=== PATIENT | female | born 1980 | race Caucasian/White ===

== ENCOUNTER 2018-01-04 04:43 | Emergency (ER) | payer SELFPAY ==
[2018-01-04 05:45] LABS: Barbiturates NEGATIVE (NEGATIVE); Benzodiazepines NEGATIVE (NEGATIVE); Cocaine NEGATIVE (NEGATIVE); METHAMPHETAM NEGATIVE (NEGATIVE); Methadone NEGATIVE (NEGATIVE); Opiates POSITIVE (NEGATIVE); Phencyclidine NEGATIVE (NEGATIVE); THC Cannibis POSITIVE (NEGATIVE)
[2018-01-04 05:46] LABS: Urine Blood NEGATIVE (NEG); Urine Glucose NEGATIVE (NEG); Urine Protein NEGATIVE (NEG); Urine Specific Gravity >1.030 (1.005-1.030)
[2018-01-04 05:53] LABS: Absolute Lymphocytes (CBC) 3.1 K/uL (0.7-4.9); Absolute Monocytes 0.9 K/uL (0.1-1.3); Absolute Neutrophil 6.5 K/uL (1.8-8.0); Basophils % 0.8 % (0-1.3); Eosinophils % 2.6 % (0-4.4); Hematocrit 35.2 % (36.0-45.0); Lymphocytes % 28.7 % (15.3-44.8); MCH 32.2 pg (27.0-35.0); MCV 93.5 fL (80-100); MPV 9.2 fL (7.6-11.3); Monocytes % 8.2 % (3.3-12.3); RBC Red Blood Cell Count 3.76 M/uL (3.86-4.86)
[2018-01-04 05:54] LABS: ALT/SGPT 26 U/L (12-78); AST/SGOT 12 U/L (15-37); Albumin 3.5 g/dL (3.4-5.0); Alkaline Phosphatase 70 U/L (45-117); BUN Blood Urea Nitrogen 10 mg/dL (7-18); Bicarbonate 26 mmol/L (21-32); Bilirubin Direct < 0.1 mg/dL (0-0.2); Bilirubin Total 0.1 mg/dL (0.2-1.0); CKMB Creatine Kinase MB < 1.0 ng/mL (0.3-3.6); Creatine Phosphokinase 84 U/L (26-192); Glucose Level 87 mg/dL (74-106); Lipase 158 U/L (73-393); NT PRO-BNP 50 pg/mL (<125); Potassium 4.1 mmol/L (3.5-5.1); Protein, Total 6.6 g/dL (6.4-8.2); Sodium Level 143 mmol/L (136-145); Troponin (Emerg Dept Use Only) < 0.02 ng/mL (0.0-0.045)
[2018-01-04] MEDS ORDERED: CEFTRIAXONE/SWI 1gm 1 GM/10 ML SYR ONE (06:18)
[2018-01-04] MEDS ORDERED: ASPIRIN 81 MG CHEWABLE TABLET ONE (06:18)
[2018-01-04 06:27] LABS: Protime INR 1.01
--- NOTE | 2018-01-04 06:51 | EDPHYS ---
Physician Documentation [facility] Name: Marian Mack Age: 37 yrs Sex: Female : 1980 Arrival Date: 01/04/2018 Time: 04:43 Bed 8 Private MD: ED Physician Mike Montoya HPI: 01/04 05:34 This 37 yrs old Female presents to ER via Ambulatory with complaints of Chest dandre Pain. 05:34 The patient or guardian reports chest pain that is located primarily in the anterior dandre chest wall, bilaterally. The pain does not radiate. 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 - Social history:: Smoking status: Patient uses tobacco products, smokes one pack cigarettes per day. - Ebola Screening: : Patient negative for fever greater than or equal to 101.5 degrees Fahrenheit, and additional compatible Ebola Virus Disease symptoms. ROS: 05:35 Constitutional: Negative for fever, chills, and weight loss, Eyes: Negative for injury, dandre pain, redness, and discharge, ENT: Negative for injury, pain, and discharge, Neck: Negative for injury, pain, and swelling, Abdomen/GI: Negative for abdominal pain, nausea, vomiting, diarrhea, and constipation, Back: Negative for injury and pain, : Negative for injury, bleeding, discharge, and swelling, MS/Extremity: Negative for injury and deformity, Skin: Negative for injury, rash, and discoloration, Neuro: Negative for headache, weakness, numbness, tingling, and seizure, Psych: Negative for depression, anxiety, suicide ideation, homicidal ideation, and hallucinations, Allergy/Immunology: Negative for hives, rash, and allergies, Endocrine: Negative for neck swelling, polydipsia, polyuria, polyphagia, and marked weight changes, Hematologic/Lymphatic: Negative for swollen nodes, abnormal bleeding, and unusual bruising. 05:35 Cardiovascular: Positive for chest pain. 05:35 Respiratory: Positive for cough, with yellow sputum. Exam: 05:35 Constitutional: This is a well developed, well nourished patient who is awake, alert, dandre and in no acute distress. Head/Face: Normocephalic, atraumatic. Eyes: Pupils equal round and reactive to light, extra-ocular motions intact. Lids and lashes normal. Conjunctiva and sclera are non-icteric and not injected. Cornea within normal limits. Periorbital areas with no swelling, redness, or edema. Neck: Trachea midline, no thyromegaly or masses palpated, and no cervical lymphadenopathy. Supple, full range of motion without nuchal rigidity, or vertebral point tenderness. No Meningismus. Chest/axilla: Normal chest wall appearance and motion. Nontender with no deformity. No lesions are appreciated. Abdomen/GI: Soft, non-tender, with normal bowel sounds. No distension or tympany. No guarding or rebound. No evidence of tenderness throughout. Back: No spinal tenderness. No costovertebral tenderness. Full range of motion. Skin: Warm, dry with normal turgor. Normal color with no rashes, no lesions, and no evidence of cellulitis. MS/ Extremity: Pulses equal, no cyanosis. Neurovascular intact. Full, normal range of motion. Neuro: Awake and alert, GCS 15, oriented to person, place, time, and situation. Cranial nerves II-XII grossly intact. Motor strength 5/5 in all extremities. Sensory grossly intact. Cerebellar exam normal. Normal gait. Psych: Awake, alert, with orientation to person, place and time. Behavior, mood, and affect are within normal limits. 05:35 ENT: Posterior pharynx: erythema, that is mild. 05:35 Cardiovascular: Rate: normal, Rhythm: regular, Pulses: no pulse deficits are appreciated, Heart sounds: normal, Edema: is not appreciated, JVD: is not appreciated. 05:35 Musculoskeletal/extremity: ROM: no acute changes, intact in all extremities, full active range of motion, full passive range of motion, Circulation is intact in all extremities. Sensation intact. Compartment Syndrome exam of affected extremity: is normal. DVT Exam: No signs of deep vein thrombosis. no pain, no swelling, no tenderness, negative Homans' sign noted on exam, no appreciated bluish discoloration, no erythema, no increased warmth. Vital Signs: 05:04 BP 108 / 61; Pulse 71; Resp 19 S; Temp 98.0(O); Pulse Ox 97% on R/A; Weight 65.77 kg j (R); Height 5 ft. 9 in. (175.26 cm) (R); Pain 6/10; 06:46 BP 104 / 65; Pulse 56; Resp 19 S; Pulse Ox 99% on R/A; jd3 05:04 Body Mass Index 21.41 (65.77 kg, 175.26 cm) j MDM: 05:26 Patient medically screened. dandre 01/04 05:06 Order name: Basic Metabolic Panel; Complete Time: 06:17 [facility] 01/04 06:33 Interpretation: Normal except: CL 111; GFR 82. cp 01/04 05:06 Order name: CBC with Diff; Complete Time: 06:17 [facility] 01/04 06:34 Interpretation: Normal except: RBC 3.76; HCT 35.2; MCV 93.5; PLT 413; RDW 16.5. cp 01/04 05:06 Order name: Ckmb; Complete Time: 06: [facility] 01/04 05:06 Order name: CPK; Complete Time: 06:17 [facility] 01/04 05:06 Order name: LFT's; Complete Time: 06: [facility] 01/04 06:34 Interpretation: Normal except: AST 12; BILIT 0.1. cp 01/04 05:06 Order name: Magnesium; Complete Time: 06:17 [facility] 01/04 05:06 Order name: NT PRO-BNP; Complete Time: 06: [facility] 01/04 05:06 Order name: PT-INR; Complete Time: 06:33 [facility] 01/04 05:06 Order name: Ptt, Activated; Complete Time: 06:33 [facility] 01/04 05:06 Order name: Troponin (emerg Dept Use Only); Complete Time: 06: [facility] 01/04 05:10 Order name: UDS; Complete Time: 06: [facility] 01/04 06:34 Interpretation: Normal except: THC POSITIVE; OPI POSITIVE. cp 01/04 05:19 Order name: Urine Dipstick--Ancillary (enter results); Complete Time: 06:17 tx 01/04 05:19 Order name: Urine --Ancillary (enter results); Complete Time: 06:17 mt 01/04 05:27 Order name: Lipase dandre 01/04 05:06 Order name: Urine Test (obtain specimen); Complete Time: 05:20 d3 01/04 05:06 Order name: XRAY Chest (1 view) [facility] 01/04 05:06 Order name: EKG; Complete Time: 05:07 d3 01/04 05:06 Order name: Cardiac monitoring; Complete Time: 05:20 jd3 01/04 05:06 Order name: EKG - Nurse/Tech; Complete Time: 05:06 d3 01/04 05:06 Order name: IV Saline Lock; Complete Time: 05:22 jd3 01/04 05:06 Order name: Labs collected and sent; Complete Time: 05:22 [facility] 01/04 05:06 Order name: O2 Per Protocol; Complete Time: 05:07 jd3 01/04 05:06 Order name: O2 Sat Monitoring; Complete Time: 05:07 [facility] 01/04 05:06 Order name: Urine Dipstick-Ancillary (obtain specimen); Complete Time: 05:20 [facility] 01/04 05:29 Order name: Lipase; Complete Time: 06:17 EDMS 01/04 05:40 Order name: D-Dimer; Complete Time: 06:33 EDMS 01/04 06:33 Interpretation: Within normal limits: D-DIMER < 215. cp Administered Medications: 06:18 Drug: Aspirin 81 mg Route: PO; lp1 06:27 Follow up: Response: No adverse reaction ak1 06:18 Drug: Rocephin - (cefTRIAXone) 1 grams Route: IVPB; Infused Over: 30 mins; Site: left lp1 hand; 07:08 Follow up: Response: No adverse reaction; IV Status: Completed infusion jd3 Disposition: 01/04/18 06:50 Discharged to Home. Impression: Chest pain, unspecified, Bronchitis, not specified as acute or chronic, Tobacco abuse counseling, Tobacco use. - Condition is Stable. - Discharge Instructions: Acute Bronchitis, Adult, Nonspecific Chest Pain, Upper Respiratory Infection, Adult, Nonspecific Chest Pain, Gubf-yx-Ditm, Upper Respiratory Infection, Adult, Vcyw-yj-Mrdg, Aspirin and Your Heart. - Prescriptions for Cheratussin AC 10- 100 mg/5 mL Oral liquid - take 10 milliliter by ORAL route every 4 hours; 150 milliliter. Pepcid 20 mg Oral Tablet - take 1 tablet by ORAL route every 12 hours for 10 days; 20 tablet. Zithromax Z- Charbel 250 mg Oral Tablet - take 1 tablet by ORAL route as directed for 5 days Day 1 - take two (2) tablets one time. Day 2, 3, 4 , 5 take one (1) tablet once daily.; 6 tablet. - Medication Reconciliation Form, Thank You Letter, Antibiotic Education, Prescription Opioid Use form. - Follow up: Private Physician; When: 2 - 3 days; Reason: Recheck today's complaints, Continuance of care, Re-evaluation by your physician. - Problem is new. - Symptoms have improved. Signatures: Dispatcher [employer] EDMS Mike Montoya MD MD cha Pena, Laura RN RN lp1 Mike Monson PA PA cp Davies, Jonathon, RN RN jd3 La, Lina MERINO ak1 Corrections: (The following items were deleted from the chart) 05:04 05:03 PMHx: Diverticulitis; jd3 jd3 05:28 05:27 Lipase ordered. EDMN EDMS 05:39 05:36 D-DIMER+COAG.LAB.BRZ ordered. EDMN EDMS 07:10 06:50 01/04/2018 06:50 Discharged to Home. Impression: Chest pain, unspecified; jd3 Bronchitis, not specified as acute or chronic; Tobacco abuse counseling; Tobacco use. Condition is Stable. Discharge Instructions: Acute Bronchitis, Adult, Nonspecific Chest Pain, Upper Respiratory Infection, Adult, Nonspecific Chest Pain, Jvjm-jy-Qfjv, Upper Respiratory Infection, Adult, Ewuj-mg-Eykb, Aspirin and Your Heart. Prescriptions for Cheratussin AC 10-100 mg/5 mL Oral liquid - take 10 milliliter by ORAL route every 4 hours; 150 milliliter, Pepcid 20 mg Oral Tablet - take 1 tablet by ORAL route every 12 hours for 10 days; 20 tablet, Zithromax Z-Charbel 250 mg Oral Tablet - take 1 tablet by ORAL route as directed for 5 days Day 1 - take two (2) tablets one time. Day 2, 3, 4 , 5 take one (1) tablet once daily.; 6 tablet. and Forms are Medication Reconciliation Form, Thank You Letter, Antibiotic Education, Prescription Opioid Use. Follow up: Private Physician; When: 2 - 3 days; Reason: Recheck today's complaints, Continuance of care, Re-evaluation by your physician. Problem is new. Symptoms have improved. cp
--- NOTE | 2018-01-04 06:51 | ER ---
Nurse's Notes [facility] Name: Marian Mack Age: 37 yrs Sex: Female : 1980 Arrival Date: 01/04/2018 Time: 04:43 Bed 8 Private MD: Diagnosis: Chest pain, unspecified;Bronchitis, not specified as acute or chronic;Tobacco abuse counseling;Tobacco use Presentation: 01/04 04:57 Presenting complaint: Patient states: "I am having chest started 0200 and my lips are jd3 numb. I also have this thing under my chin that seems to be swelling, my doctor said it was benign, but I don't know.". Transition of care: patient was not received from another setting of care. Onset of symptoms was January 04, 2018. Risk Assessment: Do you want to hurt yourself or someone else? Patient reports no desire to harm self or others. Initial Sepsis Screen: Does the patient meet any 2 criteria? No. Patient's initial sepsis screen is negative. Does the patient have a suspected source of infection? No. Patient's initial sepsis screen is negative. Care prior to arrival: None. 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 - Social history:: Smoking status: Patient uses tobacco products, smokes one pack cigarettes per day. - Ebola Screening: : Patient negative for fever greater than or equal to 101.5 degrees Fahrenheit, and additional compatible Ebola Virus Disease symptoms. Screenin:09 Abuse screen: Denies threats or abuse. Nutritional screening: No deficits noted. jd3 Tuberculosis screening: No symptoms or risk factors identified. Fall Risk Ambulatory Aid- None/Bed Rest/Nurse Assist (0 pts). Gait- Normal/Bed Rest/Wheelchair (0 pts) Mental Status- Oriented to own ability (0 pts). Total Sky Fall Scale indicates No Risk (0-24 pts). Assessment: 05:07 General: Appears uncomfortable, Behavior is calm, cooperative, appropriate for age. jd3 Pain: Complains of pain in chest Pain does not radiate. Pain currently is 6 out of 10 on a pain scale. Quality of pain is described as sharp, Pain began suddenly, 3 hours ago. Is continuous, Also complains of nausea. Neuro: Level of Consciousness is awake, alert, obeys commands, Oriented to person, place, time, situation. Cardiovascular: Heart tones S1 S2 present Capillary refill < 3 seconds Patient's skin is warm and dry. Rhythm is regular. Respiratory: Airway is patent Respiratory effort is even, unlabored, Respiratory pattern is regular, symmetrical, Breath sounds are clear bilaterally. GI: Abdomen is round non-distended, Bowel sounds present X 4 quads. Abd is soft and non tender X 4 quads. Reports nausea. : No signs and/or symptoms were reported regarding the genitourinary system. EENT: No signs and/or symptoms were reported regarding the EENT system. Derm: Skin is intact, Skin is dry, Skin is normal, Skin temperature is warm. Musculoskeletal: Circulation, motion, and sensation intact. Range of motion: intact in all extremities. 06:47 Reassessment: Patient appears in no apparent distress at this time. No changes from jd3 previously documented assessment. Patient and/or family updated on plan of care and expected duration. Pain level reassessed. Patient is alert, oriented x 3, equal unlabored respirations, skin warm/dry/pink. 07:09 Reassessment: Patient appears in no apparent distress at this time. No changes from jd3 previously documented assessment. Patient and/or family updated on plan of care and expected duration. Pain level reassessed. Patient is alert, oriented x 3, equal unlabored respirations, skin warm/dry/pink. Vital Signs: 05:04 BP 108 / 61; Pulse 71; Resp 19 S; Temp 98.0(O); Pulse Ox 97% on R/A; Weight 65.77 kg jd3 (R); Height 5 ft. 9 in. (175.26 cm) (R); Pain 6/10; 06:46 BP 104 / 65; Pulse 56; Resp 19 S; Pulse Ox 99% on R/A; jd3 05:04 Body Mass Index 21.41 (65.77 kg, 175.26 cm) jd3 ED Course: 04:43 Patient arrived in ED. mariana 04:57 William Reyes, RN is Primary Nurse. jd3 04:59 Triage completed. jd3 05:05 Arm band placed on. EKG completed in triage. Results shown to MD. jd3 05:09 Patient has correct armband on for positive identification. Placed in gown. Bed in low jd3 position. Call light in reach. Side rails up X 1. panel monitor on. Pulse ox on. NIBP on. 05:10 Patient maintains SpO2 saturation greater than 95% on room air. jd3 05:20 Inserted saline lock: 20 gauge in left hand, using aseptic technique. Blood collected. 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 05:21 Mike Montoya MD is Attending Physician. dandre 05:25 X-ray completed. Portable x-ray completed in exam room. Patient tolerated procedure kw well. 07:06 No provider procedures requiring assistance completed. ak1 07:07 No provider procedures requiring assistance completed. IV discontinued, intact, jd3 bleeding controlled, No redness/swelling at site. Pressure dressing applied. 07:17 XRAY Chest (1 view) In Process Unspecified. EDMS Administered Medications: 06:18 Drug: Aspirin 81 mg Route: PO; lp1 06:27 Follow up: Response: No adverse reaction ak1 06:18 Drug: Rocephin - (cefTRIAXone) 1 grams Route: IVPB; Infused Over: 30 mins; Site: left lp1 hand; 07:08 Follow up: Response: No adverse reaction; IV Status: Completed infusion jd3 Outcome: 06:50 Discharge ordered by . reba 07:07 Discharged to home ambulatory. jd3 07:07 Condition: stable 07:07 Discharge instructions given to patient, Instructed on discharge instructions, follow up and referral plans. medication usage, Demonstrated understanding of instructions, follow-up care, medications, Prescriptions given X 3. 07:10 Patient left the ED. jd3 Signatures: Dispatcher [employer] EDMS Mike Montoya MD MD cha Salyer, Edna es Whitley, Kimberlee kw Pena, Laura, WILBER RN lp1 Lina Tovar RN RN ak1 Mike Monson, PA William Phillips cp, RN RN jd3 Corrections: (The following items were deleted from the chart) 05:04 05:03 PMHx: Diverticulitis; jd3 jd3 07:11 07:07 Discharge instructions given to patient, Instructed on discharge instructions, jd3 follow up and referral plans. Demonstrated understanding of instructions, follow-up care, jd3
[2018-01-04 07:30] VITALS: TEMP 98
[2018-01-04 07:31] VITALS: BP 104/65; O2SAT 99
--- NOTE | 2018-01-04 07:44 | RAD REPORT ---
EXAM DESCRIPTION: Jonatan Single View01/04/2018 7:17 am CLINICAL HISTORY: Chest pain COMPARISON: none FINDINGS: The lungs appear clear of acute infiltrate. The heart is normal size IMPRESSION: No acute abnormalities displayed
--- NOTE | 2018-01-04 11:05 | EKG ---
Test Date: 2018-01-04 Test Time: 04:58:49 Document Preparation Specialist: BUSHRA MEASUREMENT RESULTS: Intervals: Rate: 66 HI: 132 QRSD: 102 QT: 412 QTc: 431 [place]: P: 31 HI: 132 QRS: 67 T: 15 INTERPRETIVE STATEMENTS: Normal sinus rhythm Incomplete right bundle branch block Borderline ECG Compared to ECG 07/05/2017 04:09:58 Incomplete right bundle-branch block now present Electronically Signed On 01-04-18 11:03:35 CDT by Forrest Garcia
== END 2018-01-04 07:10 | disposition home or self-care (01) ==
LOC: ER 04:43
DX: J40 Bronchitis, not specified as acute or chronic (principal); Z72.0 Tobacco use; Z71.6 Tobacco abuse counseling; Z85.41 Personal history of malignant neoplasm of cervix uteri; Z85.038 Personal history of other malignant neoplasm of large intestine
CPT/HCPCS: 36415; 71045; 80048; 80076; 80307; 81003; 81025; 82550; 82553; 83690; 83735; 83880; 84484; 85025; 85379; 85610; 85730; 93005; 96365; 99285; J0696

== ENCOUNTER 2018-04-20 11:50 | Inpatient (IN) | payer SELFPAY ==
[2018-04-20] MEDS ORDERED: NA CHLORIDE 0.9% 2,000 ML ONE (14:15)
[2018-04-20] MEDS ORDERED: FAMOTIDINE 20 MG/2 ML VIAL IV ONE (14:15)
[2018-04-20] MEDS ORDERED: MORPHINE 4 MG/ML SYR ONE (14:15)
[2018-04-20] MEDS ORDERED: ONDANSETRON 4 MG/2 ML VIAL ONE ×2 (14:15→17:26)
[2018-04-20 14:45] LABS: Absolute Lymphocytes (CBC) 2.7 K/uL (0.7-4.9); Absolute Monocytes 0.6 K/uL (0.1-1.3); Absolute Neutrophil 3.6 K/uL (1.8-8.0); Basophils % 1.1 % (0-1.3); Eosinophils % 2.1 % (0-4.4); Lymphocytes % 37.6 % (15.3-44.8); MPV 8.9 fL (7.6-11.3); Monocytes % 8.3 % (3.3-12.3); RBC Red Blood Cell Count 3.99 M/uL (3.86-4.86)
[2018-04-20 14:51] LABS: ALT/SGPT 15 U/L (12-78); AST/SGOT 10 U/L (15-37); Albumin 3.6 g/dL (3.4-5.0); Alkaline Phosphatase 71 U/L (45-117); BUN Blood Urea Nitrogen 11 mg/dL (7-18); Bicarbonate 25 mmol/L (21-32); Bilirubin Direct < 0.1 mg/dL (0-0.2); Bilirubin Total 0.2 mg/dL (0.2-1.0); Glucose Level 74 mg/dL (74-106); Lipase 52 U/L (73-393); Potassium 4.3 mmol/L (3.5-5.1); Protein, Total 6.8 g/dL (6.4-8.2); Sodium Level 141 mmol/L (136-145)
--- NOTE | 2018-04-20 16:41 | EDPHYS ---
Physician Documentation [facility] Name: Marian Mack Age: 38 yrs Sex: Female : 1980 Arrival Date: 04/20/2018 Time: 11:52 Bed 8 Private MD: None, None ED Physician Mike Montoya HPI: 04/20 14:00 This 38 yrs old Female presents to ER via Ambulatory with complaints of dandre Abdominal Pain. 14:00 The patient presents with abdominal pain in the epigastric area, in the upper abdomen, dandre in the right upper quadrant, abdominal distention in the upper abdomen. Onset: The symptoms/episode began/occurred 4 day(s) ago. The symptoms do not radiate. Associated signs and symptoms: none. The symptoms are described as constant, crampy. Modifying factors: The symptoms are alleviated by nothing, the symptoms are aggravated by food. Severity of pain: At its worst the pain was moderate in the emergency department the pain is unchanged. The patient has experienced a previous episode, last month. 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 - Social history:: Smoking status: Patient uses tobacco products, smokes one pack cigarettes per day. Patient uses street drugs, marijuana. - Ebola Screening: : Patient negative for fever greater than or equal to 101.5 degrees Fahrenheit, and additional compatible Ebola Virus Disease symptoms Patient denies exposure to infectious person Patient denies travel to an Ebola-affected area in the 21 days before illness onset No symptoms or risks identified at this time. - Family history:: not pertinent. ROS: 14:00 Constitutional: Negative for fever, chills, and weight loss, Eyes: Negative for injury, dandre pain, redness, and discharge, ENT: Negative for injury, pain, and discharge, Neck: Negative for injury, pain, and swelling, Cardiovascular: Negative for chest pain, palpitations, and edema, Respiratory: Negative for shortness of breath, cough, wheezing, and pleuritic chest pain, Back: Negative for injury and pain, : Negative for injury, bleeding, discharge, and swelling, MS/Extremity: Negative for injury and deformity, Skin: Negative for injury, rash, and discoloration, Neuro: Negative for headache, weakness, numbness, tingling, and seizure, Psych: Negative for depression, anxiety, suicide ideation, homicidal ideation, and hallucinations, Allergy/Immunology: Negative for hives, rash, and allergies, Endocrine: Negative for neck swelling, polydipsia, polyuria, polyphagia, and marked weight changes, Hematologic/Lymphatic: Negative for swollen nodes, abnormal bleeding, and unusual bruising. 14:00 Respiratory: Positive for cough. 14:00 Abdomen/GI: Positive for abdominal pain, nausea and vomiting, abdominal distension. Exam: 14:02 Constitutional: This is a well developed, well nourished patient who is awake, alert, dandre and in no acute distress. Head/Face: Normocephalic, atraumatic. Eyes: Pupils equal round and reactive to light, extra-ocular motions intact. Lids and lashes normal. Conjunctiva and sclera are non-icteric and not injected. Cornea within normal limits. Periorbital areas with no swelling, redness, or edema. ENT: Nares patent. No nasal discharge, no septal abnormalities noted. Tympanic membranes are normal and external auditory canals are clear. Oropharynx with no redness, swelling, or masses, exudates, or evidence of obstruction, uvula midline. Mucous membranes moist. Neck: Trachea midline, no thyromegaly or masses palpated, and no cervical lymphadenopathy. Supple, full range of motion without nuchal rigidity, or vertebral point tenderness. No Meningismus. Chest/axilla: Normal chest wall appearance and motion. Nontender with no deformity. No lesions are appreciated. Cardiovascular: Regular rate and rhythm with a normal S1 and S2. No gallops, murmurs, or rubs. Normal PMI, no JVD. No pulse deficits. Respiratory: Lungs have equal breath sounds bilaterally, clear to auscultation and percussion. No rales, rhonchi or wheezes noted. No increased work of breathing, no retractions or nasal flaring. Back: No spinal tenderness. No costovertebral tenderness. Full range of motion. Skin: Warm, dry with normal turgor. Normal color with no rashes, no lesions, and no evidence of cellulitis. MS/ Extremity: Pulses equal, no cyanosis. Neurovascular intact. Full, normal range of motion. Neuro: Awake and alert, GCS 15, oriented to person, place, time, and situation. Cranial nerves II-XII grossly intact. Motor strength 5/5 in all extremities. Sensory grossly intact. Cerebellar exam normal. Normal gait. Psych: Awake, alert, with orientation to person, place and time. Behavior, mood, and affect are within normal limits. 14:02 Abdomen/GI: Inspection: abdomen appears normal, Palpation: mild abdominal tenderness, in the right upper quadrant. Vital Signs: 12:14 BP 123 / 73; Pulse 96; Resp 20; Temp 99.2; Pulse Ox 99% on R/A; Weight 68.04 kg; Height aj 5 ft. 9 in. (175.26 cm); 13:30 BP 90 / 63; Pulse 67; Resp 19; Pulse Ox 98% ; sv 14:27 BP 100 / 64; Pulse 61; Resp 16; Pulse Ox 99% ; sv 15:30 BP 101 / 69; Pulse 66; Resp 13; Pulse Ox 100% ; sv 16:00 BP 101 / 67; Pulse 59; Resp 13; Pulse Ox 99% ; sv 17:30 BP 105 / 60; Pulse 61; Resp 16; Pulse Ox 100% ; sv 12:14 Body Mass Index 22.15 (68.04 kg, 175.26 cm) aj MDM: 13:33 Patient medically screened. [facility] 14:02 Data reviewed: vital signs, nurses notes. [facility] 04/20 13:53 Order name: Basic Metabolic Panel; Complete Time: 15:02 04/20 13:53 Order name: CBC with Diff; Complete Time: 15:02 04/20 13:53 Order name: Creatinine for Radiology; Complete Time: 15:02 04/20 13:53 Order name: Hepatic Function; Complete Time: 15:02 04/20 13:53 Order name: Lipase; Complete Time: 15:02 sv 04/20 16:49 Order name: Urine Dipstick--Ancillary (enter results) 04/20 13:59 Order name: US Abdomen Limited; Complete Time: 17:17 dandre 04/20 15:04 Order name: CT Abd/Pelvis - W/Contrast [facility] 04/20 16:49 Order name: Urine --Ancillary (enter results) 04/20 16:49 Order name: Urine Culture 04/20 16:58 Order name: Urine --Ancillary; Complete Time: 17:17 EDMO 04/20 16:58 Order name: Urine Dipstick-Ancillary; Complete Time: 17:17 EDMO 04/20 17:10 Order name: CT; Complete Time: 17:17 EDMO 04/20 13:53 Order name: IV Saline Lock; Complete Time: 14:23 sv 04/20 13:53 Order name: Labs collected and sent; Complete Time: 14:23 sv 04/20 16:35 Order name: Urine Dipstick-Ancillary (obtain specimen); Complete Time: 16:37 [facility] 04/20 16:35 Order name: Urine Test (obtain specimen); Complete Time: 16:37 [facility] Administered Medications: 14:10 Drug: NS 0.9% 1000 ml Route: IV; Rate: 1 bolus; Site: left forearm; sv 15:00 Follow up: Response: No adverse reaction; IV Status: Completed infusion; IV Intake: sv 1000ml 14:10 Drug: Zofran 4 mg Route: IVP; Site: left forearm; sv 16:20 Follow up: Response: No adverse reaction sv 14:10 Drug: NS 0.9% 1000 ml Route: IV; Rate: 1 bolus; Site: left forearm; sv 15:00 Follow up: Response: No adverse reaction; IV Status: Completed infusion; IV Intake: sv 1000ml 14:12 Drug: morphine 4 mg Route: IVP; Site: left forearm; sv 16:20 Follow up: Response: No adverse reaction sv 14:14 Drug: Pepcid 20 mg Route: IVP; Site: left forearm; sv 16:20 Follow up: Response: No adverse reaction sv 17:18 Drug: Zofran 4 mg Route: IVP; Site: right forearm; sv 17:30 Follow up: Response: No adverse reaction sv 17:20 Drug: fentaNYL (PF) 25 mcg Route: IVP; Site: right forearm; sv 17:30 Follow up: Response: No adverse reaction sv 17:23 Drug: Zosyn 3.375 grams Route: IVPB; Infused Over: 60 mins; Site: right forearm; sv 18:25 Follow up: Response: No adverse reaction; IV Status: Infusion continued upon admission sv Disposition: 04/20/18 16:40 Hospitalization ordered by Scooter Pantoja for Observation. Preliminary diagnosis are Abdominal tenderness, Urinary tract infection, site not specified, Cholelithiasis, Left sided colitis. - Bed requested for Telemetry/MedSurg (observation). - Status is Observation. sv - Condition is Stable. - Problem is new. - Symptoms have improved. UTI on Admission? Yes Signatures: Dispatcher [employer] EDIvy Connelly RN RN sv Myers, Amanda, RN RN aj Anderson, Corey, MD MD cha Fitzgerald, Diane, RN RN df Corrections: (The following items were deleted from the chart) 16:48 16:40 Hospitalization Ordered by Scooter Pantoja MD for Observation. Preliminary dandre diagnosis is Abdominal tenderness. Bed requested for Telemetry/MedSurg (observation). Status is Observation. Condition is Stable. Problem is new. Symptoms have improved. UTI on Admission? No. dandre 17:17 16:48 04/20/2018 16:40 Hospitalization Ordered by Scooter Pantoja MD for Observation. dandre Preliminary diagnosis is Abdominal tenderness; Urinary tract infection, site not specified. Bed requested for Telemetry/MedSurg (observation). Status is Observation. Condition is Stable. Problem is new. Symptoms have improved. UTI on Admission? Yes. dandre 17:20 17:17 04/20/2018 16:40 Hospitalization Ordered by Scooter Pantoja MD for Observation. df Preliminary diagnosis is Abdominal tenderness; Urinary tract infection, site not specified; Cholelithiasis; Left sided colitis. Bed requested for Telemetry/MedSurg (observation). Status is Observation. Condition is Stable. Problem is new. Symptoms have improved. UTI on Admission? Yes. dandre 18:26 17:20 04/20/2018 16:40 Hospitalization Ordered by Scooter Pantoja MD for Observation. sv Preliminary diagnosis is Abdominal tenderness; Urinary tract infection, site not specified; Cholelithiasis; Left sided colitis. Bed requested for Telemetry/MedSurg (observation). Status is Observation. Condition is Stable. Problem is new. Symptoms have improved. UTI on Admission? Yes. df
--- NOTE | 2018-04-20 16:41 | ER ---
Nurse's Notes [facility] Name: Marian Mack Age: 38 yrs Sex: Female : 1980 Arrival Date: 04/20/2018 Time: 11:52 Bed 8 Private MD: None, None Diagnosis: Abdominal tenderness;Urinary tract infection, site not specified;Cholelithiasis;Left sided colitis Presentation: 04/20 12:11 Presenting complaint: Patient states: RUQ pain with N/V for 3 days. Patient reports she aj was supposed to have gall bladder removed but has not, and this pain feels the same. Patient ambulated with no difficulty outside to smoke. Transition of care: patient was not received from another setting of care. Onset of symptoms was April 16, 2018. Risk Assessment: Do you want to hurt yourself or someone else? Patient reports no desire to harm self or others. Initial Sepsis Screen: Does the patient meet any 2 criteria? No. Patient's initial sepsis screen is negative. Does the patient have a suspected source of infection? No. Patient's initial sepsis screen is negative. Care prior to arrival: None. 12:11 Method Of Arrival: Ambulatory 12:11 Acuity: NOVA 3 aj Triage Assessment: 12:14 General: Appears in no apparent distress. uncomfortable, Behavior is calm, cooperative, aj appropriate for age. Pain: Complains of pain in right upper quadrant. Neuro: Level of Consciousness is awake, alert, obeys commands, Oriented to person, place, time, situation, Appropriate for age. Respiratory: Airway is patent Respiratory effort is even, unlabored, Respiratory pattern is regular, symmetrical. GI: Reports upper abdominal pain, nausea, vomiting. Derm: Skin is intact, is healthy with good turgor, Skin is pink, warm \\T\\ dry. normal. 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 - Social history:: Smoking status: Patient uses tobacco products, smokes one pack cigarettes per day. Patient uses street drugs, marijuana. - Ebola Screening: : Patient negative for fever greater than or equal to 101.5 degrees Fahrenheit, and additional compatible Ebola Virus Disease symptoms Patient denies exposure to infectious person Patient denies travel to an Ebola-affected area in the 21 days before illness onset No symptoms or risks identified at this time. - Family history:: not pertinent. Screenin:10 Abuse screen: Denies threats or abuse. Denies injuries from another. Nutritional sv screening: No deficits noted. Tuberculosis screening: No symptoms or risk factors identified. Fall Risk None identified. Assessment: 14:10 General: Appears in no apparent distress. uncomfortable, Behavior is calm, cooperative, sv appropriate for age. Pain: Complains of pain in right upper quadrant Pain currently is 10 out of 10 on a pain scale. Neuro: Level of Consciousness is awake, alert, obeys commands, Oriented to person, place, time, situation, Moves all extremities. Full function. Respiratory: Respiratory effort is even, unlabored, Respiratory pattern is regular, symmetrical. GI: Abd is soft X 4 quads Abdomen is tender to palpation in right upper quadrant Reports nausea, vomiting. Derm: Skin is normal. 15:37 Reassessment: Pt finished drinking oral contrast, CT notified. hb 16:32 Reassessment: Patient appears in no apparent distress at this time. Patient and/or sv family updated on plan of care and expected duration. Pain level reassessed. Patient is alert, oriented x 3, equal unlabored respirations, skin warm/dry/pink. 17:18 Reassessment: Patient appears in no apparent distress at this time. No changes from sv previously documented assessment. Patient and/or family updated on plan of care and expected duration. Pain level reassessed. Patient is alert, oriented x 3, equal unlabored respirations, skin warm/dry/pink. 18:00 Reassessment: Patient appears in no apparent distress at this time. Patient and/or sv family updated on plan of care and expected duration. Pain level reassessed. Patient is alert, oriented x 3, equal unlabored respirations, skin warm/dry/pink. Vital Signs: 12:14 BP 123 / 73; Pulse 96; Resp 20; Temp 99.2; Pulse Ox 99% on R/A; Weight 68.04 kg; Height aj 5 ft. 9 in. (175.26 cm); 13:30 BP 90 / 63; Pulse 67; Resp 19; Pulse Ox 98% ; sv 14:27 BP 100 / 64; Pulse 61; Resp 16; Pulse Ox 99% ; sv 15:30 BP 101 / 69; Pulse 66; Resp 13; Pulse Ox 100% ; sv 16:00 BP 101 / 67; Pulse 59; Resp 13; Pulse Ox 99% ; sv 17:30 BP 105 / 60; Pulse 61; Resp 16; Pulse Ox 100% ; sv 12:14 Body Mass Index 22.15 (68.04 kg, 175.26 cm) aj ED Course: 11:52 Patient arrived in ED. sb2 11:52 None, None is Private Physician. sb2 12:12 Triage completed. aj 12:14 Arm band placed on left wrist. Patient placed in waiting room, Patient notified of wait aj time. 13:33 Mike Montoya MD is Attending Physician. dandre 13:53 Ivy Cool, WILBER is Primary Nurse. sv 14:10 Patient has correct armband on for positive identification. Placed in gown. Bed in low sv position. Call light in reach. greenhouse manager on. Pulse ox on. NIBP on. Door closed. Warm blanket given. Head of bed elevated. 14:10 Initial lab(s) drawn, by ga, sent to lab. Inserted saline lock: 20 gauge in left sv forearm, using aseptic technique. Blood collected. Flushed left forearm with 5 ml normal saline. 14:25 Noise minimized. Lights dimmed. sv 14:26 Awaiting lab results, Awaiting: Ultrasound. sv 14:43 US Abdomen Limited In Process Unspecified. EDMS 14:56 Ultrasound completed. Patient tolerated well. lc3 16:[address] Scan. sv 16:[address] nj 16:39 Scooter Pantoja MD is Hospitalizing Provider. dandre 16:50 Inserted saline lock: 22 gauge in right forearm, using aseptic technique. ,using sv aseptic technique. diffusics Flushed right forearm with 5 ml normal saline. 16:53 CT completed. Patient moved back from CT. vm2 16:53 Urine --Ancillary (enter results) Sent. sv 16:53 Urine Dipstick--Ancillary (enter results) Sent. sv 17:29 CT Abd/Pelvis - W/Contrast Sent. sv 18:24 No provider procedures requiring assistance completed. Patient admitted, IV remains in sv place. intact. Administered Medications: 14:10 Drug: NS 0.9% 1000 ml Route: IV; Rate: 1 bolus; Site: left forearm; sv 15:00 Follow up: Response: No adverse reaction; IV Status: Completed infusion; IV Intake: sv 1000ml 14:10 Drug: Zofran 4 mg Route: IVP; Site: left forearm; sv 16:20 Follow up: Response: No adverse reaction sv 14:10 Drug: NS 0.9% 1000 ml Route: IV; Rate: 1 bolus; Site: left forearm; sv 15:00 Follow up: Response: No adverse reaction; IV Status: Completed infusion; IV Intake: sv 1000ml 14:12 Drug: morphine 4 mg Route: IVP; Site: left forearm; sv 16:20 Follow up: Response: No adverse reaction sv 14:14 Drug: Pepcid 20 mg Route: IVP; Site: left forearm; sv 16:20 Follow up: Response: No adverse reaction sv 17:18 Drug: Zofran 4 mg Route: IVP; Site: right forearm; sv 17:30 Follow up: Response: No adverse reaction sv 17:20 Drug: fentaNYL (PF) 25 mcg Route: IVP; Site: right forearm; sv 17:30 Follow up: Response: No adverse reaction sv 17:23 Drug: Zosyn 3.375 grams Route: IVPB; Infused Over: 60 mins; Site: right forearm; sv 18:25 Follow up: Response: No adverse reaction; IV Status: Infusion continued upon admission sv Intake: 15:00 IV: 1000ml; Total: 1000ml. sv 15:00 IV: 1000ml; Total: 2000ml. sv Outcome: 16:40 Decision to Hospitalize by Provider. dandre 18:00 Admitted to Med/surg accompanied by tech, family with patient, via wheelchair, room sv 207, with chart, Report called to Adiel MERINO 18:00 Condition: stable 18:00 Instructed on the need for admit. 18:26 Patient left the ED. sv Signatures: Dispatcher [employer] Ivy Chaney RN RN sv Myers, Amanda, RN RN aj Anderson, Corey, MD MD cha Cunningham, Laulita lc3 Baxter, Heather, Tylor Roque RN, Victoria 2 Rashida Molina 2 Corrections: (The following items were deleted from the chart) 18:24 18:00 Admitted to Med/surg accompanied by tech, family with patient, via wheelchair, sv with chart, Report called to Adiel arias
[2018-04-20 16:58] LABS: Urine Blood 2+ (NEG); Urine Glucose NEGATIVE (NEG); Urine Protein NEGATIVE (NEG); Urine Specific Gravity 1.025 (1.005-1.030); Urine pH 5.5 (5.0-7.0)
--- NOTE | 2018-04-20 17:09 | RAD REPORT ---
EXAM DESCRIPTION: CT - Abdomen Pelvis W Contrast - 04/20/2018 4:56 pm CLINICAL HISTORY: Abdominal pain. Right upper quadrant pain and vomiting COMPARISON: 2016 TECHNIQUE: Computed axial tomography of the abdomen and pelvis was obtained. 100 cc Isovue-300 is ad ministered intravenously. Oral contrast was given.[address] scans are performed using dose optimization technique as appropriate and may include automated exposure control or mA/KV adjustment according to patient size. FINDINGS: Left lobe of the liver is prominent. Periportal edema is seen 1Spleen, pancreas, adrenals and kidneys appear unremarkable. The wall of portions of the left colon appear mildly thickened. There is no evidence of diverticulitis Mild gallbladder distention 2 centimeter hemorrhagic left ovarian cyst without significant free fluid IMPRESSION: Mild gallbladder distention Portions of the wall of colon appear mildly thickened. This may simply be secondary to incomplete dis tention. A mild colitis is another consideration
--- NOTE | 2018-04-20 17:10 | RAD REPORT ---
EXAM DESCRIPTION: US - Abdomen Exam Limited - 04/20/2018 2:58 pm CLINICAL HISTORY: Abdominal pain. COMPARISON: 2017 FINDINGS: The gallbladder wall is not thickened. A gallstone is not seen. Gallbladder is mildly dis tended. Small amount of sludge is present The biliary tree is normal caliber. IMPRESSION: Mild gallbladder distention with small amount of sludge
[2018-04-20] MEDS ORDERED: PIPER/TAZO/NS 3.375gm 3.375 GM/100 ML BAG ONE (17:13)
[2018-04-20] MEDS ORDERED: FENTANYL CITR 100 MCG/2 ML ONE (17:26)
[2018-04-20] MEDS: NA CHLORIDE 0.9% 1,000 ML IV SCH ×2 (18:00→19:15)
[2018-04-20] MEDS ORDERED: ACETAMINOPHEN 500 MG TAB PO PRN (18:00)
[2018-04-20] MEDS: PIPER/TAZO/NS 3.375gm 3.375 GM/100 ML BAG IVPB SCH (18:30)
[2018-04-20 19:08] VITALS: BMI 24.5
[2018-04-20] MEDS ORDERED: INFLUENZA VACCINE (for 3y+) 0.5 ML DOSE IMVAC ONE (19:19)
[2018-04-20 19:44] LABS: Urine Appearance CLEAR; Urine Bilirubin NEGATIVE (NEG); Urine Blood 3+ (NEG); Urine Color YELLOW; Urine Glucose NEGATIVE (NEG); Urine Protein NEGATIVE (NEG); Urine Specific Gravity >=1.030 (1.005-1.030); Urine Urobilinogen 0.2 mg/dL (0.2-1.0)
[2018-04-20 19:52] LABS: Urine Microscopic Reflex ORDER UMIC
[2018-04-20 19:59] LABS: Urine Bacteria <20 /HPF (<20); Urine RBC <5 /HPF (NONE SEEN)
[2018-04-20 20:00] LABS: Urine Culture Reflex Order NOT NEEDED
[2018-04-20] MEDS: MORPHINE 4 MG/ML SYR IV PRN (21:41)
[2018-04-20] MEDS: FAMOTIDINE 20 MG/2 ML VIAL IV SCH (21:43)
[2018-04-20] MEDS: ONDANSETRON 4 MG/2 ML VIAL IV PRN (23:22)
[2018-04-21] MEDS: PIPER/TAZO/NS 3.375gm 3.375 GM/100 ML BAG IVPB SCH ×3 (01:01→16:27)
[2018-04-21] MEDS: MORPHINE 4 MG/ML SYR IV PRN ×4 (01:08→20:23)
[2018-04-21] MEDS: ONDANSETRON 4 MG/2 ML VIAL IV PRN ×2 (05:43→22:34)
[2018-04-21 05:48] LABS: Absolute Lymphocytes (CBC) 3.4 K/uL (0.7-4.9); Absolute Monocytes 0.7 K/uL (0.1-1.3); Absolute Neutrophil 3.3 K/uL (1.8-8.0); Basophils % 0.7 % (0-1.3); Hematocrit 35.4 % (36.0-45.0); Lymphocytes % 43.9 % (15.3-44.8); MPV 9.1 fL (7.6-11.3); Monocytes % 9.1 % (3.3-12.3); RBC Red Blood Cell Count 3.66 M/uL (3.86-4.86)
[2018-04-21] MEDS: NA CHLORIDE 0.9% 1,000 ML IV SCH ×4 (05:48→20:22)
[2018-04-21 06:03] LABS: ALT/SGPT 22 U/L (12-78); AST/SGOT 9 U/L (15-37); Albumin 3.4 g/dL (3.4-5.0); Alkaline Phosphatase 66 U/L (45-117); BUN Blood Urea Nitrogen 8 mg/dL (7-18); Bicarbonate 24 mmol/L (21-32); Bilirubin Direct < 0.1 mg/dL (0-0.2); Bilirubin Total 0.1 mg/dL (0.2-1.0); Glucose Level 78 mg/dL (74-106); Lipase 85 U/L (73-393); Sodium Level 143 mmol/L (136-145)
[2018-04-21] MEDS ORDERED: PNEUMOCOCCAL VACCINE 0.5 ML IMVAC ONE (09:00)
[2018-04-21] MEDS: FAMOTIDINE 20 MG/2 ML VIAL IV SCH ×2 (09:05→20:23)
[2018-04-21] MEDS ORDERED: PROPOFOL 200 MG/20 ML VIAL IV ONE (10:36)
[2018-04-21] MEDS ORDERED: FENTANYL CITR 100 MCG/2 ML ONE ×2 (10:36→11:25)
[2018-04-21] MEDS ORDERED: LIDOCAINE 2% MPF 5 ML VIAL ONE (10:36)
[2018-04-21] MEDS ORDERED: ROCURONIUM 50 MG/5 ML VIAL IV ONE (10:37)
[2018-04-21] MEDS ORDERED: KETOROLAC 30 MG/ML INJ ONE (11:11)
[2018-04-21] MEDS ORDERED: DEXAMETHASONE 10 MG/ML VIAL ONE (11:11)
[2018-04-21] MEDS ORDERED: ONDANSETRON 4 MG/2 ML VIAL ONE (11:12)
--- NOTE | 2018-04-21 12:41 | P.OP ---
Preoperative diagnosis: Chronic cholecystitis and biliary colic Postoperative diagnosis: The same Primary procedure: Laparoscopic DeBakey converted to an open cholecystectomy Anesthesia: The general Estimated blood loss: Less than 20 cc Specimen: 1 gallbladder Findings: Marked intra-abdominal adhesions around the umbilicus Operative Technique: The patient brought to the operating room placed supine on the table. After the induction of adequate general endotracheal anesthesia, the area of the abdomen was prepped with a DuraPrep solution, and she was draped in usual aseptic manner. The turning attention towards the umbilicus we stayed off of this maneuver prior surgery a skin incision was made. This was brought down to the anterior sheath of the rectus muscles in encounter in the posterior sheath we down to the peritoneal cavity. We created a small pneumo peritoneum in the area that we had entered but there were dense adhesions around this area and we could not safely proceed. A few areas that we were able to see that we were under just omentum below the lightest did include we could not do this laparoscopically. Hence we converted to an open procedure. A right subcostal scissor was made. This brought down through the skin and subcutaneous tissue. The fascia over the rectus muscle was opened. The muscles then divided. The posterior sheath was grasped between hemostats and sharply incised to allow access to the peritoneal cavity. I then this upper portion of the abdomen and the area was without adhesions. We were able to visualize a markedly distended gallbladder. A grasper was placed on the fundus. The gallbladder was now taken down in retrograde manner. The cystic duct and artery were each identified. These were clipped and divided in the usual manner. The area was then irrigated with a saline solution until the effluent was clear. Adequate hemostasis was ensured using electro cautery again. At this point the posterior sheath was closed a running suture of Maxon. The anterior sheath was dealt with in a similar fashion. The subcutaneous tissue was inspected for adequate he was this and then the skin was closed with jair. At the end of the procedure she was stable when sent to the recovery room. Inch instrument count were correct. No drains were placed. Complications: None Transferred to: Recovery Room Condition: Good
--- NOTE | 2018-04-21 12:44 | P.HP ---
Date of Service: 04/21/18 PC: This 38-year-old female presents emergency room with severe right upper quadrant abdominal pain for diagnosis and treatment. HPC: Patient has been having pain for the last few months. Has rocked unrolled with it and now comes in with a severe episode. Radiates into her back. On workup was found have chronic cholecystitis. PMH: Negative PSHx: Previous surgery for small-bowel obstruction necessitating an exploratory laparotomy. SOC: No known drug allergies SYS REVIEW: States she has been in good health. Has lost about 50 lb over the last few months. O/E awake alert uncomfortable HEENT: Within normal limit Chest: Chest movement equal bilaterally ABD: Tender in the right upper quadrant LOCO: Intact DATA: As documented cholecystitis IMPRESSION: Cholecystitis PLAN: I will take her the operating room for a laparoscopic but most likely open procedure. The risks of this has been discussed with her. We had worked together in the past and she understands. The possibility injury to bile ducts blood vessels intestines were explained. The possible need for further surgeries and procedures was outlined. She understands and wants to proceed.
[2018-04-21] MEDS: FENTANYL CITR 100 MCG/2 ML ONE ×4 (12:58→13:23)
[2018-04-21] MEDS ORDERED: ONDANSETRON HCL 40 MG/20 ML VIAL ONE (13:05)
[2018-04-21] MEDS ORDERED: PROMETHAZINE 25 MG/ML VIAL ONE (13:09)
[2018-04-21] MEDS ORDERED: Ringers Lactate 1,000 ML IV ONE (13:11)
[2018-04-21] MEDS: MEPERIDINE HCL 50 MG/ML AMP ONE ×2 (13:36→13:44)
[2018-04-21] MEDS ORDERED: DIAZEPAM 5 MG TABLET PO ONE (16:05)
[2018-04-21] MEDS: PROMETHAZINE 25 MG/ML VIAL IV PRN (18:48)
[2018-04-22] MEDS: MORPHINE 4 MG/ML SYR IV PRN ×6 (00:19→18:53)
[2018-04-22] MEDS: PIPER/TAZO/NS 3.375gm 3.375 GM/100 ML BAG IVPB SCH ×3 (00:19→16:27)
[2018-04-22] MEDS: PROMETHAZINE 25 MG/ML VIAL IV PRN ×3 (03:45→21:41)
[2018-04-22] MEDS: NA CHLORIDE 0.9% 1,000 ML IV SCH ×3 (04:42→21:10)
[2018-04-22] MEDS: HYDROCODONE/APAP 7.5/325 MG TAB PO PRN ×3 (09:29→21:11)
[2018-04-22] MEDS: FAMOTIDINE 20 MG/2 ML VIAL IV SCH ×2 (09:30→21:11)
--- NOTE | 2018-04-22 12:21 | P.PN ---
Date of Service: 04/22/18 S: Patient states he feels a little bit better today. Still very sore. Has asked to have her pain medicine reduced. O: Vital signs are stable A: Stable status post open cholecystectomy P: Continue current therapy, I will reduce her IV narcotics and try to convert her to oral medication. Her biggest problem at the moment is the nausea. Anticipate discharge in the morning.
[2018-04-22] MEDS: ONDANSETRON 4 MG/2 ML VIAL IV PRN (19:00)
[2018-04-22 23:26] VITALS: O2SAT 99
[2018-04-23] MEDS: PIPER/TAZO/NS 3.375gm 3.375 GM/100 ML BAG IVPB SCH ×2 (00:48→08:45)
[2018-04-23] MEDS: ONDANSETRON 4 MG/2 ML VIAL IV PRN ×2 (01:40→08:43)
[2018-04-23] MEDS: MORPHINE 4 MG/ML SYR IV PRN ×5 (01:43→13:33)
[2018-04-23] MEDS: HYDROCODONE/APAP 7.5/325 MG TAB PO PRN ×2 (04:22→11:45)
[2018-04-23] MEDS: PROMETHAZINE 25 MG/ML VIAL IV PRN (04:28)
[2018-04-23] MEDS: NA CHLORIDE 0.9% 1,000 ML IV SCH ×2 (05:00→13:00)
[2018-04-23] MEDS: FAMOTIDINE 20 MG/2 ML VIAL IV SCH (08:43)
--- NOTE | 2018-04-23 14:11 | P.DS ---
Admission Date: 04/22/18 Discharge Date: 04/23/18 Disposition: ROUTINE DISCHARGE Discharge Condition: GOOD Reason for Admission: Acute postoperative abdominal pain Procedures: Open laparoscopic cholecystectomy Brief History of Present Illness: This patient presents emergency room with severe right upper quadrant abdominal pain for diagnosis and treatment. She was found have chronic cholecystitis with biliary colic. She is brought the operating room where she underwent a laparoscopic converted to open cholecystectomy. Postoperatively she did well required admission for pain control. Today she is up ambulating, tolerating a diet, and she is deemed fit for discharge. Hospital Course: As described above Vital Signs/Physical Exam: Temp Pulse Resp BP Pulse Ox 98.5 F 59 19 127/81 93 04/23/18 08:00 04/23/18 08:00 04/23/18 08:00 04/23/18 08:00 04/23/18 08:00 Laboratory Data at Discharge: WBC 7.7 K/uL (4.3-10.9) 04/21/18 05:16 Hgb 12.1 g/dL (12.0-15.0) 04/21/18 05:16 Hct 35.4 % (36.0-45.0) L 04/21/18 05:16 Plt Count 366 K/uL (152-406) 04/21/18 05:16 Sodium 143 mmol/L (136-145) 04/21/18 05:16 Potassium 4.0 mmol/L (3.5-5.1) 04/21/18 05:16 BUN 8 mg/dL (7-18) 04/21/18 05:16 Creatinine 0.75 mg/dL (0.55-1.3) 04/21/18 05:16 Glucose 78 mg/dL (74-106) 04/21/18 05:16 Total Bilirubin 0.1 mg/dL (0.2-1.0) L 04/21/18 05:16 AST 9 U/L (15-37) L 04/21/18 05:16 ALT 22 U/L (12-78) 04/21/18 05:16 Alkaline Phosphatase 66 U/L (45-117) 04/21/18 05:16 Lipase 85 U/L (73-393) 04/21/18 05:16 Home Medications: Ibuprofen 800 mg PO PRN PRN 04/20/18
[2018-04-23 14:36] VITALS: BP 144/68; TEMP 98.7
== END 2018-04-23 15:20 | disposition home or self-care (01) | DRG 416 ==
LOC: ER 11:50 → ERHOLD 16:43 → 2ND 17:59 → OBSVTOIN 04-22 11:15
PROVIDERS: ADMIT Surgery; ATTEND Surgery
PROC: 0FJ44ZZ Inspection of Gallbladder, Percutaneous Endoscopic Approach (ICD-10-PCS; 2018-04-21)
PROC: 0FT40ZZ Resection of Gallbladder, Open Approach (ICD-10-PCS; principal; 2018-04-21 11:00)
DX: K80.44 Calculus of bile duct with chronic cholecystitis without obstruction (principal); G89.18 Other acute postprocedural pain; F41.9 Anxiety disorder, unspecified; Z85.41 Personal history of malignant neoplasm of cervix uteri; Z85.038 Personal history of other malignant neoplasm of large intestine; F32.9 Major depressive disorder, single episode, unspecified
CPT/HCPCS: 36415; 74177; 76705; 80048; 80076; 81003; 81015; 81025; 83690; 85025; 87077; 87086; 87088; 87186; 88304; 99285; G0378; J1100; J2175; J2405; J2543; J2550; J2704; J3010; J7030; Q9967

== ENCOUNTER 2019-09-25 14:59 | Emergency (ER) | payer SELFPAY ==
--- OUTSIDE RECORDS SUMMARY | 2019-09-25 15:58 | XMS REPORT | Clinical Summary ---
:1980 Author Organization [facility] Address [address] [place] [address] Care Team Providers Name Role Phone Unavailable Primary Care Provider Unavailable Allergies No Known Allergies Medications No known medications Active Problems Problem Noted Date Chest pain SOB (shortness of breath) Social History Tobacco Use Types Packs/Day Years Used Date Current Every Day Smoker Cigarettes 0.5 Alcohol Use Drinks/Week oz/Week Comments Yes once per month Sex Assigned at Date Recorded Not on file Job Start Date Occupation Industry Not on file Not on file Not on file Travel History Travel Start Travel End No recent travel history available. Last Filed Vital Signs Not on file Plan of Treatment Health Maintenance Due Date Last Done Comments Cervical Cancer Scrn (3 Yrs) 2003 IMM Influenza Seasonal Jan to June (>/= 19 yrs) 01/23/2020 Results Not on fileafter 09/24/2018 Insurance Payer Benefit Plan / Subscriber ID Effective Dates Phone Addre ss Type Group [employer] SELF-PAY xxxxxxxxx 2016-Pres [phone] [id number] [address] SELF-PAY UNSCREENED ent [address] [place] [address] (Work)
[2019-09-25 17:44] LABS: Absolute Lymphocytes (CBC) 1.9 K/uL (0.7-4.9); Basophils % 0.6 % (0-1.3); Hematocrit 35.5 % (36.0-45.0); Lymphocytes % 17.7 % (15.3-44.8); MPV 9.1 fL (7.6-11.3); RBC Red Blood Cell Count 3.91 M/uL (3.86-4.86)
[2019-09-25] MEDS ORDERED: NA CHLORIDE 0.9% 500 ML ONE (17:45)
[2019-09-25] MEDS ORDERED: FAMOTIDINE 20 MG/2 ML VIAL IV ONE (17:46)
[2019-09-25 18:01] LABS: ALT/SGPT 26 U/L (12-78); AST/SGOT 12 U/L (15-37); Albumin 4.1 g/dL (3.4-5.0); Alkaline Phosphatase 91 U/L (45-117); BUN Blood Urea Nitrogen 9 mg/dL (7-18); Bicarbonate 21 mmol/L (21-32); Bilirubin Direct < 0.1 mg/dL (0-0.2); Bilirubin Total 0.3 mg/dL (0.2-1.0); Glucose Level 101 mg/dL (74-106); Potassium 3.4 mmol/L (3.5-5.1); Protein, Total 7.5 g/dL (6.4-8.2); Sodium Level 139 mmol/L (136-145)
[2019-09-25 18:33] LABS: Urine Blood 3+ (NEG); Urine Glucose NEGATIVE (NEG); Urine Protein 2+ (NEG); Urine Specific Gravity >1.030 (1.005-1.030); Urine pH 5.5 (5.0-7.0)
--- NOTE | 2019-09-25 18:47 | RAD REPORT ---
EXAM DESCRIPTION: CT - Abdomen Pelvis W Contrast - 09/25/2019 6:14 pm CLINICAL HISTORY: rectal Bleeding;Abd pain, patient reports vomiting, nausea and fatigue, patient re ports abscess and perineum area and it is unknown if this is a passed event or current event. Patient is status post cervical cancer, colon cancer, appendectomy and cholecystectomy COMPARISON: Abdomen Pelvis W Contrast dated 04/20/2018 TECHNIQUE: Biphasic, helical CT imaging of the abdomen and pelvis was performed following 100 ml non -ionic IV contrast. Oral contrast was given. All CT scans are performed using dose optimization technique as appropriate and may include automated exposure control or mA/KV adjustment according to patient size. FINDINGS: No suspicious findings in the lung bases. The liver, spleen, and pancreas show no suspicious findings. Cholecystectomy clips are present. No bi liary tree dilatation. Symmetric renal function is seen with no hydronephrosis or suspicious renal mass. No pyelonephritis o r acute parenchymal process. No bladder abnormalities. No adrenal abnormalities. Prominent uterus is present. Cervix region is not optimally visualized on CT imaging. No gross evidence for a mass lesion . Ovaries are normal with no adnexal abnormality. No dilated bowel loops or bowel wall thickening. No acute bowel process identifiable. Small quantity of free fluid in the cul de sac which is within physiologic limits. No free air or pneumatosis. No fo sofie inflammatory stranding. No mass or bulky lymphadenopathy. Small periumbilical hernia. No omental thickening. No suspicious bony findings. IMPRESSION: Contrast CT abdomen and pelvis imaging shows no acute or emergent finding. Nonacute findings detailed in the body of the report.
--- NOTE | 2019-09-25 19:05 | EDPHYS ---
Physician Documentation [facility] Name: Marian Mack Age: 39 yrs Sex: Female : 1980 Arrival Date: 09/25/2019 Time: 15:00 Bed 17 Private MD: ED Physician Dagoberto Donnelly HPI: 09/25 11:31 This 39 yrs old Female presents to ER via Ambulatory with complaints of kdr Rectal Bleeding, Pelvic Pain, Boil, Nausea/Vomiting/Diarrhea. 11:31 The patient presents to the emergency department with bleeding from the rectum/anus, kdr that is mild. Onset: The symptoms/episode began/occurred gradually, 1 year(s) ago. Context: the patient has no known special context relating to the rectal area complaint(s), has a known history of hemorrhoids. Modifying factors: The symptoms are alleviated by nothing, The symptoms are aggravated by bowel movement, nothing. Associate signs and symptoms: Pertinent positives: abdominal pain in the right lower quadrant and left lower quadrant, lower GI bleeding, dark red, vomiting. The patient has experienced similar episodes in the past, chronically. The patient has not recently seen a physician. 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 - Social history:: Smoking status: Patient reports the use of cigarette tobacco products, smokes one-half pack cigarettes per day. ROS: 09/25 11:31 Constitutional: Negative for fever, chills, and weight loss, Eyes: Negative for injury, kdr pain, redness, and discharge, Neck: Negative for injury, pain, and swelling, Cardiovascular: Negative for chest pain, palpitations, and edema, Respiratory: Negative for shortness of breath, cough, wheezing, and pleuritic chest pain, Back: Negative for injury and pain, : Negative for injury, bleeding, discharge, and swelling, left labial swelling MS/Extremity: Negative for injury and deformity, Skin: Negative for injury, rash, and discoloration, Neuro: Negative for headache, weakness, numbness, tingling, and seizure activity. Psych: Negative for depression, anxiety, suicide ideation, homicidal ideation, and hallucinations, Allergy/Immunology: Negative for hives, rash, and allergies, Endocrine: Negative for neck swelling, polydipsia, polyuria, polyphagia, and marked weight changes, Hematologic/Lymphatic: Negative for swollen nodes, abnormal bleeding, and unusual bruising. Abdomen/GI: Positive for abdominal pain, nausea, black/tarry stool, rectal bleeding, Negative for constipation, abdominal cramps, abdominal distension, anorexia, dysphagia, hematemesis. Exam: 11:31 Constitutional: This is a well developed, well nourished patient who is awake, alert, kdr and in no acute distress. Head/Face: Normocephalic, atraumatic. Eyes: Pupils equal round and reactive to light, extra-ocular motions intact. Lids and lashes normal. Conjunctiva and sclera are non-icteric and not injected. Cornea within normal limits. Periorbital areas with no swelling, redness, or edema. Neck: Trachea midline, no thyromegaly or masses palpated, and no cervical lymphadenopathy. Supple, full range of motion without nuchal rigidity, or vertebral point tenderness. No Meningismus. Chest/axilla: Normal chest wall appearance and motion. Nontender with no deformity. No lesions are appreciated. Cardiovascular: Regular rate and rhythm with a normal S1 and S2. No gallops, murmurs, or rubs. Normal PMI, no JVD. No pulse deficits. Respiratory: Lungs have equal breath sounds bilaterally, clear to auscultation and percussion. No rales, rhonchi or wheezes noted. No increased work of breathing, no retractions or nasal flaring. Back: No spinal tenderness. No costovertebral tenderness. Full range of motion. Skin: Warm, dry with normal turgor. Normal color with no rashes, no lesions, and no evidence of cellulitis. MS/ Extremity: Pulses equal, no cyanosis. Neurovascular intact. Full, normal range of motion. Neuro: Awake and alert, GCS 15, oriented to person, place, time, and situation. Cranial nerves II-XII grossly intact. Motor strength 5/5 in all extremities. Sensory grossly intact. Cerebellar exam normal. Normal gait. Psych: Awake, alert, with orientation to person, place and time. Behavior, mood, and affect are within normal limits. 11:31 Abdomen/GI: Inspection: abdomen appears normal, Bowel sounds: active, all quadrants, Palpation: soft, mild abdominal tenderness, in the right lower quadrant and left lower quadrant, Rectal exam: rectal tone normal, Stool: normal, brown, guaiac negative. 11:31 : Small pea sized lump on distal left labia - probably Bartholin's gland cyst - no kdr I\\T\\D required at this time. Vital Signs: 09/24 15:19 BP 113 / 68; Pulse 98; Resp 18; Temp 99.8; Pulse Ox 97% ; Weight 90.72 kg; Height 5 ft. sv 9 in. (175.26 cm); Pain 7/10; 17:10 BP 100 / 78; Pulse 94; Resp 15 S; Pulse Ox 94% on R/A; ca1 18:15 BP 116 / 76; Pulse 94; Resp 15 S; Pulse Ox 97% on R/A; ca1 19:34 BP 117 / 70; Pulse 81; Resp 18; Pulse Ox 99% on R/A; wh 15:19 Body Mass Index 29.53 (90.72 kg, 175.26 cm) sv MDM: 19:04 Patient medically screened. kdr 09/25 11:31 Data reviewed: vital signs, nurses notes, lab test result(s), radiologic studies. kdr Counseling: I had a detailed discussion with the patient and/or guardian regarding: the historical points, exam findings, and any diagnostic results supporting the discharge/admit diagnosis, lab results, radiology results, the need for outpatient follow up. 09/24 17:30 Order name: Occult Blood--Ancillary; Complete Time: 18:44 bd 09/24 17:31 Order name: Basic Metabolic Panel; Complete Time: 18:44 kdr 09/24 17:31 Order name: CBC with Diff; Complete Time: 18:44 kdr 09/24 17:31 Order name: Hepatic Function; Complete Time: 18:44 kdr 09/24 17:57 Order name: Urine Dipstick--Ancillary (enter results); Complete Time: 18:44 bd 09/24 17:57 Order name: Urine --Ancillary (enter results); Complete Time: 18:44 bd 09/24 17:31 Order name: IV Saline Lock; Complete Time: 17:33 kdr 0603 17:31 Order name: Labs collected and sent; Complete Time: 17:33 kdr 0603 17:31 Order name: CT Abd/Pelvis - IV Contrast Only; Complete Time: 18:56 kdr 06/03 17:31 Order name: Urine Dipstick-Ancillary (obtain specimen); Complete Time: 17:47 kdr 0603 17:31 Order name: Urine Test (obtain specimen); Complete Time: 17:47 kdr Administered Medications: 09/24 17:45 Drug: NS 0.9% 500 ml Route: IV; Rate: bolus; Site: right hand; ca1 19:36 Follow up: Response: No adverse reaction; IV Status: Completed infusion 17:47 Drug: Pepcid 20 mg Route: IVP; Site: right hand; ca1 19:36 Follow up: Response: No adverse reaction 19:12 Drug: morphine 4 mg {Note: RASS 0.} Route: IVP; Site: right wrist; wh 19:36 Follow up: Response: No adverse reaction; Pain is decreased; RASS: Alert and Calm (0) 19:14 Drug: Zofran (Ondansetron) 4 mg Route: IVP; Site: right wrist; wh 19:35 Follow up: Response: No adverse reaction; Nausea is decreased Disposition: 09/25/19 19:04 Discharged to Home. Impression: Abdominal and pelvic pain, Rectal Bleeding, Hemorrhoids and perianal venous thrombosis. - Condition is Stable. - Discharge Instructions: Abdominal Pain, Adult, [id number]. - Prescriptions for Bentyl 20 mg Oral Tablet - take 1 tablet by ORAL route every 6 hours As needed; 20 tablet. Pepcid 20 mg Oral Tablet - take 1 tablet by ORAL route every 12 hours for 5 days; 10 tablet. Zofran 4 mg Oral Tablet - take 1 tablet by ORAL route every 12 hours As needed; 6 tablet. Tramadol 50 mg Oral Tablet - take 1 tablet by ORAL route every 8 hours as needed; 12 tablet. Cipro 500 mg Oral Tablet - take 1 tablet by ORAL route every 12 hours for 7 days; 14 tablet. - Medication Reconciliation Form, Thank You Letter, Antibiotic Education form. - Follow up: Private Physician; When: 2 - 3 days; Reason: If symptoms return, Further diagnostic work-up, Recheck today's complaints, Continuance of care, Re-evaluation by your physician. - Problem is an ongoing problem. - Symptoms have improved. Signatures: Dispatcher [employer] Ivy Chaney, RN RN Dagoberto Santillan MD MD kdr Habalo, Winsy wh Acob, Susanne RN RN ca1 Corrections: (The following items were deleted from the chart) 19:37 19:04 09/25/2019 19:04 Discharged to Home. Impression: Abdominal and pelvic pain; wh Rectal Bleeding; Hemorrhoids and perianal venous thrombosis. Condition is Stable. Forms are Medication Reconciliation Form, Thank You Letter, Antibiotic Education, Prescription Opioid Use. Follow up: Private Physician; When: 2 - 3 days; Reason: If symptoms return, Further diagnostic work-up, Recheck today's complaints, Continuance of care, Re-evaluation by your physician. Problem is an ongoing problem. Symptoms have improved. kdr
--- NOTE | 2019-09-25 19:05 | ER ---
Nurse's Notes [facility] Name: Marian Mack Age: 39 yrs Sex: Female : 1980 Arrival Date: 09/25/2019 Time: 15:00 Bed 17 Private MD: Diagnosis: Abdominal and pelvic pain;Rectal Bleeding;Hemorrhoids and perianal venous thrombosis Presentation: 09/24 15:15 Chief complaint: Patient states: vomiting only at night, during the day nauseous, sv chills at night, lightheaded, fatigue, pelvic pain x 3 days. c/o rectal bleeding x 1 year. c/o abscess in the perineal area. Risk Assessment: Do you want to hurt yourself or someone else? Patient reports no desire to harm self or others. Onset of symptoms was September 22, 2019. 15:15 Method Of Arrival: Ambulatory sv 15:15 Acuity: NOVA 3 sv 15:17 Coronavirus screen: Proceed with normal triage. Patient denies a cough. Patient denies sv shortness of breath or difficulty breathing. Patient denies measured and/or subjective temperature greater than 100.4F prior to today's visit. Patient denies travel on a cruise ship or to a country the [facility] currently lists as an affected area. Patient denies contact with known and/or suspected case of COVID-19. Ebola Screen: No symptoms or risks identified at this time. 15:19 Initial Sepsis Screen: Does the patient meet any 2 criteria? HR > 90 bpm. No. Patient's sv initial sepsis screen is negative. Does the patient have a suspected source of infection? Yes: Skin breakdown/wound. Triage Assessment: 15:20 General: Appears in no apparent distress. uncomfortable, Behavior is calm, cooperative, sv appropriate for age. Neuro: Level of Consciousness is awake, alert, obeys commands, Oriented to person, place, time, situation. Respiratory: Respiratory effort is even, unlabored. 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 - Social history:: Smoking status: Patient reports the use of cigarette tobacco products, smokes one-half pack cigarettes per day. Screenin:52 Abuse screen: Denies threats or abuse. Denies injuries from another. Nutritional ca1 screening: No deficits noted. Tuberculosis screening: No symptoms or risk factors identified. Fall Risk IV access (20 points). Assessment: 16:52 General: Appears in no apparent distress. comfortable, Behavior is calm, cooperative, ca1 appropriate for age. Pain: Complains of pain in suprapubic area, right lower quadrant and left lower quadrant Pain currently is 7 out of 10 on a pain scale. Pain began 2-3 days ago. Is intermittent. Neuro: Level of Consciousness is awake, alert, obeys commands, Oriented to person, place, time, situation. Cardiovascular: Heart tones S1 S2 present Capillary refill < 3 seconds Patient's skin is warm and dry. Respiratory: Airway is patent Respiratory effort is even, unlabored, Respiratory pattern is regular, symmetrical, Breath sounds are clear bilaterally. GI: Abdomen is round non-distended, Bowel sounds present X 4 quads. Abd is soft X 4 quads Abdomen is tender to palpation in left lower quadrant Reports diarrhea, bloody stool, nausea, vomiting. : No signs and/or symptoms were reported regarding the genitourinary system. EENT: No signs and/or symptoms were reported regarding the EENT system. Derm: Skin is intact, is healthy with good turgor, Skin is pink, warm \\T\\ dry. Musculoskeletal: Circulation, motion, and sensation intact. Capillary refill < 3 seconds. 18:03 Reassessment: Patient is alert, oriented x 3, equal unlabored respirations, skin aa5 warm/dry/pink. Pt to CT via wheelchair . 19:02 Reassessment: Patient appears in no apparent distress at this time. Patient is alert, ca1 oriented x 3, equal unlabored respirations, skin warm/dry/pink. 19:15 Reassessment: Patient appears in no apparent distress at this time. Patient and/or wh family updated on plan of care and expected duration. Pain level reassessed. Patient is alert, oriented x 3, equal unlabored respirations, skin warm/dry/pink. Vital Signs: 15:19 BP 113 / 68; Pulse 98; Resp 18; Temp 99.8; Pulse Ox 97% ; Weight 90.72 kg; Height 5 ft. sv 9 in. (175.26 cm); Pain 7/10; 17:10 BP 100 / 78; Pulse 94; Resp 15 S; Pulse Ox 94% on R/A; ca1 18:15 BP 116 / 76; Pulse 94; Resp 15 S; Pulse Ox 97% on R/A; ca1 19:34 BP 117 / 70; Pulse 81; Resp 18; Pulse Ox 99% on R/A; wh 15:19 Body Mass Index 29.53 (90.72 kg, 175.26 cm) sv ED Course: 15:00 Patient arrived in ED. as 15:16 Triage completed. sv 15:17 Arm band placed on. sv 16:46 Susanne Rico RN is Primary Nurse. ca1 16:52 Patient has correct armband on for positive identification. Placed in gown. Bed in low ca1 position. Call light in reach. Side rails up X 1. Pulse ox on. NIBP on. Warm blanket given. 17:00 Missed attempt(s): 22 gauge in left forearm. Bleeding controlled, band aid applied, ca1 catheter tip intact. 17:09 No provider procedures requiring assistance completed. Initial lab(s) drawn, by de, ca1 held in ED. Inserted saline lock: 22 gauge in left hand, using aseptic technique. Blood collected. 17:12 Dagoberto Donnelly MD is Attending Physician. kdr 17:25 Served as a hourly sales staff during rectal exam. sv 17:36 Radiology exam delayed due to test not completed at this time. IV insertion vm2 attempt and/or patient not having appropriate IV at this time. 17:58 Missed attempt(s): 22 gauge in left forearm. Bleeding controlled, band aid applied, aa5 catheter tip intact. 18:00 Inserted saline lock: 22 gauge in right forearm, using aseptic technique. aa5 18:14 CT Abd/Pelvis - IV Contrast Only In Process Unspecified. EDMS 19:00 Report given to WILBER Fatima. ca1 19:35 IV discontinued, intact, bleeding controlled, No redness/swelling at site. wh Administered Medications: 17:45 Drug: NS 0.9% 500 ml Route: IV; Rate: bolus; Site: right hand; ca1 19:36 Follow up: Response: No adverse reaction; IV Status: Completed infusion wh 17:47 Drug: Pepcid 20 mg Route: IVP; Site: right hand; ca1 19:36 Follow up: Response: No adverse reaction 19:12 Drug: morphine 4 mg {Note: RASS 0.} Route: IVP; Site: right wrist; 19:36 Follow up: Response: No adverse reaction; Pain is decreased; RASS: Alert and Calm (0) 19:14 Drug: Zofran (Ondansetron) 4 mg Route: IVP; Site: right wrist; 19:35 Follow up: Response: No adverse reaction; Nausea is decreased Outcome: 19:04 Discharge ordered by . kdr 19:34 Discharged to home ambulatory. 19:34 Condition: stable 19:34 Discharge instructions given to patient, Instructed on discharge instructions, follow up and referral plans. no drinking with medication, no driving heavy equipment, medication usage, POC Demonstrated understanding of instructions, follow-up care, medications, POC Prescriptions given X X5 19:37 Patient left the ED. Signatures: Dispatcher [employer] EDIvy Connelly RN RN Dagoberto Donnelly MD MD kdr Martinez, Amelia as Calderon, Audri, RN RN aa5 Bernadette Staples 2 [employer] Susanne Rico RN RN ca1 Corrections: (The following items were deleted from the chart) 15:17 15:15 Chief complaint: Patient states: vomiting only at night, during the day nauseous, sv lightheaded, fatigue, pelvic pain x 3 days. sv 15:19 15:15 Chief complaint: Patient states: vomiting only at night, during the day nauseous, sv lightheaded, fatigue, pelvic pain x 3 days. c/o rectal bleeding x 1 year. sv
[2019-09-25] MEDS ORDERED: ONDANSETRON 4 MG/2 ML VIAL ONE (19:15)
[2019-09-25] MEDS ORDERED: MORPHINE 4 MG/ML SYR ONE (19:15)
[2019-09-25 19:46] VITALS: TEMP 99.8
[2019-09-25 19:50] VITALS: BP 117/70; O2SAT 99
== END 2019-09-25 19:37 | disposition home or self-care (01) ==
LOC: ER 14:59
DX: K64.5 Perianal venous thrombosis (principal); R10.2 Pelvic and perineal pain; F17.210 Nicotine dependence, cigarettes, uncomplicated; Z85.41 Personal history of malignant neoplasm of cervix uteri; Z85.038 Personal history of other malignant neoplasm of large intestine
CPT/HCPCS: 36415; 74177; 80048; 80076; 81003; 81025; 82272; 82565; 85025; 99284; J2405; J7040; Q9967

== ENCOUNTER 2020-03-17 07:40 | Emergency (ER) | payer SELFPAY ==
[2020-03-17 08:29] LABS: Basophils % 0.8 % (0-1.3); Hematocrit 35.9 % (36.0-45.0); Lymphocytes % 22.6 % (15.3-44.8); MPV 9.3 fL (7.6-11.3); RBC Red Blood Cell Count 3.93 M/uL (3.86-4.86)
[2020-03-17] MEDS ORDERED: NA CHLORIDE 0.9% 1,000 ML ONE (08:35)
[2020-03-17] MEDS ORDERED: dexAMETHasone 10 MG/ML VIAL ONE (08:35)
[2020-03-17 08:48] LABS: Albumin 3.7 g/dL (3.4-5.0); Bilirubin Total 0.2 mg/dL (0.2-1.0); Potassium 3.6 mmol/L (3.5-5.1); Protein, Total 6.6 g/dL (6.4-8.2)
--- NOTE | 2020-03-17 09:07 | RAD REPORT ---
EXAM DESCRIPTION: MRI - Brain W/Wo Cont - 03/17/2020 8:49 am CLINICAL HISTORY: MS workup, right-sided weakness, left hand swelling and left knee pain COMPARISON: No comparisons TECHNIQUE: Sagittal and axial T1-weighted images were obtained. Axial PD/heavily T2-weighted and T2- FLAIR images were obtained along with axial DWI/ADC mapping sequences. Coronal heavily T2 weighted s equence obtained. Axial and coronal post-contrast T1-weighted images were also obtained. A 18 ml Mul tihance contrast following utilized. Sagittal thin section 3D FLAIR acquisition performed FINDINGS: No intracranial hemorrhage, mass or acute infarction. There is no edema or shift of midli ne structures. No extra-axial fluid collections. Roe-matter/white matter junction is preserved. Sig nal voids are seen as a normal finding in the major intracranial vessels. No white matter signal abno rmalities in the cerebral hemispheres. No basal ganglia, thalamus or brainstem signal abnormality see n. No MRI findings of MS or other demyelinating process. Post-contrast images show normal enhancement. No dural thickening. Mastoid air cells and paranasal sinuses are clear. No sella or supra sella abnormality. Globes and orbital contents show no suspicious findings. IMPRESSION: Negative contrast enhanced MRI of the Brain.
--- NOTE | 2020-03-17 09:37 | ER ---
Nurse's Notes [facility] [place] Name: Marian Mack Age: 40 yrs Sex: Female : 1980 Arrival Date: 03/17/2020 Time: 07:42 Bed 5 Private MD: Moustapha Garcia H Diagnosis: Cervical radiculopathy;Lumbar radiculopathy Presentation: 03/17 07:49 Chief complaint: Patient states: right sided sciatic nerve pain swelling and iw tingling/numbness in right hand, arm since last night. Coronavirus screen: At this time, the client does not indicate any symptoms associated with coronavirus-19. Ebola Screen: Patient negative for fever greater than or equal to 101.5 degrees Fahrenheit, and additional compatible Ebola Virus Disease symptoms Patient denies exposure to infectious person. Patient denies travel to an Ebola-affected area in the 21 days before illness onset. No symptoms or risks identified at this time. 07:49 Method Of Arrival: Ambulatory iw 07:51 Initial Sepsis Screen: Does the patient meet any 2 criteria? No. Patient's initial iw sepsis screen is negative. Does the patient have a suspected source of infection? No. Patient's initial sepsis screen is negative. Risk Assessment: Do you want to hurt yourself or someone else? Patient reports no desire to harm self or others. Onset of symptoms. 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 - Social history:: Smoking status: Patient reports the use of cigarette tobacco products, smokes one pack cigarettes per day. Screenin:15 Abuse screen: Denies threats or abuse. Denies injuries from another. Nutritional ss screening: No deficits noted. Tuberculosis screening: Never had TB. Fall Risk None identified. Assessment: 08:32 Reassessment: Pt is in MRI at this time. ss 09:00 General: Appears uncomfortable, Behavior is calm, cooperative. Pain: Complains of pain ss in right hand and right leg and right quadriceps Pain currently is 8 out of 10 on a pain scale. Quality of pain is described as aching, pinching, Pain began 1 day ago. Is continuous. Neuro: Level of Consciousness is awake, alert, obeys commands, Oriented to person, place, time, situation. Cardiovascular: Pulses are palpable in right radial artery, right posterior tibial artery, left radial artery and left posterior tibial artery. Respiratory: Airway is patent Respiratory effort is even, unlabored, Respiratory pattern is regular, symmetrical. EENT: Oral mucosa is moist. Derm: Skin is intact, is healthy with good turgor, Skin is pink, warm \\T\\ dry. normal. Musculoskeletal: Swelling absent. 09:05 Reassessment: Pt is back from MRI. Urine specimen obtained. ss Vital Signs: 07:50 BP 133 / 86; Pulse 109; Resp 18 S; Temp 98.3; Pulse Ox 99% on R/A; Weight 83.91 kg; iw Height 5 ft. 9 in. (175.26 cm); 07:50 Body Mass Index 27.32 (83.91 kg, 175.26 cm) iw ED Course: 07:42 Patient arrived in ED. as 07:43 Moustapha Garcia MD is Private Physician. as 07:51 Triage completed. iw 07:56 Sterling Emmanuel MD is Attending Physician. ps1 08:06 Arm band placed on. iw 08:15 Patient has correct armband on for positive identification. Bed in low position. Call ss light in reach. 08:16 Inserted saline lock: 20 gauge in right forearm, using aseptic technique. Blood mt collected. 08:49 MRI - Brain W/Wo Cont In Process Unspecified. EDMS 09:09 Mayelin Drew, WILBER is Primary Nurse. ss 10:07 No provider procedures requiring assistance completed. IV discontinued, intact, ss bleeding controlled, No redness/swelling at site. Pressure dressing applied. Administered Medications: 09:09 Drug: Decadron - Dexamethasone 10 mg Route: IVP; Site: right wrist; ss 10:07 Follow up: Response: No adverse reaction; Marked relief of symptoms ss 09:09 Drug: NS 0.9% 1000 ml Route: IV; Rate: 1 bolus; Site: right wrist; ss 10:07 Follow up: IV Status: Completed infusion; IV Intake: 1000ml ss 09:55 Drug: TORadol - Ketorolac 15 mg Route: IVP; Site: right hand; iw 10:07 Follow up: Response: No adverse reaction; Pain is decreased ss Intake: 10:07 IV: 1000ml; Total: 1000ml. ss Outcome: 09:37 Discharge ordered by . ps1 10:07 Discharged to home ambulatory. ss 10:07 Condition: good 10:07 Discharge instructions given to patient, Instructed on discharge instructions, follow up and referral plans. medication usage, Demonstrated understanding of instructions, follow-up care, medications, Prescriptions given X 3. 10:08 Patient left the ED. ss Signatures: Dispatcher [employer] EDMS Natalie Latham Irene, RN RN Mayelin Drew RN RN ss Thompson, Moriah mt Singer, Phillip, MD MD ps1 Corrections: (The following items were deleted from the chart) 08:17 07:50 BP 133 / 86; Pulse 109bpm; Resp 18bpm; Spontaneous; Pulse Ox 99% RA; iw iw
--- NOTE | 2020-03-17 09:37 | EDPHYS ---
Physician Documentation [facility] Name: Marian Mack Age: 40 yrs Sex: Female : 1980 Arrival Date: 03/17/2020 Time: 07:42 Bed 5 Private MD: Moustapha Garcia H ED Physician Sterling Emmanuel HPI: 03/17 08:00 This 40 yrs old Female presents to ER via Ambulatory with complaints of ps1 Urinary Frequency, Numbness, Swelling -r side. 08:00 Patient believes that she has MS. Started having non-specific numbness while in residential. ps1 She was reportedly seen by neurology in [place]. Has OP MRI pending. States that she is not able to fully clinch right hand or move right upper thigh without difficulty. Ambulated in ED. Antalgic gait. . 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 - Social history:: Smoking status: Patient reports the use of cigarette tobacco products, smokes one pack cigarettes per day. ROS: 08:00 Constitutional: Negative for fever, chills, and weight loss, Eyes: Negative for injury, ps1 pain, redness, and discharge, Cardiovascular: Negative for chest pain, palpitations, and edema, Respiratory: Negative for shortness of breath, cough, wheezing, and pleuritic chest pain, Abdomen/GI: Negative for abdominal pain, nausea, vomiting, diarrhea, and constipation, Skin: Negative for injury, rash, and discoloration. 08:00 : Positive for urinary frequency. 08:00 MS/extremity: Negative for pain. 08:00 Neuro: Positive for weakness, of the right hand, and right thigh. Exam: 08:00 Constitutional: This is a well developed, well nourished patient who is awake, alert, ps1 and in no acute distress. Head/Face: Normocephalic, atraumatic. 08:00 Cardiovascular: Regular rate and rhythm. No gallops, murmurs, or rubs. Normal PMI, no JVD. No pulse deficits. Respiratory: Lungs have equal breath sounds bilaterally, clear to auscultation and percussion. No rales, rhonchi or wheezes noted. No increased work of breathing, no retractions or nasal flaring. Abdomen/GI: Soft, non-tender, with normal bowel sounds. No distension or tympany. No guarding or rebound. No evidence of tenderness throughout. MS/ Extremity: Pulses equal, no cyanosis. Neurovascular intact. Full, normal range of motion. 08:00 Eyes: Pupils: equal, round, and reactive to light and accomodation, Extraocular movements: no signs of DENN[place], Nystagmus: is not appreciated. 08:00 Neuro: Motor: Hypotonic in right hand and right quadriceps. able to close with decreased analysis manager strength. 2/5 right hand. 2/5 right quad. . 09:37 Radiologist reports: negative MRI for MS or lesions ps1 Vital Signs: 07:50 BP 133 / 86; Pulse 109; Resp 18 S; Temp 98.3; Pulse Ox 99% on R/A; Weight 83.91 kg; iw Height 5 ft. 9 in. (175.26 cm); 07:50 Body Mass Index 27.32 (83.91 kg, 175.26 cm) iw MDM: 08:24 Patient medically screened. ps1 09:38 Data reviewed: vital signs, nurses notes, lab test result(s), radiologic studies, and ps1 as a result, I will discharge patient. Counseling: I had a detailed discussion with the patient and/or guardian regarding: the historical points, exam findings, and any diagnostic results supporting the discharge/admit diagnosis, lab results, radiology results, the need for outpatient follow up, to return to the emergency department if symptoms worsen or persist or if there are any questions or concerns that arise at home. Medication response: steroids and toradol improved movement and pain. 03/17 07:59 Order name: CBC with Diff; Complete Time: 08:38 ps1 03/17 07:59 Order name: CMP; Complete Time: 08:57 ps1 03/17 07:59 Order name: MRI - Brain W/Wo Cont; Complete Time: 09:17 ps1 03/17 09:09 Order name: Urine Dipstick--Ancillary (enter results) bd 03/17 09:10 Order name: Urine --Ancillary (enter results) bd 03/17 07:59 Order name: Urine Dipstick-Ancillary (obtain specimen); Complete Time: 09:05 ps1 03/17 08:17 Order name: IV Saline Lock; Complete Time: 08:17 mt Administered Medications: 09:09 Drug: Decadron - Dexamethasone 10 mg Route: IVP; Site: right wrist; ss 10:07 Follow up: Response: No adverse reaction; Marked relief of symptoms ss 09:09 Drug: NS 0.9% 1000 ml Route: IV; Rate: 1 bolus; Site: right wrist; ss 10:07 Follow up: IV Status: Completed infusion; IV Intake: 1000ml ss 09:55 Drug: TORadol - Ketorolac 15 mg Route: IVP; Site: right hand; iw 10:07 Follow up: Response: No adverse reaction; Pain is decreased ss Disposition: 03/17/20 09:37 Discharged to Home. Impression: Cervical radiculopathy, Lumbar radiculopathy. - Condition is Stable. - Discharge Instructions: Cervical Radiculopathy, Lumbosacral Radiculopathy. - Prescriptions for Anaprox DS 550 mg Oral Tablet - take 1 tablet by ORAL route every 12 hours As needed; 20 tablet. Robaxin 500 mg Oral Tablet - take 2 tablet by ORAL route every 6 hours As needed; 40 tablet. Medrol (Charbel) 4 mg Oral Tablets, Dose Pack - take 1 tablet by ORAL route as directed - follow package instructions; 1 packet. - Medication Reconciliation Form, Thank You Letter, Antibiotic Education, Prescription Opioid Use form. - Follow up: Private Physician; Reason: Recheck today's complaints, Continuance of care, Re-evaluation by your physician, [facility] Neurology as scheduled. . Follow up: Emergency Department; When: As needed; Reason: Fever > 102 F, Worsening of condition. Signatures: Dispatcher [employer] Betty Kiran RN RN iw Smirch, Shelby, RN RN ss Thompson, Sterling Amezcua mt, MD MD ps1 Corrections: (The following items were deleted from the chart) 10:08 09:37 03/17/2020 09:37 Discharged to Home. Impression: Cervical radiculopathy; Lumbar ss radiculopathy. Condition is Stable. Forms are Medication Reconciliation Form, Thank You Letter, Antibiotic Education, Prescription Opioid Use. Follow up: Private Physician; Reason: Recheck today's complaints, Continuance of care, Re-evaluation by your physician, [facility] Neurology as scheduled. . Follow up: Emergency Department; When: As needed; Reason: Fever > 102 F, Worsening of condition. ps1
[2020-03-17 09:48] LABS: Urine Blood NEGATIVE (NEG); Urine Glucose NEGATIVE (NEG); Urine Protein NEGATIVE (NEG)
[2020-03-17] MEDS ORDERED: KETOROLAC 30 MG/ML INJ ONE (10:06)
[2020-03-17 11:59] VITALS: BP 133/86; TEMP 98.3; O2SAT 99
== END 2020-03-17 10:08 | disposition home or self-care (01) ==
LOC: ER 07:40
DX: M54.12 Radiculopathy, cervical region (principal); M54.16 Radiculopathy, lumbar region; F41.8 Other specified anxiety disorders; F17.210 Nicotine dependence, cigarettes, uncomplicated; Z85.41 Personal history of malignant neoplasm of cervix uteri; Z85.038 Personal history of other malignant neoplasm of large intestine
CPT/HCPCS: 36415; 70553; 80053; 81003; 81025; 85025; 99284; A9577; J1100; J7030

== ENCOUNTER 2020-03-24 04:00 | Emergency (ER) | payer SELFPAY ==
--- OUTSIDE RECORDS SUMMARY | 2020-03-24 04:02 | XMS REPORT | Continuity of Care Document ---
:1980 Author Organization [facility] t Address [address] [place] [address] Care Team Providers Name Role Phone Genoveva REED, Gene Attending Clinician Penelope REED, Andrews Attending Clinician Doctor Unassigned, Name Attending Clinician Unavailable Problems Condition Condition Condition Status Onset Resolution Last Treating Co mments Source Name Details Category Date Date Treatment Clinician Date Chest pain Chest [facility] SOB Disease Active [place] (shortness (shortness He alth of breath) of breath) Allergies, Adverse Reactions, Alerts This patient has no known allergies or adverse reactions. Social History Social Habit Start Date Stop Date Quantity Comments Source History of tobacco Cigarette Smoker [facility] use Sex Assigned At [place] He alth Cigarettes smoked 2016-04-03 2016-04-03 [facility] current (pack per 00:00:00 00:00:00 day) - Reported Alcohol intake 2016-04-03 2016-04-03 [facility]:00 of alcohol (finding) Alcohol Comment 2016-04-03 2016-04-03 once per month [facility] 00:00:00 00:00:00 Smoking Status Start Date Stop Date Source Current every day smoker 2016-04-03 00:00:00 [facility] Medications This patient has no known medications. Procedures This patient has no known procedures. Plan of Care Planned Activity Planned Date Details Comments Source Future Scheduled Test 2020-01-23 00:00:00 IMM Influenza [facility] Seasonal Jan to June (>/= 19 yrs) [code = IMM Influenza Seasonal Jan to June (>/= 19 yrs)] Future Scheduled Test 2012-02-19 00:00:00 Screening for [facility] malignant neoplasm of cervix (procedure) [code = 936244383] Future Scheduled Test 2012-02-19 00:00:00 Screening for [facility] malignant neoplasm of cervix (procedure) [code = 716854193] Encounters Start End Encounter Admission Attending Care Care Encounter Source Date/Time Date/Time Type Type Clinicians Facility Department ID 2020-03-03 2020-03-03 Telephone Genoveva [facility] [id number] 00:00:00 00:00:00 Harshil Morales [place] [id number] [place] [id number] [place] [id number] [facility] 2020 2020 Office MAURICE Negrete [id number] 09:55:39 10:42:[facility] [id number] [facility] [id number] 2019-11-22 2019-11-22 Orders Doctor [place] [id number] 00:00:00 00:00:00 Only Unassigned, JENY [id number] [place] [facility] [id number] Results This patient has no known results.
--- OUTSIDE RECORDS SUMMARY | 2020-03-24 04:02 | XMS REPORT | Summary of Care ---
:1980 Author Organization [facility] Address [address] [place] [address] Care Team Providers Name Role Phone Pcp, Does Not Have A Primary Care Provider Reason for Referral MRI/CAT Scan (Routine) Status Reason Specialty Diagnoses / Referred By Referred To Procedures Contact Contact New Request Diagnostic Diagnoses Hx of colonic polyps Rectal bleeding Hui Negrete Radiology Procedures CT ABDOMEN PELVIS W WO CONTRAST MD Andrews [address] [place] [address] Reason for Visit Reason Comments Follow-up (Routine) Status Reason Specialty Diagnoses / Procedures Referred By R kellieed To Contact Contact New Request Gastroenterology Diagnoses Other fecal abnormalities Radha Dee, Procedures CONSULT/REFERRAL 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 [address] [place] [address] Encounter Details Date Type Department Care Team Description 2020 Office Visit [facility] GeorgieHui cerna Rectal bleeding (Primary Dx); Gastroenterology-Deloris Sparrow MD Other constipation; ston 301 [facility] Hx of colonic polyps [place], [place] Clinics [phone] [place] [address], [phone] [place] [address] Floor [phone] [place], [place] (Fax) [phone] Allergies No Known Allergiesdocumented as of this encounter (statuses as of 2020) Medications Medication Sig Dispensed Refills Start Date End Date Status tramadol-acetaminophe Take 1 Tab by mouth 12 Tab 0 07/05/19 16 Active n (ULTRACET) 37.5-325 every 6 (six) hours mg per tablet as needed for Pain. naproxen sodium Take 1 tablet by 14 tablet 0 02/26/2016 Active (ANAPROX) 550 mg mouth 2 (two) times tablet daily with meals. methocarbamol Take 1 tablet by 20 tablet 0 02/26/2016 Active (ROBAXIN) 500 mg mouth 4 (four) tablet times daily. peg-electrolyte soln Take as directed 4000 mL 0 2020 Active 236-22.74-6.74 -5.86 before colonoscopy gram solutionIndications: Other constipation, Hx of colonic polyps, Rectal bleeding documented as of this encounter (statuses as of 2020) Active Problems No known active problemsdocumented as of this encounter (statuses as of 2020) Social History Tobacco Use Types Packs/Day Years Used Date Current Every Day Smoker 0.5 13 Smokeless Tobacco: Never Used Alcohol Use Drinks/Week oz/Week Comments No Sex Assigned at Date Recorded Not on file COVID-19 Exposure Response Date Recorded In the last month, have you been in contact with No / Unsure 2020 10:06 AM CDT someone who was confirmed or suspected to have Coronavirus / COVID-19? documented as of this encounter Last Filed Vital Signs Vital Sign Reading Time Taken Comments Blood Pressure 100/71 2020 10:29 AM CDT Pulse 89 2020 10:29 AM CDT Temperature 36.6 C (97.9 F) 2020 10:29 AM CDT Respiratory Rate - - Oxygen Saturation - - Inhaled Oxygen Concentration - - Weight 84 kg (185 lb 3.2 oz) 2020 10:29 AM CDT Height 175.3 cm (5' 9") 2020 10:29 AM CDT Body Mass Index 27.35 2020 10:29 AM CDT documented in this encounter Patient Instructions Patient InstructionsHui Negrete MD - 2020 10:00 AM CDTStart citrucel 1-2 tablespoons mixed with water. Will follow up in 6-8 weeks. documented in this encounter Progress Notes Marialuisa Lawson MA - 2020 10:00 AM CDTPatient was provided with written teaching of colonoscopy with Golytely prep. Patient shows readiness to learn. Individual is able to read and verbalizes understanding of teaching provided. Endoscopy lab to contact patient for scheduling. Written consent has been obtained by provider and signature witnessed. LIATHui Negrete MD - 2020 10:00 AM CDT Gastroenterology Clinic Note Date: 2020 CC: hx colon polyps, constipation HPI: Marian Mack is a 39 year old female with a reported history of multiple polyps resected on multiple colonoscopies. Per Clinic Note on 07/2019. Also with rectal bleeding. Says for the past 18 months her GI issues have started. Reports was seeing blood with BM in stool and when wiping and also stating BM looked coffee grounds as well. Says during this time she was started developing symptoms for MS. Says she feels severe lower abdominal pain mostly in the left. Also notes feels rectal contents come out and she has to push it back in. When she has a BM she feels she hasto push against something and sit on the toilet for 30 min which would only result in "rabbit pellets filled with blood which looks like chocolate chip/raisin blood." Says she has had a 40lb and is on the KETO diet which has made her BM regular, once a day but occasionally has a stringy/sldugy BM but then states when she eats red meat she "can't process it" and thenvomits. Then states this gives her "tummy pains probably from my diverticulitis." Then states sometimes her BM are dark like raisins and other times it is light and floats. Also reports RUQ pain similar to when her gallbladder was removed but this isn't concerning to her. Says she has had a herniated mass size of grapefruit removed, a 4.5cm mass that was cancerous mass and multiple polyps of up to 49 removed in 2011 at [facility] which [facility] now [facility] in [place] by Dr. Moustapha Garcia. She says Dr. Garcia diagnosed her with colon cancer but she is a taoism person and kept praying and was given big green pills to take 4-5x a day as part of trial when enrolled in an indigent program and when he did a repeat colonoscopy the cancer was gone. Takes xanax and gabapentin, ibuprofen 3 tablets 2-3x/day for 4 months. Has night sweats. Feels her pain causes her nausea because feels rocks sit in her abdomen. PMHx: Past Medical History: Diagnosis Date Cervical cancer 2000 s/p excision Colitis Diverticulitis PSHx: Past Surgical History: Procedure Laterality Date LAP,DIAGNOSTIC ABDOMEN Family Hx: Family History Problem Relation Age of Onset Cancer Other Grandmother-Breast Cancer Other Grandmother-Colon Cancer Other Grandfather-Lung Social Hx: Social History Socioeconomic History Marital status: Spouse name: Not on file Number of children: Not on file Years of education: Not on file Highest education level: Not on file Occupational History Not on file Social Needs Financial resource strain: Not on file Food insecurity Worry: Not on file Inability: Not on file Transportation needs Medical: Not on file Non-medical: Not on file Tobacco Use Smoking status: Current Every Day Smoker Packs/day: 0.50 Years: 13.00 Pack years: 6.50 Smokeless tobacco: Never Used Substance and Sexual Activity Alcohol use: No Drug use: No Comment: 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 Sexual activity: Not on file Lifestyle Physical activity Days per week: Not on file Minutes per session: Not on file Stress: Not on file Relationships Social connections Talks on phone: Not on file Gets together: Not on file Attends taoism service: Not on file Active member of club or organization: Not on file Attends meetings of clubs or organizations: Not on file Relationship status: Not on file Intimate partner violence Fear of current or ex partner: Not on file Emotionally abused: Not on file Physically abused: Not on file Forced sexual activity: Not on file Other Topics Concern Not on file Social History Narrative Not on file Medications: No outpatient medications have been marked as taking for the 02/18/20 encounter (Appointment) with Hui Negrete MD. ROS: General: (-) fever, (-) chills, (+) weight change HEENT: (-) headache, (-) vision changes, (-) rhinorrhea, (-) sore throat Resp: (-) cough, (-) shortness of breath CV: (-) chest pain, (-) palpitations GI: per HPI : (-) dysuria, (-) frequency Endo: (-) polyuria (-) polydipsia Neuro: (-) numbness, (-) weakness ZOË: (-) muscle pain, (-) joint pain Skin: (-) rash, (-) lesion Heme: (-) bleeding disorder Psych: (-) depression , (-) anxiety PE: There were no vitals taken for this visit. General: awake and alert, NAD HEENT: EOMI, pupils equal, no scleral icterus, no conjunctival pallor Neck: supple, no JVD Cardiovascular: RRR Respiratory: non-labored Gastrointestinal: soft, NT, ND, +BS Ext: no edema Skin: no rash Neurologic: grossly non-focal Psychiatric: appropriate Labs - reviewed Imaging - reviewed Endoscopy Per HPI Assessment / Plan: Marian Mack is a 39 year old female with: Rectal bleeding Constipation ?Colon polyps vs. Colon cancer Patient with multiple concerns that require further evaluation. She is stating she has a history of colon cancer that she took trial medications with resolution. She also has long standing issues with rectal bleeding, pain and discomfort with BM somewhat improved with change to KETO diet (?less fiber i mproved diet). Little concern for anal fissure based on her description. We will need further records to determine patient's history and further understand her GI concerns. Will also obtain initial labtesting and imaging. Will also perform colonoscopy given symptoms and reported history. Plan: CASE REQUEST: COLONOSCOPY, CASE REQUEST: COLONOSCOPY, CBC WITH DIFF, COMP. METABOLIC PANEL (15134), THYROID STIMULATING HORMONE, peg-electrolyte soln 236-22.74-6.74 -5.[address] ABDOMEN PELVIS W WO CONTRAST, -Follow-up: 2 weeks post procedure Patient seen and discussed with faculty, Dr. Hallie Negrete MD Gastroenterology and Hepatology Fellow Pager #[phone] documented in this encounter Plan of Treatment Date Type Specialty Care Team Description 03/03/2020 Office Visit Neurology Harshil Tomas MD [address] [place] [address]. [place] [phone] 03/31/2020 Office Visit Gastroenterology Hui Negrete MD [address] [facility] [place] [address] [phone] Name Type Priority Associated Diagnoses Order S chedule CBC WITH DIFF LAB Routine Other constipati on Expected: Rectal bleeding 2020, Expires: 02/17/2021 COMP. METABOLIC PANEL LAB Routine Other cons tipation Expected: ([id number]) Rectal bleeding 2020, Expires: 02/17/2021 CT ABDOMEN PELVIS W WO IMAGING Routine Hx of col onic polyps Expected: CONTRAST Rectal bleeding 2020, Expires: 02/17/2021 THYROID STIMULATING LAB Routine Other constipation Ex pected: HORMONE 2020, Exp ires: 02/17/2021 Health Maintenance Due Date Last Done Comments VARICELLA VACCINES (1 of 2 - 2-dose childhood series) 1983 PNEUMOCOCCAL 0-64 YEARS COMBINED SERIES (1 of 1 - 02/19/1988 PPSV23) DTaP,Tdap,and Td Vaccines (1 - Tdap) 2001 PAP SMEAR 2003 INFLUENZA VACCINE (#1) 2019 Depression Screening 02/17/2021 2020 documented as of this encounter Results Not on filedocumented in this encounter Visit Diagnoses Diagnosis Rectal bleeding - Primary Hemorrhage of rectum and anus Other constipation Hx of colonic polyps Personal history of colonic polyps documented in this encounter
--- OUTSIDE RECORDS SUMMARY | 2020-03-24 04:02 | XMS REPORT | Clinical Summary ---
:1980 Author Organization [facility] Address [address] [place] [address] Care Team Providers Name Role Phone Unavailable [...] Health Maintenance Due Date Last Done Comments HPV Cervical Cancer Scrn 02/19/2012 Pap Cervical Cancer Scrn 02/19/2012 IMM Influenza Seasonal Jan to June (>/= 19 yrs) 01/23/2020 Results Not on fileafter 03/24/2019 Insurance Payer Benefit Plan / Subscriber ID Effective Dates Phone Addre ss Type Group [employer] SELF-PAY xxxxxxxxx 2016-Pres [phone] [id number] SELF-PAY UNSCREENED ent [address] [place] [id number] (Work)
--- OUTSIDE RECORDS SUMMARY | 2020-03-24 04:02 | XMS REPORT | Summary of Care ---
:1980 Author Organization [facility] - [facility] Address [address] [place] [address] Care Team Providers Name Role Phone Pcp, Does Not Have A Primary Care Provider Encounter Details Date Type Department Care Team Description 2020 Orders Only [facility] Doctor Unassigned, No 301 [place] [address] [address] [place] [address] Allergies No Known Allergiesdocumented as of this encounter (statuses as of 2020) Medications Medication Sig Dispensed Refills Start Date End Date Status tramadol-acetaminophen Take 1 Tab by 12 Tab 0 07/05/2015 Active (ULTRACET) 37.5-325 mg mouth every 6 per tablet (six) hours as needed for Pain. naproxen sodium Take 1 tablet by 14 tablet 0 02/26/2016 Active (ANAPROX) 550 mg tablet mouth 2 (two) times daily with meals. methocarbamol (ROBAXIN) Take 1 tablet by 20 tablet 0 6 Active 500 mg tablet mouth 4 (four) times daily. documented as of this encounter (statuses as of 2020) Active Problems No known active problemsdocumented as of this encounter (statuses as of 2020) Social History Tobacco Use Types Packs/Day Years Used Date Current Every Day Smoker 0.5 13 Smokeless Tobacco: Never Used Alcohol Use Drinks/Week oz/Week Comments No Sex Assigned at Date Recorded Not on file documented as of this encounter Last Filed Vital Signs Not on filedocumented in this encounter Plan of Treatment Date Type Specialty Care Team Description 2020 Office Visit Gastroenterology Hui Negrete MD Arrived [address] [place], [place] [phone] 03/03/2020 Office Visit Neurology Harshil Tomas MD [address] [place], [place] [address]d. [place] [address] [phone] Health Maintenance Due Date Last Done Comments VARICELLA VACCINES (1 of 2 - 2-dose childhood series) 1983 PNEUMOCOCCAL 0-64 YEARS COMBINED SERIES (1 of 1 - 02/19/1988 PPSV23) Depression Screening 1994 DTaP,Tdap,and Td Vaccines (1 - Tdap) 2001 PAP SMEAR 2003 INFLUENZA VACCINE (#1) 2019 documented as of this encounter Procedures Procedure Name Priority Date/Time Associated Diagnosis Comme nts NO SHOW OR MISSED Routine 2020 9:55 AM APPOINTMENT POLICY CDT ACKNOWLEDGEMENT documented in this encounter Results Not on filedocumented in this encounter
--- OUTSIDE RECORDS SUMMARY | 2020-03-24 04:03 | XMS REPORT | Summary of Care ---
:1980 Author Organization [facility] Address [address] [place] [address] Care Team Providers Name Role Phone Pcp, Does Not Have A Primary Care Provider Reason for Visit Reason Comments Notification Closing Encounter Encounter Details Date Type Department Care Team Description 03/03/2020 Telephone [facility] Harshil Tomas Notifi cation (Closing Neurology-Shannon REED Encounter) [address] [place] [phone] Allergies No Known Allergiesdocumented as of this encounter (statuses as of 03/12/2020) Medications Medication Sig Dispensed Refills Start Date [...] as of this encounter (statuses as of 03/12/2020) Active Problems Problem Noted Date Other constipation 2020 Overview: Added automatically from request for rohini verdugo [id number] documented as of this encounter (statuses as of 03/12/2020) Social History Tobacco Use Types Packs/Day Years [...] Signs Not on filedocumented in this encounter Miscellaneous Notes Telephone Encounter - Kendy Pascual RN - 03/12/2020 10:06 PM CSTAccess Center: [facility] Open Encounter Maintenance Nurse Note: RN closing encounter in [facility] r/t encounter created without notes, details, orders, future appointments, or clinical action items to be completed. Kendy Pascual RN [facility] Access Center Triage Nurse elephone Encounter - Desiree Garcia - 03/03/2020 11:40 AM CSTKerri Edilma Mack is a 40 year old female Pt is calling to documented in this encounter Plan of Treatment Date Type Specialty Care Team Description 03/23/2020 Office Visit Neurology Harshil Tomas MD [address] [place] [address]. [place] [phone] 03/31/2020 Office Visit Gastroenterology Hui Negrete MD [address] [place] [address] [phone] Health Maintenance Due Date Last Done Comments [...]
--- OUTSIDE RECORDS SUMMARY | 2020-03-24 04:03 | XMS REPORT | Summary of Care ---
:1980 Author Organization [facility] Address [address] [place] [address] Care Team Providers Name Role Phone Pcp, Does Not Have A Primary Care Provider Reason for Referral MRI/CAT Scan (Routine) Status Reason Specialty Diagnoses / Referred By Referred To Procedures Contact Contact New Request Diagnostic Diagnoses Hx of colonic polyps Rectal bleeding Hui Negrete Radiology Procedures CT ABDOMEN PELVIS W WO CONTRAST MD Andrews [address] [place] [address] Reason for Visit Reason Comments Follow-up (Routine) Status Reason Specialty Diagnoses / Procedures Referred By R kellieed To Contact Contact New Request Gastroenterology Diagnoses Other fecal abnormalities Radha Dee, Procedures CONSULT/REFERRAL GASTROENTEROLOGY 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 [address] [place] [address] Encounter Details Date Type Department Care Team Description 2020 Office Visit [facility] GeorgieHui cerna Rectal bleeding (Primary Dx); Gastroenterology-Deloris Sparrow MD Other constipation; ston 301 [facility] Hx of colonic polyps [place], [place] Clinics [address] [place] [address], [phone] [place] [address] Floor [phone] [place], [place] (Fax) [phone] Allergies No Known Allergiesdocumented [...] documented in this encounter Progress Notes Marialuisa Lawosn MA - 2020 10:00 AM CDTPatient was [...] up to 49 removed in 2011 at [facility] [place] by Dr. Moustapha Garcia. She says Dr. Garcia diagnosed her with colon cancer but she is a voodoo person and kept praying and was given [...] file Gets together: Not on file Attends voodoo service: Not on file Active member of [...] COLONOSCOPY, CBC WITH DIFF, COMP. METABOLIC PANEL (16406), THYROID STIMULATING HORMONE, peg-electrolyte soln 236-22.74-6.74 -5.[address] ABDOMEN PELVIS W WO CONTRAST, -Follow-up: 2 weeks post procedure Patient seen and discussed with faculty, Dr. Hallie Negrete MD Gastroenterology and Hepatology Fellow Pager #[phone] documented in this encounter Plan of Treatment Date Type Specialty Care Team Description 03/03/2020 Office Visit Neurology Harshil Tomas MD [address] [place] [address]. [place] [phone] 03/31/2020 Office Visit Gastroenterology Hui Negrete MD [address] [facility] [place] [phone] Name Type Priority Associated Diagnoses Order S chedule CBC WITH DIFF LAB Routine Other constipati on Expected: Rectal bleeding 2020, Expires: 02/17/2021 COMP. METABOLIC PANEL LAB Routine Other cons tipation Expected: ([id number]) Rectal bleeding 2020, Expires: 02/17/2021 CT ABDOMEN [...]
--- OUTSIDE RECORDS SUMMARY | 2020-03-24 04:03 | XMS REPORT | Summary of Care ---
:1980 Author Organization [facility] - Health Address [address] [place] [address] Care Team Providers Name Role Phone Correction, Dept Of Primary Care Provider Pcp, Does Not Have A Primary Care Provider Encounter Details Date Type Department Care Team Description 11/22/2019 Orders Only [facility] Doctor Unassigned, No 301 [facility] [place] [address] [address] [place] [address] Allergies No Known Allergiesdocumented as of this encounter (statuses as of 02/19/2020) Medications Medication Sig Dispensed Refills Start Date [...] as of this encounter (statuses as of 02/19/2020) Active Problems Problem Noted Date Other constipation 2020 Overview: Added automatically from request for rohini lucina [id number] documented as of this encounter (statuses as of 02/19/2020) Social History Tobacco Use Types Packs/Day Years [...] Treatment Date Type Specialty Care Team Description 02/21/2020 Laboratory Only Clinical Medical Only, Adc Test Laboratory 02/25/2020 Hospital Surgery Jaqueline Shearer, Other const ipation Encounter [address] [facility] [address] [place] [phone] 02/25/2020 Anesthesia Event Surgery Abigail Ramsey, WILBER [address] [place] [address] 02/25/2020 Surgery Surgery Jaqueline Shearer, COLONOSCOPY [address] [facility] [address] [place] [phone] 03/03/2020 Office Visit Neurology Harshil Tomas MD [address] [facility] [place] [phone] 03/31/2020 Office Visit Gastroenterology Hui Negrete MD [address] [place] [phone] Health Maintenance Due Date Last Done Comments VARICELLA VACCINES (1 of 2 - 2-dose childhood series) 1983 PNEUMOCOCCAL 0-64 YEARS COMBINED SERIES (1 of 1 - 02/19/1988 PPSV23) DTaP,Tdap,and Td Vaccines (1 - Tdap) 2001 PAP SMEAR 2003 INFLUENZA VACCINE (#1) 2019 Depression Screening 02/17/2021 2020 documented as of this encounter Procedures Procedure Name Priority Date/Time Associated Diagnosis Comme nts REFERRAL- Routine 11/22/2019 12:01 AM CDT REQUEST/RESPONSE documented in this encounter Results Not on filedocumented in this encounter
--- NOTE | 2020-03-24 06:04 | ER ---
Nurse's Notes [facility] Name: Marian Mack Age: 40 yrs Sex: Female : 1980 Arrival Date: 03/24/2020 Time: 04:04 Bed 17 Private MD: Diagnosis: Low back pain Presentation: 03/24 04:15 Coronavirus screen: Client denies travel out of the [place] in the last 14 days. At this sg time, the client does not indicate any symptoms associated with coronavirus-19. Ebola Screen: Patient negative for fever greater than or equal to 101.5 degrees Fahrenheit, and additional compatible Ebola Virus Disease symptoms Patient denies exposure to infectious person. Patient denies travel to an Ebola-affected area in the 21 days before illness onset. No symptoms or risks identified at this time. Initial Sepsis Screen: Does the patient meet any 2 criteria? HR > 90 bpm. Does the patient have a suspected source of infection? No. Patient's initial sepsis screen is negative. Risk Assessment: Do you want to hurt yourself or someone else? Patient reports no desire to harm self or others. Onset of symptoms was March 24, 2020. Care prior to arrival: None. Transition of care: patient was not received from another setting of care. 04:15 Acuity: NOVA 3 sg 04:15 Method Of Arrival: Ambulatory sg 05:12 Chief complaint: Patient states: pt reports back pain x1 month, worsening today, states sg feels muscles bulging around the spine on the left side as well, denies trauma or injury for triage. Historical: - Allergies: 04:15 NKA; sg - PMHx: 04:15 "gallbladder problem"; Anxiety; cervical cancer; colon cancer; Depression; sg Diverticulitis; ulcerative colitis; - PSHx: 04:15 Cholecystectomy; Exploratory lap; Appendectomy; sg - Immunization history:: Adult Immunizations up to date. - Social history:: Smoking status: Patient reports the use of cigarette tobacco products, smokes one-half pack cigarettes per day. - Family history:: not pertinent. Screenin:15 Abuse screen: Denies threats or abuse. Denies injuries from another. Nutritional sg screening: No deficits noted. Tuberculosis screening: No symptoms or risk factors identified. Never had TB. Fall Risk None identified. Assessment: 04:15 Reassessment:. General: Appears in no apparent distress. uncomfortable, well groomed, sg well developed, well nourished, Behavior is calm, cooperative, appropriate for age. Pain: Complains of pain in right low back Quality of pain is described as aching. Neuro: Level of Consciousness is awake, alert, obeys commands, Oriented to person, place, time, situation, Facial symmetry appears normal. Cardiovascular: Patient's skin is warm and dry. Respiratory: Airway is patent Respiratory effort is even, unlabored, Respiratory pattern is regular, symmetrical. GI: No signs and/or symptoms were reported involving the gastrointestinal system. : No signs and/or symptoms were reported regarding the genitourinary system. EENT: No signs and/or symptoms were reported regarding the EENT system. Derm: Skin is pink, warm \\T\\ dry. Musculoskeletal: Circulation, motion, and sensation intact. Range of motion: intact in all extremities. 05:16 Reassessment: pt sleeping at this time with snoring respirations, notified I sg had went to verify pt transportation prior to administering dialudid and valium IV, pt sleeping, will let rest, notified, instructed to hold medications until xray results at this time. 05:50 Reassessment: pt on the call jauregui, pt states " I need to go to the bathroom." pt sg assisted to the restroom. 05:52 Reassessment: pt shouts " oh my god, its fucking six o'clock, why didn't you wake me sg up. 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 pt stated understanding and apologized for shouting at RN. pt assisted back to bed post void in restroom, no problems encountered. notified pt results are back and pt requesting different pain medication so is able to go to work today, new orders received and patient medicated prior to DC to home for work. Vital Signs: 04:16 Pulse 70; Resp 17; Temp 97.7; Pulse Ox 100% on R/A; Pain 10/10; sg 04:16 BP 148 / 82; sg 05:50 BP 132 / 77; Pulse 72; Resp 14; Pulse Ox 100% on R/A; sg ED Course: 04:04 Patient arrived in ED. cl3 04:12 Sandi Agosto MD is Attending Physician. ma2 04:15 Arm band placed on. sg 04:15 Patient has correct armband on for positive identification. Bed in low position. Call sg light in reach. Side rails up X2. Pulse ox on. NIBP on. Warm blanket given. Head of bed elevated. 04:15 No provider procedures requiring assistance completed. sg 04:16 Triage completed. sg 04:40 Patient moved to radiology. sg 05:10 Patient moved back from radiology. sg 05:11 XRAY Lumbar Spine (3 Views) In Process Unspecified. EDMS 05:11 Calvin Ko, RN is Primary Nurse. sg 06:17 Patient did not have IV access during this emergency room visit. sg Administered Medications: 06:00 Drug: TORadol 60 mg Route: IM; Site: right ventrogluteal; sg 06:17 Follow up: Response: No adverse reaction sg 06:04 Not Given (Other Intervention Used): Dilaudid 1 mg IVP once; RASS on ADMIN: Combtv4, sg Very Agttd3, Agttd2, Rstlss1, AlertClm0, Drwsy-1, Lt Sdtn-2, Mod Sdtn-3, Dp Sdtn-4, UnArsble-5 06:04 Not Given (Other Intervention Used): Valium 5 mg IVP once sg Outcome: 06:04 Discharge ordered by . ma2 06:17 Discharged to home ambulatory. sg 06:17 Condition: good 06:17 Discharge instructions given to patient, Instructed on discharge instructions, follow up and referral plans. safety practices, Demonstrated understanding of instructions, follow-up care, Prescriptions given X 2. 06:18 Patient left the ED. sg Signatures: Dispatcher [employer] EDMS Calvin Ko, WILBER RN Sandi Agosto MD MD ma2 Lewis, Charde cl3 Corrections: (The following items were deleted from the chart) 05:12 04:15 Social history: Smoking status: Patient denies any tobacco usage or history of. sgsg 05:29 05:20 Patient moved back from radiology. sg sg
--- NOTE | 2020-03-24 06:04 | EDPHYS ---
Physician Documentation [facility] Name: Marian Mack Age: 40 yrs Sex: Female : 1980 Arrival Date: 03/24/2020 Time: 04:04 Bed 17 Private MD: ED Physician Sandi Agosto HPI: 03/24 04:31 This 40 yrs old Female presents to ER via Ambulatory with complaints of Back ma2 Pain. 04:31 The patient presents with pain that is chronic. Onset: The symptoms/episode ma2 began/occurred gradually, 2 day(s) ago. Associated signs and symptoms: Pertinent negatives: constipation, fever, incontinence, tingling, weakness. Severity of symptoms: At their worst the symptoms were moderate, in the emergency department the symptoms are unchanged. The patient has experienced similar episodes in the past. 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 Historical: - Allergies: 04:15 NKA; sg - PMHx: 04:15 "gallbladder problem"; Anxiety; cervical cancer; colon cancer; Depression; sg Diverticulitis; ulcerative colitis; - PSHx: 04:15 Cholecystectomy; Exploratory lap; Appendectomy; sg - Immunization history:: Adult Immunizations up to date. - Social history:: Smoking status: Patient reports the use of cigarette tobacco products, smokes one-half pack cigarettes per day. - Family history:: not pertinent. ROS: 04:31 Constitutional: Negative for fever, chills, and weight loss. ma2 04:31 All other systems are negative. Exam: 04:31 Constitutional: This is a well developed, well nourished patient who is awake, alert, ma2 and in no acute distress. Chest/axilla: Normal chest wall appearance and motion. Nontender with no deformity. No lesions are appreciated. Cardiovascular: Regular rate and rhythm with a normal S1 and S2. No gallops, murmurs, or rubs. Normal PMI, no JVD. No pulse deficits. Respiratory: Lungs have equal breath sounds bilaterally, clear to auscultation and percussion. No rales, rhonchi or wheezes noted. No increased work of breathing, no retractions or nasal flaring. Abdomen/GI: Soft, non-tender, with normal bowel sounds. No distension or tympany. No guarding or rebound. No evidence of tenderness throughout. Skin: Warm, dry with normal turgor. Normal color with no rashes, no lesions, and no evidence of cellulitis. MS/ Extremity: Pulses equal, no cyanosis. Neurovascular intact. Full, normal range of motion. Neuro: Awake and alert, GCS 15, oriented to person, place, time, and situation. Cranial nerves II-XII grossly intact. Motor strength 5/5 in all extremities. Sensory grossly intact. Cerebellar exam normal. Normal gait. 04:31 Back: pain, that is moderate, ROM is painful, normal spinal alignment noted, CVA tenderness, that is moderate, muscle spasm, is appreciated in the right low back. Vital Signs: 04:16 Pulse 70; Resp 17; Temp 97.7; Pulse Ox 100% on R/A; Pain 10/10; sg 04:16 BP 148 / 82; sg 05:50 BP 132 / 77; Pulse 72; Resp 14; Pulse Ox 100% on R/A; sg MDM: 04:12 Patient medically screened. [facility] 04:31 Differential diagnosis: Fracture Ligament Injury sprain, vertebral fracture. [facility] 06:03 Data reviewed: vital signs, nurses notes. Counseling: I had a detailed discussion with [facility] the patient and/or guardian regarding: the historical points, exam findings, and any diagnostic results supporting the discharge/admit diagnosis, the presence of at least one elevated blood pressure reading (>120/80) during this emergency department visit, the need for outpatient follow up. Response to treatment: the patient's symptoms have markedly improved after treatment. 03/24 04:31 Order name: XRAY Lumbar Spine (3 Views) [facility] Administered Medications: 06:00 Drug: TORadol 60 mg Route: IM; Site: right ventrogluteal; sg 06:17 Follow up: Response: No adverse reaction sg 06:04 Not Given (Other Intervention Used): Dilaudid 1 mg IVP once; RASS on ADMIN: Combtv4, sg Very Agttd3, Agttd2, Rstlss1, AlertClm0, Drwsy-1, Lt Sdtn-2, Mod Sdtn-3, Dp Sdtn-4, UnArsble-5 06:04 Not Given (Other Intervention Used): Valium 5 mg IVP once sg Disposition: 03/24/20 06:04 Discharged to Home. Impression: Low back pain. - Condition is Stable. - Discharge Instructions: Back Pain, Adult. - Prescriptions for Cyclobenzaprine 10 mg Oral Tablet - take 1 tablet by ORAL route every 8 hours As needed; 30 tablet. Diclofenac Sodium 75 mg Oral Tablet Sustained Release - take 1 tablet by ORAL route 2 times per day; 30 tablet. - Medication Reconciliation Form, Thank You Letter, Antibiotic Education, Prescription Opioid Use form. - Follow up: Private Physician; When: Tomorrow; Reason: Continuance of care. Signatures: Dispatcher [employer] EDCalvin Cardozo RN RN sg Sandi Agosto MD MD ma2 Corrections: (The following items were deleted from the chart) 05:12 04:15 Social history: Smoking status: Patient denies any tobacco usage or history of. sgsg 06:18 06:04 03/24/2020 06:04 Discharged to Home. Impression: Low back pain. Condition is sg Stable. Prescriptions for Cyclobenzaprine 10 mg Oral Tablet - take 1 tablet by ORAL route every 8 hours As needed; 30 tablet, Diclofenac Sodium 75 mg Oral Tablet Sustained Release - take 1 tablet by ORAL route 2 times per day; 30 tablet. and Forms are Medication Reconciliation Form, Thank You Letter, Antibiotic Education, Prescription Opioid Use. Follow up: Private Physician; When: Tomorrow; Reason: Continuance of care. ma2
[2020-03-24] MEDS ORDERED: KETOROLAC 30 MG/ML INJ ONE (06:16)
[2020-03-24 06:49] VITALS: BP 148/82; TEMP 97.7; O2SAT 100
--- NOTE | 2020-03-24 07:19 | RAD REPORT ---
EXAM DESCRIPTION: RAD - Lumbar Spine 3 Views - 03/24/2020 5:11 am CLINICAL HISTORY: Back pain FINDINGS: The alignment of the lumbar spine is satisfactory. No fracture or dislocation is seen. Mild spondylosis involves the lumbar spine
== END 2020-03-24 06:18 | disposition home or self-care (01) ==
LOC: ER 04:00
DX: M54.5 Low back pain (principal); F17.210 Nicotine dependence, cigarettes, uncomplicated; Z85.41 Personal history of malignant neoplasm of cervix uteri; Z85.038 Personal history of other malignant neoplasm of large intestine
CPT/HCPCS: 72100; 96372; 99284

== ENCOUNTER 2020-08-09 10:39 | Observation (INO) | payer OTHER ==
--- OUTSIDE RECORDS SUMMARY | 2020-08-09 10:42 | XMS REPORT | Continuity of Care Document ---
:1980 Author Organization [facility] t Address [address] [place] [address] Care Team Providers Name Role Phone Andrews Negrete MD Attending Clinician Problems Condition Condition Condition Status Onset Resolution Last Treating Co mments Source Name Details Category Date Date Treatment Clinician Date Chest pain Chest pain Disease Active [facility] SOB SOB Disease Active [place] (shortness (shortness He alth of breath) of breath) Allergies, Adverse Reactions, Alerts This patient has no known allergies or adverse reactions. Social History Social Habit Start Date Stop Date Quantity Comments Source History of tobacco Cigarette Smoker [facility] use Sex Assigned At [place] He alth Cigarettes smoked 2016-04-03 2016-04-03 [facility] current (pack per 00:00:00 00:00:00 day) - Reported Alcohol intake 2016-04-03 2016-04-03 Current drinker [facility] 00:00:00 00:00:00 of alcohol (finding) Alcohol Comment 2016-04-03 2016-04-03 once per month [facility] 00:00:00 00:00:00 Smoking Status Start Date Stop Date Source Current every day smoker 2016-04-03 00:00:00 [facility] Medications This patient has no known medications. Procedures This patient has no known procedures. Plan of Care Planned Activity Planned Date Details Comments Source Future Scheduled Test 2021-01-22 00:00:00 IMM Influenza [facility] Seasonal Jan to June (>/= 19 yrs) [code = IMM Influenza Seasonal Jan to June (>/= 19 yrs)] Future Scheduled Test 2012-02-19 00:00:00 Screening for [facility] malignant neoplasm of cervix (procedure) [code = 312085117] Future Scheduled Test 2012-02-19 00:00:00 Screening for [facility] malignant neoplasm of cervix (procedure) [code = 402909393] Future Scheduled Test 1998 00:00:00 COVID-19 Vaccine (1) [facility] [code = COVID-19 Vaccine (1)] Encounters Start End Encounter Admission Attending Care Care Encounter Source Date/Time Date/Time Type Type Clinicians Facility Department ID 2020-04-13 2020-04-13 [place] [facility] [id number] 00:00:00 00:00:00 [facility] [id number] [facility] [id number] Results This patient has no known results.
--- NOTE | 2020-08-09 11:06 | RAD REPORT ---
EXAM DESCRIPTION: CT - Ct Stroke Brain Wo Cont - 08/09/2020 10:56 am CLINICAL HISTORY: [facility] COMPARISON: 2018 TECHNIQUE: Computed axial tomography of the head was obtained. All CT scans are performed using dose optimization technique as appropriate and may include automated exposure control or mA/KV adjustment according to patient size. FINDINGS: An intracranial bleed is not seen . The ventricles are normal in caliber. No extra-axial fluid collection is noted. Fluid within the sinuses/ mastoids is not seen. IMPRESSION: No acute intracranial abnormality is seen. If patient's symptoms persist MRI of the bra in would be recommended. Dr Montoya of the emergency room was notified at 11 a.m. on August 09, 2020
[2020-08-09] MEDS ORDERED: NA CHLORIDE 0.9% 1,000 ML ONE (11:09)
[2020-08-09] MEDS ORDERED: FOLIC ACID 5 MG/ML VIAL ONE (11:10)
[2020-08-09 11:34] LABS: Absolute Lymphocytes (CBC) 1.9 K/uL (0.7-4.9); Hematocrit 35.8 % (36.0-45.0); Lymphocytes % 15.5 % (15.3-44.8); MPV 8.9 fL (7.6-11.3); RBC Red Blood Cell Count 3.91 M/uL (3.86-4.86)
[2020-08-09 11:42] LABS: Protime INR 0.97
[2020-08-09 11:54] LABS: ALT/SGPT 18 U/L (12-78); AST/SGOT 9 U/L (15-37); Albumin 3.7 g/dL (3.4-5.0); Alkaline Phosphatase 82 U/L (45-117); BUN Blood Urea Nitrogen 8 mg/dL (7-18); Bicarbonate 28 mmol/L (21-32); Bilirubin Direct < 0.1 mg/dL (0-0.2); Bilirubin Total 0.2 mg/dL (0.2-1.0); Glucose Level 82 mg/dL (74-106); Magnesium 2.3 mg/dL (1.8-2.4); NT PRO-BNP 27 pg/mL (<125); Potassium 4.8 mmol/L (3.5-5.1); Protein, Total 7.2 g/dL (6.4-8.2); Sodium Level 141 mmol/L (136-145); Troponin (Emerg Dept Use Only) < 0.02 ng/mL (0.0-0.045)
--- NOTE | 2020-08-09 12:09 | ER ---
Nurse's Notes [facility] Name: Marian Mack Age: 40 yrs Sex: Female : 1980 Arrival Date: 08/09/2020 Time: 10:40 Bed 6 Private MD: Diagnosis: Transient cerebral ischemic attack, unspecified;Diplopia;Other chest pain Presentation: 08/09 10:52 Chief complaint: Patient states: "I woke up feeling very unsteady walking and with jd3 double vision. I am also having chest pain and a pretty bad headache.". Coronavirus screen: At this time, the client does not indicate any symptoms associated with coronavirus-19. Ebola Screen: Patient negative for fever greater than or equal to 101.5 degrees Fahrenheit, and additional compatible Ebola Virus Disease symptoms. Initial Sepsis Screen: Does the patient meet any 2 criteria? No. Patient's initial sepsis screen is negative. Does the patient have a suspected source of infection? No. Patient's initial sepsis screen is negative. Risk Assessment: Do you want to hurt yourself or someone else? Patient reports no desire to harm self or others. Onset of symptoms was August 09, 2020. 10:52 Method Of Arrival: Wheelchair jd3 10:52 Acuity: NOVA 2 jd3 11:46 An acute neurological deficit is present. The charge nurse has been notified. The jl7 patient has been moved to a treatment area. Pre-hospital glucose is not applicable to this patient. 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 jl7 Historical: - Allergies: 10:55 NKA; jd3 - Home Meds: 10:55 Bentyl Oral [Active]; gabapentin 300 mg Oral cap 1 cap 3 times per day [Active]; jd3 hydrocodone-acetaminophen 7.5-325 mg Oral tab [Active]; Paxil CR 25 mg Oral Tb24 1 tab once daily for Anxiety with Depression [Active]; Pepcid Oral [Active]; Soma 350 mg Oral tab [Active]; Xanax Oral as needed [Active]; Zofran Oral [Active]; - PMHx: 10:55 Depression; "gal bladder problem"; Anxiety; cervical cancer; colon cancer; "gallbladder jd3 problem"; ulcerative colitis; Diverticulitis; - PSHx: 10:55 Cholecystectomy; Exploratory lap; Appendectomy; jd3 - Immunization history:: Adult Immunizations up to date. - Social history:: Smoking status: Patient reports the use of cigarette tobacco products, denies chronic smoking, but will smoke occasionally. - Family history:: not pertinent. Screenin:53 Abuse screen: Denies threats or abuse. Denies injuries from another. Nutritional jl7 screening: No deficits noted. Tuberculosis screening: No symptoms or risk factors identified. Fall Risk No fall in past 12 months (0 pts). Secondary diagnosis (15 points) CVA, IV access (20 points). Ambulatory Aid- None/Bed Rest/Nurse Assist (0 pts). Gait- Weak (10 pts.). Mental Status- Oriented to own ability (0 pts). Total Sky Fall Scale indicates High Risk Score (45 or more points). Fall prevention measures have been instituted. Side Rails Up X 2 Placed Close to Nursing Station Frequent Obs/Assessments Occuring Family Present and informed to notify staff if the need to leave the bedside As available patient and family educated on Fall Prevention Program and Strategies. Assessment: 10:45 VAN Scoring: Arm Drift: Minor drift Visual Disturbance: Patient reports double vision. jl7 Provider notified of +VAN scoring. 11:00 T-PA (Activase) Screening: Contraindications: Patient reports onset of signs and jl7 symptoms of stroke greater than 6 hours ago: Yes. 11:10 General: Appears in no apparent distress. uncomfortable, Behavior is cooperative, jl7 anxious. Pain: Complains of pain in mid-sternal area Pain does not radiate. Pain currently is 2 out of 10 on a pain scale. at worst was 10 out of 10 on a pain scale. Quality of pain is described as pressure, Is continuous. Neuro: Level of Consciousness is awake, alert, obeys commands, Oriented to person, place, time, situation, Gait is unsteady, Speech is normal, Facial symmetry appears normal. Cardiovascular: Patient's skin is warm and dry. Rhythm is regular. Respiratory: Airway is patent Respiratory effort is even, unlabored, Respiratory pattern is regular, symmetrical. GI: Reports nausea. Derm: Skin is pink, warm \\T\\ dry. 11:15 The patient has not been NPO before screening. The patient is currently on the jl7 following diet: Home The patient is alert, and able to follow commands. The patient does not exhibit slurred or garbled speech. The patient is not exhibiting difficulty speaking. The patient does not exhibit difficulty understanding words. The patient is able to swallow own secretions with no drooling or need for suction. Patient tolerated one teaspoon of water. No drooling, immediate coughing, gurgling, or clearing of the throat was noted. The patient tolerated 90mL of water. No drooling, immediate coughing, gurgling, or clearing of the throat was noted. The patient passed the bedside swallow screening. Oral medications may be given as ordered. Contact Physician for further diet orders. Provider notified of bedside swallow screening results: Mike Montoya MD. 11:56 Reassessment: Pt reports having the J\\T\\J COVID vaccine on 07-29-20. She had an abdominal jl7 CT yesterday and reports she has been diagnosed with some kind of cancer in the abdomen. Also has a large lump under her chin and reports it might be cancer. She is being tested for ALS and MS but has not gotten the results at this point. 12:15 Reassessment: Pt's informed of hospital visitor policy, verbalizes jl7 understanding that he will not be allowed to come back to the patients room, verbalizes understanding. 12:43 Reassessment: Patient appears in no apparent distress at this time. No changes from jl7 previously documented assessment. Patient and/or family updated on plan of care and expected duration. Pain level reassessed. Patient is alert, oriented x 3, equal unlabored respirations, skin warm/dry/pink. 13:00 Reassessment: Pt's noted to be going in and out of the ER, informed him again jl7 of hospital policy and he verbalizes understanding again. 13:20 Reassessment: Pt moved from ER room 3 to ER room 6 and into a hospital bed for comfort. jl7 14:00 Reassessment: Pt states "I just got back from smoking and wanted to make sure my IV was jl7 ok." IV appears healthy, flushes easy, and secured at this time. Informed pt this is a smoke free facility and that we are not allowed to let patients go outside with an IV. Pt states "I know, I know. This is the first and last time.". 15:00 Reassessment: Patient appears in no apparent distress at this time. No changes from [facility] previously documented assessment. Patient and/or family updated on plan of care and expected duration. Pain level reassessed. Patient is alert, oriented x 3, equal unlabored respirations, skin warm/dry/pink. 16:00 Reassessment: Patient appears in no apparent distress at this time. No changes from [facility] previously documented assessment. Patient and/or family updated on plan of care and expected duration. Pain level reassessed. Patient is alert, oriented x 3, equal unlabored respirations, skin warm/dry/pink. 17:00 Reassessment: Pt laying in bed with eyes closed, snoring respirations, 100% on room jl air, easily arousable. 19:03 Reassessment: Pt requesting to go outside and smoke, informed pt again this is a none [facility] smoking facility and she is not allowed to leave the facility with an IV in place. ERD notified and gave VO for Nicoderm patch. Patch placed as ordered. Pt continued to be agitated and states take the IV and I will follow-up with Dr. Veras. Pt signs AMA form at this time. Vital Signs: 10:55 BP 121 / 83; Pulse 72; Resp 18 S; Pulse Ox 100% on R/A; Weight 69.85 kg (R); Height 5 jd3 ft. 9 in. (175.26 cm) (R); Pain 8/10; 11:53 BP 101 / 68; Pulse 85; Resp 18; Pulse Ox 99% ; Pain 2/10; jl7 11:59 Temp 97.9; jl7 12:43 BP 115 / 87; Pulse 72; Resp 15; Pulse Ox 99% ; jl7 13:50 BP 104 / 68; Pulse 62; Resp 19; Pulse Ox 99% ; jl7 14:26 BP 105 / 73; Pulse 68; Resp 15; Pulse Ox 99% ; jl7 16:00 BP 98 / 63; Pulse 65; Resp 15; Pulse Ox 100% ; jl7 10:55 Body Mass Index 22.74 (69.85 kg, 175.26 cm) jd3 Teresa Coma Score: 12:05 Eye Response: spontaneous(4). Verbal Response: oriented(5). Motor Response: obeys dandre commands(6). Total: 15. NIH Stroke Scale Scores: 11:10 NIHSS Score: 0 jl7 ED Course: 10:40 Patient arrived in ED. as 10:46 Kelly Cintron, RN is Primary Nurse. jl7 10:48 Mike Montoya MD is Attending Physician. dandre 10:53 Triage completed. jd3 10:56 CT Stroke Brain w/o Contrast In Process Unspecified. EDMS 10:56 Arm band placed on. jd3 11:00 Patient has correct armband on for positive identification. Placed in gown. Bed in low jl7 position. Call light in reach. Side rails up X2. phototypesetting equipment monitor on. Pulse ox on. NIBP on. Warm blanket given. 11:10 Missed attempt(s): 22 gauge in left antecubital area. Bleeding controlled, band aid jl7 applied, catheter tip intact. 11:20 Initial lab(s) drawn, by me, sent to lab. Inserted saline lock: 22 gauge in left wrist, jl7 using aseptic technique. Blood collected. 11:30 EKG done, by ED staff, reviewed by Mike Montoya MD. jl7 11:35 Stroke CXR 1 View In Process Unspecified. EDMS 12:08 Jorge Cordova MD is Hospitalizing Provider. dandre 12:10 Prince Monge MD is Hospitalizing Provider. dandre 18:44 No provider procedures requiring assistance completed. Patient admitted, IV remains in jl7 place. intact, No redness/swelling at site. 19:03 IV discontinued, intact, bleeding controlled, No redness/swelling at site. Pressure jl7 dressing applied. Administered Medications: 11:30 Drug: NS 0.9% 1000 ml Route: IV; Rate: 1 bolus; Site: left wrist; jl7 12:42 Follow up: Response: No adverse reaction; IV Status: Completed infusion; IV Intake: jl7 1000ml 11:30 Drug: foLIC Acid 1 mg Route: IVPB; Site: left wrist; jl7 11:32 Follow up: Response: No adverse reaction; IV Status: Completed infusion jl7 12:14 Drug: Aspirin Chewable Tablet 324 mg Route: PO; ca1 12:42 Follow up: Response: No adverse reaction jl7 12:29 Drug: Tylenol 650 mg Route: PO; jl7 14:07 Follow up: Response: No adverse reaction; Pain is decreased jl7 18:43 Drug: Nicoderm CQ 21 mg/24 hr 1 patches {Note: to right upper arm.} Route: Transdermal; jl7 Site: affected area; 18:44 Follow up: Response: No adverse reaction jl7 Point of Care Testing: Blood Glucose: 11:15 Blood Glucose: 86 mg/dL; jl7 Ranges: Intake: 12:42 IV: 1000ml; Total: 1000ml. jl7 Outcome: 12:08 Decision to Hospitalize by Provider. dandre 18:44 Admitted to Tele accompanied by tech, via wheelchair, room 428, with chart, Report jl7 called to WILBER Moscoso 18:44 Condition: stable 18:44 Discharge instructions given to patient, family, Instructed on the need for admit, Demonstrated understanding of instructions. 19:03 AMA AMA form signed adis 19:07 Patient left the ED. jl7 NIH Stroke Scale - NIH Stroke Score Date: 08/09/2020 Time: 11:10 Total Score = 0 1a. Level of Consciousness (LOC) - 0(Alert) 1b. Level of Consciousness (LOC) (Year \\T\\ Age) - 0(Both) 1c. LOC Commands (Open \\T\\ Closes Eyes/Staffing Executive) - 0(Both) 2. Best Gaze (Lateral Gaze Paresis) - 0(Normal) 3. Visual Field Loss - 0(No visual loss) 4. Facial Palsy - 0(Normal) 5a. Left Arm: Motor (10-second hold) - 0(No drift) 5b. Right Arm: Motor (10-second hold) - 0(No drift) 6a. Left Leg: Motor (5-second hold - always test supine) - 0(No drift) 6b. Right Leg: Motor (5-second hold - always test supine) - 0(No drift) 7. Limb Ataxia (finger/nose \\T\\ heel/xie - test with eyes open) - 0(Absent) 8. Sensory Loss (pinprick arms/legs/face) - 0(Normal) 9. Best Language: Aphasia (description/naming/reading) - 0(No aphasia) 10. Dysarthria (speech clarity - read or repeat words) - 0(Normal) 11. Extinction and Inattention (visual/tactile/auditory/spatial/personal) - 0(No abnormality) Initials: jlJennifer Signatures: Dispatcher [employer] Mike Lockwood MD MD cha Martinez, Amelia as Leal, Jahala, RN RN jl7 William Reyes, RN RN jd3 Susanne Rico, RN RN ca1
--- NOTE | 2020-08-09 12:09 | EDPHYS ---
Physician Documentation [facility] Name: Marian Mack Age: 40 yrs Sex: Female : 1980 Arrival Date: 08/09/2020 Time: 10:40 Bed 6 Private MD: ARLENE Physician Mike Montoya HPI: 08/09 11:58 This 40 yrs old Female presents to ER via Wheelchair with complaints of dandre Vision Problem - double, Headache, Chest Pain. 11:58 The patient complains of pain to the top of head, forehead, left frontal area and right dandre frontal area. The patient describes the headache as aching. 12:00 The patient is experiencing blurred vision, double vision. Onset: The symptoms/episode dandre began/occurred this morning. Duration: the symptoms are continuous. Aggravated by nothing. Alleviated by nothing. Associated signs and symptoms: Pertinent positives: dizziness, headache. Onset: The symptoms/episode began/occurred this morning. The patient or guardian reports chest pain that is located primarily in the anterior chest wall, bilaterally. The pain does not radiate. 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: 14:07 LMP 08/04/2020 jl7 Historical: - Allergies: 10:55 NKA; jd3 - Home Meds: 10:55 Bentyl Oral [Active]; gabapentin 300 mg Oral cap 1 cap 3 times per day [Active]; jd3 hydrocodone-acetaminophen 7.5-325 mg Oral tab [Active]; Paxil CR 25 mg Oral Tb24 1 tab once daily for Anxiety with Depression [Active]; Pepcid Oral [Active]; Soma 350 mg Oral tab [Active]; Xanax Oral as needed [Active]; Zofran Oral [Active]; - PMHx: 10:55 Depression; "gal bladder problem"; Anxiety; cervical cancer; colon cancer; "gallbladder jd3 problem"; ulcerative colitis; Diverticulitis; - PSHx: 10:55 Cholecystectomy; Exploratory lap; Appendectomy; jd3 - Immunization history:: Adult Immunizations up to date. - Social history:: Smoking status: Patient reports the use of cigarette tobacco products, denies chronic smoking, but will smoke occasionally. - Family history:: not pertinent. ROS: 12:00 Constitutional: Negative for fever, chills, and weight loss, Eyes: Negative for injury, dandre pain, redness, and discharge, ENT: Negative for injury, pain, and discharge, Neck: Negative for injury, pain, and swelling, Respiratory: Negative for shortness of breath, cough, wheezing, and pleuritic chest pain, Abdomen/GI: Negative for abdominal pain, nausea, vomiting, diarrhea, and constipation, Back: Negative for injury and pain, : Negative for injury, bleeding, discharge, and swelling, MS/Extremity: Negative for injury and deformity, Skin: Negative for injury, rash, and discoloration, Neuro: Negative for headache, weakness, numbness, tingling, and seizure, Psych: Negative for depression, anxiety, suicide ideation, homicidal ideation, and hallucinations, Allergy/Immunology: Negative for hives, rash, and allergies, Endocrine: Negative for neck swelling, polydipsia, polyuria, polyphagia, and marked weight changes, Hematologic/Lymphatic: Negative for swollen nodes, abnormal bleeding, and unusual bruising. 12:00 Cardiovascular: Positive for chest pain. 12:00 Neuro: Positive for visual changes. Exam: 12:00 Constitutional: This is a well developed, well nourished patient who is awake, alert, dandre and in no acute distress. Head/Face: Normocephalic, atraumatic. Eyes: Pupils equal round and reactive to light, extra-ocular motions intact. Lids and lashes normal. Conjunctiva and sclera are non-icteric and not injected. Cornea within normal limits. Periorbital areas with no swelling, redness, or edema. ENT: Nares patent. No nasal discharge, no septal abnormalities noted. Tympanic membranes are normal and external auditory canals are clear. Oropharynx with no redness, swelling, or masses, exudates, or evidence of obstruction, uvula midline. Mucous membranes moist. Neck: Trachea midline, no thyromegaly or masses palpated, and no cervical lymphadenopathy. Supple, full range of motion without nuchal rigidity, or vertebral point tenderness. No Meningismus. Chest/axilla: Normal chest wall appearance and motion. Nontender with no deformity. No lesions are appreciated. Cardiovascular: Regular rate and rhythm with a normal S1 and S2. No gallops, murmurs, or rubs. Normal PMI, no JVD. No pulse deficits. Respiratory: Lungs have equal breath sounds bilaterally, clear to auscultation and percussion. No rales, rhonchi or wheezes noted. No increased work of breathing, no retractions or nasal flaring. Abdomen/GI: Soft, non-tender, with normal bowel sounds. No distension or tympany. No guarding or rebound. No evidence of tenderness throughout. Back: No spinal tenderness. No costovertebral tenderness. Full range of motion. Skin: Warm, dry with normal turgor. Normal color with no rashes, no lesions, and no evidence of cellulitis. MS/ Extremity: Pulses equal, no cyanosis. Neurovascular intact. Full, normal range of motion. Neuro: Awake and alert, GCS 15, oriented to person, place, time, and situation. Cranial nerves II-XII grossly intact. Motor strength 5/5 in all extremities. Sensory grossly intact. Cerebellar exam normal. Normal gait. Psych: Awake, alert, with orientation to person, place and time. Behavior, mood, and affect are within normal limits. 12:09 ECG was reviewed by the Attending Physician. [facility] Vital Signs: 10:55 BP 121 / 83; Pulse 72; Resp 18 S; Pulse Ox 100% on R/A; Weight 69.85 kg (R); Height 5 jd3 ft. 9 in. (175.26 cm) (R); Pain 8/10; 11:53 BP 101 / 68; Pulse 85; Resp 18; Pulse Ox 99% ; Pain 2/10; jl7 11:59 Temp 97.9; jl7 12:43 BP 115 / 87; Pulse 72; Resp 15; Pulse Ox 99% ; jl7 13:50 BP 104 / 68; Pulse 62; Resp 19; Pulse Ox 99% ; jl7 14:26 BP 105 / 73; Pulse 68; Resp 15; Pulse Ox 99% ; jl7 16:00 BP 98 / 63; Pulse 65; Resp 15; Pulse Ox 100% ; jl7 10:55 Body Mass Index 22.74 (69.85 kg, 175.26 cm) jd3 NIH Stroke Scale Scores: 11:10 NIHSS Score: 0 jl7 Teresa Coma Score: 12:05 Eye Response: spontaneous(4). Verbal Response: oriented(5). Motor Response: obeys [facility] commands(6). Total: 15. MDM: 10:48 Patient medically screened. [facility] 12:05 Differential diagnosis: cerebral vascular accident, abnormal EKG, coronary artery dandre disease congestive heart failure pericarditis, pneumonia, stable angina, unstable angina, hypertensive headache, intracerebral hemorrhage, sinusitis, temporal arteritis, tension headache, traumatic injuries. HEART Score: History: Slightly Suspicious (0), ECG: Normal (0), Age: < or = 45 years (0), Risk Factors: No Risk Factors Known (0), Troponin: < or = 1 x Normal Limit (0). The patient's deep vein thrombosis risk score was calculated as follows: Total Score: 0. This patient was found to be at low risk for a deep vein thrombosis by using the Well's assessment criteria. The patient's pulmonary embolism risk score was calculated as follows: Total Score: 0-2 points. This patient was found to be at low risk for a pulmonary embolism by using the Well's assessment criteria. SERGEY Risk Score: TOTAL SCORE = 0. Data reviewed: vital signs, nurses notes, lab test result(s), EKG, radiologic studies, CT scan, plain films. Data interpreted: court recording monitor: rate is 85 beats/min, rhythm is regular, Pulse oximetry: on room air is 99 %. Test interpretation: by ED physician or midlevel provider: ECG, plain radiologic studies. 12:22 Physician consultation: Eduardo Veras MD was called at 12:29, regarding consult, dandre patient's condition, and will see patient in inpatient room, no tpa, awoke this way. ED course: no a tpa candidate, asiprin and folic acid, mri in the am. 18:40 Physician consultation: and will see patient. 08/09 10:48 Order name: Basic Metabolic Panel; Complete Time: 11:55 08/09 10:48 Order name: CBC with Diff; Complete Time: 11:55 08/09 10:48 Order name: Protime (+inr); Complete Time: 11:55 08/09 10:48 Order name: Ptt, Activated; Complete Time: 11:55 08/09 10:50 Order name: LFT's 08/09 10:50 Order name: Magnesium 08/09 10:50 Order name: NT PRO-BNP; Complete Time: 11:55 08/09 10:50 Order name: Troponin (emerg Dept Use Only); Complete Time: 11:55 08/09 10:50 Order name: Sed Rate 08/09 10:50 Order name: CRP; Complete Time: 11:55 [facility] 08/09 10:50 Order name: Liver (Hepatic) Function; Complete Time: 11:55 [facility] 08/09 10:50 Order name: Magnesium; Complete Time: 11:55 [facility] 08/09 11:19 Order name: Glucose, Ancillary Testing [facility] 08/09 11:22 Order name: COVID-19 : Document "Date of Symptom Onset" if Symptomatic. 08/09 10:48 Order name: CT Stroke Brain w/o Contrast; Complete Time: 11:55 [facility] 08/09 10:48 Order name: Stroke CXR 1 View; Complete Time: 17:39 [facility] 08/09 10:48 Order name: EKG; Complete Time: 10:49 [facility] 08/09 12:31 Order name: Diet Regular; Complete Time: 12:32 [facility] 08/09 13:55 Order name: UDS [facility] 08/09 14:13 Order name: SARS-COV-2 RT PCR; Complete Time: 17:39 [facility] 08/09 14:17 Order name: Urine --Ancillary (enter results) 08/09 14:18 Order name: Urine Dipstick--Ancillary (enter results) 08/09 14:25 Order name: Urine Dipstick-Ancillary; Complete Time: 17:39 [facility] 08/09 14:25 Order name: Urine --Ancillary; Complete Time: 17:39 [facility] 08/09 15:13 Order name: Urine Drug Screen; Complete Time: 17:39 [facility] 08/09 10:48 Order name: Accucheck; Complete Time: 12:00 [facility] 08/09 10:48 Order name: Cardiac monitoring; Complete Time: 12:00 [facility] 08/09 10:48 Order name: EKG - Nurse/Tech; Complete Time: 12:00 [facility] 08/09 10:48 Order name: IV Saline Lock; Complete Time: 12:00 [facility] 08/09 10:48 Order name: Labs collected and sent; Complete Time: 12:00 [facility] 08/09 10:48 Order name: NPO; Complete Time: 12:00 [facility] 08/09 10:48 Order name: O2 Per Protocol; Complete Time: 12:00 [facility] 08/09 10:48 Order name: O2 Sat Monitoring; Complete Time: 12:00 [facility] 08/09 10:48 Order name: Stroke Swallow Screen; Complete Time: 12:00 aa5 EC:09 Rate is 59 beats/min. Rhythm is regular. QRS Avenue is Normal. UT interval is normal. QRS dandre interval is normal. QT interval is normal. No Q waves. T waves are Normal. No ST changes noted. Clinical impression: Sinus bradycardia and No evidence of ischemia. Interpreted by me. Reviewed by me. Administered Medications: 11:30 Drug: NS 0.9% 1000 ml Route: IV; Rate: 1 bolus; Site: left wrist; jl7 12:42 Follow up: Response: No adverse reaction; IV Status: Completed infusion; IV Intake: jl7 1000ml 11:30 Drug: foLIC Acid 1 mg Route: IVPB; Site: left wrist; jl7 11:32 Follow up: Response: No adverse reaction; IV Status: Completed infusion jl7 12:14 Drug: Aspirin Chewable Tablet 324 mg Route: PO; ca1 12:42 Follow up: Response: No adverse reaction jl7 12:29 Drug: Tylenol 650 mg Route: PO; jl7 14:07 Follow up: Response: No adverse reaction; Pain is decreased jl7 18:43 Drug: Nicoderm CQ 21 mg/24 hr 1 patches {Note: to right upper arm.} Route: Transdermal; jl7 Site: affected area; 18:44 Follow up: Response: No adverse reaction jl7 Point of Care Testing: Blood Glucose: 11:15 Blood Glucose: 86 mg/dL; jl7 Ranges: Critical Glucose Levels:Adult <50 mg/dl or >400 mg/dl <40 mg/dl or >180 mg/dl Disposition: 08/09/20 12:08 Hospitalization ordered by Prince Saleem for Observation. Preliminary diagnosis are Transient cerebral ischemic attack, unspecified, Diplopia, Other chest pain. - Bed requested for Telemetry/MedSurg (observation). - Status is Observation. jl7 - Condition is Stable. - Problem is new. - Symptoms have improved. NIH Stroke Scale - NIH Stroke Score Date: 08/09/2020 Time: 11:10 Total Score = 0 1a. Level of Consciousness (LOC) - 0(Alert) 1b. Level of Consciousness (LOC) (Year \\T\\ Age) - 0(Both) 1c. LOC Commands (Open \\T\\ Closes Eyes/Solution Advisor) - 0(Both) 2. Best Gaze (Lateral Gaze Paresis) - 0(Normal) 3. Visual Field Loss - 0(No visual loss) 4. Facial Palsy - 0(Normal) 5a. Left Arm: Motor (10-second hold) - 0(No drift) 5b. Right Arm: Motor (10-second hold) - 0(No drift) 6a. Left Leg: Motor (5-second hold - always test supine) - 0(No drift) 6b. Right Leg: Motor (5-second hold - always test supine) - 0(No drift) 7. Limb Ataxia (finger/nose \\T\\ heel/xie - test with eyes open) - 0(Absent) 8. Sensory Loss (pinprick arms/legs/face) - 0(Normal) 9. Best Language: Aphasia (description/naming/reading) - 0(No aphasia) 10. Dysarthria (speech clarity - read or repeat words) - 0(Normal) 11. Extinction and Inattention (visual/tactile/auditory/spatial/personal) - 0(No abnormality) Initials: jl7 Signatures: Dispatcher [employer] EDNakita Gage RN Mike Devine MD MD cha Calderon, Audri, RN RN aa5 Ronaldo Blankenship, MENTAL RETARDATION AIDE-C MENTAL RETARDATION AIDE-Cla1 Izzy Chand RN RN Kelly Ford RN RN jl7 William Reyes RN RN jd3 Susanne Rico RN RN ca1 Corrections: (The following items were deleted from the chart) 12:10 12:08 Hospitalization Ordered by Jorge Cordova MD for Observation. Preliminary dandre diagnosis is Transient cerebral ischemic attack, unspecified; Diplopia; Other chest pain. Bed requested for Telemetry/MedSurg (observation). Status is Observation. Condition is Stable. Problem is new. Symptoms have improved. dandre 17:04 12:10 08/09/2020 12:08 Hospitalization Ordered by Prince Saleem REED for lei Observation. Preliminary diagnosis is Transient cerebral ischemic attack, unspecified; Diplopia; Other chest pain. Bed requested for Telemetry/MedSurg (observation). Status is Observation. Condition is Stable. Problem is new. Symptoms have improved. dandre 19:03 17:04 08/09/2020 12:08 Hospitalization Ordered by Prince Saleem REED for cg Observation. Preliminary diagnosis is Transient cerebral ischemic attack, unspecified; Diplopia; Other chest pain. Bed requested for Telemetry/MedSurg (observation). Status is Observation. Condition is Stable. Problem is new. Symptoms have improved. kl 19:07 19:03 08/09/2020 12:08 Hospitalization Ordered by Prince Saleem REED for jl7 Observation. Preliminary diagnosis is Transient cerebral ischemic attack, unspecified; Diplopia; Other chest pain. Bed requested for Telemetry/MedSurg (observation). Status is Observation. Condition is Stable. Problem is new. Symptoms have improved. cg
[2020-08-09] MEDS ORDERED: ASPIRIN 81 MG CHEWABLE TABLET ONE (12:27)
[2020-08-09] MEDS ORDERED: ACETAMINOPHEN 325 MG TABLET ONE (12:37)
--- NOTE | 2020-08-09 12:39 | RAD REPORT ---
EXAM DESCRIPTION: Jonatan Single View08/09/2020 11:36 am CLINICAL HISTORY: Chest pain COMPARISON: 2017 FINDINGS: The lungs appear clear of acute infiltrate. The heart is normal size IMPRESSION: No acute abnormalities displayed
[2020-08-09] MEDS ORDERED: ACETAMINOPHEN 500 MG TAB PO PRN (13:36)
--- NOTE | 2020-08-09 13:52 | P.HP ---
Patient History Date of Service: 08/09/20 Reason for admission: drowsy, tunnel vision, spine pain. History of Present Illness: 40 y o female pt with hx of Multiple sclerosis which is being worked up at present who came to the Ed with c/o waking up with tunnel vision and weakness. she also has pain in the lower spine and feeling on numbness in the foot. she was brought to the E for evaluation and in the ED., CT of the brain dosne did not reveal any acute pathology. she was scheduled for a MRI of the brain/spine for MS work up prior to now by her neuologist Dr Veras. she was asked to be admitted for in pt care and work up due to her symptoms. Allergies No Known Drug Allergies Allergy (Verified 04/20/18 19:24) Unknown Home Medications: Ibuprofen 800 mg PO PRN PRN 04/20/18 Hydrocodone Bit/Acetaminophen [[place] 10-325 Tablet] 1 each PO Q4HP PRN #20 tablet 04/23/18 - Past Medical/Surgical History Diabetic: No -: ABDOMINAL INTUSSCEPTION -: POOR DENTITION -: CROHNS -: IBS -: COLITIS -: Diverticulitis -: appendectomy -: EXPLORATORY LAPAROTOMY W/ PARTIAL RESECTION OF SMALL BOWEL-INTUSSUSCEPTION - Social History Alcohol use: No CD- Drugs: No Caffeine use: Yes Review of Systems General: Unremarkable Eyes: Vision Change ENT: Unremarkable Respiratory: Unremarkable Gastrointestinal: Unremarkable Genitourinary: Unremarkable Musculoskeletal: Back Pain, Foot Pain Integumentary: Unremarkable Neurological: Numbness, Incoordination, Confusion, Other (feeling of vertigo.) Lymphatics: Unremarkable Physical Examination - Physical Exam General: Alert, Oriented x3, Cooperative HEENT: Atraumatic, Normocephalic Neck: Supple Respiratory: Clear to auscultation bilaterally Cardiovascular: Regular rate/rhythm, Normal S1 S2 Gastrointestinal: Soft and benign Musculoskeletal: No clubbing Integumentary: No rashes Neurological: Normal speech, Normal strength at 5/5 x4 extr - Studies Laboratory Data (last 24 hrs) 08/09/20 11:15: PT 11.2, INR 0.97, APTT 25.5 08/09/20 11:15: WBC 12.30 H, Hgb 11.7 L, Hct 35.8 L, Plt Count 424 H 08/09/20 11:15: Sodium 141, Potassium 4.8, BUN 8, Creatinine 0.70, Glucose 82, Magnesium 2.3, Total Bilirubin 0.2, AST 9 L, ALT 18, Alkaline Phosphatase 82 Assessment and Plan - Plan 1.Suspected Multiple sclerosis flare up- She does have a hx of MS which is being worked up. she will get MRI of brain/spine in am. we will start methylprednisone therapy at 1000mg IV x1 dose. Neurology to evaluate in am. 2.CVA/TIA-Suspected based on presentation. we will start aspirin therapy and obtain lipid panel in am. 3.Drug induced abnormal neurologic state- Pt did report use of cannabis on social basis. we will obtain UDS for further clarification. - Advance Directives Does patient have a Living Will: No Does patient have a Durable POA for Healthcare: Yes
[2020-08-09] MEDS ORDERED: METHYLPRED NA SUC 1,000 MG in NA CHLORIDE 0.9% 100 ML IV ONE (14:00)
[2020-08-09] MEDS ORDERED: ENOXAPARIN 40 MG/0.4 ML SQ SCH (14:00)
[2020-08-09 14:25] LABS: Urine Blood 3+ (Negative); Urine Glucose NEGATIVE (Negative); Urine Protein NEGATIVE (Negative); Urine pH 8.5 (5.0-7.0)
[2020-08-09 14:27] LABS: Barbiturates NEGATIVE (NEGATIVE); Benzodiazepines POSITIVE (NEGATIVE); Cocaine NEGATIVE (NEGATIVE); METHAMPHETAM NEGATIVE (NEGATIVE); Methadone NEGATIVE (NEGATIVE); Opiates NEGATIVE (NEGATIVE); Phencyclidine NEGATIVE (NEGATIVE); THC Cannibis POSITIVE (NEGATIVE)
[2020-08-09] MEDS ORDERED: NICOTINE 21 MG/PAT TD ONE (18:59)
[2020-08-09 19:33] VITALS: TEMP 97.9
[2020-08-09 19:38] VITALS: BP 98/63; O2SAT 100
--- NOTE | 2020-08-10 07:53 | EKG ---
Test Date: 2020-08-09 Test Time: 11:30:18 Environmental Technology Professor: JILLIAN MEASUREMENT RESULTS: Intervals: Rate: 59 MI: 130 QRSD: 98 QT: 424 QTc: 419 [place]: P: 15 MI: 130 QRS: 47 T: 11 INTERPRETIVE STATEMENTS: Sinus bradycardia Otherwise normal ECG Compared to ECG 01/04/2018 04:58:49 Sinus rhythm no longer present Incomplete right bundle-branch block no longer present Electronically Signed On 08-10-20 07:52:05 CDT by Forrest Garcia
== END 2020-08-09 19:10 | disposition left against medical advice (07) ==
LOC: ER 10:39 → ERHOLD 12:13 → 4TH 18:38
PROVIDERS: ADMIT Internal Medicine Nephrology; ATTEND Internal Medicine
DX: G35 Multiple sclerosis (principal); F12.90 Cannabis use, unspecified, uncomplicated; Z20.822 Contact with and (suspected) exposure to COVID-19; Z85.41 Personal history of malignant neoplasm of cervix uteri; Z85.038 Personal history of other malignant neoplasm of large intestine; F17.210 Nicotine dependence, cigarettes, uncomplicated; F41.9 Anxiety disorder, unspecified; K51.90 Ulcerative colitis, unspecified, without complications
CPT/HCPCS: 96361; 93005; 85025; 80048; 36415; 83735; 81025; 85610; 82947; 80076; 80307 ×8; 85730; 81003; 84484; 83880; 86140; 70450; 71045; 96374; 99285; U0003; J7030; G0378 ×2

== ENCOUNTER 2020-08-11 15:15 | Observation (INO) | payer OTHER ==
--- OUTSIDE RECORDS SUMMARY | 2020-08-11 15:19 | XMS REPORT | Continuity of Care Document ---
:1980 Author Organization [facility] t Address [address] [place] [address] Care Team Providers Name Role Phone Andrews Negrete MD Attending Clinician Problems Condition Condition Condition Status Onset Resolution Last Treating Co mments Source Name Details Category Date Date Treatment Clinician Date Chest pain Chest pain Disease Active [facility] SOB SOB Disease Active [facility] (shortness (shortness He alth of breath) of breath) Allergies, Adverse Reactions, Alerts This patient has no known allergies or adverse reactions. Social History Social Habit Start Date Stop Date Quantity Comments Source History of tobacco Cigarette Smoker [facility] use Sex Assigned At [facility] He alth Cigarettes smoked 2016-04-03 2016-04-03 [facility] current (pack per 00:00:00 00:00:00 day) - Reported Alcohol intake 2016-04-03 2016-04-03 [facility]00 of alcohol (finding) Alcohol Comment 2016-04-03 2016-04-03 once per month [facility] TE2 [place] 00:00:00 00:00:00 Smoking Status Start Date Stop Date Source Current every day smoker 2016-04-03 00:00:00 [facility] Medications This patient has no known medications. Procedures This patient has no known procedures. Plan of Care Planned Activity Planned Date Details Comments Source Future Scheduled Test 2021-01-22 00:00:00 IMM Influenza [facility] Seasonal Jan to June (>/= 19 yrs) [code = IMM Influenza Seasonal Jan to June (>/= 19 yrs)] Future Scheduled Test 2012-02-19 00:00:00 Screening for [facility] malignant neoplasm of cervix (procedure) [code = 516720098] Future Scheduled Test 2012-02-19 00:00:00 Screening for [facility] malignant neoplasm of cervix (procedure) [code = 283252469] Future Scheduled Test 1998 00:00:00 COVID-19 Vaccine (1) [facility] [code = COVID-19 Vaccine (1)] Encounters Start End Encounter Admission Attending Care Care Encounter Source Date/Time Date/Time Type Type Clinicians Facility Department ID 2020-04-13 2020-04-13 [facility] GeorgieMAURICE [id number] 00:00:00 00:00:00 [facility] [id number] [facility] [id number] Results This patient has no known results.
[2020-08-11] MEDS ORDERED: PROMETHAZINE INJ 25 MG/ML AMP ONE (17:31)
[2020-08-11] MEDS ORDERED: NA CHLORIDE 0.9% 1,000 ML ONE (17:31)
[2020-08-11] MEDS ORDERED: MECLIZINE HCL 12.5 MG TAB ONE (17:31)
[2020-08-11 17:43] LABS: Absolute Lymphocytes (CBC) 2.3 K/uL (0.7-4.9); Basophils % 0.6 % (0-1.3); Hematocrit 35.7 % (36.0-45.0); Lymphocytes % 17.8 % (15.3-44.8); MPV 8.8 fL (7.6-11.3); RBC Red Blood Cell Count 3.88 M/uL (3.86-4.86)
[2020-08-11 17:52] LABS: Protime INR 0.99
[2020-08-11 18:05] LABS: BUN Blood Urea Nitrogen 11 mg/dL (7-18); Bicarbonate 29 mmol/L (21-32); Glucose Level 126 mg/dL (74-106); Potassium 3.6 mmol/L (3.5-5.1); Sodium Level 141 mmol/L (136-145); Troponin (Emerg Dept Use Only) < 0.02 ng/mL (0.0-0.045)
[2020-08-11 18:24] LABS: Urine Blood Trace-intact (Negative); Urine Glucose Negative (Negative); Urine Protein Negative (Negative)
--- NOTE | 2020-08-11 18:26 | ER ---
Nurse's Notes [facility] Name: Marian Mack Age: 40 yrs Sex: Female : 1980 Arrival Date: 08/11/2020 Time: 15:[address] Private MD: Diagnosis: Vertigo;Ataxia, unspecified Presentation: 08/11 15:51 Chief complaint: Patient states: had an episode of blacking out and tunnel vision and iw seeing double , felt her heart racing, has been going on for a while, like months, intermittent but now it is more frequent, happens every day now, was here this weekend, and had imaging scheduled but she didn't want to stay the night but now it's bad again , and now she's nauseous and vomiting and her stomach is swollen, started this morning. Coronavirus screen: Client presents with at least one sign or symptom that may indicate coronavirus-19. Ebola Screen: Patient negative for fever greater than or equal to 101.5 degrees Fahrenheit, and additional compatible Ebola Virus Disease symptoms Patient denies exposure to infectious person. Patient denies travel to an Ebola-affected area in the 21 days before illness onset. No symptoms or risks identified at this time. Initial Sepsis Screen: Does the patient meet any 2 criteria? No. Patient's initial sepsis screen is negative. Does the patient have a suspected source of infection? No. Patient's initial sepsis screen is negative. Risk Assessment: Do you want to hurt yourself or someone else? Patient reports no desire to harm self or others. Onset of symptoms was 2020. 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:56 LMP 08/08/2020 iw Historical: - Allergies: 15:55 NKA; iw - Home Meds: 15:55 gabapentin 300 mg Oral cap 1 cap 3 times per day [Active]; hydrocodone-acetaminophen iw 7.5-325 mg Oral tab [Active]; Paxil CR 25 mg Oral Tb24 1 tab once daily for Anxiety with Depression [Active]; Soma 350 mg Oral tab [Active]; Pepcid Oral [Active]; Xanax Oral as needed [Active]; Bentyl Oral [Active]; Zofran Oral [Active]; - PMHx: 15:55 "gal bladder problem"; Anxiety; cervical cancer; colon cancer; Depression; iw Diverticulitis; ulcerative colitis; - PSHx: 15:55 Cholecystectomy; Exploratory lap; Appendectomy; iw - Immunization history:: Adult Immunizations. - Family history:: not pertinent. - Social history:: Smoking status: . - Hospitalizations: : No recent hospitalization is reported. Screenin:06 Abuse screen: Denies threats or abuse. Nutritional screening: No deficits noted. tw2 Tuberculosis screening: No symptoms or risk factors identified. Fall Risk None identified. Assessment: 17:06 Reassessment: provider at bedside at this time. tw2 17:32 General: Appears in no apparent distress. uncomfortable, slender, Behavior is calm, tw2 cooperative, appropriate for age. Pain: Complains of pain in abdomen. Neuro: Level of Consciousness is awake, alert, obeys commands, Oriented to person, place, time, situation. Neuro: Reports dizziness. Cardiovascular: Patient's skin is warm and dry. Respiratory: Airway is patent Respiratory effort is even, unlabored, Respiratory pattern is regular, symmetrical. GI: Abd is soft X 4 quads Reports lower abdominal pain, upper abdominal pain, bloating, nausea, vomiting. : No signs and/or symptoms were reported regarding the genitourinary system. Derm: No signs and/or symptoms reported regarding the dermatologic system. Musculoskeletal: Range of motion: intact in all extremities. 17:50 Reassessment: No changes from previously documented assessment. Patient and/or family tw2 updated on plan of care and expected duration. Pain level reassessed. Patient is alert, oriented x 3, equal unlabored respirations, skin warm/dry/pink. 18:45 Reassessment: prior to Cat scan pt states "i dont know what yall gave me but it is tw2 making me pissed off", provider notified. provider in exam room talking with pt at this time explaining medication. 18:54 Reassessment: No changes from previously documented assessment. Patient and/or family tw2 updated on plan of care and expected duration. Pain level reassessed. Patient is alert, oriented x 3, equal unlabored respirations, skin warm/dry/pink. 19:00 Reassessment: Patient appears in no apparent distress at this time. Patient and/or jb4 family updated on plan of care and expected duration. Pain level reassessed. Patient is alert, oriented x 3, equal unlabored respirations, skin warm/dry/pink. 19:55 Reassessment: Patient appears in no apparent distress at this time. Patient and/or jb4 family updated on plan of care and expected duration. Pain level reassessed. Patient is alert, oriented x 3, equal unlabored respirations, skin warm/dry/pink. 20:30 Reassessment: PT placed on 2L NC, desats to 88% while sleeping. Pt sats increased to jb4 97% on 2L. 20:50 Reassessment: Pt admitted to ER hold, remains on 2L NC, resting in bed with eyes jb4 closed, respirations are even and unlabored with no s/s of pain or distress noted. Vital Signs: 15:51 BP 101 / 67; Pulse 62; Resp 16; Temp 98.0; Pulse Ox 98% on R/A; Weight 69.85 kg; Height iw 5 ft. 9 in. (175.26 cm); Pain 7/10; 17:03 BP 116 / 62 LA (auto/reg); Pulse 80; Pulse Ox 100% on R/A; Pain 7/10; jp3 17:50 BP 110 / 64; Pulse 75; Resp 14; Pulse Ox 96% on R/A; tw2 18:52 BP 108 / 72; Pulse 64; Resp 17; Pulse Ox 97% on R/A; tw2 19:45 BP 105 / 65; Pulse 76; Resp 18; Pulse Ox 94% on R/A; jb4 20:30 BP 103 / 63; Pulse 71; Resp 18; Pulse Ox 97% on 2 lpm NC; jb4 15:51 Body Mass Index 22.74 (69.85 kg, 175.26 cm) iw ED Course: 15:16 Patient arrived in ED. as 15:54 Triage completed. iw 15:56 Arm band placed on. iw 16:57 Marcio Brown MD is Attending Physician. rn 16:58 Greta Bowen, WILBER is Primary Nurse. tw2 17:03 Bed in low position. Call light in reach. Side rails up X 1. Warm blanket given. Verbal jp3 reassurance given. Pulse ox on. NIBP on. 17:04 Patient maintains SpO2 saturation greater than 95% on room air. jp3 17:22 Initial lab(s) drawn, by me, sent to lab. Inserted saline lock: 20 gauge in right jp3 antecubital area, using aseptic technique. Blood collected. 18:23 CT Head Brain wo Cont In Process Unspecified. EDMS 18:25 Nestor Elias is Hospitalizing Provider. rn 19:05 Report given to WILBER Tinoco. tw2 19:25 Primary Nurse role handed off by Greta Bowen RN mw2 20:50 No provider procedures requiring assistance completed. Patient admitted, IV remains in jb4 place. Administered Medications: 17:25 Drug: Phenergan 12.5 mg Route: IVP; Site: right antecubital; tw2 18:56 Follow up: Response: No adverse reaction; Nausea is decreased tw2 17:31 Drug: NS 0.9% 1000 ml Route: IV; Rate: 1000 ml; Site: right antecubital; tw2 18:11 Drug: Meclizine 50 mg Route: PO; tw2 18:56 Follow up: Response: No change in condition tw2 18:59 Drug: Ativan (LORazepam) 1 mg Route: IVP; Site: right antecubital; tw2 08/12 19:02 Follow up: Response: No adverse reaction; Marked relief of symptoms tw2 Outcome: 08/11 18:25 Decision to Hospitalize by Provider. rn 20:50 Admitted to ER Hold. Please see [facility] for further documentation. jb4 20:50 Condition: stable 20:50 Discharge instructions given to patient, Instructed on the need for admit, Demonstrated understanding of instructions. 08/12 12:29 Patient left the ED. aa5 Signatures: Dispatcher [employer] Natalie Miller Irene, RN RN iw Nieto, Roman, MD MD rn Calderon, Audri, RN RN aa5 Greta Bowen RN RN tw2 Scooter Aguero RN RN jb4 Yudith Crow mw2 Adam Mckenna jp3
--- NOTE | 2020-08-11 18:26 | EDPHYS ---
Physician Documentation [facility] Name: Marian Mack Age: 40 yrs Sex: Female : 1980 Arrival Date: 08/11/2020 Time: 15:[address] Private MD: ED Physician Marcio Brown HPI: 08/11 17:27 This 40 yrs old Female presents to ER via Wheelchair with complaints of rn Vertigo, vomiting. 17:28 The patient presents with dizziness, lightheadedness, feeling off balance, sense of rn spinning. Onset: The symptoms/episode began/occurred 2 week(s) ago. Modifying factors: The symptoms are alleviated by closing eyes, holding head still, the symptoms are aggravated by movement of head, standing up, changing position. Associated signs and symptoms: Pertinent positives: ataxia, nausea, vomiting, Pertinent negatives: chest pain, seizure, syncope. Severity of symptoms: At their worst the symptoms were moderate in the emergency department the symptoms are unchanged. The patient has experienced similar episodes in the past. The patient has been recently seen by a physician:. Reports a few weeks of dizziness, nausea/vomiting, off balance, can't walk. Seen here a few days ago, plan was to admit and neuro consult, patient did not want to stay because MRI not available over weekend. Reports symptoms worse, not able to walk, and vomiting. . 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:56 LMP 08/08/2020 iw Historical: - Allergies: 15:55 NKA; iw - Home Meds: 15:55 gabapentin 300 mg Oral cap 1 cap 3 times per day [Active]; hydrocodone-acetaminophen iw 7.5-325 mg Oral tab [Active]; Paxil CR 25 mg Oral Tb24 1 tab once daily for Anxiety with Depression [Active]; Soma 350 mg Oral tab [Active]; Pepcid Oral [Active]; Xanax Oral as needed [Active]; Bentyl Oral [Active]; Zofran Oral [Active]; - PMHx: 15:55 "gal bladder problem"; Anxiety; cervical cancer; colon cancer; Depression; iw Diverticulitis; ulcerative colitis; - PSHx: 15:55 Cholecystectomy; Exploratory lap; Appendectomy; iw - Immunization history:: Adult Immunizations. - Family history:: not pertinent. - Social history:: Smoking status: . - Hospitalizations: : No recent hospitalization is reported. ROS: 17:28 Constitutional: Negative for fever, chills, and weight loss, Eyes: Negative for injury, rn pain, redness, and discharge, ENT: Negative for injury, pain, and discharge, Neck: Negative for injury, pain, and swelling, Cardiovascular: Negative for chest pain, palpitations, and edema, Respiratory: Negative for shortness of breath, cough, wheezing, and pleuritic chest pain, Abdomen/GI: Negative for diarrhea, and constipation, Back: Negative for injury and pain, : Negative for injury, bleeding, discharge, and swelling, MS/Extremity: Negative for injury and deformity, Skin: Negative for injury, rash, and discoloration, Neuro: Negative for numbness, tingling, and seizure. Exam: 17:28 Constitutional: This is a well developed, well nourished patient who is awake, alert, rn and in no acute distress. Head/Face: Normocephalic, atraumatic. Eyes: Pupils equal round and reactive to light, extra-ocular motions intact. Lids and lashes normal. Conjunctiva and sclera are non-icteric and not injected. Cornea within normal limits. Periorbital areas with no swelling, redness, or edema. Neck: Trachea midline, no thyromegaly or masses palpated, and no cervical lymphadenopathy. Supple, full range of motion without nuchal rigidity, or vertebral point tenderness. No Meningismus. Cardiovascular: Regular rate and rhythm. No pulse deficits. Respiratory: No increased work of breathing, no retractions or nasal flaring. Abdomen/GI: soft, non-tender Skin: Warm, dry MS/ Extremity: Pulses equal, no cyanosis. Neuro: Awake and alert, GCS 15, oriented to person, place, time, and situation. Cranial nerves II-XII grossly intact. Motor strength 5/5 in all extremities. Sensory grossly intact. Vital Signs: 15:51 BP 101 / 67; Pulse 62; Resp 16; Temp 98.0; Pulse Ox 98% on R/A; Weight 69.85 kg; Height iw 5 ft. 9 in. (175.26 cm); Pain 7/10; 17:03 BP 116 / 62 LA (auto/reg); Pulse 80; Pulse Ox 100% on R/A; Pain 7/10; jp3 17:50 BP 110 / 64; Pulse 75; Resp 14; Pulse Ox 96% on R/A; tw2 18:52 BP 108 / 72; Pulse 64; Resp 17; Pulse Ox 97% on R/A; tw2 19:45 BP 105 / 65; Pulse 76; Resp 18; Pulse Ox 94% on R/A; jb4 20:30 BP 103 / 63; Pulse 71; Resp 18; Pulse Ox 97% on 2 lpm NC; jb4 15:51 Body Mass Index 22.74 (69.85 kg, 175.26 cm) iw MDM: 16:57 Patient medically screened. rn 18:20 Differential diagnosis: cardiac arrhythmia, generalized weakness, hyperventilation, rn hypovolemia, idiopathic dizziness, vertigo. Data reviewed: vital signs, nurses notes, old medical records, lab test result(s), and as a result, I will admit patient. Counseling: I had a detailed discussion with the patient and/or guardian regarding: the historical points, exam findings, and any diagnostic results supporting the discharge/admit diagnosis, lab results, the need for further work-up and treatment in the hospital. Response to treatment: the patient's symptoms have mildly improved after treatment, and as a result, I will admit patient. Admission orders: after a detailed discussion of the patient's condition and case, the admit orders are written by me. ED course: Pt left AMA due to lack of MRI availability a few days ago, non-focal exam, seems like peripheral vertigo but getting worse, will admit for MRI and neuro consult as was planned this past week.. 08/11 17:10 Order name: Troponin (emerg Dept Use Only); Complete Time: 18:17 rn 08/11 17:10 Order name: UDS; Complete Time: 12:20 rn 08/11 17:10 Order name: Basic Metabolic Panel; Complete Time: 18:17 rn 08/11 17:10 Order name: CBC with Diff; Complete Time: 17:54 rn 08/11 17:10 Order name: Protime (+inr); Complete Time: 17:54 rn 08/11 17:10 Order name: Ptt, Activated; Complete Time: 17:54 rn 08/11 17:10 Order name: Urine Microscopic Only; Complete Time: 12:20 rn 08/11 18:24 Order name: Urine Dipstick-Ancillary; Complete Time: 18:52 EDMS 08/11 18:38 Order name: Urine --Ancillary (enter results) bd 08/11 18:39 Order name: Urine --Ancillary; Complete Time: 12:20 EDMS 08/11 19:00 Order name: T4 Free; Complete Time: 12:20 EDMS 08/11 19:00 Order name: Thyroid Stimulating Hormone; Complete Time: 12:20 EDMS 08/11 19:00 Order name: CBC with Automated Diff EDMS 08/11 19:00 Order name: CBC with Automated Diff; Complete Time: 12:20 EDMS 08/11 17:10 Order name: CT Head Brain wo Cont; Complete Time: 18:52 rn 08/11 19:00 Order name: Comprehensive Metabolic Panel EDID 08/11 19:00 Order name: Comprehensive Metabolic Panel; Complete Time: 12:20 EDMS 08/11 19:00 Order name: Lipid Profile EDMS 08/11 19:00 Order name: Lipid Profile; Complete Time: 12:20 EDMS 08/11 19:00 Order name: Magnesium EDID 08/11 19:00 Order name: Magnesium; Complete Time: 12:20 EDMS 08/11 19:00 Order name: Phosphorus EDID 08/11 19:00 Order name: Phosphorus; Complete Time: 12:20 EDMS 08/11 19:01 Order name: Urinalysis EDID 08/11 19:34 Order name: Urine Culture EDID 08/12 09:33 Order name: COVID-19 : Document "Date of Symptom Onset" if Symptomatic. 08/12 12:19 Order name: MRI; Complete Time: 12:20 EDID 08/12 12:28 Order name: MRI [facility] 08/11 17:10 Order name: EKG; Complete Time: 17:11 rn 08/11 17:10 Order name: Cardiac monitoring; Complete Time: 17:32 rn 08/11 17:10 Order name: EKG - Nurse/Tech; Complete Time: 17:32 rn 08/11 17:10 Order name: IV Saline Lock; Complete Time: 17:22 rn 08/11 17:10 Order name: Labs collected and sent; Complete Time: 17:22 rn 08/11 17:10 Order name: NPO; Complete Time: 17:22 rn 08/11 17:10 Order name: O2 Per Protocol; Complete Time: 17:22 rn 08/11 17:10 Order name: O2 Sat Monitoring; Complete Time: 17:22 rn 08/11 17:10 Order name: Urine Dipstick-Ancillary (obtain specimen); Complete Time: 18:51 rn 08/11 17:10 Order name: Urine Test (obtain specimen); Complete Time: 18:51 rn 08/11 18:58 Order name: CONS Physician Consult EDMS Administered Medications: 17:25 Drug: Phenergan 12.5 mg Route: IVP; Site: right antecubital; tw2 18:56 Follow up: Response: No adverse reaction; Nausea is decreased tw2 17:31 Drug: NS 0.9% 1000 ml Route: IV; Rate: 1000 ml; Site: right antecubital; tw2 18:11 Drug: Meclizine 50 mg Route: PO; tw2 18:56 Follow up: Response: No change in condition tw2 18:59 Drug: Ativan (LORazepam) 1 mg Route: IVP; Site: right antecubital; tw2 08/12 19:02 Follow up: Response: No adverse reaction; Marked relief of symptoms tw2 Disposition: 08/11/20 18:25 Hospitalization ordered by Nestor Elias for Observation. Preliminary diagnosis are Vertigo, Ataxia, unspecified. - Bed requested for [facility] ER HOLD. - Status is Observation. aa5 - Condition is Stable. - Problem is new. - Symptoms have improved. Signatures: Dispatcher [employer] EDMS Betty Stroud RN RN Marcio Brown MD MD rn Calderon, Audri, RN RN aa5 Izzy Chand RN RN Greta Bowen RN RN tw2 Corrections: (The following items were deleted from the chart) 08/11 19:02 19:00 Blood Culture ordered. EDID EDMS 19:32 19:00 Regular ordered. EDID EDMS 20:40 18:25 Hospitalization Ordered by Nestor Elias for Observation. Preliminary diagnosis cg is Vertigo; Ataxia, unspecified. Bed requested for Telemetry/MedSurg (observation). Status is Observation. Condition is Stable. Problem is new. Symptoms have improved. rn 08/12 12:29 08/11 20:40 08/11/2020 18:25 Hospitalization Ordered by Nestor Elias for Observation. aa5 Preliminary diagnosis is Vertigo; Ataxia, unspecified. Bed requested for [facility] ER HOLD. Status is Observation. Condition is Stable. Problem is new. Symptoms have improved. cg
--- NOTE | 2020-08-11 18:48 | RAD REPORT ---
EXAM DESCRIPTION: CT - Head Brain Wo Cont - 08/11/2020 6:23 pm CLINICAL HISTORY: DIZZINESS Headache, drowsiness COMPARISON: Ct Stroke Brain Wo Cont dated 08/09/2020; Ct Stroke Brain Wo Cont dated 07/05/2017 TECHNIQUE: All CT scans are performed using dose optimization technique as appropriate and may inclu de automated exposure control or mA/KV adjustment according to patient size. FINDINGS: No intracranial hemorrhage, hydrocephalus or extra-axial fluid collection.No areas of brai n edema or evidence of midline shift. The paranasal sinuses and mastoids are clear. The calvarium is intact. IMPRESSION: No acute intracranial abnormality.
[2020-08-11] MEDS ORDERED: ONDANSETRON 4 MG/2 ML VIAL IV PRN (18:58)
[2020-08-11] MEDS ORDERED: ACETAMINOPHEN 500 MG TAB PO PRN (18:58)
[2020-08-11] MEDS ORDERED: LORazepam 2 MG/ML VIAL ONE (19:16)
[2020-08-11 19:19] LABS: Barbiturates NEGATIVE (NEGATIVE); Benzodiazepines POSITIVE (NEGATIVE); Cocaine NEGATIVE (NEGATIVE); METHAMPHETAM NEGATIVE (NEGATIVE); Methadone NEGATIVE (NEGATIVE); Opiates NEGATIVE (NEGATIVE); Phencyclidine NEGATIVE (NEGATIVE); THC Cannibis POSITIVE (NEGATIVE)
[2020-08-11 19:33] LABS: Urine Amorphous Sediment 3+ /HPF (NONE SEEN); Urine Bacteria 20-50 /HPF (<20); Urine Mucus 3+ /HPF (NONE SEEN)
[2020-08-11 19:46] LABS: Thyroid Stimulating Hormone 2.95 uIU/mL (0.360-3.740)
[2020-08-11] MEDS ORDERED: CEFTRIAXONE 1 GM/NS 50 ML 1 GM/50 ML BAG IV SCH (20:11)
--- NOTE | 2020-08-11 20:24 | P.HP ---
Certification for Inpatient Patient admitted to: Observation With expected LOS: <2 Midnights Patient will require the following post-hospital care: None Practitioner: I am a practitioner with admitting privileges, knowledge of patient current condition, hospital course, and medical plan of care. Services: Services provided to patient in accordance with Admission requirements found in Title 42 Section 412.3 of the Code of Federal Regulations Patient History Date of Service: 08/11/20 Primary Care Provider: Romeo Reason for admission: weakness, uneven gait History of Present Illness: Ms. Mack is a 40 yo F with history of UC, diverticulitis here today for weakness in her limbs, uneven gait, and tunnel vision. She says these symptoms first started in November 2018 but have been happening more frequently since last Monday. She is being worked up outpatient for possible diagnosis of MS. She initially presented to the ER Monday but left AMA because there is no MRI on weekends. Symptoms have worsened since Monday. She reports peripheral vision loss, numbness in the bottom of her feet, back of her arms, and rib cage. She al so reports night sweats, chills, nausea, vomiting, lightheadedness, fatigue, and difficulty swallowing. She denies urinary frequency or incontinence, dysuria, and changes in bowel movements. Symptoms are relieved with heating pad and worse with movement. She is a current smoker. She has been taking amoxicillin recently for tooth pain. She has a cousin with MS, no other family history of autoimmune disease. CT head wnl. 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 MRI brain 02/2020 wnl. Allergies No Known Drug Allergies Allergy (Verified 04/20/18 19:24) Unknown Home Medications: Ibuprofen 800 mg PO PRN PRN 04/20/18 Hydrocodone Bit/Acetaminophen [[place] 10-325 Tablet] 1 each PO Q4HP PRN #20 tablet 04/23/18 - Past Medical/Surgical History Diabetic: No -: ABDOMINAL INTUSSCEPTION -: POOR DENTITION -: CROHNS -: IBS -: COLITIS -: Diverticulitis -: appendectomy -: EXPLORATORY LAPAROTOMY W/ PARTIAL RESECTION OF SMALL BOWEL-INTUSSUSCEPTION - Social History Alcohol use: No CD- Drugs: No Caffeine use: Yes Review of Systems General: Fever, Chills, Sweats, Weakness, Malaise, As per HPI Eyes: Vision Change, As per HPI ENT: Unremarkable Respiratory: Unremarkable Cardiovascular: Light Headedness, As per HPI Gastrointestinal: Nausea, Vomiting, As per HPI Genitourinary: Unremarkable Musculoskeletal: Unremarkable Integumentary: Unremarkable Neurological: Weakness, Numbness, Incoordination, As per HPI Lymphatics: Unremarkable Physical Examination - Physical Exam General: Alert, In no apparent distress, Oriented x3, Cooperative HEENT: Atraumatic, Normocephalic, PERRLA, Mucous membr. moist/pink, Other (reported dizziness with EOM), EOMI, Sclerae nonicteric Neck: Supple, 2+ carotid pulse no bruit, JVD not distended, No Thyromegaly, No LAD Respiratory: Clear to auscultation bilaterally, Normal air movement Cardiovascular: No edema, Normal pulses, Regular rate/rhythm, Normal S1 S2, No gallops, No rubs, No murmurs Capillary refill: <2 Seconds Gastrointestinal: Normal bowel sounds, Soft and benign, Non-distended, No ascites, No tenderness, No masses, No rebound, No guarding Musculoskeletal: No clubbing, No swelling, No contractures, No erythema, No tenderness, No warmth Integumentary: No rashes, No breakdown, No significant lesion, No tenderness/swelling, No erythema, No warmth, No cyanosis Neurological: Normal speech, Normal tone, Cranial nerves 3-12 intact, Normal affect, Abnormal strength, Abnormal sensation Lymphatics: No axilla or inguinal lymphadenopathy - Studies Laboratory Data (last 24 hrs) 08/11/20 17:18: PT 11.4, INR 0.99, APTT 26.5 08/11/20 17:18: WBC 12.60 H, Hgb 11.7 L, Hct 35.7 L, Plt Count 442 H 08/11/20 17:18: Sodium 141, Potassium 3.6, BUN 11, Creatinine 0.71, Glucose 126 H Assessment and Plan - Problems (Diagnosis) (1) UTI (urinary tract infection) Current Visit: Yes Status: Acute Qualifiers: Urinary tract infection type: site unspecified Hematuria presence: with hematuria Qualified Code(s): N39.0 - Urinary tract infection, site not specified; R31.9 - Hematuria, unspecified (2) Weakness Current Visit: Yes Status: Acute (3) Tobacco use Current Visit: Yes Status: Chronic (4) Crohn's disease Current Visit: No Status: Chronic Qualifiers: Gastrointestinal tract location: unspecified location Digestive disease co mplication type: unspecified complication Qualified Code(s): K50.919 - Crohn's disease, unspecified, with unspecified complications - Plan Neurology consulted MRI brain and c spine w/wo planned for AM ceftriaxone daily for UTI, blood cultures pending will reconcile and continue home medications, nicotine patch PRN Discharge Plan: Home Plan to discharge in: 24 Hours - Advance Directives Does patient have a Living Will: No Does patient have a Durable POA for Healthcare: Yes - Code Status/Comfort Care Code Status Assessed: Yes (full code) Critical Care: No Time Spent Managing Pts Care (In Minutes): 70
[2020-08-11] MEDS ORDERED: CEFTRIAXONE/SWI 1gm 1 GM/10 ML SYR IV SCH (21:00)
[2020-08-11] MEDS ORDERED: CEFTRIAXONE/SWI 1gm 1 GM/10 ML SYR ONE (21:20)
[2020-08-11 21:29] VITALS: BMI 22.7
[2020-08-11] MEDS: NICOTINE 14 MG/PAT TD SCH (22:29)
[2020-08-11] MEDS ORDERED: NICOTINE 14 MG/PAT TD ONE (22:57)
[2020-08-11] MEDS ORDERED: HYDROCODONE/APAP 5/325 MG TAB PO ONE (23:37)
[2020-08-11] MEDS ORDERED: HYDROCODONE/APAP 5/325 MG TAB ONE (23:43)
[2020-08-11] MEDS ORDERED: ONDANSETRON 4 MG/2 ML VIAL ONE (23:44)
[2020-08-12 00:22] VITALS: TEMP 97.6
[2020-08-12] MEDS ORDERED: GABAPENTIN 300 MG CAP PO ONE (01:10)
[2020-08-12] MEDS ORDERED: ACETAMINOPHEN 500 MG TAB ONE (01:22)
[2020-08-12 05:43] LABS: Absolute Lymphocytes (CBC) 2.5 K/uL (0.7-4.9); Hematocrit 34.1 % (36.0-45.0); Lymphocytes % 26.3 % (15.3-44.8); MPV 9.1 fL (7.6-11.3)
[2020-08-12 05:48] VITALS: BP 107/60
[2020-08-12 06:38] LABS: ALT/SGPT 20 U/L (12-78); AST/SGOT 13 U/L (15-37); Albumin 3.1 g/dL (3.4-5.0); Alkaline Phosphatase 73 U/L (45-117); BUN Blood Urea Nitrogen 7 mg/dL (7-18); Bicarbonate 26 mmol/L (21-32); Bilirubin Total 0.2 mg/dL (0.2-1.0); Glucose Level 97 mg/dL (74-106); HDL Cholesterol 43 mg/dL (40-60); LDL Cholesterol, Calculated 123 (<130); Phosphorus 3.5 mg/dL (2.5-4.9); Protein, Total 5.9 g/dL (6.4-8.2); Sodium Level 142 mmol/L (136-145)
[2020-08-12] MEDS ORDERED: HYDROCODONE/APAP 5/325 MG TAB PO ONE (07:49)
[2020-08-12] MEDS ORDERED: HYDROCODONE/APAP 5/325 MG TAB ONE (08:15)
[2020-08-12] MEDS ORDERED: LORazepam 2 MG/ML VIAL IV ONE (08:17)
[2020-08-12] MEDS: NICOTINE 14 MG/PAT TD SCH (08:22)
[2020-08-12] MEDS ORDERED: LORazepam 2 MG/ML VIAL ONE (08:39)
[2020-08-12] MEDS ORDERED: ENOXAPARIN 40 MG/0.4 ML SQ SCH (09:00)
[2020-08-12] MEDS ORDERED: BISACODYL E.C. 5 MG TAB PO ONE (10:46)
--- NOTE | 2020-08-12 12:19 | RAD REPORT ---
EXAM DESCRIPTION: MRI - Brain W/Wo Cont - 08/12/2020 12:01 pm CLINICAL HISTORY: peripheral vision loss Headache, drowsiness, vision difficulties COMPARISON: Head Brain Wo Cont dated 08/11/2020; Chest Single View dated 08/09/2020 TECHNIQUE: Multi-sequence, multiplanar MR imaging of the brain was performed with contrast. FINDINGS: No intracranial hemorrhage, hydrocephalus, or extra-axial fluid collection. No edema or sh ift of midline structures. No intracranial mass. DWI is negative for acute CVA. The midline structures are normally formed. Mild bilateral mastoid effusions. Post-contrast images show no abnormal enhancement to suggest tumor or infection. IMPRESSION: No acute intracranial abnormalities. Mild bilateral mastoid effusions. No pathologic post-contrast enhancement suspected.
[2020-08-12 12:26] VITALS: O2SAT 96
--- NOTE | 2020-08-12 12:27 | RAD REPORT ---
EXAM DESCRIPTION: MRI - C Spine W/Wo Cont- 08/12/2020 12:03 pm CLINICAL HISTORY: peripheral vision loss Headache, drowsiness COMPARISON: Neck Soft Tissue W/Wo Contr dated 08/07/2020; Brain W/Wo Cont dated 03/17/2020; Abdomen Pelvis W Contrast dated 09/25/2019; Lumbar Spine 3 Views dated 03/24/2020; Abdomen Pelvis W Contrast dated 04/20/2018 FINDINGS: There is abnormal elevated T2 signal seen in the T1 vertebral body. In addition, this vert ebral body is seen to demonstrate mild post-contrast enhancement. Ill-defined elevated cervical cord T2 signal is present spanning the C2-3 through C7 levels. In addit ion there is a small focal oblong T2 hyperintense cord lesion present at the level of T2 measuring 5 mm in length. Overall, the cervical cord shows evidence of thinning. No high-grade canal stenosis see n. IMPRESSION: Mild cervical cord thinning with patchy elevated T2 signal seen as described. There is a lso oblong intrasubstance elevated T2 signal at the level of the cervical cord at T2. These findings may be related to infectious or inflammatory process. Nonspecific elevated T2 signal on the T1 vertebral body with post-contrast enhancement. Infectious, i nflammatory or neoplastic etiologies are all possible. Nuclear medicine bone scan may be of value for further workup.
--- NOTE | 2020-08-12 16:09 | EKG ---
Test Date: 2020-08-12 Test Time: 01:17:38 Business Strategist: TOÑO MEASUREMENT RESULTS: Intervals: Rate: 55 TX: 138 QRSD: 102 QT: 440 QTc: 420 [place]: P: 55 TX: 138 QRS: 70 T: 41 INTERPRETIVE STATEMENTS: Sinus bradycardia Incomplete right bundle branch block Borderline ECG Compared to ECG 08/11/2020 17:27:09 Incomplete right bundle-branch block now present Electronically Signed On 08-12-20 16:06:59 CDT by Forrest Gracia
--- NOTE | 2020-08-12 16:11 | EKG ---
Test Date: 2020-08-11 Test Time: 17:27:09 Oncology Coordinator: JANUARY MEASUREMENT RESULTS: Intervals: Rate: 58 CT: 138 QRSD: 108 QT: 424 QTc: 416 [place]: P: 51 CT: 138 QRS: 65 T: 37 INTERPRETIVE STATEMENTS: Sinus bradycardia Otherwise normal ECG Compared to ECG 08/09/2020 11:30:18 No significant changes Electronically Signed On 08-12-20 16:07:08 CDT by Forrest Garcia
--- NOTE | 2020-08-31 03:36 | P.DS ---
Discharge Date: 08/12/20 Primary Care Provider: Romeo Disposition: AMA-LEFT AGAINST MEDICAL ADVIC Reason for Admission: weakness, uneven gait Brief History of Present Illness: Ms. Mack is a 40 yo F with history of UC, diverticulitis here today for weakness in her limbs, uneven gait, and tunnel vision. She says these symptoms first started in November 2018 but have been happening more frequently since last Monday. She is being worked up outpatient for possible diagnosis of MS. She initially presented to the ER Monday but left AMA because there is no MRI on weekends. Symptoms have worsened since Monday. She reports peripheral vision loss, numbness in the bottom of her feet, back of her arms, and rib cage. She also reports night sweats, chills, nausea, vomiting, lightheadedness, fatigue, and difficulty swallowing. She denies urinary frequency or incontinence, dysuria, and changes in bowel movements. Symptoms are relieved with heating pad and worse with movement. She is a current smoker. She has been taking amoxicillin recently for tooth pain. She has a cousin with MS, no other family history of autoimmune disease. CT head wnl. 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 MRI brain 02/2020 wnl. Hospital Course: Patient was evaluated in the hospital. Patient was having double vision. She did not want stay in the hospital because she was not getting testing done and she was very upset she was in the ER as an ER hold patient. She decided to leave against medical advice before her workup was completed. Vital Signs/Physical Exam: Temp Pulse Resp BP Pulse Ox 97.6 F 55 18 107/60 98 08/12/20 04:00 08/12/20 04:00 08/12/20 04:00 08/12/20 04:00 08/12/20 04:00 Laboratory Data at Discharge: WBC 9.60 K/uL (4.3-10.9) D 08/12/20 04:52 Hgb 11.2 g/dL (12.0-15.0) L 08/12/20 04:52 Hct 34.1 % (36.0-45.0) L 08/12/20 04:52 Plt Count 380 K/uL (152-406) 08/12/20 04:52 PT 11.4 SECONDS (9.5-12.5) 08/11/20 17:18 INR 0.99 08/11/20 17:18 APTT 26.5 SECONDS (24.3-36.9) 08/11/20 17:18 Sodium 142 mmol/L (136-145) 08/12/20 04:52 Potassium 4.0 mmol/L (3.5-5.1) 08/12/20 04:52 BUN 7 mg/dL (7-18) 08/12/20 04:52 Creatinine 0.49 mg/dL (0.55-1.3) L 08/12/20 04:52 Glucose 97 mg/dL (74-106) 08/12/20 04:52 Phosphorus 3.5 mg/dL (2.5-4.9) 08/12/20 04:52 Magnesium 2.0 mg/dL (1.8-2.4) 08/12/20 04:52 Total Bilirubin 0.2 mg/dL (0.2-1.0) 08/12/20 04:52 AST 13 U/L (15-37) L 08/12/20 04:52 ALT 20 U/L (12-78) 08/12/20 04:52 Alkaline Phosphatase 73 U/L (45-117) 08/12/20 04:52 Triglycerides 54 mg/dL (<150) 08/12/20 04:52 Cholesterol 177 mg/dL (<200) 08/12/20 04:52 HDL Cholesterol 43 mg/dL (40-60) 08/12/20 04:52 Cholesterol/HDL Ratio 4.12 08/12/20 04:52 Home Medications: RX: Ibuprofen 800 mg PO PRN PRN 04/20/18 Hydrocodone Bit/Acetaminophen [[place] 10-325 Tablet] 1 each PO Q4HP PRN #20 tablet 04/23/18 Amoxicillin/Potassium Clav [Amox Tr-K Clv 875-125 mg Tab] 1 tab PO BID 08/12/20 Ondansetron HCl [Zofran] 4 mg PO BIDP PRN 08/12/20 RX: Dicyclomine [Bentyl*] 20 mg PO Q8H 08/12/20 RX: Gabapentin 600 mg PO BID 08/12/20 RX: Pantoprazole [Protonix Tab*] 40 mg PO DAILY 08/12/20 Physician Discharge Instructions: Patient left against medical advice Followup: NONE,NONE [Primary Care Provider] - Time spent managing pt's care (in minutes): 35
== END 2020-08-12 12:35 | disposition left against medical advice (07) ==
LOC: ER 15:15 → ERHOLD 18:56
PROVIDERS: ADMIT Hospitalist; ATTEND Hospitalist
DX: N39.0 Urinary tract infection, site not specified (principal); R53.1 Weakness; R26.89 Other abnormalities of gait and mobility; K50.90 Crohn's disease, unspecified, without complications; Z72.0 Tobacco use; R31.9 Hematuria, unspecified; Z85.41 Personal history of malignant neoplasm of cervix uteri; Z85.038 Personal history of other malignant neoplasm of large intestine; F41.9 Anxiety disorder, unspecified
CPT/HCPCS: 36415; 70450; 70553; 72156; 80048; 80053; 80061; 80307; 81003; 81015; 81025; 83735; 84100; 84439; 84443; 84484; 85025; 85610; 85730; 87086; 87088; 93005; 94760; 96374; 96375; 99285; A9577; G0378; J0696; J2405; J2550; J7030

== ENCOUNTER 2021-06-07 10:09 | Emergency (ER) | payer OTHER, SELFPAY ==
--- OUTSIDE RECORDS SUMMARY | 2021-06-07 10:14 | XMS REPORT | Continuity of Care Document ---
:1980 Author Organization [facility] t Address [address] [place] [address] Care Team Providers Name Role Phone KELTON WALTERS Primary Care Physician Unavailable LUISITO Attending Clinician Unavailable SHANNON WRIGHT Attending Clinician Unavailable FAYE ROMEO Attending Clinician Unavailable Arelis CARSON Attending Clinician Unavailable Arelis Carson MD Attending Clinician RATNA Attending Clinician Unavailable SONALI CORTES Attending Clinician Unavailable FAYE ROMEO Attending Clinician Unavailable Faye Romeo MD Attending Clinician Aris Almazan MD Attending Clinician KELTON WALTERS Attending Clinician Unavailable Aris CABRAL Attending Clinician Unavailable Aris Cabral MD Attending Clinician Doctor Unassigned, Name Attending Clinician Unavailable RAMYA Attending Clinician Unavailable Andrews Curtis MD Attending Clinician ANDREWS CURTIS Attending Clinician Unavailable ANDREW TOMAS Attending Clinician Unavailable ANDREW TOMAS Attending Clinician Unavailable Andrew Tomas MD Attending Clinician LUISITO Admitting Clinician Unavailable SHANNON WRIGHT Admitting Clinician Unavailable FAYE ROMEO Admitting Clinician Unavailable Arelis CARSON Admitting Clinician Unavailable Payers Payer Name Policy Type Policy Number Effective Date Expiration Date Natalie AVALOS [id number] 2020 00:00:00 HIM ROSALEE FROM [id number] 2021 [facility] 00:00:00 ROSALEE - [id number] [facility] [id number] 2020 2021 00:00:00 00:00:00 Problems Condition Condition Condition Status Onset Resolution Last Treating Co mments Source Name Details Category Date Date Treatment Clinician Date 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 Added automatic ally from request for surgery [id number] No known No known Disease Unive rs active active ity of problems problems [facility] Allergies, Adverse Reactions, Alerts Allergy Allergy Status Severity Reaction(s) Onset Inactive Treating Comm ents Source Name Type Date Date Clinician Demerol Propensi Active Hallucinatio [facility] to ns 08-26 College adverse 00:00: of reaction 00 Medicin s to e drug Meperidi Propensi Active Other [facility] ty to 505 reaction( [place] adverse 00:00: s): of reaction 00 Anxiety Medicin s to e drug MEPERIDI Allergy Active Med Anxiety [facility] Medical [address] [place] [address] NO KNOWN Drug Active Univers ALLERGIE Class ity of S [facility] NO KNOWN Allergy Active [facility] ALLERGIE [facility] Social History Social Habit Start Date Stop Date Quantity Comments Source History [facility] ge of Alcohol Std Drinks Medici ne History [facility] ge of Alcohol Binge Medicine History [facility] ge of Alcohol Comment Medicine Exposure to Unable to assess Univers ity of SARS-CoV-2 (event) [facility] Alcohol intake 2021-03-10 2021-03-10 Ex-drinker [facility] 00:00:00 00:00:00 (finding) Medicine History [facility] 2020-08-26 2020-08-26 1 [facility] ge of Alcohol Frequency 00:00:00 00:00:00 Medicin e Cigarettes smoked 2020-08-26 2020-08-26 [facility] of current (pack per 00:00:00 00:00:00 Medicin e day) - Reported Tobacco use and 2020-08-26 2020-08-26 Smokeless [facility] of exposure 00:00:00 00:00:00 tobacco non-user Medicine Cigarette 2013-04-22 2013-04-22 University of pack-years 00:00:00 00:00:00 [facility] Sex Assigned At [birth year] [facility] 00:00:00 00:00:00 Smoking Status Start Date Stop Date Source Tobacco smoking consumption [place] [facility] unknown Current every day smoker 2013-04-22 00:00:00 Uni versity [facility] Medications Ordered Filled Start Stop Current Ordering Indication Dosage Frequency Signature Comments Components Source Medication Medication Date Date Medication? Clinician (SIG) Name Name levoFLOXaci 2020-04 No 750mg 750 mg, U nivers n 04-23 Oral, ONCE ity of (LEVAQUIN) 16:15: 15:23 NOW, 1 [place] tablet 750 00 :00 dose, On Medic al mg Fri Branch 04/23/21 at 1015, JOLYNN
Re ason for Anti-Infec tive: Documented Infection< br>Documen lucretia Infection Site: Urine
D uration of Therapy: 7 days NaCl 0.9% 2020-04 No 1000mL at 999 Uni vers (NS) bolus 04-23 mL/hr, ity of infusion 15:30: 15:22 1,000 mL, Jakub as 1,000 mL 00 :00 IV Medical Infusion, Branch ONCE, 1 dose, On 04/23/21 at 0930, STAT pantoprazol 2020-04 No 80mg 80 mg, IV Univers e 04-23 Push, ity of (PROTONIX) 14:45: 13:48 ONCE, 1 [place] as 80 mg in 00 :00 dose, On Medical NaCl 0.9% Fri Branch (NS) 20 mL 04/23/21 syringe at 0845, Administer over 2 Minutes, 20 mL metoclopram 2020-04 No 10mg 10 mg, Uni vers shantel HCl 04-23 Slow IV ity of (REGLAN) 14:45: 13:46 Push, [place] injection 00 :00 ONCE, 1 Medical 10 mg dose, On Branch 04/23/21 at 0845, JOLYNN metoclopram 2020-04 Yes [id number] 10mg Take 1 Univers shantel HCl 10 2-31 tablet by ity of mg tablet 00:00: mouth [place] 00 every 6 Medical (six) Branch hours. pantoprazol 2020-04 Yes [id number] 40mg Take 1 Univers e 2-31 tablet by ity of (PROTONIX) 00:00: mouth [place] 40 mg EC 00 daily. Medical tablet Branch amitriptyli 2020-04 Yes [id number] 25mg Take 1 Univers ne 25 mg 2-31 tablet by ity of tablet 00:00: mouth at [place] 00 bedtime. Medical Branch levoFLOXaci 2020-04 Yes [id number] 750mg Take 1 Univers n 750 mg 2-31 tablet by ity of tablet 00:00: mouth [place] 00 every 24 Medical (twenty-fo Branch ur) hours. dicyclomine 2020-04- Yes [id number] 20mg Take 1 Univers 20 mg 2-31 05-25 tablet by ity of tablet 00:00: 05:59 mouth 4 [place] 00 :00 (four) Medical times Branch daily for 31 days. alprazolam 2020-04 Yes 1mg Take 1 [facility] (XANAX) 1 1-17 Tablet by Colle ge MG tablet 00:00: mouth of 00 nightly as Medicin needed for e Sleep. acetaminoph 2020-04 Yes TAKE ONE [facility] en-codeine - (1) College (TYLENOL 00:00: TABLET(S) of #3) 300-30 00 BY MOUTH Medic in MG per EVERY e tablet TWELVE HOURS NEEDED FOR PAIN. ondansetron 2020-04 Yes TAKE ONE [facility] (ZOFRAN) 4 - (1) College MG tablet 00:00: TABLET(S) of 00 BY MOUTH Medicin EVERY e TWELVE HOURS NEEDED. PEG-KCl-NaC 2020-04 Yes [MOVI [facility]-NaSulf-Na 0-19 PREP] Take Co llege Asc-C 00:00: as of (MOVIPREP) 00 directed. Medi kateryna 100 g SOLR e linaCLOtide 2020-04 Yes 72ug Take 72 [place] [facility] (LINZESS) 0-15 mcg by [place] 72 MCG CAPS 00:00: mouth of 00 daily. Medicin e acetaminoph Yes acetaminop [facility] en-codeine 7-07 hen 300 Colleg e (TYLENOL 14:41: mg-codeine of #3) 300-30 58 30 mg Medicin MG per tablet e tablet Take 1 tablet twice a day by oral route for 28 days. amoxicillin Yes 1{tbl} Take 1 [facility] -clavulanat 7-07 Tablet by Col lege e 00:00: mouth two of (AUGMENTIN) 00 times Medicin 875-125 MG daily. e per tablet amoxicillin Yes 1{tbl} Take 1 [facility] -clavulanat 7-07 Tablet by Col lege e 00:00: mouth two of (AUGMENTIN) 00 times Medicin 875-125 MG daily. e per tablet acetaminoph Yes acetaminop [facility] en-codeine 6-23 hen 300 Colleg e (TYLENOL 13:40: mg-codeine of #3) 300-30 05 30 mg Medicin MG per tablet e tablet Take 1 tablet twice a day by oral route for 28 days. amoxicillin Yes 1{tbl} Take 1 [facility] -clavulanat 6-23 Tablet by Col lege e 00:00: mouth two of (AUGMENTIN) 00 times Medicin 875-125 MG daily. e per tablet amoxicillin Yes 1{tbl} Take 1 [facility] -clavulanat 6-23 Tablet by Col lege e 00:00: mouth two of (AUGMENTIN) 00 times Medicin 875-125 MG daily. e per tablet amoxicillin Yes 1{tbl} Take 1 [facility] -clavulanat 6-23 Tablet by Col lege e 00:00: mouth two of (AUGMENTIN) 00 times Medicin 875-125 MG daily. e per tablet tizanidine Yes TAKE ONE [place] [facility] (ZANAFLEX) 6-14 (1) College 2 MG tablet 00:00: TABLET(S) o f 00 BY MOUTH Medicin TWICE A e DAY. tizanidine Yes TAKE ONE [place] [facility] (ZANAFLEX) 6-14 (1) College 2 MG tablet 00:00: TABLET(S) o f 00 BY MOUTH Medicin TWICE A e DAY. tizanidine Yes TAKE ONE [place] [facility] (ZANAFLEX) 6-14 (1) College 2 MG tablet 00:00: TABLET(S) o f 00 BY MOUTH Medicin TWICE A e DAY. dicyclomine Yes TAKE ONE [facility] (BENTYL) 20 5-04 (1) College MG tablet 00:00: TABLET(S) of 00 BY MOUTH Medicin EVERY e EIGHT HOURS NEEDED. ondansetron Yes TAKE ONE [facility] (ZOFRAN) 4 5-04 (1) College MG tablet 00:00: TABLET(S) of 00 BY MOUTH Medicin EVERY e TWELVE HOURS NEEDED. dicyclomine Yes TAKE ONE [facility] (BENTYL) 20 5-04 (1) College MG tablet 00:00: TABLET(S) of 00 BY MOUTH Medicin EVERY e EIGHT HOURS NEEDED. ondansetron Yes TAKE ONE [facility] (ZOFRAN) 4 5-04 (1) College MG tablet 00:00: TABLET(S) of 00 BY MOUTH Medicin EVERY e TWELVE HOURS NEEDED. dicyclomine Yes TAKE ONE [facility] (BENTYL) 20 5-04 (1) College MG tablet 00:00: TABLET(S) of 00 BY MOUTH Medicin EVERY e EIGHT HOURS NEEDED. ondansetron Yes TAKE ONE [facility] (ZOFRAN) 4 5-04 (1) College MG tablet 00:00: TABLET(S) of 00 BY MOUTH Medicin EVERY e TWELVE HOURS NEEDED. dicyclomine Yes TAKE ONE [facility] (BENTYL) 20 5-04 (1) College MG tablet 00:00: TABLET(S) of 00 BY MOUTH Medicin EVERY e EIGHT HOURS NEEDED. gabapentin Yes TAKE ONE [place] (NEURONTIN) 4-26 (1) College 600 MG 00:00: TABLET(S) of tablet 00 BY MOUTH Medicin TWICE A e DAY. gabapentin Yes TAKE ONE [place] [facility] (NEURONTIN) 4-26 (1) College 600 MG 00:00: TABLET(S) of tablet 00 BY MOUTH Medicin TWICE A e DAY. gabapentin 2020- Yes TAKE ONE [place] [facility] (NEURONTIN) 4-26 (1) College 600 MG 00:00: TABLET(S) of tablet 00 BY MOUTH Medicin TWICE A e DAY. gabapentin 2020-0 Yes TAKE ONE [place] [facility] (NEURONTIN) 4-26 (1) College 600 MG 00:00: TABLET(S) of tablet 00 BY MOUTH Medicin TWICE A e DAY. pantoprazol Yes TAKE ONE [facility] e 4-19 (1) College (PROTONIX) 00:00: TABLET(S) of 40 MG 00 BY MOUTH Medicin tablet ONCE A e DAY. pantoprazol Yes TAKE ONE [facility] e 4-19 (1) College (PROTONIX) 00:00: TABLET(S) of 40 MG 00 BY MOUTH Medicin tablet ONCE A e DAY. pantoprazol Yes TAKE ONE [facility] e 4-19 (1) College (PROTONIX) 00:00: TABLET(S) of 40 MG 00 BY MOUTH Medicin tablet ONCE A e DAY. pantoprazol Yes TAKE ONE [facility] e 4-19 (1) College (PROTONIX) 00:00: TABLET(S) of 40 MG 00 BY MOUTH Medicin tablet ONCE A e DAY. amoxicillin Yes TAKE ONE [facility] -clavulanat 3-17 (1) College e 00:00: TABLET(S) of (AUGMENTIN) 00 BY MOUTH Medi kateryna 875-125 MG TWICE A e per tablet DAY. amoxicillin Yes TAKE ONE [facility] -clavulanat 3-17 (1) College e 00:00: TABLET(S) of (AUGMENTIN) 00 BY MOUTH Medi kateryna 875-125 MG TWICE A e per tablet DAY. amoxicillin 0 Yes TAKE ONE [facility] -clavulanat 3-17 (1) College e 00:00: TABLET(S) of (AUGMENTIN) 00 BY MOUTH Medi kateryna 875-125 MG TWICE A e per tablet DAY. amoxicillin 0 Yes TAKE ONE [facility] -clavulanat 3-17 (1) College e 00:00: TABLET(S) of (AUGMENTIN) 00 BY MOUTH Medi kateryna 875-125 MG TWICE A e per tablet DAY. peg-electro 2019-04 Yes [id number] Take as Univers lyte soln 0-27 directed ity of 236-22.74-6 00:00: [place] .74 -5.86 00 colonoscop Medi sofie gram y Branch solution peg-electro 2019-04 Yes [id number] Take as Univers lyte soln 0-27 directed ity of 236-22.74-6 00:00: [place] .74 -5.86 00 colonoscop Medi sofie gram y Branch solution peg-electro 2019-04 Yes [id number] Take as Univers lyte soln 0-27 directed ity of 236-22.74-6 00:00: before [place] .74 -5.86 00 colonoscop Medi sofie gram y Branch solution peg-electro 2019-04 Yes [id number] Take as Univers lyte soln 0-27 directed ity of 236-22.74-6 00:00: before [place] .74 -5.86 00 colonoscop Medi sofie gram y Branch solution peg-electro 2019-04 Yes [id number] Take as Univers lyte soln 0-27 directed ity of 236-22.74-6 00:00: before [place] .74 -5.86 00 colonoscop Medi sofie gram y Branch solution peg-electro 2019-04 Yes [id number] Take as Univers lyte soln 0-27 directed ity of 236-22.74-6 00:00: before [place] .74 -5.86 00 colonoscop Medi sofie gram y Branch solution peg-electro 2019-04 Yes [id number] Take as Univers lyte soln 0-27 directed ity of 236-22.74-6 00:00: before [place] .74 -5.86 00 colonoscop Medi sofie gram y Branch solution peg-electro 2019-04 Yes [id number] Take as Univers lyte soln 0-27 directed ity of 236-22.74-6 00:00: before [place] .74 -5.86 00 colonoscop Medi sofie gram y Branch solution naproxen 2015-04 Yes 550mg Take 1 Univer s sodium 1-04 tablet by ity of (ANAPROX) 00:00: mouth 2 [place] 550 mg 00 (two) Medical tablet times Branch daily with meals. methocarbam 2015-04 Yes 500mg Take 1 Uni vers ol 1-04 tablet by ity of (ROBAXIN) 00:00: mouth 4 [place] 500 mg 00 (four) Medical tablet times Branch daily. naproxen 2015-04 Yes 550mg Take 1 Univer s sodium 1-04 tablet by ity of (ANAPROX) 00:00: mouth 2 [place] 550 mg 00 (two) Medical tablet times Branch daily with meals. methocarbam 2015-04 Yes 500mg Take 1 Uni vers ol 1-04 tablet by ity of (ROBAXIN) 00:00: mouth 4 [place] 500 mg 00 (four) Medical tablet times Branch daily. naproxen 2015-04 Yes 550mg Take 1 Univer s sodium 1-04 tablet by ity of (ANAPROX) 00:00: mouth 2 [place] 550 mg 00 (two) Medical tablet times Branch daily with meals. methocarbam 2015-04 Yes 500mg Take 1 Uni vers ol 1-04 tablet by ity of (ROBAXIN) 00:00: mouth 4 [place] 500 mg 00 (four) Medical tablet times Branch daily. naproxen 2015-04 Yes 550mg Take 1 Univer s sodium 1-04 tablet by ity of (ANAPROX) 00:00: mouth 2 [place] 550 mg 00 (two) Medical tablet times Branch daily with meals. methocarbam 2015-04 Yes 500mg Take 1 Uni vers ol 1-04 tablet by ity of (ROBAXIN) 00:00: mouth 4 [place] 500 mg 00 (four) Medical tablet times Branch daily. naproxen 2015-04 Yes 550mg Take 1 Univer s sodium 1-04 tablet by ity of (ANAPROX) 00:00: mouth 2 [place] 550 mg 00 (two) Medical tablet times Branch daily with meals. methocarbam 2015-04 Yes 500mg Take 1 Uni vers ol 1-04 tablet by ity of (ROBAXIN) 00:00: mouth 4 [place] 500 mg 00 (four) Medical tablet times Branch daily. naproxen 2015-04 Yes 550mg Take 1 Univer s sodium 1-04 tablet by ity of (ANAPROX) 00:00: mouth 2 [place] 550 mg 00 (two) Medical tablet times Branch daily with meals. methocarbam 2015-04 Yes 500mg Take 1 Uni vers ol 1-04 tablet by ity of (ROBAXIN) 00:00: mouth 4 [place] 500 mg 00 (four) Medical tablet times Branch daily. naproxen 2015-04 Yes 550mg Take 1 Univer s sodium 1-04 tablet by ity of (ANAPROX) 00:00: mouth 2 [place] 550 mg 00 (two) Medical tablet times Branch daily with meals. methocarbam 2015-04 Yes 500mg Take 1 Uni vers ol 1-04 tablet by ity of (ROBAXIN) 00:00: mouth 4 [place] 500 mg 00 (four) Medical tablet times Branch daily. naproxen 2015-04 Yes 550mg Take 1 Univer s sodium 1-04 tablet by ity of (ANAPROX) 00:00: mouth 2 [place] 550 mg 00 (two) Medical tablet times Branch daily with meals. methocarbam 2015-04 Yes 500mg Take 1 Uni vers ol 1-04 tablet by ity of (ROBAXIN) 00:00: mouth 4 [place] 500 mg 00 (four) Medical tablet times Branch daily. naproxen 2015-04 Yes 550mg Take 1 Univer s sodium 1-04 tablet by ity of (ANAPROX) 00:00: mouth 2 [place] 550 mg 00 (two) Medical tablet times Branch daily with meals. methocarbam 2015-04 Yes 500mg Take 1 Uni vers ol 1-04 tablet by ity of (ROBAXIN) 00:00: mouth 4 [place] 500 mg 00 (four) Medical tablet times Branch daily. naproxen 2015-04 Yes 550mg Take 1 Univer s sodium 1-04 tablet by ity of (ANAPROX) 00:00: mouth 2 [place] 550 mg 00 (two) Medical tablet times Branch daily with meals. methocarbam 2015-04 Yes 500mg Take 1 Uni vers ol 1-04 tablet by ity of (ROBAXIN) 00:00: mouth 4 [place] 500 mg 00 (four) Medical tablet times Branch daily. tramadol-ac Yes 1{tbl} Take 1 Tab Univers etaminophen 3-13 by mouth ity of (ULTRACET) 00:00: every 6 [place] 37.5-325 mg 00 (six) Medical per tablet hours as Branc h needed for Pain. tramadol-ac Yes 1{tbl} Take 1 Tab Univers etaminophen 3-13 by mouth ity of (ULTRACET) 00:00: every 6 [place] 37.5-325 mg 00 (six) Medical per tablet hours as Branc h needed for Pain. tramadol-ac Yes 1{tbl} Take 1 Tab Univers etaminophen 3-13 by mouth ity of (ULTRACET) 00:00: every 6 [place] 37.5-325 mg 00 (six) Medical per tablet hours as Branc h needed for Pain. tramadol-ac Yes 1{tbl} Take 1 Tab Univers etaminophen 3-13 by mouth ity of (ULTRACET) 00:00: every 6 [place] 37.5-325 mg 00 (six) Medical per tablet hours as Branc h needed for Pain. tramadol-ac Yes 1{tbl} Take 1 Tab Univers etaminophen 3-13 by mouth ity of (ULTRACET) 00:00: every 6 [place] 37.5-325 mg 00 (six) Medical per tablet hours as Branc h needed for Pain. tramadol-ac Yes 1{tbl} Take 1 Tab Univers etaminophen 3-13 by mouth ity of (ULTRACET) 00:00: every 6 [place] 37.5-325 mg 00 (six) Medical per tablet hours as Branc h needed for Pain. tramadol-ac Yes 1{tbl} Take 1 Tab Univers etaminophen 3-13 by mouth ity of (ULTRACET) 00:00: every 6 [place] 37.5-325 mg 00 (six) Medical per tablet hours as Branc h needed for Pain. tramadol-ac Yes 1{tbl} Take 1 Tab Univers etaminophen 3-13 by mouth ity of (ULTRACET) 00:00: every 6 [place] 37.5-325 mg 00 (six) Medical per tablet hours as Branc h needed for Pain. tramadol-ac Yes 1{tbl} Take 1 Tab Univers etaminophen 3-13 by mouth ity of (ULTRACET) 00:00: every 6 [place] 37.5-325 mg 00 (six) Medical per tablet hours as Branc h needed for Pain. tramadol-ac Yes 1{tbl} Take 1 Tab Univers etaminophen 3-13 by mouth ity of (ULTRACET) 00:00: every 6 [place] 37.5-325 mg 00 (six) Medical per tablet hours as Branc h needed for Pain. Vital Signs Vital Name Observation Time Observation Value Comments Source HEIGHT 2021-01-21 08:45:00 175.3 cm WEIGHT 2021-01-21 08:45:00 69.4 kg HEIGHT 2020-11-17 06:45:00 175.3 cm WEIGHT 2020-11-17 06:45:00 69.4 kg HEIGHT 2020-11-13 11:51:00 175.3 cm WEIGHT 2020-11-13 11:51:00 68.04 kg Systolic blood 2021-04-23 14:00:00 132 mm[Hg] Univer sity of pressure [facility] Diastolic blood 2021-04-23 14:00:00 79 mm[Hg] Unive rsity of [facility] Heart rate 2021-04-23 14:00:00 57 /min [facility] ty [facility] Respiratory rate 2021-04-23 14:00:00 18 /min [facility] saturation in 2021-04-23 14:00:00 100 /min [facility] Arterial blood by [facility] Pulse oximetry Branch Body temperature 2021-04-23 13:35:00 36.89 Sera [facility] Body weight 2021-04-23 13:35:00 63.504 kg Universi ty [facility] BMI 2021-04-23 13:35:00 20.67 kg/m2 [facility] Systolic blood 2021-03-10 14:49:00 122 mm[Hg] [facility] pressure Medicine Diastolic blood 2021-03-10 14:49:00 80 mm[Hg] [facility] Medicine Heart rate 2021-03-10 14:49:00 94 /min [facility] Body temperature 2021-03-10 14:49:00 36.5 Sera [facility] Respiratory rate 2021-03-10 14:49:00 17 /min [facility] Body height 2021-03-10 14:49:00 175.3 cm [facility] Body weight 2021-03-10 14:49:00 62.778 kg [facility] BMI 2021-03-10 14:49:00 20.44 kg/m2 [facility] HEIGHT 2021-03-04 14:15:00 175.3 cm WEIGHT 2021-03-04 14:15:00 63.504 kg HEIGHT 2021-03-04 14:15:00 175.3 cm WEIGHT 2021-03-04 14:15:00 63.504 kg HEIGHT 2021-02-01 08:24:00 175.3 cm WEIGHT 2021-02-01 08:24:00 64.456 kg HEIGHT 2021-01-29 09:06:00 175.3 cm WEIGHT 2021-01-29 09:06:00 69.4 kg HEIGHT 2021-02-01 08:24:00 175.3 cm WEIGHT 2021-02-01 08:24:00 64.456 kg HEIGHT 2021-01-29 09:06:00 175.3 cm WEIGHT 2021-01-29 09:06:00 69.4 kg HEIGHT 2020-11-17 06:45:00 175.3 cm WEIGHT 2020-11-17 06:45:00 69.4 kg HEIGHT 2020-11-13 11:51:00 175.3 cm WEIGHT 2020-11-13 11:51:00 68.04 kg Systolic blood 2020-10-28 19:42:00 110 mm[Hg] [facility] pressure Medicine Diastolic blood 2020-10-28 19:42:00 73 mm[Hg] [facility] pressure Medicine Heart rate 2020-10-28 19:42:00 82 [facility] Body temperature 2020-10-28 19:42:00 36.94 Sera [facility] Body height 2020-10-28 19:42:00 [facility].3 [facility] Body weight 2020-10-28 19:42:00 73.483 kg [facility] BMI 2020-10-28 19:42:00 23.92 kg/m2 [facility] Systolic blood 2020-10-14 18:38:00 114 mm[Hg] [facility] pressure Medicine Diastolic blood 2020-10-14 18:38:00 73 mm[Hg] [facility] Medicine Heart rate 2020-10-14 18:38:00 101 /min [facility] Body temperature 2020-10-14 18:38:00 36.72 Sera [facility] Systolic blood 2020-08-26 19:38:00 115 mm[Hg] [facility] Diastolic blood 2020-08-26 19:38:00 67 mm[Hg] [facility] Heart rate 2020-08-26 19:38:00 92 /min [facility] Body weight 2020-08-26 19:38:00 74.39 kg [facility] Systolic blood 2020 15:29:00 100 mm[Hg] [facility] Diastolic blood 2020 15:29:00 71 mm[Hg] [facility] Heart rate 2020 15:29:00 89 /min [facility] Body temperature 2020 15:29:00 36.61 Sera [facility] Body height 2020 15:29:00 175.3 cm [facility] Body weight 2020 15:29:00 84.006 kg [facility] BMI 2020 15:29:00 27.35 kg/m2 [facility] Procedures Procedure Date / Time Performing Clinician Source Performed CT ABDOMEN PELVIS WO 2021-04-23 14:44:18 Debi Carson [facility] POCT TEST 2021-04-23 14:01:00 Debi Carson [facility] URINALYSIS 2021-04-23 13:58:00 Debi Carson [facility] [place] [facility] LIPASE 2021-04-23 13:45:00 Debi Carson [facility] [place] [facility] COMP. METABOLIC PANEL 2021-04-23 13:45:00 Debi Carson [facility] ([id number]) [facility] CBC WITH DIFF 2021-04-23 13:45:00 Debi Carson [facility] [place] [facility] MRI CERVICAL SPINE W WO 2020-09-22 23:30:00 Erasto Almazan ealth CONTRAST ASSIGNMENT OF BENEFITS 2020-09-22 13:05:16 Doctor Unassigned, [facility] [place] [facility] NO SHOW OR MISSED 2020 14:55:48 Doctor Unassigned, [facility] APPOINTMENT POLICY [facility] [facility] ACKNOWLEDGEMENT REFERRAL- REQUEST/RESPONSE 2019-11-22 05:01:00 Doctor Rodysstheresa , [facility] Plan of Care Planned Activity Planned Date Details Comments Source Future Scheduled 2021-03-10 Pneumococcal Combined [facility] Test 08:46:43 (1 of 2 - PPSV23) [code of M edicine = Pneumococcal Combined (1 of 2 - PPSV23)] Future Scheduled 2021-03-10 COVID-19 Vaccine (1) [place] [employer] Test 08:46:43 [code = COVID-19 of Medicine Vaccine (1)] Future Scheduled 2021-03-10 TETANUS SHOT (ADULT) [employer] [place] [employer] Test 08:46:43 [code = TETANUS SHOT of Medi cine (ADULT)] Future Scheduled 2021-03-10 Screening for malignant [facility] Test 08:46:43 neoplasm of cervix of Medici ne (procedure) [code = [id number]] Future Scheduled 2021-03-10 FLU VACCINE > 6 MONTHS [employer] Test 08:46:43 [code = FLU VACCINE > 6 of M edicine MONTHS] Future Scheduled 2020-10-28 COVID-19 Vaccine (1) [facility] Test 14:41:44 [code = COVID-19 of Medicine Vaccine (1)] Future Scheduled 2020-10-28 TETANUS SHOT (ADULT) [facility] Test 14:41:44 [code = TETANUS SHOT of Medi cine (ADULT)] Future Scheduled 2020-10-28 Screening for malignant [employer] [facility] 14:41:44 neoplasm of cervix of Medici ne (procedure) [code = 674694602] Future Scheduled 2020-10-28 FLU VACCINE > 6 MONTHS [employer] 14:41:44 [code = FLU VACCINE > 6 of M edicine MONTHS] Future Scheduled 2020-10-14 COVID-19 Vaccine (1) [place] [employer] [facility] 13:38:59 [code = COVID-19 of Medicine Vaccine (1)] Future Scheduled 2020-10-14 TETANUS SHOT (ADULT) [place] [employer] [employer] [facility] 13:38:59 [code = TETANUS SHOT of Medi cine (ADULT)] Future Scheduled 2020-10-14 Screening for malignant [employer] [facility] 13:38:59 neoplasm of cervix of Medici ne (procedure) [code = 460653787] Future Scheduled 2020-10-14 FLU VACCINE > 6 MONTHS [employer] [facility] 13:38:59 [code = FLU VACCINE > 6 of M edicine MONTHS] Future Scheduled NADIA SCOPE [code = Ordered: [employer] PMK637] 08/26/2020 of Medicine Future Scheduled HIV AB/AG 4TH GEN W Ordered: [place] [facility] [employer] [facility] RFLX [code = 98533-6] 08/26/2020 of Med icine Future Scheduled HEPATITIS C ANTIBODY Ordered: [place] [employer] [facility] [code = 87916-6] 08/26/2020 of Medicine Future Scheduled CBC W/AUTO DIFF WITH Ordered: [facility] Test PLATELETS [code = 08/26/2020 of Medicin e 07584-4] Future Scheduled COMPREHENSIVE METABOLIC Ordered: [facility] Test PANEL [code = 85997-7] 08/26/2020 of Me dicine Future Scheduled HEPATITIS B SURFACE Ordered: [facility] or [employer] [facility] ANTI- BODY QUANT,LIVER 08/26/2020 of Me dicine TRANSP [code = NOCPT] Future Scheduled LACTATE DEHYDROGENASE Ordered: [employer] [facility] [code = 2532-0] 08/26/2020 of Medicine Future Scheduled TETANUS SHOT (ADULT) [place] [employer] [employer] [facility] [code = TETANUS SHOT of Medi cine (ADULT)] Future Scheduled COVID-19 Vaccine (1) [place] [employer] [facility] [code = COVID-19 of Medicine Vaccine (1)] Future Scheduled Hepatitis C screening [employer] [facility] (procedure) [code = of Medic ine 680961953] Future Scheduled Human immunodeficiency [facility] virus screening of Medicine (procedure) [code = 799567288] Future Scheduled Screening for malignant [employer] neoplasm of cervix of Medici ne (procedure) [code = 946530942] Future Scheduled FLU VACCINE > 6 MONTHS [employer] [code = FLU VACCINE > 6 of M edicine MONTHS] Future Scheduled US FNA [code = 09941] 1 Occurrences [employer] starting of Medicine 08/26/2020 until 08/26/2021 Encounters Start End Encounter Admission Attending Care Care Encounter Source Date/Time Date/Time Type Type Clinicians Facility Department ID 2021-02-20 Outpatient LUISITO [facility] GIE [id number] [facility] 15:24:19 DEIRDRE [facility] 2021-02-20 Outpatient R LUISITO [facility] GIE [id number] [facility] 01:30:11 DEIRDRE [facility] 2021-01-31 Outpatient JAWAID, [facility] Surgery [id number] SLE 14:23:40 SALMAAN 2021-01-31 Outpatient OUSMANE, [facility] Surgery [id number] [facility] 02:13:58 FILIPPO 2021-04-23 2021-04-23 Emergency X YAMILETH [facility] ERT [id number] [facility] 07:33:00 09:25:00 DEBI [facility] 2021-04-23 2021-04-23 [facility] [id number] [facility] 07:33:00 09:25:00 Debi [place] [facility] 4.2.7.2.686 [facility] [id number] [facility] 084 [address] 2021-03-10 2021-03-10 Office PARISA WRIGHT 1.2.840.114 [id number] [facility] 08:42:48 11:33:02 Visit SALMAAN AMBULATOR 350.1.13.21 College Y 0.2.7.2.686 [id number] [facility] kateryna 325 e 2021-03-04 2021-03-04 Outpatient [facility] [id number] [facility] 00:00:00 23:59:00 [facility] Medicin e 2021-03-04 2021-03-04 Emergency ER BICETTE, [facility] Emergency [id number] SLE 14:12:00 17:15:00 RICHINA 2021-02-01 2021-02-05 Outpatient RATNA [facility] [id number] [facility] 16:03:44 19:52:07 SALMAAN [facility] 2021-02-01 2021-02-01 Outpatient EL JAWANGELIA, [facility] Surgery [id number] [facility] 07:39:00 12:03:00 SALMAAN 2021-02-01 2021-02-01 Outpatient RATNA [facility] [id number] [facility] 10:43:00 10:43:00 SALGEOVANNYAN [facility] 2021-01-29 2021-01-29 Outpatient EL JAWAID, [facility] [id number] [facility] 16:18:52 23:59:00 SALMAAN 2021-01-29 2021-01-29 Outpatient EL [facility] [id number] [facility] 00:00:00 00:00:00 2021-01-29 2021-01-29 Outpatient SLEH [facility] [id number] [facility] 00:00:00 00:00:00 2021-01-21 2021-01-21 Outpatient EL [facility] [id number] [facility] 00:00:00 00:00:00 2020-11-25 2020-11-25 Outpatient OUSMANE, BCM [facility] [id number] [facility] 13:23:53 13:46:49 FILIPPO [facility] [employer] [facility] 2020-11-13 2020-11-13 Outpatient SLE SLE [id number] [facility] 00:00:00 00:00:00 2020-10-28 2020-10-28 [place] 1.2.840.114 [id number] [facility] 14:37:12 14:59:11 Visit Filippo AMBULATOR 350.1.13.21 [facility] Y 0.2.7.2.686 of [id number] [facility] kateryna 800 e 2020-10-15 2020-10-15 EXT [facility] Caridi, EXT [facility] 1.2.840.114 1 [id number] [place] 00:00:00 00:00:00 [facility] 350.1.13.58 H ealth 9.2.7.2.686 [id number] 0 2020-10-14 2020-10-14 Office [place] 1.2.840.114 [id number] [facility] 13:28:25 15:29:27 Visit Filippo AMBULATOR 350.1.13.21 [facility] Y 0.2.7.2.686 of [id number] Medi kateryna 800 e 2020-09-24 2020-09-24 Outpatient EL SLEH SLE [id number] [facility] 00:00:00 00:00:00 2020-09-23 2020-09-23 Outpatient [facility] [id number] Univers 09:00:00 09:00:00 [id number] ity [facility] 2020-09-23 2020-09-23 Outpatient [facility] [id number] Univers 08:15:00 08:15:00 ity [facility] 2020-09-23 2020-09-23 Outpatient [facility] [id number] Univers 00:00:00 00:00:00 ity [facility] 2020-09-22 2020-09-22 [facility] 1.2.840.114 [id number] 08:00:00 23:59:00 Encounter M [place] 350.1.13.10 [place] 4.2.7.2.686 [place] [id number] 2020-09-22 2020-09-22 [facility] 1.2.840.114 [id number] Univers 08:00:00 23:59:00 Encounter M [place] 350.1.13.10 ity of [place] 4.2.7.2.686 [facility] [id number] [facility] 805 [place] 2020-09-22 2020-09-22 [facility] [id number] Univers 08:00:00 08:00:00 ity [facility] 2020-09-22 2020-09-22 Orders Doctor ERASTO 1.2.840.114 [id number] 00:00:00 00:00:00 Only Unassigned, JENY 350.1.13.10 [place] [facility] 4.2.7.2.686 [id number] 009 2020-09-22 2020-09-22 Orders Doctor ERASTO 1.2.840.114 [id number] Univers 00:00:00 00:00:00 Only Unassigned, JENY 350.1.13.10 ity of [place] [facility] 4.2.7.2.686 [facility] [id number] [address] 2020-09-05 2020-09-05 EXT [facility] OP Caridi, EXT [facility] 1.2.840.114 1 [id number] [place] 00:00:00 00:00:00 Erasto [place] 350.1.13.58 H [facility] 9.2.7.2.686 [id number] 2020-09-02 2020-09-02 [facility] [id number] Univers 09:00:00 09:00:00 [id number] ity [facility] 2020-09-02 2020-09-[address] [facility] [id number] Univers 00:00:00 00:00:00 ity [facility] 2020-08-26 2020-08-26 Office [place], BCM 1.2.840.114 [id number] [facility] 14:34:48 14:54:48 Visit Filippo AMBULATOR 350.1.13.21 [facility] 0.2.7.2.686 of [id number] [facility] 800 e 2020-05-04 2020-05-04 Outpatient R [facility] [id number] Univers 13:45:00 13:45:00 [id number] ity [facility] 2020-05-04 2020-05-04 Outpatient R [facility] [id number] Univers 13:45:00 13:45:00 ity [facility] 2020-04-30 2020-04-30 Outpatient R JESSICA BUI [facility] [id number] Univers 13:00:00 13:00:00 [id number] ity [facility] 2020-04-13 2020-04-13 Telephone Day, UNIVERSIT 1.2.840.114 [id number] 00:00:00 00:00:00 Rawan Andrews Y HEALTH 350.1.13.10 [facility] 4.2.7.2.686 [id number] 071 2020-04-13 2020-04-13 Telephone Day, UNIVERSIT 1.2.840.114 [id number] Univers 00:00:00 00:00:00 Rawan Andrews Y HEALTH 350.1.13.10 it[id number] [address] 2020-03-31 2020-03-31 Outpatient R KIRSTEN [facility] [id number] Univers 10:00:00 10:00:00 HUI ity [facility] 2020-03-23 2020-03-23 Outpatient R HARSHIL TOMAS [facility] [id number] Univers 08:40:00 08:40:00 HARSHIL TOMAS ity [facility] 2020-03-23 2020-03-23 Outpatient R HARSHIL TOMAS [facility] [id number] Univers 08:40:00 08:40:00 HARSHIL TOMAS itjaylin [facility] 2020-03-03 2020-03-03 Outpatient HARSHIL TOMAS [facility] [id number] Univers 08:00:00 08:00:00 [facility] 2020-03-03 2020-03-03 Outpatient R KHURRAMHARSHIL Shahid [facility] [id number] Univers 08:00:00 08:00:00 KHURRAM HARSHIL [facility] 2020-03-03 2020-03-03 [facility] 1.2.840.114 [id number] Univers 00:00:00 00:00:00 Harshil [place] 350.1.13.10 ity [facility] [id number] [place] 092 [facility] 2020-02-21 2020-02-21 Outpatient R [facility] [id number] Univers 10:30:00 10:30:00 [facility] 2020 Office BO CurtisIT [id number] [id number] Univers 09:55:39 10:42:47 Visit Hui [facility] 350.1.13.10 ity of [id number] [address] 2020 2020 Outpatient R KIRSTEN [facility] [id number] Univers 10:00:00 10:00:00 RAWAN [id number] ity [facility] 2020 2020 Outpatient R KIRSTEN, [facility] [id number] Univers 10:00:00 10:00:00 RAWAN [facility] 2020 2020 Orders Doctor ERASTO 1.2.840.114 [id number] Univers 00:00:00 00:00:00 Only Unassigned, [facility]13.10 [facility] 4.2.7.2.686 Jakub as [id number] [address] 2020-01-30 2020-01-30 Outpatient R [facility] [id number] Univers 13:00:00 13:00:00 [facility] 2019-11-22 2019-11-22 Orders Doctor ERASTO 1.2.840.114 [id number] Univers 00:00:00 00:00:00 Only Unassigned, JENY 350.1.13.10 [facility] 4.2.7.2.686 Jakub as [id number] [address] 2019-10-03 2019-10-03 Outpatient R [facility] [id number] Univers 08:30:00 08:30:00 [id number] [facility] Results Test Description Test Time Test Comments Results Result Comments Source COMP. METABOLIC PANEL (15453) 2021-04-23 14:33:49 Test Item Value Reference Range Interpretation Comme nts NA (test code = 4522474084) 140 mmol/L 135-145 K (test code = 1781632342) 3.5 mmol/L 3.5-5.0 CL (test code = 5082746548) 109 mmol/L 98-108 H CO2 TOTAL (test code = 4343828834) 23 mmol/L 23-31 AGAP (test code = 1211665595) 2-16 BUN (test code = 7859813789) 7 mg/dL 7-23 GLUCOSE (test code = 3319627913) 105 mg/dL 70-110 CREATININE (test code = 0.50 mg/dL 0.50-1.04 1493000428) TOTAL BILI (test code = 0.6 mg/dL 0.1-1.8 5547184491) CALCIUM (test code = 2201578936) 8.6 mg/dL 8.6-10.6 T PROTEIN (test code = 8465413779) 7.6 g/dL 6.3-8.2 ALBUMIN (test code = 7401978703) 4.4 g/dL 3.5-5.0 ALK PHOS (test code = 9010206522) 82 U/L 34-122 ALTv (test code = 1742-6) 14 U/L 5-35 AST(SGOT) (test code = 3575713609) 31 U/L 13-40 eGFR (test code = 2342048764) mL/min/1.73m2 CHIKIS (test code = CHIKIS) Association of Glomerular Filtration Rate (GFR) and Staging of Kidney Disease* + +-------- + ------+| GFR (mL/min/1.73 m2) ?| With Kidney Damage ?| ?Without Kidney Damage+ +-- + +| ?>90 ?| ?Stage one ?| ? Normal ?+ +------- + -------+| ?60-89 ?| ?Stage two ?| ? Decreased GFR ? + +-------- + ------+| ?30-59 ?| ?Stage three ?| ? Stage three ? + +-------- + ------+| ?15-29 ?| ?Stage four ? | ? Stage four ?+ +------- + -------+| ?<15 (or dialysis) ? ?| ?Stage five ? | ? Stage five ?+ +------- + -------+ *Each stage assumes the associated GFR level has been in effect for at least three months. ?Stages 1 to 5, with or without kidney disease, indicate chronic kidney disease. Notes: Determination of stages one and two (with eGFR >59mL/min/1.73 m2) requires estimation of kidney damage for at least three months as defined by structural or functional abnormalities of the kidney, manifested by either:Pathological abnormalities or Markers of kidney damage (including abnormalities in the composition of the blood or urine or abnormalities in imaging tests). Lab Interpretation (test code = Abnormal 75040-2) [facility] 14[facility]33[facility]29 Test Item Value Reference Range Interpretation Comments LIPASE (test code = 8807922514) 36 U/L 0-220 Lab Interpretation (test code = Normal 23494-3) [facility] WITH [id number] 14:13:06 Test Item Value Reference Range Interpretation Comments WBC (test code = See_Comment H [Automated 6690-2) message] The sy stem which generated this result transmitted reference range : 4.30 - 11.10 10*3/?L. The reference range was not used to interpret this result as normal/abnormal . RBC (test code = See_Comment [Automated 789-8) message] The sy stem which generated this result transmitted reference range : 3.93 - 5.25 10*6/?L. The reference range was not used to interpret this result as normal/abnormal . HGB (test code = 13.3 g/dL 11.6-15.0 718-7) HCT (test code = 39.2 % 35.7-45.2 4544-3) MCV (test code = 91.8 fL 80.6-95.5 787-2) MCH (test code = 31.1 pg 25.9-32.8 785-6) MCHC (test code = 33.9 g/dL 31.6-35.1 786-4) RDW-SD (test code = 52.5 fL 39.0-49.9 H 51760-8) RDW-CV (test code = 15.6 % 12.0-15.5 H 788-0) PLT (test code = See_Comment H [Automated 777-3) message] The sy stem which generated this result transmitted reference range : 166 - 358 10*3/ ?L. The reference r kristy was not used to interpret this result as normal/abnormal . MPV (test code = 10.0 fL 9.5-12.9 96117-1) IPF % (test code = 2.6 % 1.3-7.7 Platelet count 5616145086) measured by fluorescence method. NRBC/100 WBC (test See_Comment [Automat ed code = 4703536767) message] The system which generated this result transmitted reference range : 0.0 - 10.0 /100 WBCs. The refer ence range was not u sed to interpret th is result as normal/abnormal . NRBC x10^3 (test code <0.01 See_Comment [Auto mated = 0998280000) message] The s ystem which generated this result transmitted reference range : 10*3/?L. The reference range was not used to interpret this result as normal/abnormal . GRAN MAT (NEUT) % 79.3 % (test code = 770-8) IMM GRAN % (test code 0.40 % = 1348460753) LYMPH % (test code = 13.8 % 736-9) MONO % (test code = 5.2 % 5905-5) EOS % (test code = 0.8 % 713-8) BASO % (test code = 0.5 % 706-2) GRAN MAT x10^3(ANC) 9.51 10*3/uL 1.88-7.09 H (test code = 7920913385) IMM GRAN x10^3 (test 0.05 10*3/uL 0.00-0.06 code = 0458364646) LYMPH x10^3 (test code 1.65 10*3/uL 1.32-3.29 = 731-0) MONO x10^3 (test code 0.62 10*3/uL 0.33-0.92 = 742-7) EOS x10^3 (test code = 0.10 10*3/uL 0.03-0.39 711-2) BASO x10^3 (test code 0.06 10*3/uL 0.01-0.07 = 704-7) Lab Interpretation Abnormal (test code = 64551-2) [id number] 14:01:00 Test Item Value Reference Range Interpretation Comments POCT PREG (test code = 1605) negative On board controls acceptable with present C Line (test code = 3574) POCT PREG LOT # (test code = 3575) [id number] POCT PREG TEST DATE (test 06/21/2022 code = 3576) Lab Interpretation (test code = Normal 73700-5) [facility], [id number] 17:10:00Unlisted Reason for Exam - Click Yes and Enter Reason Below->YesUnlisted Reason for Exam->intractable abd painWill this procedure require oral contrast?->No [facility] CENTERName: LUIS CALDERON : 1980 Sex: FFINAL REPORT CT, ABDOMEN \\T\\ PELVIS, WITH IV CONTRAST HISTORY: Unlist ed Reason for Examintractable abd pain COMPARISON: None TECHNIQUE: CT of the abdomen and pelvis WITH intravenous contrast and WITHOUT oral contrast. The examination was performed according to the departmental dose-optimization program, which includes automated exposure control, adjustment of the mA and/or kV according to patient size and/or use of iterative reconstruction technique. FINDINGS: Lower thorax: Unremarkable.Liver: Unremarkable.Gallbladder and bile ducts: Surgically absent gallbladder. Mild prominence of the central intrahepatic and extrahepatic biliary tree, likely related to post cholecystectomy state.Spleen: Unremarkable.Pancreas: Unremarkable.Adrenals: UnremarkableKidneys and ureters: Unremarkable.Bowel: Surgically absent appendix. A few scattered colonic diverticula. Nondilated bowel with no wall thickening.Bladder: Unremarkable.Reproductive organs: A simple appearing 3.1 cm right ovarian cyst, no follow-up needed.Lymph nodes: Unremarkable.Peritoneum: Unremarkable.Vessels: Minimal atherosclerotic calcifications.Abdominal wall: Unremarkable.Bones: Unremarkable. IMPRESSION: 1.Mild prominence of the central intrahepatic and extrahepatic biliary tree, likely related to postc holecystectomy state. 2.Otherwise unremarkable CT abdomen and pelvis. Signed: Andrae Zaidi Verified Date/Time: 03/04/2021 17:10:45 Reading Location: [address] Reading Room COMPREHENSIVE METABOLIC [id number] 15:44:38 Test Item Value Reference Range Interpretation Comments TOTAL PROTEIN 6.3 gm/dL 6.0-8.3 Specimen sligh tly (BEAKER) (test code = hemoly zed 770) ALBUMIN (BEAKER) 3.7 g/dL 3.5-5.0 Specimen sl ightly (test code = 1145) hemolyzed ALKALINE PHOSPHATASE 59 U/L 40-150 (BEAKER) (test code = 346) BILIRUBIN TOTAL 0.1 mg/dL 0.2-1.2 L Specimen sli ghtly (BEAKER) (test code = hemoly zed 377) SODIUM (BEAKER) (test 136 meq/L 136-145 code = 381) POTASSIUM (BEAKER) 4.3 meq/L 3.5-5.1 Specimen slightly (test code = 379) hemolyzed CHLORIDE (BEAKER) 105 meq/L 98-107 (test code = 382) CO2 (BEAKER) (test 22 meq/L 22-29 code = 355) BLOOD UREA NITROGEN 9 mg/dL 7-21 (BEAKER) (test code = 354) CREATININE (BEAKER) 0.72 mg/dL 0.57-1.25 Specimen slightly (test code = 358) hemolyzed GLUCOSE RANDOM 114 mg/dL 70-105 H (BEAKER) (test code = 652) CALCIUM (BEAKER) 8.8 mg/dL 8.4-10.2 (test code = 697) AST (SGOT) (BEAKER) 15 U/L 5-34 Specimen slightly (test code = 353) hemolyzed ALT (SGPT) (BEAKER) 14 U/L 6-55 Specimen slightly (test code = 347) hemolyzed EGFR (BEAKER) (test 90 mL/min/1.73 ESTIMA LUCRETIA GFR IS code = 1092) sq m NOT ACCURATE CREATININE CLEARANCE IN PREDICTING GLOMERULAR FILTRATION RATE . ESTIMATED GFR I S NOT APPLICABLE FOR DIALYSIS PATIEN TS. [employer] ID - AYO MOperator ID - [id number] 15:44:38 Test Item Value Reference Range Interpretation Comments PARTIAL THROMBOPLASTIN TIME 30.3 seconds 22.5-36.0 (BEAKER) (test code = 760) PROTHROMBIN TIME/[id number] 15:43:59 Test Item Value Reference Range Interpretation Comments PROTIME (BEAKER) 14.3 seconds 11.9-14.2 H (test code = 759) INR (JOSEP) (test 1.13 See_Comment [Automat ed message] code = 370) The system whic [employer] generated this result transmitted ref erence range: <=5.90. The reference range was not used to int erpret this result as normal/abnormal . RECOMMENDED COUMADIN/WARFARIN INR THERAPY RANGESSTANDARD DOSE: 2.0 - 3.0 Includes: PROPHYLAXIS forvenous thrombosis, systemic embolization; TREATMENT for venous thrombosis and/or pulmonary embolus.HIGH RISK: Target INR is 2.5-3.5 for patients with mechanical heart valves.HCG, QUANTITATIVE, [id number] 15:39:20 Test Item Value Reference Range Interpretation Comments GONADOTROPIN, CHORIONIC (HCG) QUANT < mIU/mL 0-10 (JOSEP) (test code = 649) Non- Females: <10 mIU/mL Females: Gestation Age Reference Range(mIU/mL) 0.2-1 Week 5-50 1-2 Weeks 50-500 2-3 Weeks 100-5,000 3-4Weeks 500-10,000 4-5 Weeks 1,000-50,000 5-6 Weeks 10,000-100,000 6-8 Weeks 15,000-200,000 2-3 Months 10,000-100,000 [employer] ID - DBHIGH SENSITIVITY TROPONIN [id number] 15:38:56 Test Item Value Reference Range Interpretation Comments HIGH SENSITIVITY < pg/ml See_Comment [Automated message] TROPONIN I (test code = The system which [id number]) generated this result transmitted ref erence range: <=17. Th e reference range was not used to interpr et this result as normal/abnormal . [employer] ID - DBThe SENIOR ANDRO[employer] SOFTWARE ENGINEER STAT High Sensitivity Troponin-I results should be used in conjunctionwith other diagnostic information such as ECG, clinical observations and information, and patient symptoms to aid in the diagnosis of [place].[id number] 15:34:35 Test Item Value Reference Range Interpretation Comments MAGNESIUM (JOSEP) 1.8 mg/dL 1.6-2.6 Specimen slightly (test code = 627) hemolyzed [employer] ID - AYO [id number] 15:34:35 Test Item Value Reference Range Interpretation Comments LIPASE (BEAKER) (test code = 749) 12 U/L 8-78 [employer] ID - AYO MCBC W/PLT COUNT & AUTO [id number] 15:23:19 Test Item Value Reference Range Interpretation Comments WHITE BLOOD CELL COUNT (BEAKER) 14.0 K/ L 3.5-10.5 H (test code = 775) RED BLOOD CELL COUNT (BEAKER) 3.65 M/ L 3.93-5.22 L (test code = 761) HEMOGLOBIN (BEAKER) (test code = 11.8 GM/DL 11.2-15.7 410) HEMATOCRIT (BEAKER) (test code = 34.0 % 34.1-44.9 L 411) MEAN CORPUSCULAR VOLUME (BEAKER) 93.2 fL 79.4-94.8 (test code = 753) MEAN CORPUSCULAR HEMOGLOBIN 32.3 pg 25.6-32.2 H (BEAKER) (test code = 751) MEAN CORPUSCULAR HEMOGLOBIN CONC 34.7 GM/DL 32.2-35.5 (BEAKER) (test code = 752) RED CELL DISTRIBUTION WIDTH 15.4 % 11.7-14.4 H (BEAKER) (test code = 412) PLATELET COUNT (BEAKER) (test 370 K/CU MM 150-450 code = 756) MEAN PLATELET VOLUME (BEAKER) 10.4 fL 9.4-12.3 (test code = 754) NUCLEATED RED BLOOD CELLS 0 /100 WBC 0-0 (BEAKER) (test code = 413) NEUTROPHILS RELATIVE PERCENT 70 % (BEAKER) (test code = 429) LYMPHOCYTES RELATIVE PERCENT 22 % (BEAKER) (test code = 430) MONOCYTES RELATIVE PERCENT 6 % (BEAKER) (test code = 431) EOSINOPHILS RELATIVE PERCENT 1 % (BEAKER) (test code = 432) BASOPHILS RELATIVE PERCENT 1 % (BEAKER) (test code = 437) NEUTROPHILS ABSOLUTE COUNT 9.75 K/ L 1.56-6.13 H (BEAKER) (test code = 670) LYMPHOCYTES ABSOLUTE COUNT 3.05 K/ L 1.18-3.74 (BEAKER) (test code = 414) MONOCYTES ABSOLUTE COUNT (BEAKER) 0.86 K/ L 0.24-0.36 H (test code = 415) EOSINOPHILS ABSOLUTE COUNT 0.19 K/ L 0.04-0.36 (BEAKER) (test code = 416) BASOPHILS ABSOLUTE COUNT (BEAKER) 0.07 K/ L 0.01-0.08 (test code = 417) IMMATURE GRANULOCYTES-RELATIVE 0 % 0-1 PERCENT (BEAKER) (test code = 2801) TISSUE [id number] 11:53:29Surgical Pathology Report Case: [id number] Authorizing Provider: Juju Wright MD Collected: 02/01/2021 10:55 AM Ordering Location: [facility] Received: 02/01/2021 02:05 PM Services Pathologist: Blanka Brewer MD Specimen: Biopsy, Gastric, random biopsies STOMACH, BIOPSY:-GASTRIC ANTRAL-TYPE AND OXYNTIC MUCOSA WITH CHRONIC GASTRITIS- NO EVIDENCE OF HELICOBACTER PYLORI -LIKE ORGANISMS ON WARTHIN-STARRY STAIN- NEGATIVE FOR INTESTINAL METAPLASIA AND DYSPLASIA SigningPathologist Direct Phone Line: [phone] signed by Blanka Brewer MD on 02/02/2021 at 11:53 [id number], [id number] painStomachA. Received in formalin labeled with the patient's name, medical record number and "biopsy, gastric" and consists of 3 saunders soft tissue fragments ranging 0.2-0.4 cm submitted in toto in A1.TULIO Salinas PA (ASCP)cmPerformedThe interpretation of this case included the use of immunohistochemistry or special stains.Control Slides Examined: In-house known positive controls were evaluated along with the test tissue. These control slides run alongside of the patients sample show appropriate staining. Internal positive and negative controls when available are evaluated Immunohistochemistry technical testing was performed at [facility], Pathology Laboratory where it was developed and its performance characteristics were determined. It has not been cleared or approved by the U.S. Food and Drug Administration. The FDA has determined that such clearance or approval is not necessary. The test is used for clinical purposes. It should not be regarded as investigational or for research. This laboratory is certified under the Clinical Laboratory Improvement Amendments of 1988 (CLIA-88) as qualified to perform high complexity clinicallaboratory testing.[facility], Department of Pathology, [address] [place] [address], [facility], [facility] of [facility], [address] [place] [address], [facility], [facility] of [facility], [address] [place] [address], HBROVX [id number] 14:05:00Surgical Pathology Report Case: [id number] Authorizing Provider: Filippo Romeo MD Collected: 11/17/2020 08:36 AM Ordering Location: [facility] Received: 11/17/2020 10:00 AM SERVICES Pathologist: Elia Parekh MD Specimen: Soft Tissue, Other, Midline submental mass with overlying skin A. SKIN, CHIN, EXCISION OF LESION:EPIDERMAL INCLUSION CYST Signing Pathologist Direct Phone Line: [phone] signed by Elia Parekh MD on 11/19/2020 at 2:05 [id number] cystChinA. Received fresh labeled with the patient's name, medical record number and "soft tissue, other" is an unoriented white skin ellipse measuring 4.5 x 0.9 cm, excised to a depth of 1.5 cm. The epidermis is unremarkable. The margin is inked blue, and the specimen is serially sectioned to reveal a 1.7 x 1.3 x 1.3 cm simple cyst filled with sebaceous material and red-brown fluid. The cyst abuts the margin. Rn Cardiac sections are submitted.Section code:A1: Tips, en faceA2-A3: Representatives of cystCheTULIO Maldonado PA (ASCP)cmPerformed.[facility], Department of Pathology, [address] [place] [address], [facility], Department of P athology, [address] [place] [address], [facility], [facility] of [facility], [address] [place] [address], PMF W/PLT COUNT & AUTO [id number] 07:01:00 Test Item Value Reference Range Interpretation Comments WHITE BLOOD CELL COUNT (BEAKER) 9.9 K/ L 3.5-10.5 (test code = 775) RED BLOOD CELL COUNT (BEAKER) 3.97 M/ L 3.93-5.22 (test code = 761) HEMOGLOBIN (BEAKER) (test code = 12.4 GM/DL 11.2-15.7 410) HEMATOCRIT (BEAKER) (test code = 37.0 % 34.1-44.9 411) MEAN CORPUSCULAR VOLUME (BEAKER) 93.2 fL 79.4-94.8 (test code = 753) MEAN CORPUSCULAR HEMOGLOBIN 31.2 pg 25.6-32.2 (BEAKER) (test code = 751) MEAN CORPUSCULAR HEMOGLOBIN CONC 33.5 GM/DL 32.2-35.5 (BEAKER) (test code = 752) RED CELL DISTRIBUTION WIDTH 15.9 % 11.7-14.4 H (BEAKER) (test code = 412) PLATELET COUNT (BEAKER) (test 390 K/CU MM 150-450 code = 756) MEAN PLATELET VOLUME (BEAKER) 10.4 fL 9.4-12.3 (test code = 754) NUCLEATED RED BLOOD CELLS 0 /100 WBC 0-0 (BEAKER) (test code = 413) NEUTROPHILS RELATIVE PERCENT 67 % (BEAKER) (test code = 429) LYMPHOCYTES RELATIVE PERCENT 21 % (BEAKER) (test code = 430) MONOCYTES RELATIVE PERCENT 10 % (BEAKER) (test code = 431) EOSINOPHILS RELATIVE PERCENT 2 % (BEAKER) (test code = 432) BASOPHILS RELATIVE PERCENT 1 % (BEAKER) (test code = 437) NEUTROPHILS ABSOLUTE COUNT 6.57 K/ L 1.56-6.13 H (BEAKER) (test code = 670) LYMPHOCYTES ABSOLUTE COUNT 2.06 K/ L 1.18-3.74 (BEAKER) (test code = 414) MONOCYTES ABSOLUTE COUNT (BEAKER) 0.96 K/ L 0.24-0.36 H (test code = 415) EOSINOPHILS ABSOLUTE COUNT 0.23 K/ L 0.04-0.36 (BEAKER) (test code = 416) BASOPHILS ABSOLUTE COUNT (BEAKER) 0.05 K/ L 0.01-0.08 (test code = 417) IMMATURE GRANULOCYTES-RELATIVE 0 % 0-1 PERCENT (BEAKER) (test code = 2801) U/S, ASPIRATION/[id number] 15:25:002.2cm mass beneath the chinReason for Exam:->Neck Mass [facility] 1980 Sex: FFINAL REPORT PROCEDURE: Image-guided biopsy Procedural PersonnelAtten nicole physician(s): Iggy Prasad physician(s): NoneResident physician(s): NoneAdvanced practice provider(s): None Pre-procedure diagnosis: Enlarging submental massPost-procedure diagnosis: SameIndication: Histopathologic diagnosisPrevious biopsy of same target (QCDR): NoAdditional clinical history: None Complications: No immediate complications. IMPRESSION: Image-guided biopsy of submentalsuperficial mass. Plan: Specimen(s) sent for evaluation. PROCEDURE SUMMARY:- Percutaneous ultrasound-guided core needle and fine needle aspiration biopsy biopsy- Additional procedure(s): None PROCEDURE DETAILS: Pre- procedureReference imaging for biopsy target: NoneConsent: Informed consent for the procedure including risks, benefits and alternatives was obtained and time- out was performed prior to the procedure.Preparation: The site wasprepared and draped using maximal sterile barrier technique including cutaneous antisepsis. Anesthesia/sedationLevel of anesthesia/sedation: No sedationAnesthesia/sedation administered by: Not applicableTotal intra-service sedation time (minutes): Not applicable Imaging prior to biopsyThe patient was positioned supine. Initial imaging was performed.Biopsy target:- Maximal diameter (cm): 2.5- Location: Submental superficial. Well-circumscribed echogenic without significant internal vascularity.Other findings: None Biopsy Local anesthesia was administered. Under imaging guidance as stated in the procedure summary, the biopsy needle was advanced to the target and biopsy was performed. Core needle biopsy device: Accolo coreCore needle size: 18Number of core specimens: 1 Fine needle aspiration device: Aspiration needlesFine needle size: 25gNumber of FNA specimens: 4 Needle removalThe biopsy needle wasremoved and a sterile dressing was applied.Tract embolization: None Imaging following biopsyPost-biopsy imaging: UltrasoundPost- biopsy imaging findings: No acute complications. Additional DetailsAdditional description of procedure: NoneEquipment details: NoneSpecimens removed: Biopsy samples as detailed aboveEstimated blood loss (mL): Less than 10Standardized report: SIR_BiopsyMiscGuidance_v3 AttestationSigner name: SAM Polanco attest that I was present for the entire procedure. I reviewed the stored images and agree with the report as written. Signed: Luke Walters MDReport Verified Date/Time: 09/25/2020 15:25:58 Reading Location: [address] Consult Reading Room [id number] 13:23:00Medical Cytology Report Case: [id number] Authorizing Provider: Starla Sparks, Collected: 09/24/2020 02:01 PM PA Ordering Location: [facility] Radiology Ultrasound Received: 09/25/2020 09:34 AM Pathologist: Sondra Alcantara MD Specimen: Neck SUBMENTAL NECK MASS FNA BY CLINICIAN (CYTOSPINS): -NON-DIAGNOSTIC (SEE COMMENT) Signing Pathologist Direct Phone Line: [phone] signed by Sondra Alcantara MD on 09/25/2020 at 1:23 PMThe aspirate is non-diagnostic. Clinical and radiologic correlation is recommended. Re-biopsy is suggested if clinically indicated.Please see cases [id number] and [id number](2.5 x 1.0 x 2.1 cm) Submental neck mass, history of abdominal cancer.SUBMENTAL NECK MASS FNAReceived 32 mls in cytorich red; prepared4 cytospins.Performed. [facility], Department of Pathology, [address] [place] [address], [facility]blUniversity [facility], Department of Pathology, [address] [place] [address], EmtjklUniversity [facility], Department of Pathology, [address] [place] [address], QYTP CYTOMETRY REQUISITION 2020-09-25 13:05:00 Test Item Value Reference Range Interpretation Comments FLOW CYTOMETRY RESULT See Separate Report POINTER (BEAKER) (test code = 2758) FLOW CYTOMETRY AP CASE # [id number] (BEAKER) (test code = 2759) TISSUE [id number] 11:34:00Surgical Pathology Report Case: [id number] Authorizing Provider: Starla Sparks, Collected: 09/24/2020 02:01 PM PA Ordering Location: [facility] Radiology Ultrasound Received: 09/24/2020 04:05 PM Pathologist: Glo Villalta MD Specimen: Neck A. NECK, MIDLINE MASS, BIOPSY: - RARE BENIGN COLUMNAR EPITHELIAL CELLS WITH SCANT FIBROUS TISSUE. - TISSUE INSUFFICIENT FOR DIAGNOSIS. Signing Pathologist Direct Phone Line: [phone] signed by Glo Villalta MD on 09/25/2020 at 11:34 AMThe sections show rare benign epithelial cells with scant fibrous tissue. A repeat biopsy is suggested if clinically indicated. [id number]/neck mass 2.2 cmNeck, midline submentalA. Received in formalin labeled with patient's name, medical record number and accession number, "neck" are very minute saunders tissue fragments less than 0.1 x 0.1 x 0.1 cm aggregate. The specimen might not survive processing, submitted in toto in cassette A1.Benito Thompson, MDPerformed.The i nterpretation of this case included the use of immunohistochemistry or special stains.Control SlidesExamined: In-house known positive controls were evaluated along with the test tissue. These control slides run alongside of the patients sample show appropriate staining. Internal positive and negative controls when available are evaluated Immunohistochemistry technical testing was performed at [facility], Pathology Laboratory where it was developed and its performance characteristics were determined. It has not been cleared or approved by the U.S. Food and Drug Administration. The FDA has determined that such clearance or approval is not necessary. The test is used for clinical purposes. It should not be regarded as investigational or for research. This laboratory is certified under the Clinical Laboratory Improvement Amendments of 1988 (CLIA-88) as qualified to perform high complexity clinical laboratory testing.[facility], Department of Pathology,[address] [place] [address], [facility]xUniversity [facility], Departmentof Pathology, [address] [place] [address], [facility]whwnbUniversity [facility], Department of Pathology, [address] [place] [address], NZOI [id number] 05:25:00Flow Cytometry Report Case: [id number] Authorizing Provider: Starla Sparks, Collected: 09/24/2020 02:01 PM PA OrderingLocation[facility] Radiology Ultrasound Received: 09/24/2020 02:44 PM Pathologist: Elia Parekh MD Specimen: Other LESION ON CHIN, FLOW CYTOMETRY:STUDY IS LIMITED BY DIMINISHED VIABILITY AND SCARCITY OF LYMPHOID EVENTS.CORRELATION WITH MORPHOLOGIC FINDINGS REQUIRED. at5:25 [id number] LESIONChinCD8, surface-kappa, CD56, surface- lambda, CD5, CD19, CD10, CD3, CD20, CD4, GA62Pzgzkqyn Viability: 53.3% Number of Events Acquired: 600 The following populations are iden tified:Lymphocytes: Lymphoid events are scarce and are too few to analyze B and T cell populations.Myeloid/monocytic populations: As identified by CD45 and light scatter characteristics, granulocytescomprise 28.2%of total cells, and monocytes comprise 3.6% of total cells. The remaining events analyzed represent nonviable cells, non-hematolymphoid cells, and debris.These tests were developed and their performance characteristics determined by [facility]. They have not been cleared or approvedby the U.S. Food and Drug Administration. The FDA has determined that such clearance or approval is not necessary. It should not be regarded as investigational or for research. This laboratory is certified under the Clinical Laboratory Improvement Amendments of 1988 ("CLIA") as qualified to perform high-complexity clinical testing.[facility], Department of Pathology, [address] [place] [address], [facility]qUniversity [facility], Department of Pathology, [address] [place] [address],
[2021-06-07] MEDS ORDERED: NA CHLORIDE 0.9% 2,000 ML ONE (11:23)
[2021-06-07 12:02] LABS: Absolute Lymphocytes (CBC) 2.8 K/uL (0.7-4.9); Hematocrit 39.5 % (36.0-45.0); Lymphocytes % 20.3 % (15.3-44.8); MPV 7.4 fL (7.6-11.3); RBC Red Blood Cell Count 4.18 M/uL (3.86-4.86)
[2021-06-07 12:07] LABS: Urine Bacteria <20 /HPF (<20); Urine RBC <5 /HPF (NONE SEEN)
[2021-06-07 12:12] LABS: Urine Blood Negative (Negative); Urine Glucose Negative (Negative); Urine Protein Negative (Negative)
[2021-06-07 12:19] LABS: ALT/SGPT 19 U/L (12-78); AST/SGOT 5 U/L (15-37); Alkaline Phosphatase 75 U/L (45-117); BUN Blood Urea Nitrogen 7 mg/dL (7-18); Bicarbonate 26 mmol/L (21-32); Bilirubin Direct < 0.1 mg/dL (0-0.2); Bilirubin Total 0.3 mg/dL (0.2-1.0); Glucose Level 83 mg/dL (74-106); Lipase 41 U/L (73-393); Protein, Total 7.5 g/dL (6.4-8.2); Sodium Level 137 mmol/L (136-145)
[2021-06-07 12:59] LABS: SARS-COV-2 RT PCR NEGATIVE (NEGATIVE)
--- NOTE | 2021-06-07 13:05 | RAD REPORT ---
EXAM DESCRIPTION: CTAbdomen Pelvis W Contrast - 06/07/2021 12:54 pm CLINICAL HISTORY: Abdominal pain. left flank pain, fever;Abd pain COMPARISON: Abdomen Pelvis W Contrast dated 12/14/2020; Abdomen Pelvis W Contrast dated 09/25/2019; Abdomen Pelvis W Contrast dated 04/20/2018; Abdomen Pelvis W Contrast dated 03/28/2017 TECHNIQUE: Biphasic CT imaging of the abdomen and pelvis was performed with 100 ml non-ionic IV cont rast. All CT scans are performed using dose optimization technique as appropriate and may include automated exposure control or mA/KV adjustment according to patient size. FINDINGS: The lung bases are clear.Cholecystectomy clips. The liver, spleen, pancreas, adrenal glands and kidneys are within normal limits. No bowel obstruction, free air, intra-abdominal free fluid or abscess. Moderate stool is present thro ughout the colon. Appendectomy. No evidence of significant lymphadenopathy. There is present in the urinary bladder. There is enwe-lv-cnehyknq fluid in the pelvis. No suspicious bony findings. IMPRESSION: Air in the urinary bladder is present likely representing cystitis. Mild free fluid in the pelvis is seen may be physiologic or related to pelvic infection.
--- NOTE | 2021-06-07 13:36 | ER ---
Nurse's Notes [facility] Name: Marian Mack Age: 41 yrs Sex: Female : 1980 Arrival Date: 06/07/2021 Time: 10:10 Bed 24 Private MD: Atilio Walters Diagnosis: Acute cystitis without hematuria Presentation: 06/07 10:36 Chief complaint: Patient states: On Levaquin for kidney infection, not getting better. ll1 Sinus pains and bilateral ear pains for 1 month. Coronavirus screen: Vaccine status: Client denies travel out of the [place] in the last 14 days. At this time, the client does not indicate any symptoms associated with coronavirus-19. Ebola Screen: Patient denies travel to an Ebola-affected area in the 21 days before illness onset. Initial Sepsis Screen: Does the patient meet any 2 criteria? No. Patient's initial sepsis screen is negative. Does the patient have a suspected source of infection? No. Patient's initial sepsis screen is negative. Risk Assessment: Do you want to hurt yourself or someone else? Patient reports no desire to harm self or others. Onset of symptoms was May 07, 2021. 10:36 Method Of Arrival: Wheelchair ll1 10:36 Acuity: NOVA 3 ll1 Triage Assessment: 14:07 Headache History: Denies prior headaches. General: Appears in no apparent distress. lr4 uncomfortable, well developed, Behavior is cooperative, agitated. Pain: Also complains of. Pain: Complains of pain in back Pain currently is 10 out of 10 on a pain scale. HAND SANDER: 14:08 LMP N/A - lr4 Historical: - Allergies: 10:38 NKA; ll1 - PMHx: 10:38 "gal bladder problem"; cervical cancer; colon cancer; Depression; Anxiety; ll1 Diverticulitis; ulcerative colitis; "gallbladder problem"; - Immunization history:: Adult Immunizations up to date. - Social history:: Smoking status: Patient reports the use of cigarette tobacco products, smokes one-half pack cigarettes per day. - Family history:: not pertinent. - Hospitalizations: : No recent hospitalization is reported. Screenin:07 Abuse screen: Denies threats or abuse. Nutritional screening: No deficits noted. lr4 Tuberculosis screening: No symptoms or risk factors identified. Fall Risk None identified. Assessment: 11:54 General: Appears in no apparent distress. uncomfortable, ill, well developed, well lr4 nourished, Behavior is cooperative, fussy. Pain: Complains of pain in back Pain currently is 10 out of 10 on a pain scale. Quality of pain is described as aching, Pain began 2-3 days ago. Neuro: No deficits noted. Cardiovascular: No deficits noted. Respiratory: No deficits noted. : Reports burning with urination, inability to void, pain. 14:09 Reassessment: No changes from previously documented assessment. Patient is alert, lr4 oriented x 3, equal unlabored respirations, skin warm/dry/pink. Pt departed ed ambulatory with all personal effects, vss, resp even an unlabored. Vital Signs: 10:36 BP 108 / 74; Pulse 98; Resp 17; Temp 99.3; Pulse Ox 100% ; Weight 68.04 kg; Height 5 ll1 ft. 9 in. (175.26 cm); Pain 7/10; 12:48 BP 106 / 74; Pulse 71; Resp 16; Pulse Ox 99% on R/A; Pain 8/10; lr4 14:06 BP 105 / 68; Pulse 70; Resp 20; Pulse Ox 98% ; lr4 10:36 Body Mass Index 22.15 (68.04 kg, 175.26 cm) ll1 ED Course: 10:10 Patient arrived in ED. am2 10:11 Atilio Walters DO is Private Physician. am2 10:38 Triage completed. ll1 10:39 Arm band placed on Patient placed in an exam room, on a stretcher. ll1 11:00 Marcio Brown MD is Attending Physician. rn 11:53 COVID-19/FLU A+B (Document "Date of Onset" if Symptomatic) Sent. lr4 11:53 Lactate Sent. lr4 11:53 Procalcitonin Sent. lr4 11:53 Blood Culture Adult (2) Sent. lr4 11:53 Urine Culture Sent. lr4 11:53 Urine Microscopic Only Sent. lr4 11:54 Basic Metabolic Panel Sent. lr4 11:54 CBC with Diff Sent. lr4 11:54 Hepatic Function Sent. lr4 11:54 Lipase Sent. lr4 11:54 Inserted saline lock: 20 gauge in left forearm, using aseptic technique. lr4 12:28 Urine --Ancillary (enter results) Sent. lr4 12:28 Procalcitonin Sent. lr4 12:28 Blood Culture Adult (2) Sent. lr4 12:28 Urine Culture Sent. lr4 12:54 CT Abd/Pelvis - IV Contrast Only In Process Unspecified. EDMS 14:07 No provider procedures requiring assistance completed. lr4 14:09 Patient has correct armband on for positive identification. Bed in low position. Call lr4 light in reach. Side rails up X 1. Door closed. Warm blanket given. Pillow given. 14:09 IV discontinued. lr4 Administered Medications: 11:45 Drug: NS 0.9% 1000 ml Route: IV; Rate: 1000 ml; Site: left antecubital; lr4 13:00 Follow up: IV Status: Completed infusion; IV Intake: 1000ml lr4 13:30 Drug: Rocephin (cefTRIAXone) 1 grams Route: IV; Rate: calculated rate; Site: left lr4 forearm; 13:40 Follow up: IV Status: Completed infusion; IV Intake: 10ml lr4 Intake: 13:00 IV: 1000ml; Total: 1000ml. lr4 13:40 IV: 10ml; Total: 1010ml. lr4 Outcome: 13:36 Discharge ordered by . rn 14:08 Condition: stable lr4 14:09 Discharged to home ambulatory. lr4 14:09 Discharge instructions given to patient. lr4 14:10 Patient left the ED. lr4 Signatures: Dispatcher [employer] EDNE Marcio Brown MD MD rn Moreno, Amanda am2 Lewis, Lynsay, RN RN ll1 Elisha Kee RN RN lr4
--- NOTE | 2021-06-07 13:37 | EDPHYS ---
Physician Documentation [facility] Name: Marian Mack Age: 41 yrs Sex: Female : 1980 Arrival Date: 06/07/2021 Time: 10:10 Bed 24 Private MD: tAilio Walters ED Physician Marcio Brown HPI: 06/07 12:06 This 41 yrs old Female presents to ER via Wheelchair with complaints of kidney rn infection. 12:07 The patient presents with urinary symptoms, dysuria, frequency, urgency. Onset: The rn symptoms/episode began/occurred 1 month(s) ago. Modifying factors: The symptoms are alleviated by nothing, the symptoms are aggravated by nothing. 12:08 Associated signs and symptoms: Pertinent positives: dysuria, fever, nausea, urinary rn frequency, Pertinent negatives:. Severity of symptoms: At their worst the symptoms were moderate, in the emergency department the symptoms are unchanged. The patient has experienced similar episodes in the past. The patient has been recently seen by a physician:. Patient reports 1 month of fighting kidney infection. Reports completed Levaquin prescription. Now taking either amoxicillin or Augmentin for sinus infection. Reports increased urinary frequency and dysuria. Subjective fever. Nausea. Generalized weakness.. 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 - Social history:: Smoking status: Patient reports the use of cigarette tobacco products, smokes one-half pack cigarettes per day. - Family history:: not pertinent. - Hospitalizations: : No recent hospitalization is reported. ROS: 12:08 Constitutional: Positive for subjective fever Eyes: Negative for injury, pain, redness, rn and discharge, Neck: Negative for injury, pain, and swelling, Cardiovascular: Negative for chest pain, palpitations, and edema, Respiratory: Negative for shortness of breath, cough, wheezing, and pleuritic chest pain, Abdomen/GI: Positive for left-sided abdominal pain Back: Positive for lower back pain : Positive for dysuria MS/Extremity: Negative for injury and deformity, Skin: Negative for injury, rash, and discoloration, Neuro: Positive for generalized weakness Exam: 12:08 Constitutional: This is a well developed, well nourished patient who is awake, alert, rn and in no acute distress. Squatting on the floor trying to give urine sample in the room Head/Face: Normocephalic, atraumatic. Eyes: Periorbital areas with no swelling, redness, or edema. Cardiovascular: Regular rate and rhythm. No pulse deficits. Respiratory: No increased work of breathing, no retractions or nasal flaring. Abdomen/GI: Soft mild suprapubic tenderness, no masses Back: No spinal tenderness. No costovertebral tenderness. Skin: Warm, dry MS/ Extremity: Pulses equal, no cyanosis. Neuro: Awake and alert, GCS 15 Vital Signs: 10:36 BP 108 / 74; Pulse 98; Resp 17; Temp 99.3; Pulse Ox 100% ; Weight 68.04 kg; Height 5 ll1 ft. 9 in. (175.26 cm); Pain 7/10; 12:48 BP 106 / 74; Pulse 71; Resp 16; Pulse Ox 99% on R/A; Pain 8/10; lr4 14:06 BP 105 / 68; Pulse 70; Resp 20; Pulse Ox 98% ; lr4 10:36 Body Mass Index 22.15 (68.04 kg, 175.26 cm) ll1 MDM: 11:00 Patient medically screened. rn 13:33 Differential diagnosis: urinary tract infection, pyelonephritis. Data reviewed: vital rn signs, nurses notes, lab test result(s), radiologic studies, CT scan, and as a result, I will discharge patient. Counseling: I had a detailed discussion with the patient and/or guardian regarding: the historical points, exam findings, and any diagnostic results supporting the discharge/admit diagnosis, lab results, radiology results, the need for outpatient follow up, to return to the emergency department if symptoms worsen or persist or if there are any questions or concerns that arise at home. Special discussion: I discussed with the patient/guardian in detail that at this point there is no indication for admission to the hospital. It is understood, however, that if the symptoms persist or worsen the patient needs to return immediately for re-evaluation. ED course: Pt demanded she be discharged, wants to leave, results gone over, will dc home with stephanie as just finished levaquin.. 06/07 11:09 Order name: Basic Metabolic Panel; Complete Time: 12:25 rn 06/07 11:09 Order name: CBC with Diff; Complete Time: 12:25 rn 06/07 11:09 Order name: Hepatic Function; Complete Time: 12:25 rn 06/07 11:09 Order name: Lipase; Complete Time: 12:25 rn 06/07 11:09 Order name: Urine Culture rn 06/07 11:09 Order name: Urine Microscopic Only; Complete Time: 12:25 rn 06/07 11:09 Order name: CT Abd/Pelvis - IV Contrast Only; Complete Time: 13:19 rn 06/07 11:10 Order name: Blood Culture Adult (2) rn 06/07 11:10 Order name: Procalcitonin; Complete Time: 13:19 rn 06/07 11:10 Order name: Lactate; Complete Time: 13:19 rn 06/07 11:10 Order name: COVID-19/FLU A+B (Document "Date of Onset" if Symptomatic); Complete Time: rn 13:06/07 12:12 Order name: Urine Dipstick-Ancillary; Complete Time: 12:25 EDMS 06/07 12:16 Order name: Urine --Ancillary (enter results); Complete Time: 13:19 bd 06/07 11:09 Order name: IV Saline Lock; Complete Time: 11:54 rn 06/07 11:09 Order name: Labs collected and sent; Complete Time: 11:54 rn 06/07 11:09 Order name: Urine Dipstick-Ancillary (obtain specimen); Complete Time: 12:18 rn 06/07 11:09 Order name: Urine Test (obtain specimen); Complete Time: 12:18 rn Administered Medications: 11:45 Drug: NS 0.9% 1000 ml Route: IV; Rate: 1000 ml; Site: left antecubital; lr4 13:00 Follow up: IV Status: Completed infusion; IV Intake: 1000ml lr4 13:30 Drug: Rocephin (cefTRIAXone) 1 grams Route: IV; Rate: calculated rate; Site: left lr4 forearm; 13:40 Follow up: IV Status: Completed infusion; IV Intake: 10ml lr4 Disposition Summary: 06/07/21 13:36 Discharge Ordered Location: Home rn Problem: an ongoing problem rn Symptoms: have improved rn Condition: Stable rn Diagnosis - Acute cystitis without hematuria rn Followup: rn - With: Private Physician - When: As needed - Reason: Recheck today's complaints, Re-evaluation by your physician Discharge Instructions: - Discharge Summary Sheet rn - Urinary Tract Infection, Adult rn Forms: - Medication Reconciliation Form rn - Thank You Letter rn - Antibiotic management nurse rn - Prescription Opioid Use rn Prescriptions: - cefpodoxime 100 mg Oral Tablet - take 2 tablets by ORAL route every 12 hours for 10 days take with food; 40 rn tablet; Refills: 0, Product Selection Permitted Signatures: Dispatcher [employer] EDMS Marcio Brown MD MD rn Lewis, Lynsay RN RN ll1 Elisha Kee RN RN lr4
[2021-06-07] MEDS ORDERED: CEFTRIAXONE 1000 MG/VIAL ONE (13:47)
[2021-06-07 15:10] VITALS: TEMP 99.3
[2021-06-07 15:11] VITALS: BP 105/68; O2SAT 98
== END 2021-06-07 14:10 | disposition home or self-care (01) ==
LOC: ER 10:09
DX: N30.00 Acute cystitis without hematuria (principal); F17.210 Nicotine dependence, cigarettes, uncomplicated; Z20.822 Contact with and (suspected) exposure to COVID-19; Z85.038 Personal history of other malignant neoplasm of large intestine; Z85.41 Personal history of malignant neoplasm of cervix uteri
CPT/HCPCS: 0240U; 36415; 74177; 80048; 80076; 81003; 81015; 81025; 83605; 83690; 84145; 85025; 87040; 87086; 87088; 96361; 96374; 99284; J7030; Q9967

== ENCOUNTER 2021-10-05 15:14 | Emergency (ER) | payer OTHER ==
--- OUTSIDE RECORDS SUMMARY | 2021-10-05 15:20 | XMS REPORT | Continuity of Care Document ---
:1980 Author Organization [facility] t Address [address] [place] [address] Care Team Providers Name Role Phone KELTON WALTERS Primary Care Physician Unavailable LUISITO Attending Clinician Unavailable SHANNON WRIGHT Attending Clinician Unavailable FAYE ROMEO Attending Clinician Unavailable Radha Coffman MD Attending Clinician RATNA Attending Clinician Unavailable Arelis CARSON Attending Clinician Unavailable Arelis Carson MD Attending Clinician SONALI CORTES Attending Clinician Unavailable FAYE ROMEO [...] Type Policy Number Effective Date Expiration Date abhishek TURK TORNILLO [id number] 2020 00:00:00 ROSALEE [id number] [address] [facility] 00:00:00 IVANA TURK FROM [id number] [address] [facility] 00:00:00 [facility] [id number] 2020 2021 00:00:00 00:00:00 Problems Condition Condition Condition Status Onset Resolution Last Treating Co mments Source Name Details Category Date Date Treatment Clinician Date 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 Added automatic ally from request for surgery [id number] No known No known Disease Unive rs active active ity of problems problems [facility] Allergies, Adverse Reactions, Alerts Allergy Allergy Status Severity Reaction(s) Onset Inactive Treating Comm ents Source Name Type Date Date Clinician Demerol Propensi Active Hallucinatio B aylor ty to ns 5-05 College adverse 00:00: of reaction 00 Medicin s to e drug Meperidi Propensi Active Other [facility] ne ty to 5-05 reaction( College adverse 00:00: s): of reaction 00 Anxiety Medicin s to e drug MEPERIDI Allergy Active Med [facility] NO KNOWN Drug Active Univers ALLERGIE Class ity of S [facility] NO KNOWN Allergy [facility] Social History Social Habit Start Date Stop Date Quantity Comments Source History [facility] ge of Alcohol Std Drinks Medici ne History [facility] ge of Alcohol Binge Medicine History [facility] ge of Physical Activity Medicin e MPS History [facility] ge of Alcohol Comment Medicine History [facility] 2021-08-18 2021-08-18 5 [facility] ge of Physical Activity 00:00:00 00:00:00 Medicin e DPW Alcohol intake 2021-08-18 2021-08-18 Ex-drinker [facility] Col lege of 00:00:00 00:00:00 (finding) Medicine Exposure to 2021-08-07 2021-08-17 Not sure [facility] Jessi pam of SARS-CoV-2 (event) 00:00:00 23:51:00 Medici ne History SDOH 2020-08-26 2020-08-26 1 [facility] ge of Alcohol Frequency 00:00:00 00:00:00 Medicin e Cigarettes smoked 2020-08-26 2020-08-26 [facility] of current (pack per 00:00:00 00:00:00 Medicin e day) - Reported Tobacco use and 2020-08-26 2020-08-26 Smokeless [facility] Co llege of exposure 00:00:00 00:00:00 tobacco non-user Medicine Cigarette 2013-04-22 2013-04-22 University of pack-years 00:00:00 00:00:00 [facility] Sex Assigned At [birth year] [facility] 00:00:00 00:00:00 Smoking Status Start Date Stop Date Source Tobacco smoking consumption [facility] ealt unknown Current every day smoker 2013-04-22 00:00:00 Uni versity [facility] Medications Ordered Filled Start Stop Current Ordering Indication Dosage Frequency Signature Comments Components Source Medication Medication Date Date Medication? Clinician (SIG) Name Name tizanidine Yes TAKE ONE [facility] (ZANAFLEX) 3-25 (1) College 4 MG 00:00: CAPSULE(S) of capsule 00 BY MOUTH Medicin TWICE A e DAY. duloxetine Yes TAKE ONE [facility] (CYMBALTA) 3-23 (1) College 60 MG 00:00: CAPSULE(S) of capsule 00 BY MOUTH Medicin TWICE A e DAY. alprazolam Yes TAKE ONE [facility] (XANAX) 1 3-08 (1) College MG tablet 00:00: TABLET(S) of 00 BY MOUTH Medicin EVERY e NIGHT NEEDED FOR SLEEP. linaCLOtide Yes [id number] 145ug Take 145 Navjot (LINZESS) 3-07 mcg by College 72 MCG CAPS 00:00: mouth of 00 daily. Medicin e dicyclomine 2022-0 Yes TAKE ONE [facility] (BENTYL) 20 3-04 (1) College MG tablet 00:00: TABLET(S) of 00 BY MOUTH Medicin EVERY e EIGHT HOURS NEEDED. ondansetron Yes TAKE ONE [facility] (ZOFRAN) 4 2-02 (1) College MG tablet 00:00: TABLET(S) of 00 BY MOUTH Medicin EVERY e TWELVE HOURS NEEDED. levoFLOXaci 2020-04 No 750mg 750 mg, U [...] Medical Infusion, Branch ONCE, 1 dose, On Mon04/23/21 at 0930, STAT pantoprazol 2020-04 No 80mg 80 mg, IV Univers e 04-23 Push, ity of (PROTONIX) 14:45: 13:48 ONCE, 1 Jakub as 80 mg in 00 :00 dose, On Medical NaCl 0.9% Fri Branch (NS) 20 mL 04/23/21 syringe at 0845, Administer over 2 Minutes, 20 mL metoclopram 2020-04- No 10mg 10 mg, Uni vers shantel HCl 04-23 Slow IV ity of (REGLAN) 14:45: 13:46 Push, [place] injection 00 :00 ONCE, 1 Medical 10 mg dose, On Branch Mon04/23/21 at 0845, JOLYNN metoclopram 2020-04 Yes [id number] 10mg Take 1 Univers shantel HCl 10 - tablet by ity of mg tablet 00:00: mouth [place] 00 every 6 Medical (six) Branch hours. pantoprazol 2020-04 Yes [id number] 40mg Take 1 Univers e 2-31 tablet by ity of (PROTONIX) 00:00: mouth [place] 40 mg EC 00 daily. Medical tablet Branch amitriptyli 2020-04 Yes [id number] 25mg Take 1 Univers ne 25 mg 2-31 tablet by ity of tablet 00:00: mouth at [place] 00 bedtime. Medical Branch levoFLOXaci 2020-04 Yes [id number] 750mg Take 1 Univers n 750 mg 2-31 tablet by ity of tablet 00:00: mouth [place] 00 every 24 Medical (twenty-fo Branch ur) hours. metoclopram 2020-04 Yes 10mg Take 10 mg Navjot shantel 2-31 by mouth. [place] (REGLAN) 10 00:00: of MG tablet 00 Medicin e levofloxaci 2020-04 Yes 750mg Take 750 B aylor n 2-31 mg by [place] (LEVAQUIN) 00:00: mouth. of 750 MG 00 Medicin tablet e amitriptyli 2020-04 Yes 1{tbl} Take 1 [facility] ne (ELAVIL) 2-31 Tablet by Col lege 25 MG 00:00: mouth at of tablet 00 bedtime. Medicin e dicyclomine 2020-04- No [id number] 20mg Take 1 Univers 20 mg 2-31 - tablet by ity of tablet 00:00: 05:59 mouth 4 [place] 00 :00 (four) Medical times Branch daily for 31 days. alprazolam 2020-04 Yes 1mg Take 1 [facility] (XANAX) 1 1-17 Tablet by [facility] ge MG tablet 00:00: mouth of 00 nightly as Medicin needed for e Sleep. acetaminoph 2020-04 Yes TAKE ONE [facility] en-codeine - (1) [place] (TYLENOL 00:00: TABLET(S) of #3) 300-30 00 BY MOUTH Medic in MG per EVERY e tablet TWELVE HOURS NEEDED FOR PAIN. ondansetron 2020-04 Yes TAKE ONE [facility] (ZOFRAN) 4 - (1) College MG tablet 00:00: TABLET(S) of 00 BY MOUTH Medicin EVERY e TWELVE HOURS NEEDED. acetaminoph 2020-04 Yes TAKE ONE [facility] en-codeine - (1) [place] (TYLENOL 00:00: TABLET(S) of #3) 300-30 00 BY MOUTH Medic in MG per EVERY e tablet TWELVE HOURS NEEDED FOR PAIN. PEG-KCl-NaC 2020-04 Yes [MOVI [facility] [facility]-NaSulf-Na 0-19 PREP] Take Co llege Asc-C 00:00: as of (MOVIPREP) 00 directed. Medi kateryna 100 g SOLR e PEG-KCl-NaC 2020-04 Yes [MOVI [facility] [facility]-NaSulf-Na 0-19 PREP] Take Co llege Asc-C 00:00: as of (MOVIPREP) 00 directed. Medi kateryna 100 g SOLR e linaCLOtide 2020-04 Yes 72ug Take 72 [facility] (LINZESS) 0-15 mcg by [place] 72 MCG CAPS 00:00: mouth of 00 daily. Medicin e acetaminoph Yes acetaminop [facility] en-codeine 7-07 hen 300 Colleg e (TYLENOL [...] daily. e per tablet acetaminoph Yes acetaminop Navjot en-codeine 6-23 hen 300 Colleg e (TYLENOL [...] e per tablet tizanidine Yes TAKE ONE [facility] (ZANAFLEX) 6-14 (1) College 2 MG tablet 00:00: TABLET(S) o f 00 BY MOUTH Medicin TWICE A e DAY. tizanidine Yes TAKE ONE [facility] (ZANAFLEX) 6-14 (1) College 2 MG tablet 00:00: TABLET(S) o f 00 BY MOUTH Medicin TWICE A e DAY. tizanidine Yes TAKE ONE [facility] (ZANAFLEX) 6-14 (1) College 2 MG tablet 00:00: TABLET(S) o f 00 BY MOUTH Medicin TWICE A e DAY. tizanidine Yes TAKE ONE [facility] (ZANAFLEX) 6-14 (1) College 2 MG [...] EIGHT HOURS NEEDED. gabapentin Yes TAKE ONE [facility] (NEURONTIN) 4-26 (1) College 600 MG 00:00: TABLET(S) of tablet 00 BY MOUTH Medicin TWICE A e DAY. gabapentin Yes TAKE ONE [facility] (NEURONTIN) 4-26 (1) College 600 MG 00:00: TABLET(S) of tablet 00 BY MOUTH Medicin TWICE A e DAY. gabapentin Yes TAKE ONE [facility] (NEURONTIN) 4-26 (1) College 600 MG 00:00: TABLET(S) of tablet 00 BY MOUTH Medicin TWICE A e DAY. gabapentin Yes TAKE ONE [facility] (NEURONTIN) 4-26 (1) College 600 MG 00:00: TABLET(S) of tablet 00 BY MOUTH Medicin TWICE A e DAY. gabapentin Yes TAKE ONE [facility] (NEURONTIN) 4-26 (1) College 600 MG [...] TWICE A e per tablet DAY. peg-electro 2019- Yes [id number] Take as Univers lyte soln 0-27 directed ity of 236-22.74-6 [place] .[place] -5.86 00 colonoscop Medi sofie gram y Branch solution peg-electro 2019-04 Yes [id number] Take as Univers lyte soln 0-27 directed ity of 236-22.74-6 00:[place] .[place] -5.86 00 colonoscop Medi sofie gram y Branch solution peg-electro 2020-1 Yes [id number] Take as Univers lyte soln 0-27 directed ity of 236-22.74-6 00:00: [place] .[place] -5.86 00 colonoscop Medi sofie gram y Branch solution peg-electro 2020- Yes [id number] Take as Univers lyte soln 0-27 directed ity of 236-22.74-6 00:00: [place] .[place] -5.86 00 colonoscop Medi sofie gram y Branch solution peg-electro 2020- Yes [id number] Take as Univers lyte soln 0-27 directed ity of 236-22.74-6 00:00: [place] .[place] -5.86 00 colonoscop Medi sofie gram y Branch solution peg-electro 2020- Yes [id number] Take as Univers lyte soln 0-27 directed ity of 236-22.74-6 00:00: [place] .[place] -5.86 00 colonoscop Medi sofie gram y Branch solution peg-electro 2020- Yes [id number] Take as Univers lyte soln 0-27 directed ity of 236-22.74-6 00:00: [place] .74 -5.86 00 colonoscop Medi sofie gram y Branch solution peg-electro 2020- Yes [id number] Take as Univers lyte soln 0-27 directed [...] WEIGHT 2020-11-13 11:51:00 68.04 kg Systolic blood 2021-08-18 20:58:00 95 mm[Hg] [facility] Medicine Diastolic blood 2021-08-18 20:58:00 60 mm[Hg] [facility] Medicine Heart rate 2021-08-18 20:58:00 78 /min [facility] Body temperature 2021-08-18 20:58:00 37 Sera [facility] Medicine Body height 2021-08-18 20:58:00 175.3 cm [facility] Body weight 2021-08-18 20:58:00 62.596 kg [facility] BMI 2021-08-18 20:58:00 20.38 kg/m2 [facility] Systolic blood 2021-04-23 14:00:00 132 mm[Hg] Univer sity of [facility] Diastolic blood 2021-04-23 14:00:00 79 mm[Hg] Unive rsity of [facility] Heart rate 2021-04-23 14:00:00 57 /[facility] Respiratory rate 2021-04-23 14:00:00 18 /min [facility] Oxygen saturation in 2021-04-23 14:00:00 100 /min [facility] Arterial blood by [facility] Pulse oximetry Branch Body temperature 2021-04-23 13:35:00 36.89 Sera Univ [address]ity of [facility] Body weight 2021-04-23 13:35:00 63.[address] [facility] BMI 2021-04-23 13:35:00 20.67 kg/m2 [facility] Systolic blood 2021-03-10 14:49:00 122 mm[Hg] [facility] Medicine Diastolic blood 2021-03-10 14:49:00 80 mm[Hg] [facility] Heart rate 2021-03-10 14:49:00 94 /min [facility] Body temperature 2021-03-10 14:49:00 36.5 Sera [facility] Medicine Respiratory rate 2021-03-10 14:49:00 17 /min [facility] Medicine Body height 2021-03-10 14:49:00 175.3 cm [facility] Body weight 2021-03-10 14:49:00 62.778 kg [facility] BMI 2021-03-10 14:49:00 20.44 kg/m2 [facility] HEIGHT 2021-03-04 14:15:00 175.3 cm WEIGHT 2021-03-04 [...] kg Systolic blood 2020-10-28 19:42:00 110 mm[Hg] [facility] pressure Medicine Diastolic blood 2020-10-28 19:42:00 73 mm[Hg] [facility] pressure Medicine Heart rate 2020-10-28 19:42:00 82 /min [facility] Body temperature 2020-10-28 19:42:00 36.94 Sera [facility] Medicine Body height 2020-10-28 19:42:00 175.3 cm [facility] Body weight 2020-10-28 19:42:00 73.483 kg [facility] BMI 2020-10-28 19:42:00 23.92 kg/m2 [facility] Systolic blood 2020-10-14 18:38:00 114 mm[Hg] [facility] Diastolic blood 2020-10-14 18:38:00 73 mm[Hg] [facility] Heart rate 2020-10-14 18:38:00 101 /min [facility] Body temperature 2020-10-14 18:38:00 36.72 Sera [facility] Medicine Systolic blood 2020-08-26 19:38:00 115 mm[Hg] [facility] Diastolic blood 2020-08-26 19:38:00 67 mm[Hg] [facility] Heart rate 2020-08-26 19:38:00 92 /min [facility] Body weight 2020-08-26 19:38:00 74.39 kg [facility] Systolic blood 2020 15:29:00 100 mm[Hg] Univer sity [facility] Diastolic blood 2020 15:29:00 71 [facility]Hg[facility] 15:29:00 89 /min [facility] Body temperature 2020 15:29:00 36.61 Sera [facility] Body height 2020 15:29:00 175.3 cm [facility] Body weight 2020 15:29:00 84.006 kg [facility] BMI 2020 15:29:00 27.35 kg/m2 [facility] Procedures Procedure Date / Time Performing Clinician Source Performed CT ABDOMEN PELVIS WO 2021-04-23 14:44:18 Debi Carson [facility] POCT TEST 2021-04-23 14:01:00 Debi Carson [facility] URINALYSIS 2021-04-23 13:58:00 Debi Carson [facility] LIPASE 2021-04-23 13:45:00 Debi Carson [facility] COMP. METABOLIC PANEL 2021-04-23 13:45:00 Debi Carson [facility] ([id number]) Medical Branch CBC WITH DIFF 2021-04-23 13:45:00 Debi Carson [facility] MRI CERVICAL SPINE W WO 2020-09-22 23:30:00 [facility] ASSIGNMENT OF BENEFITS 2020-09-22 13:05:16 Doctor Unassigned, [facility] NO SHOW OR MISSED 2020 14:55:48 Doctor Unassigned, [facility] APPOINTMENT POLICY [facility] h ACKNOWLEDGEMENT REFERRAL- REQUEST/RESPONSE 2019-11-22 05:01:00 Doctor Unassigned , [facility] Plan of Care Planned Activity Planned Date Details Comments Source Future Scheduled 2021-08-20 COVID-19 Vaccine (1) [facility] College Test 09:56:07 [code = COVID-19 of Medicine Vaccine (1)] Future Scheduled 2021-08-20 Pneumococcal Combined [facility] College Test 09:56:07 (1 of 2 - PPSV23) [code of M edicine = Pneumococcal Combined (1 of 2 - PPSV23)] Future Scheduled 2021-08-20 TETANUS SHOT (ADULT) [facility] College Test 09:56:07 [code = TETANUS SHOT of Medi cine (ADULT)] Future Scheduled 2021-08-20 Screening for malignant [facility] College Test 09:56:07 neoplasm of cervix of Medici ne (procedure) [code = 407284563] Future Scheduled 2021-08-20 FLU VACCINE > 6 MONTHS [facility] Test 09:56:07 [code = FLU VACCINE > 6 of M edicine MONTHS] Future Scheduled 2021-03-10 Pneumococcal Combined [facility] Test 08:46:43 (1 of 2 - PPSV23) [code of M edicine = Pneumococcal Combined (1 of 2 - PPSV23)] Future Scheduled 2021-03-10 COVID-19 Vaccine (1) [facility] College Test 08:46:43 [code = COVID-19 of Medicine Vaccine (1)] Future Scheduled 2021-03-10 TETANUS SHOT (ADULT) [facility] College Test 08:46:43 [code = TETANUS SHOT of Medi cine (ADULT)] Future Scheduled 2021-03-10 Screening for malignant [facility] College Test 08:46:43 neoplasm of cervix of Medici ne (procedure) [code = 670027635] Future Scheduled 2021-03-10 FLU VACCINE > 6 MONTHS [facility] Test 08:46:43 [code = FLU VACCINE > 6 of M edicine MONTHS] Future Scheduled 2020-10-28 COVID-19 Vaccine (1) [facility] Test 14:41:44 [code = COVID-19 of Medicine Vaccine (1)] Future Scheduled 2020-10-28 TETANUS SHOT (ADULT) [facility] Test 14:41:44 [code = TETANUS SHOT of Medi cine (ADULT)] Future Scheduled 2020-10-28 Screening for malignant [facility] College Test 14:41:44 neoplasm of cervix of Medici ne (procedure) [code = 699111271] Future Scheduled 2020-10-28 FLU VACCINE > 6 MONTHS [facility] Test 14:41:44 [code = FLU VACCINE > 6 of M edicine MONTHS] Future Scheduled 2020-10-14 COVID-19 Vaccine (1) [facility] College Test 13:38:59 [code = COVID-19 of Medicine Vaccine (1)] Future Scheduled 2020-10-14 TETANUS SHOT (ADULT) [facility] Test 13:38:59 [code = TETANUS SHOT of Medi cine (ADULT)] Future Scheduled 2020-10-14 Screening for malignant [facility] College Test 13:38:59 neoplasm of cervix of Medici ne (procedure) [code = 935209090] Future Scheduled 2020-10-14 FLU VACCINE > 6 MONTHS [facility] Test 13:38:59 [code = FLU VACCINE > 6 of M edicine MONTHS] Future Scheduled NADIA SCOPE [code = Ordered: [facility] Test [id number]] 08/26/2020 of Medicine Future Scheduled HIV AB/AG 4TH GEN W Ordered: [facility] Test RFLX [code = 66108-0] 08/26/2020 of Med icine Future Scheduled HEPATITIS C ANTIBODY Ordered: [facility] Test [code = 48859-5] 08/26/2020 of Medicine Future Scheduled CBC W/AUTO DIFF WITH Ordered: [facility] Test PLATELETS [code = 08/26/2020 of Medicin e 77525-5] Future Scheduled COMPREHENSIVE METABOLIC Ordered: [facility] Test PANEL [code = 80359-4] 08/26/2020 of Me dicine Future Scheduled HEPATITIS B SURFACE Ordered: [facility] Test ANTI- BODY QUANT,LIVER 08/26/2020 of Me dicine TRANSP [code = NOCPT] Future Scheduled LACT[facility]DRO[facility]NASE [facility] [code = 2532-0] 08/26/2020 of Medicine Future Scheduled TETANUS SHOT (ADULT) [facility] [place] Test [code = TETANUS SHOT of Medi cine (ADULT)] Future Scheduled COVID-19 Vaccine (1) [facility] [place] Test [code = COVID-19 of Medicine Vaccine (1)] Future Scheduled Hepatitis C screening [facility] [place] Test (procedure) [code = of Medic ine 996168159] Future Scheduled Human immunodeficiency B [facility] Test virus screening of Medicine (procedure) [code = 847622966] Future Scheduled Screening for malignant [facility] Test neoplasm of cervix of Medici ne (procedure) [code = 887894600] Future Scheduled FLU VACCINE > 6 MONTHS [facility] Test [code = FLU VACCINE > 6 of M edicine MONTHS] Future Scheduled US FNA [code = 06036] 1 Occurrences [facility] Test starting of Medicine 08/26/2020 until 08/26/2021 Encounters Start End Encounter Admission Attending Care Care Encounter Source Date/Time Date/Time Type Type Clinicians Facility Department ID 2021-02-20 Outpatient Diana JORGE COJUANY ZIMMER [id number] Univers 15:24:19 [facility] 2021-02-20 Outpatient Diana JORGE [facility] GIE [id number] Univers 01:30:11 [facility] 2021-01-31 Outpatient JAWAID, [facility] Surgery [id number] SLE 14:23:40 JUJU 2021-01-31 Outpatient MIRNA, [facility] Surgery [id number] [facility] 02:13:58 FILIPPO 2021-08-18 2021-08-18 Office PARISA Coffman [id number] [facility] 15:15:00 16:45:39 Visit Jerry Garcia AMBULATOR [id number] College Y [id number] of [id number] Medi kateryna 800 e 2021-06-28 2021-06-28 Outpatient PARISA WRIGHT [facility] [id number] [facility] 15:53:51 16:00:59 SALMAAN Colleg e of Medicin e 2021-04-23 2021-04-23 Emergency X YAMILETH [facility] ERT [id number] Univers 07:33:00 09:25:[address] [facility] 2021-04-23 2021-04-23 Emergency Yamileth [facility] [id number] Univers 07:33:00 09:25:00 Debi Arelis IDANIAMISAEL [id number] ity [facility] [id number] [facility] [id number] [place] [id number] Branch 2021-03-10 2021-03-10 Office PARISA WRIGHT [id number] [facility] 08:42:48 11:33:02 Visit SALMAAN AMBULATOR [id number] College Y [id number] [id number] [facility] kateryna 325 e 2021-03-04 2021-03-04 Outpatient [facility] [id number] [facility] 00:00:00 23:59:00 Colleg e of Medicin e 2021-03-04 2021-03-04 Emergency ER SOPHIA, [facility] Emergency [id number] [facility] 14:12:00 17:15:00 RICHINA 2021-02-01 2021-02-05 Outpatient PARISA WRIGHT [facility] [id number] [facility] 16:03:44 19:52:07 SALMAAN Colleg e of Medicin e 2021-02-01 2021-02-01 Outpatient ABRAHAN WRIGHT [facility] Surgery [id number] [facility] 07:39:00 12:03:00 SALMAAN 2021-02-01 2021-02-01 Outpatient RATNA [facility] [id number] [facility] 10:43:00 10:43:00 SALMAAN Colleg e of Medicin e 2021-01-29 2021-01-29 Outpatient ABRAHAN WRIGHT [facility] [id number] [facility] 16:18:52 23:59:00 SALMAAN 2021-01-29 2021-01-29 Outpatient [facility] [id number] [facility] 00:00:00 00:00:00 2021-01-29 2021-01-29 Outpatient SLE SLE [id number] [facility] 00:00:00 00:00:00 2021-01-21 2021-01-21 Outpatient EL SLE SLE [id number] [facility] 00:00:00 00:00:00 2020-11-25 2020-11-25 Outpatient MIRNA KEVINAris [facility] [id number] [facility] 13:23:53 13:46:49 FILIPPO Colleg e of Medicin e 2020-11-13 2020-11-13 [facility] [id number] SLE 00:00:00 00:00:00 2020-10-28 2020-10-28 Office [place], BCM [id number] [facility] 14:37:12 14:59:11 Visit Filippo AMBULATOR [id number] [facility] Y [id number] of [id number] [facility] kateryna 800 e 2020-10-15 2020-10-15 EXT [facility] OP Caridi, EXT MSRDP [id number] [place] 00:00:00 00:00:00 [facility] [id number] H ealth [id number] 2020-10-14 2020-10-14 Office PARISA Romeo [id number] [facility] 13:28:25 15:29:27 Visit Filippo AMBULATOR [id number] [facility] Y [id number] of [id number] [facility] kateryna 800 e 2020-09-24 2020-09-24 Outpatient EL [facility] SLE [id number] [facility] 00:00:00 00:00:00 2020-09-23 2020-09-23 Outpatient MISHA [facility] [id number] Univers 09:00:00 09:00:[id number] [facility] 2020-09-23 2020-09-23 Outpatient R MISHA [facility] [id number] Univers 08:15:00 08:15:00 ity [facility] 2020-09-23 2020-09-23 Outpatient R MISHA [facility] [id number] Univers 00:00:00 00:00:00 [facility]y [place] [facility] [place] 2020-09-22 2020-09-22 [facility] 1.2.840.114 [id number] Univers 08:00:00 23:59:00 Encounter Aris Ortega 350.1.13.10 ity of [place] 4.2.7.2.686 [facility] s [place] [phone] [facility] [address] 2020-09-22 2020-09-22 [facility] 1.2.840.114 [id number] 08:00:00 23:59:00 Encounter M Shannon 350.1.13.10 [place] 4.2.7.2.686 [place] [id number] 2020-09-22 2020-09-22 Outpatient MISHA [facility] [id number] Univers 08:00:00 08:00:[address] [facility] 2020-09-22 2020-09-22 Orders Doctor ERASTO 1.2.840.114 [id number] Univers 00:00:00 00:00:00 Only Unassigned, JENY 350.1.13.10 ity of [place] [facility] 4.2.7.2.686 Jakub [id number] [facility] [address] 2020-09-22 2020-09-22 Orders Doctor ERASTO 1.2.840.114 [id number] 00:00:00 00:00:00 Only Unassigned, JENY 350.1.13.10 [place] [facility] 4.2.7.2.686 [id number] 009 2020-09-05 2020-09-05 EXT MHH OP Caridi, EXT MSRDP 1.2.840.114 1 [id number] [place] 00:00:00 00:00:00 Danial LOCATION 350.1.13.58 H ealth 9.2.7.2.686 [id number] 0 2020-09-02 2020-09-02 Outpatient TJ CABRAL [facility] [id number] Univers 09:00:00 09:00:00 [id number] ity [facility] 2020-09-02 2020-09-02 Outpatient R TJ CABRAL [facility] [id number] Univers 00:00:00 00:00:00 ity [facility] 2020-08-26 2020-08-26 Office PARISA Romeo 1.2.840.114 [id number] [facility] 14:34:48 14:54:48 Visit Filippo AMBULATOR 350.1.13.21 [facility] 0.2.7.2.686 of [id number] [facility] 800 e 2020-05-04 2020-05-04 Outpatient R [facility] [id number] -[id number] Univers 13:45:00 13:45:00 [id number] ity [facility] 2020-05-04 2020-05-04 Outpatient R [facility] [id number] Univers 13:45:00 13:45:00 ity [facility] 2020-04-30 2020-04-30 Outpatient R JESSICA BUI [facility] [id number] Univers 13:00:00 13:00:00 [id number] [facility] 2020-04-13 2020-04-13 Telephone [facility] 1.2.840.114 [id number] Univers 00:00:00 00:00:00 Rawan Andrews Y HEALTH 350.1.13.10 ity of [place]2.[place] [id number] [place] [address] [place] 2020-04-13 2020-04-13 Telephone Day, UNIVERSIT 1.2.840.114 [id number] 00:00:00 00:00:00 Rawan Andrews Y HEALTH 350.1.13.10 CLINICS 4.2.7.2.686 [id number] 2020-03-31 2020-03-31 [facility] [id number] -[id number] Univers 10:00:00 10:00:00 HUI [id number] ity [facility] 2020-03-23 2020-03-23 Outpatient R HARSHIL TOMAS [facility] [id number] Univers 08:40:00 08:40:00 HARSHIL TOMAS ity [facility] 2020-03-23 2020-03-23 Outpatient R HARSHIL TOMAS [facility] [id number] Univers 08:40:00 08:40:00 HARSHIL TOMAS itjaylin [facility] 2020-03-03 2020-03-03 Outpatient HARSHIL TOMAS [facility] [id number] Univers 08:00:00 08:00:00 HARSHIL TOMAS ity [facility] 2020-03-03 2020-03-03 Outpatient R HARSHIL TOMAS [facility] [id number] Univers 08:00:00 08:00:00 [facility] 2020-03-03 2020-03-03 Telephone Genoveva [facility] 1.2.840.114 [id number] Univers 00:00:00 00:00:00 Harshil Morales [place] 350.1.13.10 ity [facility] 4.2.7.2.[place] [id number] Nd dical nal 092 [facility] 2020-02-21 2020-02-21 Outpatient R [facility] [id number] -[id number] Univers 10:30:00 10:30:00 [facility] 2020 Office PenelopeMAURICE 1.2.772.402 [id number] Univers 09:55:39 10:42:47 Visit Hui Andrews HEALTH 350.1.13.10 ity of [facility] 4.2.7.2.[place] [id number] [facility] [address] 2020 2020 Outpatient R PENELOPE [facility] [id number] -[id number] Univers 10:00:00 10:00:00 HUI [id number] ity [facility] 2020 2020 Outpatient R PENELOPE [facility] [id number] Univers 10:00:00 10:00:00 [facility] 2020 Orders Doctor ERASTO 1.2.840.114 [id number] Univers 00:00:00 00:00:00 Only Unassigned, JENY 350.1.13.10 ity [place] [facility] 4.2.7.2.686 Jakub as [phone] [address] 2020-01-30 2020-01-30 Outpatient R [facility] [id number] -[id number] Univers 13:00:00 13:00:00 [facility] 2019-11-22 2019-11-22 Orders Doctor ERASTO 1.2.840.114 [id number] Univers 00:00:00 00:00:00 Only Unassigned, JENY 350.1.13.10 [facility] 4.2.7.2.686 Jakub as [id number] [address] 2019-10-03 2019-10-03 Outpatient R [facility] [id number] -[id number] Univers 08:30:00 08:30:00 [id number] [facility] Results Test Description Test Time Test Comments Results Result Comments Source COMP. METABOLIC PANEL (29536) 2021-04-23 14:33:49 Test Item Value Reference Range Interpretation Comme nts NA (test code = 5426559125) 140 mmol/L 135-145 K (test code = 6442436433) 3.5 mmol/L 3.5-5.0 CL (test code = 8178537128) 109 mmol/L 98-108 H CO2 TOTAL (test code = 7090517883) 23 mmol/L 23-31 AGAP (test code = 0149808182) 2-16 BUN (test code = 1493292344) 7 mg/dL 7-23 GLUCOSE (test code = 8011941931) 105 mg/dL 70-110 CREATININE (test code = 0.50 mg/dL 0.50-1.04 0064217838) TOTAL BILI (test code = 0.6 mg/dL 0.1-1.6 0670517433) CALCIUM (test code = 6791304539) 8.6 mg/dL 8.6-10.6 T PROTEIN (test code = 9779578207) 7.6 g/dL 6.3-8.2 ALBUMIN (test code = 9951215848) 4.4 g/dL 3.5-5.0 ALK PHOS (test code = 6922524330) 82 U/L 34-122 ALTv (test code = 1742-6) 14 U/L 5-35 AST(SGOT) (test code = 0305250810) 31 U/L 13-40 eGFR (test code = 6896491045) mL/min/1.73m2 CHIKIS (test code = CHIKIS) Association [...] tests). Lab Interpretation (test code = Abnormal 29955-6) [facility] 14:33:29 Test Item Value Reference Range Interpretation Comments LIPASE (test code = 6229031957) 36 U/L 0-220 Lab Interpretation (test code = Normal 43836-0) [facility] WITH [id number] 14:13:06 Test Item Value Reference Range Interpretation [...] (test code = 52.5 fL 39.0-49.9 H 65566-0) RDW-CV (test code = 15.6 % 12.0-15.5 H 788-0) PLT (test code = See_Comment H [Automated 777-3) message] The sy stem which generated this result transmitted reference range : 166 - 358 10*3/ ?L. The reference r kristy was not used to interpret this result as normal/abnormal . MPV (test code = 10.0 fL 9.5-12.9 07429-5) IPF % (test code = 2.6 % 1.3-7.7 Platelet count 9097298478) measured by fluorescence method. NRBC/100 WBC (test See_Comment [Automat ed code = 6812101149) message] The system which generated this result transmitted reference range : 0.0 - 10.0 /100 WBCs. The refer ence range was not u sed to interpret th is result as normal/abnormal . NRBC x10^3 (test code <0.01 See_Comment [Auto mated = 0801613289) message] The s ystem which generated this result transmitted reference range : 10*3/?L. The reference range was not used to interpret this result as normal/abnormal . GRAN MAT (NEUT) % 79.3 % (test code = 770-8) IMM GRAN % (test code 0.40 % = 6625559078) LYMPH % (test code = 13.8 % 736-9) MONO % (test code = 5.2 % 5905-5) EOS % (test code = 0.8 % 713-8) BASO % (test code = 0.5 % 706-2) GRAN MAT x10^3(ANC) 9.51 10*3/uL 1.88-7.09 H (test code = 1864686151) IMM GRAN x10^3 (test 0.05 10*3/uL 0.00-0.06 code = 4306812892) LYMPH x10^3 (test code 1.65 10*3/uL 1.32-3.29 = 731-0) MONO x10^3 (test code 0.62 10*3/uL 0.33-0.92 = 742-7) EOS x10^3 (test code = 0.10 10*3/uL 0.03-0.39 711-2) BASO x10^3 (test code 0.06 10*3/uL 0.01-0.07 = 704-7) Lab Interpretation Abnormal (test code = 18011-7) [facility] [id number] 14:01:00 Test Item Value Reference Range Interpretation Comments POCT PREG (test code = 1605) negative On board controls acceptable with present C Line (test code = 3574) POCT PREG LOT # (test code = 3575) [id number] POCT PREG TEST DATE (test 06/21/2022 code = 3576) Lab Interpretation (test code = Normal 09168-3) [facility] AreaCT, [id number] 17:10:00Unlisted Reason for Exam - Click Yes and Enter Reason Below->YesUnlisted Reason for Exam->intractable abd painWill this procedure require oral contrast?->No [facility] 1980 Sex: [...] Zaidi Verified Date/Time: 03/04/2021 17:10:45 Reading Location: [address] Transitional Reading Room COMPREHENSIVE METABOLIC [id number] 15:44:38 Test Item Value Reference Range Interpretation [...] S NOT APPLICABLE FOR DIALYSIS PATIEN TS. Home Decorator ID - AYO MOperator ID - [id number] 15:44:38 Test Item Value Reference Range Interpretation Comments PARTIAL THROMBOPLASTIN TIME 30.3 seconds 22.5-36.0 (BEAKER) (test code = 760) PROTHROMBIN TIME/[id number] 15:43:59 Test Item Value Reference Range Interpretation Comments PROTIME (BEAKER) 14.3 seconds 11.9-14.2 H (test code = 759) INR (BEAKER) (test 1.13 See_Comment [Automat ed message] code = 370) The system [employer] generated this result transmitted ref erence range: <=5.90. The reference range was not used to int erpret this result as normal/abnormal . RECOMMENDED COUMADIN/WARFARIN INR THERAPY RANGESSTANDARD DOSE: 2.0 - 3.0 Includes: PROPHYLAXIS forvenous thrombosis, systemic embolization; TREATMENT for venous thrombosis and/or pulmonary embolus.HIGH RISK: Target INR is 2.5-3.5 for patients with mechanical heart valves.HCG, QUANTITATIVE, [id number] 15:39:20 Test Item Value Reference Range Interpretation Comments GONADOTROPIN, CHORIONIC (HCG) QUANT < mIU/mL 0-10 (JOSEP) (test code = 649) Non- Females: <10 mIU/mL Females: Gestation Age Reference Range(mIU/mL) 0.2-1 Week 5-50 1-2 Weeks 50-500 2-3 Weeks 100-5,000 3-4Weeks 500-10,000 4-5 Weeks 1,000-50,000 5-6 Weeks 10,000-100,000 6-8 Weeks 15,000-200,000 2-3 Months 10,000-100,000 Home Decorator ID - DBHIGH SENSITIVITY TROPONIN [id number] 15:38:56 Test Item Value Reference Range Interpretation Comments HIGH SENSITIVITY < pg/ml See_Comment [Automated message] TROPONIN I (test code = The system which 5994748) generated this result transmitted ref erence range: <=17. Th e reference range was not used to interpr et this result as normal/abnormal . Home Decorator ID - DBThe CDL SERVICE TECHNICIAN STAT High Sensitivity Troponin-I results should be used in conjunctionwith other diagnostic information such as ECG, clinical observations and information, and patient symptoms to aid in the diagnosis of MA.[id number] 15:34:35 Test Item Value Reference Range Interpretation Comments MAGNESIUM (JAKOBAKER) 1.8 mg/dL 1.6-2.6 Specimen slightly (test code = 627) hemolyzed Home Decorator ID - AYO [id number] 15:34:35 Test Item Value Reference Range Interpretation Comments LIPASE (NetTalonERIC) (test code = 749) 12 U/L 8-78 Home Decorator ID - AYO MCBC W/PLT COUNT & AUTO [id number] 15:23:19 Test Item Value Reference Range Interpretation Comments WHITE BLOOD CELL COUNT (NetTalonERIC) 14.0 K/ L 3.5-10.5 H (test code [...] PERCENT (BEAKER) (test code = 2801) TISSUE [id number] 11:53:29Surgical Pathology Report Case: [id number] Authorizing Provider: Juju Wright MD Collected: 02/01/2021 10:55 AM Ordering Location: [facility] Endoscopy Received: 02/01/2021 02:05 PM Services Pathologist: Blanka Brewer MD Specimen: Biopsy, Gastric, random biopsies STOMACH, BIOPSY:-GASTRIC ANTRAL-TYPE AND OXYNTIC MUCOSA WITH CHRONIC GASTRITIS- NO EVIDENCE OF HELICOBACTER PYLORI -LIKE ORGANISMS ON WARTHIN-STARRY STAIN- NEGATIVE FOR INTESTINAL METAPLASIA AND DYSPLASIA SigningPathologist Direct Phone Line: [phone] signed by Blanka Brewer MD on 02/02/2021 at 11:53 [id number], [id number] painStomachA. Received in formalin labeled with the patient's name, medical record number and "biopsy, gastric" and consists of 3 saunders soft tissue fragments ranging 0.2-0.4 cm submitted in toto in A1.TULIO Salinas, PA (ASCP)cmPerformedThe interpretation of this case included the use of immunohistochemistry or special stains.Control Slides Examined: In-house known positive controls were evaluated along with the test tissue. These control slides run alongside of the patients sample show appropriate staining. Internal positive and negative controls when available are evaluated Immunohistochemistry technical testing was performed at [facility], Pathology Laboratory where it was developed and [...] as qualified to perform high complexity clinicallaboratory testing.[facility], Department of Pathology, [address] [place], [place] [id number], [facility], Department of Pathology, [address] [place] [address], [facility], Department of Pathology, [address] [place], [place] [address], BGVQYU [id number] 14:05:00Surgical Pathology Report Case: [id number] Authorizing Provider: Filippo Romeo MD Collected: 11/17/2020 08:36 AM Ordering Location: [facility] PERIOPERATIVE Received: 11/17/2020 10:00 AM SERVICES Pathologist: Elia Parekh MD Specimen: Soft Tissue, Other, Midline submental mass with overlying skin A. SKIN, CHIN, EXCISION OF LESION:EPIDERMAL INCLUSION CYST Signing Pathologist Direct Phone Line: [phone] signed by Elia Parekh MD on 11/19/2020 at 2:05 [id number] cystChinA. Received fresh labeled with the patient's [...] red-brown fluid. The cyst abuts the margin. Chief Concierge sections are submitted.Section code:A1: Tips, en faceA2-A3: Representatives of TULIO Bui PA (ASCP)cmPerformed.[facility], Department of Pathology, [address] [place] [address], CbufttB[facility], Department of P athology, [address] [place] [address], TvlkueBanner Lassen [facility], Department of Pathology, [address] [place] [address], QOI W/PLT COUNT & AUTO [id number] 07:01:00 Test Item Value Reference Range Interpretation [...] PERCENT (BEAKER) (test code = 2801) U/S, ASPIRATION/[id number] 15:25:002.2cm mass beneath the chinReason for Exam:->Neck Mass [facility] CENTERName: LUIS CALDERON : 1980 Sex: FFINAL REPORT PROCEDURE: Image-guided biopsy Procedural PersonnelAttlauryn rivera physician(s): Iggy Prasad physician(s): NoneResident physician(s): NoneAdvanced [...] biopsy was performed. Core needle biopsy device: Super coreCore needle size: 18Number of core specimens: [...] MDReport Verified Date/Time: 09/25/2020 15:25:58 Reading Location: [address] Consult Reading Room [id number] 13:23:00Medical Cytology Report Case: [id number] Authorizing Provider: Starla Sparks, Collected: 09/24/2020 02:01 PM PA Ordering Location: [facility] Radiology Ultrasound Received: 09/25/2020 09:34 AM Pathologist: Sondra Alcantara MD Specimen: Neck SUBMENTAL NECK MASS FNA BY CLINICIAN (CYTOSPINS): -NON-DIAGNOSTIC (SEE COMMENT) Signing Pathologist Direct Phone Line: [phone] signed by Sondra Alcantara MD on 09/25/2020 at 1:23 PMThe aspirate is non-diagnostic. Clinical and radiologic correlation is recommended. Re-biopsy is suggested if clinically indicated.Please see cases [id number] and [id number](2.5 x 1.0 x 2.1 cm) Submental neck mass, history of abdominal cancer.SUBMENTAL NECK MASS FNAReceived 32 mls in cytorich red; prepared4 cytospins.Performed. [facility], Department of Pathology, [address] [place] [address], [facility]ooaiqB[facility], Department of Pathology, [address] [place] [address], JmzxymBanner Lassen [facility], Department of Pathology, [address] [place] [address], QUZQ CYTOMETRY REQUISITION 2020-09-25 13:05:00 Test Item Value Reference Range Interpretation Comments FLOW CYTOMETRY RESULT See Separate Report POINTER (JOSEP) (test code = 2758) FLOW CYTOMETRY AP CASE # [id number] (JOSEP) (test code = 2759) TISSUE [id number] 11:34:00Surgical Pathology Report Case: [id number] Authorizing Provider: Starla Sparks, Collected: 09/24/2020 02:01 PM PA Ordering Location: [facility] Radiology Ultrasound Received: 09/24/2020 04:05 PM Pathologist: Glo Villalta MD Specimen: Neck A. NECK, MIDLINE MASS, BIOPSY: - RARE BENIGN COLUMNAR EPITHELIAL CELLS WITH SCANT FIBROUS TISSUE. - TISSUE INSUFFICIENT FOR DIAGNOSIS. Signing Pathologist Direct Phone Line: [phone] signed by Glo Villalta MD on 09/25/2020 at 11:34 AMThe sections show rare benign epithelial cells with scant fibrous tissue. A repeat biopsy is suggested if clinically indicated. 33628Tgvubsd/neck mass 2.2 cmNeck, midline submentalA. Received in formalin labeled with patient's name, medical record number and accession number, "neck" are very minute saunders tissue fragments less than 0.1 x 0.1 x 0.1 cm aggregate. The specimen might not survive processing, submitted in toto in cassette A1.Benito Thompson MDPerformed.The i nterpretation of this case included the use of immunohistochemistry or special stains.Control SlidesExamined: In-house known positive controls were evaluated along with the test tissue. These control slides run alongside of the patients sample show appropriate staining. Internal positive and negative controls when available are evaluated Immunohistochemistry technical testing was performed at [facility], Pathology Laboratory where it was developed and [...] qualified to perform high complexity clinical laboratory testing.[facility], Department of Pathology,[address] [place] [address], [facility]xnfltB[facility], Departmentof Pathology, [address] [place] [address], DjqijpBanner Lassen [facility] Center, Department of Pathology, [address] [place] [address], AILI [id number] 05:25:00Flow Cytometry Report Case: [id number] Authorizing Provider: Starla Sparks, Collected: 09/24/2020 02:01 PM PA OrderingLocation: [facility] Radiology Ultrasound Received: 09/24/2020 02:44 PM Pathologist: Elia Parekh MD Specimen: Other LESION ON CHIN, FLOW CYTOMETRY:STUDY IS LIMITED BY DIMINISHED VIABILITY AND SCARCITY OF LYMPHOID EVENTS.CORRELATION WITH MORPHOLOGIC FINDINGS REQUIRED. at5:25 [id number] LESIONChinCD8, surface-kappa, CD56, surface- lambda, CD5, CD19, CD10, CD3, CD20, CD4, CB99Dwfcypmx Viability: 53.3% Number of Events Acquired: 600 [...] developed and their performance characteristics determined by [facility]. They have not been cleared or approvedby the U.S. Food and Drug Administration. The FDA has determined that such clearance or approval is not necessary. It should not be regarded as investigational or for research. This laboratory is certified under the Clinical Laboratory Improvement Amendments of 1988 ("CLIA") as qualified to perform high-complexity clinical testing.[facility], Department of Pathology, [address] [place] [address], KvghbuB[facility] L[facility], Department of Pathology, [address] [place] [address], [place] [address],
[2021-10-05 16:41] LABS: Absolute Lymphocytes (CBC) 2.8 K/uL (0.7-4.9); Hematocrit 34.9 % (36.0-45.0); MPV 7.4 fL (7.6-11.3); RBC Red Blood Cell Count 3.87 M/uL (3.86-4.86)
[2021-10-05 16:44] LABS: Protime INR 1.05
[2021-10-05] MEDS ORDERED: FENTANYL CITR 100 MCG/2 ML ONE (16:45)
[2021-10-05] MEDS ORDERED: ONDANSETRON 4 MG/2 ML VIAL ONE (16:45)
[2021-10-05] MEDS ORDERED: NA CHLORIDE 0.9% 1,000 ML ONE (16:45)
[2021-10-05 16:55] LABS: Albumin 3.6 g/dL (3.4-5.0); Bilirubin Total 0.2 mg/dL (0.2-1.0); Potassium 3.8 mmol/L (3.5-5.1); Protein, Total 6.7 g/dL (6.4-8.2)
--- NOTE | 2021-10-05 17:46 | EDPHYS ---
Physician Documentation [facility] Name: Marian Mack Age: 41 yrs Sex: Female : 1980 Arrival Date: 10/05/2021 Time: 15:30 Bed 6 Private MD: Atilio Walters ED Physician Marcio Brown HPI: 10/05 16:08 This 41 yrs old Female presents to ER via Wheelchair with complaints of Vaginal cp Bleeding. 16:08 The patient presents with vaginal bleeding that is with clots. cp 16:08 Onset: The symptoms/episode began/occurred 6 week(s) ago, intermittent. Associated cp signs and symptoms: Pertinent positives: hematuria, rectal bleeding, left lower abdomen pain, Pertinent negatives: constipation, diarrhea, fever, vomiting. Severity of symptoms: in the emergency department the symptoms are unchanged, despite home interventions. 16:08 The patient's method of control includes nothing. 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 - Social history:: Smoking status: Patient reports the use of cigarette tobacco products, smokes one-half pack cigarettes per day. ROS: 16:15 Constitutional: Negative for body aches, chills, fever, poor PO intake. cp 16:15 Cardiovascular: Negative for chest pain, palpitations. cp 16:15 Respiratory: Negative for cough, shortness of breath, wheezing. 16:15 Abdomen/GI: Positive for abdominal pain, rectal bleeding, of the left lower abdomen, Negative for vomiting, diarrhea, constipation, anorexia, black/tarry stool. 16:15 Eyes: Negative for injury, pain, redness, and discharge. cp 16:15 ENT: Negative for drainage from ear(s), ear pain, sore throat, difficulty swallowing, difficulty handling secretions. 16:15 Back: Positive for pain at rest, of the low back area. 16:15 : Positive for pelvic pain, hematuria, vaginal bleeding. 16:15 Neuro: Negative for altered mental status, headache, syncope, weakness. 16:15 All other systems are negative. Exam: 16:20 Constitutional: The patient appears in no acute distress, alert, awake, cp non-diaphoretic, non-toxic, well developed, well nourished. 16:20 Head/Face: Normocephalic, atraumatic. cp 16:20 Eyes: Periorbital structures: appear normal, Conjunctiva: normal, no exudate, no injection, Sclera: no appreciated abnormality, Lids and lashes: appear normal, bilaterally. 16:20 ENT: External ear(s): are unremarkable, Nose: is normal, Mouth: Lips: moist, Oral mucosa: moist, Posterior pharynx: Airway: no evidence of obstruction, patent. 16:20 Chest/axilla: Inspection: normal. 16:20 Cardiovascular: Rate: normal, Rhythm: regular. 16:20 Respiratory: the patient does not display signs of respiratory distress, Respirations: normal, no use of accessory muscles, no retractions, labored breathing, is not present, Breath sounds: are clear throughout, no decreased breath sounds, no stridor, no wheezing. 16:20 Abdomen/GI: Inspection: abdomen appears normal, Bowel sounds: active, all quadrants, Palpation: soft, in all quadrants, mild abdominal tenderness, in the left lower quadrant, rebound tenderness, is not appreciated, involuntary guarding, is not appreciated. 16:20 Back: pain, that is mild, of the low back area, CVA tenderness, is absent. 16:20 : Pelvic Exam: External exam: is normal, Speculum exam: mild bleeding, no cervicitis, os that is closed, no tissue in cervix is seen, no tissue in vagina is seen, discharge, bloody, the nurse was present for the exam. 16:20 Skin: cellulitis, is not appreciated, no rash present. Vital Signs: 15:42 BP 101 / 64; Pulse 85; Temp 98.7; Pulse Ox 98% ; Weight 68.04 kg; Height 5 ft. 9 in. ap3 (175.26 cm); Pain 7/10; 17:13 BP 105 / 67; Pulse 71; Resp 18; Pulse Ox 100% on R/A; ph 15:42 Body Mass Index 22.15 (68.04 kg, 175.26 cm) ap3 MDM: 15:57 Patient medically screened. cp 16:30 Differential diagnosis: cervicitis, ectopic , endometriosis, menorrhea, pelvic cp inflammatory disease, urinary tract infection, vaginosis. 17:45 Data reviewed: vital signs, nurses notes, lab test result(s). 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 ED course: VSS. H/H stable. Patient refuses any further testing at this time to include CT abdomen/pelvis. Patient requesting discharge to home. 10/05 16:09 Order name: CBC with Diff; Complete Time: 17:32 10/05 17:32 Interpretation: Normal except: HGB 11.7; HCT 34.9; MCV 90.2; PLT 456; RDW 17.9; MPV 7.4. 10/05 16:09 Order name: CMP; Complete Time: 17:32 10/05 17:33 Interpretation: Normal except: CL 108; BUN 6. 10/05 16:09 Order name: Lipase; Complete Time: 17:32 10/05 17:34 Interpretation: LIP 41; Reviewed. 10/05 16:09 Order name: PT-INR; Complete Time: 17:32 10/05 16:09 Order name: Ptt, Activated; Complete Time: 17:32 10/05 16:09 Order name: IV Saline Lock; Complete Time: 16:38 cp 10/05 16:09 Order name: Labs collected and sent; Complete Time: 16:38 10/05 16:09 Order name: Pelvic Exam Setup; Complete Time: 16:38 cp Administered Medications: 16:58 Drug: NS 0.9% 1000 ml Route: IV; Rate: 1 bolus; Site: right antecubital; ph 17:57 Follow up: Response: No adverse reaction; IV Status: Completed infusion ph 16:59 Drug: Zofran (Ondansetron) 4 mg Route: IVP; Site: right antecubital; ph 17:57 Follow up: Response: No adverse reaction ph 17:01 Drug: fentaNYL (PF) 25 mcg Route: IVP; Site: right antecubital; ph 17:57 Follow up: Response: No adverse reaction; Pain is decreased; RASS: Alert and Calm (0) ph Disposition Summary: 10/05/21 17:45 Discharge Ordered Location: Home cp Problem: an ongoing problem cp Symptoms: are unchanged cp Condition: Stable cp Diagnosis - Abnormal uterine and vaginal bleeding, unspecified cp - GI Bleed/ Gastrointestinal hemorrhage, unspecified cp Followup: cp - With: Bryce Pascual MD - When: 1 - 2 days - Reason: Recheck today's complaints Followup: cp - With: Moustapha Garcia MD - When: 1 - 2 days - Reason: Recheck today's complaints Discharge Instructions: - Discharge Summary Sheet cp - Abnormal Uterine Bleeding cp - Gastrointestinal Bleeding cp Forms: - Medication Reconciliation Form cp - Thank You Letter cp - Antibiotic Education cp - Prescription Opioid Use cp Prescriptions: - Protonix 40 mg Oral Tablet - take 1 tablet by ORAL route once daily; 30 tablet; Refills: 0, Product cp Selection Permitted Signatures: Dispatcher [employer] Macarena Chavez RN RN ph Mike Monson, ADORE PA cp Chloe Aranda RN RN ap3 Corrections: (The following items were deleted from the chart) 15:49 15:46 PMHx: "gallbladder problem"; ap3 ap3 17:57 16:09 Urine Dipstick-Ancillary ordered. cp ph 17:57 16:15 Orthostatics ordered. cp ph 17:58 16:09 Urine Test ordered. cp ph
--- NOTE | 2021-10-05 17:46 | ER ---
Nurse's Notes [facility] Name: Marian Mack Age: 41 yrs Sex: Female : 1980 Arrival Date: 10/05/2021 Time: 15:30 Bed 6 Private MD: Atilio Walters Diagnosis: Abnormal uterine and vaginal bleeding, unspecified;GI Bleed/ Gastrointestinal hemorrhage, unspecified Presentation: 10/05 15:42 Chief complaint: Patient states: she has been bleeding from her "anus, period hole and ap3 peeing blood" for 6-7 weeks now. Patient states she has seen Dr. Pascual over these symptoms and she was informed her blood work looked good, but she was told to come to the ER for further evaluation. Coronavirus screen: At this time, the client does not indicate any symptoms associated with coronavirus-19. Ebola Screen: No symptoms or risks identified at this time. Initial Sepsis Screen: Does the patient meet any 2 criteria? No. Patient's initial sepsis screen is negative. Does the patient have a suspected source of infection? No. Patient's initial sepsis screen is negative. Risk Assessment: Do you want to hurt yourself or someone else? Patient reports no desire to harm self or others. Onset of symptoms was August 17, 2021. 15:42 Method Of Arrival: Wheelchair ap3 15:42 Acuity: NOVA 3 ap3 Triage Assessment: 15:49 General: Appears uncomfortable, Behavior is anxious, restless. Pain: Complains of pain ap3 in abdomen, left hip and right hip Pain began gradually. Neuro: Level of Consciousness is awake, alert, obeys commands, Oriented to person, place, time, situation. Cardiovascular: Patient's skin is warm and dry. Respiratory: Airway is patent Respiratory effort is even, unlabored. GI: Reports rectal bleeding. : Reports vaginal bleeding that is with clots. ROAD TEST EXAMINER: 15:51 LMP N/A - Irregular menses ap3 Historical: - Allergies: 15:46 No Known Drug Allergies; ap3 17:13 NKA; ph - Home Meds: 15:46 Protonix Oral [Active]; Doxycycline Oral [Active]; amitriptyline Oral [Active]; ap3 Cymbalta oral [Active]; Zofran Oral [Active]; Xanax Oral [Active]; tizanidine oral [Active]; - PMHx: 15:46 "gal bladder problem"; Anxiety; cervical cancer; colon cancer; Depression; ap3 Diverticulitis; ulcerative colitis; - PSHx: 15:46 Cholecystectomy; ap3 - Immunization history:: Client reports receiving the 2nd dose of the Covid vaccine. - Social history:: Smoking status: Patient reports the use of cigarette tobacco products, smokes one-half pack cigarettes per day. Screenin:51 Abuse screen: Denies threats or abuse. Nutritional screening: No deficits noted. ap3 Tuberculosis screening: No symptoms or risk factors identified. 17:13 Fall Risk None identified. ph Assessment: 16:30 General: Appears in no apparent distress. comfortable, Behavior is cooperative, ph appropriate for age, Denies fever, feeling ill. Pain: Complains of pain in left lower quadrant Pain radiates to left femoral area. Neuro: Level of Consciousness is awake, alert, obeys commands, Oriented to person, place, time, situation. Cardiovascular: Reports fatigue, lightheadedness, Capillary refill < 3 seconds in bilateral fingers Patient's skin is warm and dry. Respiratory: Airway is patent Respiratory effort is even, unlabored, Respiratory pattern is regular, symmetrical. GI: Reports lower abdominal pain, rectal bleeding, bloody stool, hemorrhoids. : Reports vaginal bleeding that is moderate flow, x approx 6 weeks. Derm: Skin is intact, Skin is pink, warm \\T\\ dry. Musculoskeletal: Circulation, motion, and sensation intact. Range of motion: intact in all extremities. 16:50 Reassessment: Patient appears in no apparent distress at this time. Patient and/or ph family updated on plan of care and expected duration. Pain level reassessed. Served as shopper's aide for pelvic and rectal exam, external hemorrhoids noted light vaginal bleeding present. 17:54 Reassessment: Patient appears in no apparent distress at this time. Patient and/or ph family updated on plan of care and expected duration. Pain level reassessed. Patient is alert, oriented x 3, equal unlabored respirations, skin warm/dry/pink. Pt pressed call light for assistance, is requesting to leave, states, " I'm fine, I know the CT won't show anything. My mom and my boyfriend were really bugging me to come get checked out but I know that y'all aren't going to find anything." ERP notified of pt's request to leave and is at bedside to speak w/ pt. Vital Signs: 15:42 BP 101 / 64; Pulse 85; Temp 98.7; Pulse Ox 98% ; Weight 68.04 kg; Height 5 ft. 9 in. ap3 (175.26 cm); Pain 7/10; 17:13 BP 105 / 67; Pulse 71; Resp 18; Pulse Ox 100% on R/A; ph 15:42 Body Mass Index 22.15 (68.04 kg, 175.26 cm) ap3 ED Course: 15:30 Patient arrived in ED. mr 15:30 Atilio Walters DO is Private Physician. mr 15:39 Mike Monson PA is PHCP. cp 15:39 Marcio Brown MD is Attending Physician. cp 15:45 Triage completed. ap3 15:51 Arm band placed on right wrist. ap3 16:10 Macarena Fairchild, RN is Primary Nurse. ph 16:20 Initial lab(s) drawn, by me, sent to lab. Inserted saline lock: 22 gauge in right ph antecubital area, using aseptic technique. Blood collected. 16:50 Assist provider with pelvic exam: Set up pelvic tray. Performed by Macarena Fairchild RN ph Patient tolerated well. Served as a shopper's aide during rectal exam. 17:00 Patient has correct armband on for positive identification. Placed in gown. Bed in low ph position. Call light in reach. Side rails up X 1. Pulse ox on. NIBP on. Door closed. Noise minimized. Warm blanket given. 17:43 Bryce Pascual MD is Referral Physician. cp 17:43 Moustapha Garcia MD is Referral Physician. cp 17:57 IV discontinued, intact, bleeding controlled, No redness/swelling at site. Pressure ph dressing applied. Administered Medications: 16:58 Drug: NS 0.9% 1000 ml Route: IV; Rate: 1 bolus; Site: right antecubital; ph 17:57 Follow up: Response: No adverse reaction; IV Status: Completed infusion ph 16:59 Drug: Zofran (Ondansetron) 4 mg Route: IVP; Site: right antecubital; ph 17:57 Follow up: Response: No adverse reaction ph 17:01 Drug: fentaNYL (PF) 25 mcg Route: IVP; Site: right antecubital; ph 17:57 Follow up: Response: No adverse reaction; Pain is decreased; RASS: Alert and Calm (0) ph Medication: 17:00 VIS not applicable for this client. ph Outcome: 17:45 Discharge ordered by . cp 17:56 Discharged to home ambulatory. ph 17:56 Condition: good 17:56 Discharge instructions given to patient, Instructed on discharge instructions, follow up and referral plans. medication usage, Demonstrated understanding of instructions, follow-up care, medications, Prescriptions given X 1. 17:58 Patient left the ED. ph Signatures: Audrey Mcgrath Patricia RN RN ph Mike Monson PA PA cp Prokisch, Amanda RN RN ap3 Corrections: (The following items were deleted from the chart) 15:49 15:46 PMHx: "gallbladder problem"; ap3 ap3
[2021-10-05 18:02] VITALS: TEMP 98.7
[2021-10-05 18:04] VITALS: BP 105/67; O2SAT 100
== END 2021-10-05 17:58 | disposition home or self-care (01) ==
LOC: ER 15:14
DX: N93.9 Abnormal uterine and vaginal bleeding, unspecified (principal); K92.2 Gastrointestinal hemorrhage, unspecified; F41.9 Anxiety disorder, unspecified; F32.A Depression, unspecified; F17.210 Nicotine dependence, cigarettes, uncomplicated; Z85.038 Personal history of other malignant neoplasm of large intestine; Z85.41 Personal history of malignant neoplasm of cervix uteri
CPT/HCPCS: 85025; 36415; 85610; 85730; 83690; 80053; J3010; J7030; J2405; 96361; 96374; 96375; 99284

== ENCOUNTER 2022-05-01 09:14 | Emergency (ER) | payer OTHER ==
--- OUTSIDE RECORDS SUMMARY | 2022-05-01 09:20 | XMS REPORT | Continuity of Care Document ---
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 Scheduled 2003 Screening for malignant [facility] Test 00:00:00 neoplasm of cervix Medical C enter (procedure) [code = 635472712] Future Scheduled 2002 Lipid panel (procedure) [facility] Test 00:00:00 [code = 43189890] Medical Ce nter Future Scheduled 2001 DTAP/TDAP/TD VACCINES [facility] Test 00:00:00 (1 - Tdap) [code = Medical C enter DTAP/TDAP/TD VACCINES (1 - Tdap)] Future Scheduled 2000-02-19 HEPATITIS C SCREENING [facility] Test 00:00:00 [code = HEPATITIS C Medical Center SCREENING] Future Scheduled 1988-02-[address] [facility] Test 00:00:00 0-64 YRS (1 - PCV) Medical C enter [code = PNEUMOCOCCAL VACCINE 0-64 YRS (1 - PCV)] Future Scheduled 1980 COVID-19 Vaccine (#1) [facility] 00:00:00 [code = COVID-19 Vaccine (#1)] Future Scheduled 1980 COVID-19 VACCINE (#1) [facility] Test 00:00:00 [code = COVID-[address] VACCINE (#1)] Future Scheduled 1980 Fluoride Varnish [code [facility] Test 00:00:00 = Fluoride Varnish] Future Scheduled NADIA SCOPE [code = Ordered: [facility] Test WNH830] 08/26/2020 of Medicine Future Scheduled HIV AB/AG 4TH GEN W Ordered: [facility] Test RFLX [code = 03777-6] 08/26/2020 of Med icine Future Scheduled HEPATITIS C ANTIBODY Ordered: [facility] Test [code = 38775-5] 08/26/2020 of Medicine Future Scheduled CBC W/AUTO DIFF WITH Ordered: [facility] Test PLATELETS [code = 08/26/2020 of Medicin e 61181-4] Future Scheduled COMPREHENSIVE METABOLIC Ordered: [facility] Test PANEL [code = 31765-5] 08/26/2020 of Me dicine Future Scheduled HEPATITIS B SURFACE Ordered: [facility] Test ANTI- BODY QUANT,LIVER 08/26/2020 of Me dicine TRANSP [code = NOCPT] Future Scheduled LACTATE DEHYDROGENASE Ordered: [employer] Test [code = 2532-0] 08/26/2020 of Medicine Future Scheduled TETANUS SHOT (ADULT) [facility] [employer] Test [code = TETANUS SHOT of Medi cine (ADULT)] Future Scheduled COVID-19 Vaccine (1) [employer] [facility] [code = COVID-19 of Medicine Vaccine (1)] Future Scheduled Hepatitis C screening [employer] [facility] (procedure) [code = of Medic ine 264855143] Future Scheduled Human immunodeficiency B [facility] Test virus screening of Medicine (procedure) [code = 231493132] Future Scheduled Screening for malignant [facility] Test neoplasm of cervix of Medici ne (procedure) [code = 126286075] Future Scheduled FLU VACCINE > 6 MONTHS [facility] Test [code = FLU VACCINE > 6 of M edicine MONTHS] Future Scheduled US FNA [code = 45669] 1 Occurrences [facility] Test starting of Medicine 08/26/2020 until 08/26/2021 Encounters Start End Encounter Admission Attending Care Care Encounter Source Date/Time Date/Time Type Type Clinicians Facility Department ID 2021-02-20 Outpatient Diana JORGE KSJUANY ZIMMER [id number] Univers 15:24:19 [facility] 2021-02-20 Outpatient Diana JORGE KSJUANY ZIMMER [id number] Univers 01:30:11 [facility] 2021-01-31 Outpatient JAWAID, [facility] Surgery [id number] SLE 14:23:40 SALMAAN 2021-01-31 [facility] [id number] [facility] 02:13:58 FILIPPO 2022-01-18 2022-01-18 Orders Doctor ERASTO 1.2.840.114 [id number] [facility] 00:00:00 00:00:00 Only Unassigned, JENY 350.1.13.10 ity of [place] [facility] 4.2.7.2.686 Jakub as [phone] [address] 2021-12-09 2021-12-09 Outpatient NORAH, [facility] [id number] [place] 13:00:00 13:00:00 [facility] 2021-12-09 2021-12-09 Office CARSUZI, [facility] 6400 1.2.840.114 [id number] [place] 13:00:00 13:00:00 Visit ERASTO MONK 350.1.13.58 Health 9.2.7.2.686 [id number] 2021-11-26 2021-11-26 Telephone Norah, [facility] 6400 1.2.840.114 [id number] [place] 00:00:00 00:00:[address] 350.1.13.58 Health 9.2.7.2.686 [id number] 7 2021-11-24 2021-11-24 Telephone Norah, [facility] 6400 1.2.840.114 [id number] [place] 00:00:00 00:00:[address] 350.1.13.58 Health 9.2.7.2.686 [id number] 7 2021-10-30 2021-10-31 Emergency [facility] [id number] SLE 20:12:00 00:01:00 BRENDON 2021-10-30 2021-10-31 Emergency [facility], [facility] [id number] 20:12:00 00:01:00 Brendon Hurst [facility] 2021-10-30 2021-10-30 Travel [facility] [id number] [facility] 00[facility]00:[facility] 00:00:00 [facility] 2021-10-22 2021-10-22 Orders Doctor ERASTO 1.2.840.114 [id number] Univers 00:00:00 00:00:00 Only Unassigned, JENY 350.1.13.10 ity of [facility] 4.2.7.2.686 Jakub [id number] [facility] sofie 009 Branch 2021-08-18 2021-08-18 Office PARISA Coffman 1.2.840.114 [id number] [facility] 15:15:00 16:45:39 Visit Jerry Garcia AMBULATOR 350.1.13.21 College Y 0.2.7.2.686 of [id number] [facility] kateryna 800 e 2021-06-28 2021-06-28 Outpatient PARISA [facility]IGHT [facility] [id number] [facility] 15:53:51 16:00:59 JUJU Bejarano e of Medicin e 2021-04-23 2021-04-23 Emergency [facility] ERT [id number] Univers 07:33:00 09:25:00 DEBI ity of [facility] 2021-04-23 2021-04-23 Emergency [facility] 1.2.411.148 [id number] Univers 07:33:00 09:25:00 Debi OMRENO 350.1.13.10 ity [facility] 4.2.7.2.686 [facility] [id number] [facility] sofie 084 Branch 2021-03-10 2021-03-10 Office PARISA WRIGHT 1.2.840.114 [id number] [facility] 08:42:48 11:33:02 Visit JUJU AMBULATOR 350.1.13.21 College Y 0.2.7.2.686 of [id number] [facility] kateryna 325 e 2021-03-04 2021-03-04 Outpatient [facility] [id number] [facility] 00:00:00 23:59:00 Colleg e of Medicin e 2021-03-04 2021-03-04 Emergency ER BICETTE, [facility] Emergency [id number] SLE 14:12:00 17:15:00 RICHINA 2021-02-01 2021-02-05 Outpatient RATNA [facility] [id number] [facility] 16:03:44 19:52:07 SALMAAN Colleg e of Medicin e 2021-02-01 2021-02-01 Outpatient ABRAHAN WRIGHT, [facility] Surgery [id number] [facility] 07:39:00 12:03:00 SALMAAN 2021-02-01 2021-02-01 Outpatient RATNA [facility] [id number] [facility] 10:43:00 10:43:00 SALMAAN Colleg e of Medicin e 2021-01-29 2021-01-29 Outpatient EL RATNA [facility] [id number] [facility] 16:18:52 23:59:00 SALMAAN 2021-01-29 2021-01-29 Outpatient EL [facility] [id number] SLE 00:00:00 00:00:00 2021-01-29 2021-01-29 Outpatient [facility] [id number] SLE 00:00:00 00:00:00 2021-01-21 2021-01-21 Outpatient EL [facility] [id number] SLE 00:00:00 00:00:00 2020-11-25 2020-11-25 Outpatient MIRNA, [facility] [id number] [facility] 13:23:53 13:46:49 FILIPPO Colleg e of Medicin e 2020-11-13 2020-11-13 Outpatient [facility] [id number] SLE 00:00:00 00:00:00 2020-10-28 2020-10-28 Office KEVIN Romeo 1.2.840.114 [id number] [facility] 14:37:12 14:59:11 Visit Filippo AMBULATOR 350.1.13.21 [facility] Y 0.2.7.2.686 of [id number] [facility] 800 e 2020-10-15 2020-10-[address] [facility] OP Caridi, EXT MSRDP 1.2.840.114 1 [id number] [place] 00:00:00 00:00:00 Danial LOCATION 350.1.13.58 H ealth 9.2.7.2.686 [id number] 0 2020-10-15 2020-10-15 EXT [facility] OP Caridi, EXT MSRDP 1.2.840.114 1 [id number] [place] 00:00:00 00:00:00 Danial LOCATION 350.1.13.58 H ealth 9.2.7.2.686 [id number] 0 2020-10-14 2020-10-14 Office PARISA Romeo 1.2.840.114 [id number] [facility] 13:28:25 15:29:27 Visit Filippo AMBULATOR 350.1.13.21 [facility] Y 0.2.7.2.686 of [id number] [facility] 800 e 2020-09-24 2020-09-24 Outpatient SLE [facility] [id number] [facility] 00:00:00 00:00:00 2020-09-23 2020-09-[address] [facility] [id number] Univers 08:15:00 08:[facility] 2020-09-23 2020-09-[address] [facility] [id number] Univers 00:00:00 00:00:00 ity [facility] 2020-09-22 2020-09-22 [facility] 1.2.840.114 [id number] Univers 08:00:00 23:59:00 Encounter M [place] [facility].13.10 [facility] 4.2.7.2.686 [facility] [id number] [facility] 805 Branch 2020-09-22 2020-09-22 [facility] 1.2.840.114 [id number] 08:00:00 23:59:00 Encounter M [place] 350.1.13.10 [place] 4.2.7.2.686 [place] [id number] 2020-09-22 2020-09-[address] [facility] [id number] Univers 08:00:00 08:00:00 ity [facility] 2020-09-22 2020-09-22 Orders Doctor ERASTO 1.2.840.114 [id number] [facility] 00:00:00 00:00:00 Only Unassigned, JENY 350.1.13.10 ity of [place] [facility] 4.2.7.2.686 Jakub as [id number] [address] 2020-09-22 2020-09-22 Orders Doctor ERASTO 1.2.840.114 [id number] 00:00:00 00:00:00 Only Unassigned, JENY 350.1.13.10 [place] [facility] 4.2.7.2.686 [id number] 009 2020-09-05 2020-09-[address] [facility] OP Caridi, EXT [facility] 1.2.840.114 1 [id number] [place] 00:00:00 00:00:00 Erasto Hurst LOCATION 350.1.13.58 H ealth 9.2.7.2.686 [id number] 0 2020-09-05 2020-09-[address] [facility] OP Caridi, EXT M[facility]DP 1.2.840.114 1 [id number] [place] 00:00:00 00:00:00 Erasto Hurst LOCATION 350.1.13.58 H ealth 9.2.7.2.686 [id number] 0 2020-09-02 2020-09-[address] [facility] [id number] Univers 00:00:00 00:00:00 [facility] 2020-08-26 2020-08-26 Office PARISA Romeo 1.2.840.114 [id number] [facility] 14:34:48 14:54:48 Visit Filippo AMBULATOR 350.1.13.21 [place] Y 0.2.7.2.686 [id number] [facility] 800 e 2020-05-04 2020-05-04 Outpatient R [facility] [id number] Univers 13:45:00 13:45:00 ity of [facility] 2020-04-13 2020-04-13 [facility] 1.2.840.114 [id number] Univers 00:00:00 00:00:00 Rawan Andrews Y HEALTH 350.1.13.10 ity of [place] [id number] [address] 2020-04-13 2020-04-13 Telephone [facility] 1.2.840.114 [id number] 00:00:00 00:00:00 Rawan Andrews Y HEALTH 350.1.13.10 CLINICS 4.2.7.2.686 [id number] [facility] 2020-03-23 2020-03-23 Outpatient R HARSHIL TOMAS [facility] [id number] Univers 08:40:00 08:40:00 HARSHIL TOMAS [facility] 2020-03-03 2020-03-03 Outpatient R KHURRAM, HARSHIL [facility] [id number] Univers 08:00:00 08:00:00 KHURRAMHARSHIL Shahid [facility] 2020-03-03 2020-03-03 [facility] 1.2.840.114 [id number] Univers 00:00:00 00:00:00 Harshil Morales [place] 350.1.13.10 ity of [place] [id number] [address] 2020 2020 Office [facility] 1.2.107.963 [id number] Univers 09:55:39 10:42:47 Visit Rawan Andrews Y HEALTH 350.1.13.10 ity of [place] [id number] [address] 2020 2020 [id number] Univers 10:00:00 10:00:00 RAWAN [facility] 2020 2020 Orders Doctor ERASTO 1.2.840.114 [id number] Univers 00:00:00 00:00:00 Only Unassigned, JENY 350.1.13.10 ity of [place] [facility] 4.2.7.2.686 Jakub as [id number] [place] [address] Branch 2019-11-22 2019-11-22 Orders Doctor ERASTO 1.2.840.114 [id number] Univers 00:00:00 00:00:00 Only Unassigned, JENY 350.1.13.10 ity of [place] [facility] 4.2.7.2.686 Jakub as [id number] [address] Results Test Description Test Time Test Comments Results Result Comments Source COMP. METABOLIC PANEL (44489) 2021-04-23 14:33:49 Test Item Value Reference Range Interpretation Comme nts NA (test code = 4096104502) 140 mmol/L 135-145 K (test code = 9930500117) 3.5 mmol/L 3.5-5.0 CL (test code = 2172777474) 109 mmol/L 98-108 H CO2 TOTAL (test code = 1670177189) 23 mmol/L 23-31 AGAP (test code = 9199107222) 2-16 BUN (test code = 6674585335) 7 mg/dL 7-23 GLUCOSE (test code = 0871185255) 105 mg/dL 70-110 CREATININE (test code = 0.50 mg/dL 0.50-1.04 4483503613) TOTAL BILI (test code = 0.6 mg/dL 0.1-1.7 2028013359) CALCIUM (test code = 4218135606) 8.6 mg/dL 8.6-10.6 T PROTEIN (test code = 8280110785) 7.6 g/dL 6.3-8.2 ALBUMIN (test code = 7909345947) 4.4 g/dL 3.5-5.0 ALK PHOS (test code = 4280783021) 82 U/L 34-122 ALTv (test code = 1742-6) 14 U/L 5-35 AST(SGOT) (test code = 4210432826) 31 U/L 13-40 eGFR (test code = 5858481610) mL/min/1.73m2 CHIKIS (test code = CHIKIS) Association [...] tests). Lab Interpretation (test code = Abnormal 28055-8) [facility] 14[facility]33:29 Test Item Value Reference Range Interpretation Comments LIPASE (test code = 5763917534) 36 U/L 0-220 Lab Interpretation (test code = Normal 49122-7) [facility] [id number] 14:13:06 Test Item Value Reference Range Interpretation Comments WBC (test code = See_Comment H [Automated 6290-2) message] The sy stem which generated this result transmitted reference range : 4.30 - 11.10 10*3/?L. The reference range was not used to interpret this result as normal/abnormal . RBC (test code = See_Comment [Automated 039-8) message] The sy stem which generated this [...] (test code = 52.5 fL 39.0-49.9 H 80573-2) RDW-CV (test code = 15.6 % 12.0-15.5 H 788-0) PLT (test code = See_Comment H [Automated 777-3) message] The sy stem which generated this result transmitted reference range : 166 - 358 10*3/ ?L. The reference r kristy was not used to interpret this result as normal/abnormal . MPV (test code = 10.0 fL 9.5-12.9 45792-3) IPF % (test code = 2.6 % 1.3-7.7 Platelet count 5571160462) measured by fluorescence method. NRBC/100 WBC (test See_Comment [Automat ed code = 7167346104) message] The system which generated this result transmitted reference range : 0.0 - 10.0 /100 WBCs. The refer ence range was not u sed to interpret th is result as normal/abnormal . NRBC x10^3 (test code <0.01 See_Comment [Auto mated = 2765300405) message] The s ystem which generated this result transmitted reference range : 10*3/?L. The reference range was not used to interpret this result as normal/abnormal . GRAN MAT (NEUT) % 79.3 % (test code = 770-8) IMM GRAN % (test code 0.40 % = 9514791082) LYMPH % (test code = 13.8 % 736-9) MONO % (test code = 5.2 % 5905-5) EOS % (test code = 0.8 % 713-8) BASO % (test code = 0.5 % 706-2) GRAN MAT x10^3(ANC) 9.51 10*3/uL 1.88-7.09 H (test code = 6549397585) IMM GRAN x10^3 (test 0.05 10*3/uL 0.00-0.06 code = 9330363786) LYMPH x10^3 (test code 1.65 10*3/uL 1.32-3.29 = 731-0) MONO x10^3 (test code 0.62 10*3/uL 0.33-0.92 = 742-7) EOS x10^3 (test code = 0.10 10*3/uL 0.03-0.39 711-2) BASO x10^3 (test code 0.06 10*3/uL 0.01-0.07 = 704-7) Lab Interpretation Abnormal (test code = 70175-0) [facility] [id number] 14:01:00 Test Item Value Reference Range Interpretation Comments POCT PREG (test code = 1605) negative On board controls acceptable with present C Line (test code = 3574) POCT PREG LOT # (test code = 3575) [id number] POCT PREG TEST DATE (test 06/21/2022 code = 3576) Lab Interpretation (test code = Normal 74816-3) [facility], [id number] 17:10:00Unlisted Reason for Exam - Click Yes and Enter Reason Below->YesUnlisted Reason for Exam->intractable abd painWill this procedure require oral contrast?->No [facility]Y : 1980 Sex: FFINAL REPORT CT, ABDOMEN \\T\\ PELVIS, WITH IV CONTRAST HISTORY: Unlisted Reason for Examintractable abd pain COMPARISON: None [...] bile ducts: Surgically absent gallbladder. Mild prominence ofthe central intrahepatic and extrahepatic biliary tree, likely related to postcholecystectomy state.S pleen: Unremarkable.Pancreas: Unremarkable.Adrenals: UnremarkableKidneys and ureters: Unremarkable.Bowel: Surgically absent appendix. A few scattered colonic diverticula. Nondilated bowel with no wall thickening.Bladder: Unremarkable.Reproductive organs: A simple appearing 3.1 cm right ovarian cyst, no follow-up needed.Lymph nodes: Unremarkable.Peritoneum: Unremarkable.Vessels: Minimal atherosclerotic calcifications.Abdominal wall: Unremarkable.Bones: Unremarkable. IMPRESSION: 1.Mild prominence of the central intrahepatic and extrahepatic biliary tree, likely related to postcholecystectomy state. 2. Otherwise unremarkable CT abdomen and pelvis. Signed: Zeke Zaidi Verified Date/Time: 03/04/2021 17:10:45 Reading Location: [address] Transitional Reading Room COMPREHENSIVE METABOLIC [id number] 15:44:38 Test Item Value Reference Range Interpretation [...] S NOT APPLICABLE FOR DIALYSIS PATIEN TS. [employer] Printer ID - AYO MOperator ID - [id number] 15:44:38 Test Item Value Reference Range Interpretation Comments PARTIAL THROMBOPLASTIN TIME 30.3 seconds 22.5-36.0 (BEAKER) (test code = 760) PROTHROMBIN TIME/[id number] 15:43:59 Test Item Value Reference Range Interpretation Comments PROTIME (BEAKER) 14.3 seconds 11.9-14.2 H (test code = 759) INR (BEAKER) (test 1.13 See_Comment [Automat ed message] code = 370) The system Team Robot generated this result transmitted ref erence range: <=5.90. The reference range was not used to int erpret this result as normal/abnormal . RECOMMENDED COUMADIN/WARFARIN INR THERAPY RANGESSTANDARD DOSE: 2.0 - 3.0 Includes: PROPHYLAXIS for venous thrombosis, systemic embolization; TREATMENT for venous thrombosis and/or pulmonary embolus.HIGH RISK: Target INR is 2.5-3.5 for patients with mechanical heart valves.HCG, QUANTITATIVE, [id number] 15:39:20 Test Item Value Reference Range Interpretation Comments GONADOTROPIN, CHORIONIC (HCG) QUANT < mIU/mL 0-10 (BEAKER) (test code = 649) Non- Females: <10 mIU/mL Females: Gestation Age Reference Range(mIU/mL) 0.2-1 Week 5-50 1-2 Weeks 50-500 2-3 Weeks 100-5,000 3-4 Weeks 500-10,000 4-5 Weeks 1,000-50,000 5-6 Weeks 10,000-100,000 6-8 Weeks 15,000- 200,000 2-3 Months 10,000-100,000 [employer] Printer ID - DBHIGH SENSITIVITY TROPONIN I 2021-03-04 15:38:56 Test Item Value Reference Range Interpretation Comments HIGH SENSITIVITY < pg/ml See_Comment [Automated message] TROPONIN I (test code = The system which 2159609) generated this result transmitted ref erence range: <=17. Th e reference range was not used to interpr et this result as normal/abnormal . [employer] Printer ID - DBThe PROCESSING INSPECTOR STAT High Sensitivity Troponin-I results should be used in conjunctionwith other diagnostic information such as ECG, clinical observations and information, and patient symptoms to aid in the diagnosis of PR.[id number] 15:34:35 Test Item Value Reference Range Interpretation Comments MAGNESIUM (BEAKER) 1.8 mg/dL 1.6-2.6 Specimen slightly (test code = 627) hemolyzed [employer] Printer ID - AYO [id number] 15:34:35 Test Item Value Reference Range Interpretation Comments LIPASE (BEAKER) (test code = 749) 12 U/L 8-78 [employer] Printer ID - AYO MCBC W/PLT COUNT & AUTO [id number] 15:23:19 Test Item Value Reference Range Interpretation [...] PERCENT (BEAKER) (test code = 2801) TISSUE [id number] 11:53:29Surgical Pathology Report Case: [id number] Authorizing Provider: Juju Wright MD Collected: 02/01/2021 10:55 AM Ordering Location: [facility] Endoscopy Received: 02/01/2021 02:05 PM Services Pathologist: Blanka Brewer MD Specimen: Biopsy, Gastric, random biopsies STOMACH, BIOPSY:- GASTRIC ANTRAL-TYPE AND OXYNTIC MUCOSA WITH CHRONIC GASTRITIS- NO EVIDENCE OF HELICOBACTER PYLORI -LIKE ORGANISMS ON WARTHIN-STARRY STAIN- NEGATIVE FOR INTESTINAL METAPLASIA AND DYSPLASIA Signing PathologistDirect Phone Line: [phone] signed by Blanka Brewer MD on 02/02/2021 at 11:[id number], [id number] painStomachA. Received in formalin labeled with the patient's name, medical record number and "biopsy, gastric" and consists of 3 saunders soft tissue fragments ranging 0.2-0.4 cm submitted in toto in A1.TULIO Salinas, ADORE (ASCP)cmPerformedThe interpretation of this case included the use of immunohistochemistry or special stains.Control Slides Examined: In-house known positive controls were evaluated along with the test tissue. These control slides run alongside of the patients sample show appropriate staining. Internal positive and negative controls when available are evaluated Immunohistochemistry technical testing was performed at [facility], Pathology Laboratory where it was developed and [...] qualified to perform high complexity clinical laboratory testing.[facility], Department of Pathology, [address] [place], [place] [id number], [facility], Department of Pathology, [address] [place] [address], Kl[facility], Department of Pathology, [address] [place], [place] [id number], RKWXEZ [id number] 14:05:00Surgical Pathology Report Case: [id number] Authorizing Provider: Filippo Romeo MD Collected: 11/17/2020 08:36 AM Ordering Location: [facility] Received: 11/17/2020 10:00 AM SERVICES Pathologist: Elia Parekh MD Specimen: Soft Tissue, Other, Midline submental mass with overlying skin A. SKIN, CHIN, EXCISION OF LESION:EPIDERMAL INCLUSION CYST Signing Pathologist Direct Phone Line: [phone] signed by Elia Parekh MD on 11/19/2020 at 2:05 [id number] cystChinA. Received fresh labeled with the patient's name, medical record number and "soft tissue, other" is an unoriented white skin ellipse measuring 4.5 x 0.9 cm, excised to a depth of 1.5 cm. The epidermis is unremarkable. The margin is inked blue, and the specimen is serially sectioned toreveal a 1.7 x 1.3 x 1.3 cm simple cyst filled with sebaceous material and red-brown fluid. The cystabuts the margin. Fundraising Officer sections are submitted.Section code:A1: Tips, en faceA2-A3: Representatives of TULIO Bui PA (ASCP)cmPerformed.[facility], Departmentof Pathology, [address] [place] [address], [facility], Department of Pathology, [address] [place] [address], EatsciB[facility], Department of Pathology, [address] [place] [address], ZOT W/PLT COUNT & AUTO [id number] 07:01:00 Test Item Value Reference Range Interpretation [...] PERCENT (BEAKER) (test code = 2801) U/S, ASPIRATION/[id number] 15:25:002.2cm mass beneath the chinReason for Exam:->Neck Mass [facility] : 1980 Sex: FFINAL REPORT PROCEDURE: Image-guided biopsy Procedural PersonnelAttending physician(s): Iggy Prasad physician(s): NoneResident physician(s): NoneAdvanced practice provider(s): None Pre-procedure diagnosis: Enlarging submental massPost-procedure diagnosis: SameIndication: Hi stopathologic diagnosisPrevious biopsy of same target (QCDR): NoAdditional clinical history: None Complications: No immediate complications. IMPRESSION: Image-guided biopsy of submental superficial mass. Plan: Specimen(s) sent for evaluation. PROCEDURE SUMMARY:- Percutaneous ultrasound-guided core needle and fine needle aspiration biopsy biopsy- Additional procedure(s): None PROCEDURE DETAILS: Pre- procedureReference imaging for biopsy target: NoneConsent: Informed consent for the procedure including risks, benefits and alternatives was obtained and time- out was performed prior to the procedure.Preparation: The site was prepared and draped using maximal sterile barrier technique [...] biopsy was performed. Core needle biopsy device: SupercoreCore needle size: 18Number of core specimens: 1 Fine needle aspiration device: Aspiration needlesFine needle size: 25gNumber of FNA specimens: 4 Needle removalThe biopsy needle was removed and a sterile dressing was applied.Tract embolization: None Imaging following biopsyPost-biopsy imaging: UltrasoundPost- biopsy imaging findings: No acute complications. Additional DetailsAdditional description of procedure: NoneEquipment details: NoneSpecimens removed: Biopsy samples as detailed aboveEstimatedblood loss (mL): Less than 10Standardized report: SIR_BiopsyMiscGuidance_v3 AttestationSigner name: Luke Walters MDI attest that I was present for the entire procedure. I reviewed the stored images and agree with the report as written. Signed: Luke Walters MDReport Verified Date/Time: 09/25/2020 15:25:58 Reading Location: [address] Consult Reading Room [id number] 13:23:00Medical Cytology Report Case: [id number] Authorizing Provider: Starla Sparks, Collected: 09/24/2020 02:01 PM PA Ordering Location: [facility] Radiology Ultrasound Received: 09/25/2020 09:34 AM Pathologist: Sondra Alcantara MD Specimen: Neck SUBMENTAL NECK MASS FNA BY CLINICIAN (CYTOSPINS): -NON-DIAGNOSTIC (SEE COMMENT) Signing Pathologist Direct Phone Line: [phone] signed by Sondra Alcantara MD on 09/25/2020 at 1:23 PMThe aspirate is non-diagnostic. Clinical and radiologic correlation is recommended. Re-biopsy is suggested if clinically indicated.Please see cases [id number] and [id number](2.5 x 1.0 x 2.1 cm) Submental neck mass, history of abdominal cancer.SUBMENTAL NECK MASS FNAReceived 32 mls in cytorich red; prepared 4 cytospins.Performed. [facility], Department of Pathology, [address] [place] [address], [facility], Department of Pathology, [address] [place] [address], [facility]jqzhwB[facility], Department of Pathology, [address] [place] [address], [place] [address], XKAC CYTOMETRY [id number] 13:05:00 Test Item Value Reference Range Interpretation Comments FLOW CYTOMETRY RESULT See Separate Report POINTER (JOSEP) (test code = 2758) FLOW CYTOMETRY AP CASE # [id number] (JOSEP) (test code = 2759) TISSUE [id number] 11:34:00Surgical Pathology Report Case: [id number] Authorizing Provider: Starla Sparks, Collected:09/24/2020 02:01 PM ADORE Ordering Location: [facility] Radiology Ultrasound Received: 09/24/2020 04:05 PM Adore thologist: Glo Villalta MD Specimen: Neck A. NECK, MIDLINE MASS, BIOPSY: - RARE BENIGN COLUMNAR EPITHELIAL CELLS WITH SCANT FIBROUS TISSUE. - TISSUE INSUFFICIENT FOR DIAGNOSIS. Signing Pathologist Direct Phone Line: [phone] signed by Glo Villalta MD on 09/25/2020 at 11:34 AMThe sections show rare benign epithelial cells with scant fibrous tissue. A repeat biopsy is suggested if clinically indicated. [id number]/neck mass 2.2 cmNeck, midline submentalA. Received in formalin labeled with patient's name, medical record number and accession number, "neck" are very minute saunders tissue fragments less than 0.1 x 0.1 x 0.1 cm aggregate. The specimen might not survive processing, submitted in toto in cassette A1.Benito Thompson MDPerformed.The interpretation of this case included the use of immunohistochemistry or special stains.Control Slides Examined: In-house known positive controls wereevaluated along with the test tissue. These control slides run alongside of the patients sample showappropriate staining. Internal positive and negative controls when available are evaluated Immunohistochemistry technical testing was performed at [facility], Pathology Laboratorywhere it was developed and its performance characteristics [...] qualified to perform high complexity clinical laboratory testing.[facility], Department of Pathology, [address] [place] [address], [facility], Department of Pathology, [address] [place] [address], [facility], Department of Pathology, [address] [place] [address], UTFI [id number] 05:25:00Flow Cytometry Report Case: [id number] Authorizing Provider: Starla Sparks, Collected: 09/24/2020 02:01 PM PA Ordering Location: [facility] Radiology Ultrasound Received: 09/24/2020 02:44 PM Pathologist: Elia Parekh MD Specimen: Other LESION ON CHIN, FLOW CYTOMETRY:STUDY IS LIMITED BYDIMINISHED VIABILITY AND SCARCITY OF LYMPHOID EVENTS.CORRELATION WITH MORPHOLOGIC FINDINGS REQUIRED. [id number] LESIONChinCD8, surface-kappa, CD56, surface- lambda, CD5, CD19, CD10, CD3, CD20, CD4, UV26Udmebsud Viability: 53.3% Number of Events Acquired: 600 The following populations are identified:Lymphocytes: Lymphoid events are scarce and are too few to analyze B and T cell populations. Myeloid/monocytic populations: As identified by CD45 and light scatter characteristics, granulocytes comprise 28.2%of total cells, and monocytes comprise 3.6% of total cells. The remaining events analyzed represent nonviable cells, non-hematolymphoid cells, and debris.These tests were developed and their performance characteristics determined by [facility]. They have not been cleared or approved by the U.S. Food and Drug Administration. The FDA has determined that such clearance or approval is not necessary. It should not be regardedas investigational or for research. This laboratory is certified under the Clinical Laboratory Improvement Amendments of 1988 ("CLIA") as qualified to perform high-complexity clinical testing.[facility], Department of Pathology, [address] [place] [address], [facility], Department of Pathology, [address] [place] [address], [place] [address],
[2022-05-01] MEDS ORDERED: KETOROLAC 30 MG/ML INJ ONE (09:47)
[2022-05-01] MEDS ORDERED: NA CHLORIDE 0.9% 1,000 ML ONE (09:47)
--- NOTE | 2022-05-01 10:30 | EDPHYS ---
Physician Documentation [facility] Name: Marian Mack Age: 42 yrs Sex: Female : 1980 Arrival Date: 05/01/2022 Time: 09:16 Bed 20 Private MD: Atilio Walters ED Physician Marcio Brown HPI: 05/01 10:01 This 42 yrs old Female presents to ER via Ambulatory with complaints of Ear Pain. rn 10:01 The patient presents with pain, moderate. The complaints affect the right ear and left rn ear. Onset: The symptoms/episode began/occurred 2 week(s) ago. Modifying factors: The symptoms are alleviated by covering ear, the symptoms are aggravated by nothing. Associated signs and symptoms: Pertinent negatives: fever, rhinorrhea, shortness of breath, sore throat, vertigo, vomiting. Severity of symptoms: At their worst the symptoms were moderate in the emergency department the symptoms have improved. The patient has not experienced similar symptoms in the past. The patient has not recently seen a physician. Pt reports bilateral ear pain, was sick 2 weeks ago, thinks was flu because mother had flu and hospitalized. Started to have bilateral ear pain and pressure shortly after, no fever. NO trauma. IMproves with cotton balls covering ears. . 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 - Family history:: not pertinent. - Social history:: Smoking status: Patient reports the use of cigarette tobacco products, smokes one-half pack cigarettes per day. - Hospitalizations: : No recent hospitalization is reported. ROS: 10:01 Constitutional: Negative for fever, chills, and weight loss, Eyes: Negative for injury, rn pain, redness, and discharge, ENT: + bilateral ear pain Respiratory: Negative for shortness of breath, cough, wheezing, and pleuritic chest pain, Neuro: Negative for headache, weakness, numbness, tingling, and seizure. Exam: 10:01 Constitutional: This is a well developed, well nourished patient who is awake, alert, rn tearful Head/Face: Normocephalic, atraumatic. ENT: + bilateral TM with fluid behind ear, mild erythema, no perforation, normal canals. Cardiovascular: Tachycardic, regular Neuro: Awake and alert, GCS 15, oriented to person, place, time, and situation. Cranial nerves II-XII grossly intact. Motor strength 5/5 in all extremities. Vital Signs: 09:28 BP 129 / 85; Pulse 104; Resp 18; Temp 98.7; Pulse Ox 100% on R/A; Weight 79.38 kg; hb Height 5 ft. 9 in. (175.26 cm); Pain 10/10; 11:14 BP 110 / 68; Pulse 69; Resp 17; Pulse Ox 97% on R/A; kr3 09:28 Body Mass Index 25.84 (79.38 kg, 175.26 cm) hb MDM: 09:20 Patient medically screened. rn 10:27 Differential diagnosis: otitis media, otitis externa, ruptured TM, acute otalgia, rn cerumen impaction, barotrauma , serotympanum. Data reviewed: vital signs, nurses notes, and as a result, I will discharge patient. Counseling: I had a detailed discussion with the patient and/or guardian regarding: the historical points, exam findings, and any diagnostic results supporting the discharge/admit diagnosis, the need for outpatient follow up, to return to the emergency department if symptoms worsen or persist or if there are any questions or concerns that arise at home. Response to treatment: the patient's symptoms have mildly improved after treatment, and as a result, I will discharge patient. Special discussion: I discussed with the patient/guardian in detail that at this point there is no indication for admission to the hospital. It is understood, however, that if the symptoms persist or worsen the patient needs to return immediately for re-evaluation. Based on the history and exam findings, there is no indication for further emergent testing or inpatient evaluation. I discussed with the patient/guardian the need to see the primary care provider for further evaluation of the symptoms. ED course: Pt with bilateral ear pain following 2 weeks of URI, possible bacterial otitis given effusions, will dc home with abx and return precautions. Also given 1 L NS for dehydration and tachycardia. . 05/01 09:42 Order name: IV Start; Complete Time: 09:56 rn Administered Medications: 09:50 Drug: Ketorolac 30 mg Route: IVP; Site: left hand; kr3 11:18 Follow up: Response: No adverse reaction kr3 09:56 Drug: NS 0.9% 1000 ml Route: IV; Rate: 1000 ml; Site: left hand; kr3 11:18 Follow up: Response: No adverse reaction; IV Status: Completed infusion; IV Intake: kr3 1000ml Disposition Summary: 05/01/22 10:29 Discharge Ordered Location: Home rn Problem: new rn Symptoms: have improved rn Condition: Stable rn Diagnosis - Otitis media, unspecified, bilateral rn - Dehydration rn Followup: rn - With: Private Physician - When: As needed - Reason: Recheck today's complaints, Re-evaluation by your physician Discharge Instructions: - Discharge Summary Sheet rn - Dehydration, Adult rn - Otitis Media, Adult rn Forms: - Medication Reconciliation Form rn - Thank You Letter rn - 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
--- NOTE | 2022-05-01 10:30 | ER ---
Nurse's Notes [facility] Name: Marian Mack Age: 42 yrs Sex: Female : 1980 Arrival Date: 05/01/2022 Time: 09:16 Bed 20 Private MD: Atilio Walters Diagnosis: Otitis media, unspecified, bilateral;Dehydration Presentation: 05/01 09:28 Chief complaint: Bilateral ear pain x 2 weeks. Coronavirus screen: At this time, the hb client does not indicate any symptoms associated with coronavirus-19. Ebola Screen: No symptoms or risks identified at this time. Initial Sepsis Screen: Does the patient meet any 2 criteria? No. Patient's initial sepsis screen is negative. Does the patient have a suspected source of infection? No. Patient's initial sepsis screen is negative. Risk Assessment: Do you want to hurt yourself or someone else? Patient reports no desire to harm self or others. Onset of symptoms was March 2023. 09:28 Method Of Arrival: Ambulatory 09:28 Acuity: NOVA 4 hb Triage Assessment: 09:39 EENT:. kr3 09:39 General: Appears distressed, uncomfortable, Behavior is cooperative, anxious. Pain: kr3 Complains of pain in right ear and left ear. 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 - Family history:: not pertinent. - Social history:: Smoking status: Patient reports the use of cigarette tobacco products, smokes one-half pack cigarettes per day. - Hospitalizations: : No recent hospitalization is reported. Screenin:37 Abuse screen: Denies threats or abuse. Nutritional screening: No deficits noted. kr3 Tuberculosis screening: No symptoms or risk factors identified. 11:17 [facility] ED Fall Risk Assessment (Adult) History of falling in the last 3 months, kr3 including since admission Yes- single mechanical fall (1 pt) Confusion or Disorientation No (0 pts) Intoxicated or Sedated No (0 pts) Impaired Gait No (0 pts) Mobility Assist Device Used No (0 pt) Altered Elimination No (0 pt) Score/Fall Risk Level 0 - 2 = Low Risk. Assessment: 09:56 General: Appears distressed, uncomfortable, Behavior is calm, cooperative, appropriate kr3 for age. Pain: Complains of pain in right ear and left ear. Neuro: Level of Consciousness is awake, alert, obeys commands, Oriented to person, place, time, situation. Cardiovascular: Patient's skin is warm and dry. Respiratory: Airway is patent Respiratory effort is even, unlabored, Respiratory pattern is regular, symmetrical. GI: No signs and/or symptoms were reported involving the gastrointestinal system. : No signs and/or symptoms were reported regarding the genitourinary system. EENT: Reports pain in right ear and left ear. Derm: No signs and/or symptoms reported regarding the dermatologic system. Musculoskeletal: No signs and/or symptoms reported regarding the musculoskeletal system. 10:38 Reassessment: patient has been discharged in the system, however the IV fluids have not kr3 finished. Once the fluids have infused the patient will be discharged. Vital Signs: 09:28 BP 129 / 85; Pulse 104; Resp 18; Temp 98.7; Pulse Ox 100% on R/A; Weight 79.38 kg; hb Height 5 ft. 9 in. (175.26 cm); Pain 10/10; 11:14 BP 110 / 68; Pulse 69; Resp 17; Pulse Ox 97% on R/A; kr3 09:28 Body Mass Index 25.84 (79.38 kg, 175.26 cm) ED Course: 09:16 Patient arrived in ED. am2 09:16 Moustapha Garcia MD is Private Physician. am2 09:16 Atilio Walters DO is Private Physician. am2 09:20 Marcio Brown MD is Attending Physician. rn 09:29 Triage completed. hb 09:29 Arm band placed on. hb 09:30 Mara Park, WILBER is Primary Nurse. kr3 09:30 Bed in low position. Call light in reach. Side rails up X 1. kr3 09:45 Inserted saline lock: 22 gauge in left hand, using aseptic technique. ,using aseptic kr3 technique. by Willem Moses RN. 11:15 No provider procedures requiring assistance completed. IV discontinued, intact, kr3 bleeding controlled, No redness/swelling at site. Pressure dressing applied. Administered Medications: 09:50 Drug: Ketorolac 30 mg Route: IVP; Site: left hand; kr3 11:18 Follow up: Response: No adverse reaction kr3 09:56 Drug: NS 0.9% 1000 ml Route: IV; Rate: 1000 ml; Site: left hand; kr3 11:18 Follow up: Response: No adverse reaction; IV Status: Completed infusion; IV Intake: kr3 1000ml Medication: 11:18 VIS not applicable for this client. kr3 Intake: 11:18 IV: 1000ml; Total: 1000ml. kr3 Outcome: 10:29 Discharge ordered by . rn 11:17 Discharged to home ambulatory. kr3 11:17 Condition: stable 11:17 Discharge instructions given to patient, Instructed on discharge instructions, follow up and referral plans. medication usage, Demonstrated understanding of instructions, follow-up care, medications, Prescriptions given X 2. 11:18 Patient left the ED. kr3 Signatures: Marcio Brown MD MD rn Baxter, Heather, RN RN Chloe Baldwin Kelley, WILBER RN kr3 Corrections: (The following items were deleted from the chart) 09:29 09:29 PMHx: "gal bladder problem"; [facility] 11:16 10:05 Inserted saline lock: 22 gauge in left hand, using aseptic technique. kr3 kr3
[2022-05-01 11:23] VITALS: TEMP 98.7
[2022-05-01 11:24] VITALS: BP 110/68; O2SAT 97
== END 2022-05-01 11:18 | disposition home or self-care (01) ==
LOC: ER 09:14
DX: H66.93 Otitis media, unspecified, bilateral (principal); E86.0 Dehydration; F17.210 Nicotine dependence, cigarettes, uncomplicated; Z85.41 Personal history of malignant neoplasm of cervix uteri; Z85.038 Personal history of other malignant neoplasm of large intestine
CPT/HCPCS: 96361; 96374; 99283; J7030

== ENCOUNTER 2022-07-13 11:17 | Emergency (ER) | payer OTHER ==
--- OUTSIDE RECORDS SUMMARY | 2022-07-13 11:23 | XMS REPORT | Continuity of Care Document ---
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 villafuerte Vaccine, Split, up 00:00:00 - Exte rnal to age 3 Vital Signs Vital Name Observation Time Observation Value Comments Source HEIGHT 2021-01-21 08:45:00 175.3 cm WEIGHT 2021-01-21 08:45:00 69.4 kg HEIGHT 2020-11-17 06:45:00 175.3 cm WEIGHT 2020-11-17 06:45:00 69.4 kg HEIGHT 2020-11-13 11:51:00 175.3 cm WEIGHT 2020-11-13 11:51:00 68.04 kg Systolic blood 2022-06-29 21:37:00 125 mm[Hg] [facility] pressure Medicine Diastolic blood 2022-06-29 21:37:00 81 mm[Hg] [facility] Medicine Heart rate 2022-06-29 21:37:00 88 /min [facility] Body weight 2022-06-29 21:37:00 83.643 kg [facility] BMI 2022-06-29 21:37:00 27.23 kg/m2 [facility] Systolic blood 2022-06-22 20:46:00 102 mm[Hg] Elaine Feliciano - pressure External Diastolic blood 2022-06-22 20:46:00 58 mm[Hg] Jihan Feliciano - pressure External Heart rate 2022-06-22 20:46:00 73 /min Elaine harmanbochauncey - External Body temperature 2022-06-22 20:46:00 37.44 Sera Christina ey Seybold - External Respiratory rate 2022-06-22 20:46:00 14 /min Christina harman Seybold - External Body height 2022-06-22 20:46:00 172.7 cm Elaine harmanbochauncey - External Body weight 2022-06-22 20:46:00 82.555 kg Elaine harmanbochauncey - External BMI 2022-06-22 20:46:00 27.67 kg/m2 Elaine harmanbold - External Oxygen saturation in 2022-06-22 20:46:00 97 /min Elaine Feliciano - Arterial blood by External Pulse oximetry Systolic blood 2022-06-14 16:09:00 108 mm[Hg] Elaine Feliciano - pressure External Diastolic blood 2022-06-14 16:09:00 56 mm[Hg] Jihan Dentold - pressure External Heart rate 2022-06-14 16:09:00 81 /min Elaine harmanbold - External Body temperature 2022-06-14 16:09:00 37.28 Sera Christina harman Seybold - External Respiratory rate 2022-06-14 16:09:00 14 /min Christina harman Seybold - External Body height 2022-06-14 16:09:00 172.7 cm Elaine Estrada eybold - External Body weight 2022-06-14 16:09:00 79.833 kg Elaine Estrada eybold - External BMI 2022-06-14 16:09:00 26.76 kg/m2 Elaine Estrada eybold - External Systolic blood 2021-12-09 18:23:00 120 mm[Hg] [facility] [...] Body weight 2021-12-09 18:23:00 70.308 kg [facility] BMI 2021-12-09 18:23:00 22.89 kg/m2 [facility] HEIGHT 2021-10-30 19:50:00 175.3 cm WEIGHT 2021-10-30 19:50:00 68.947 kg HEIGHT 2021-10-30 19:50:00 175.3 cm WEIGHT 2021-10-30 19:50:00 68.947 kg HEIGHT 2021-10-30 19:50:00 175.3 cm WEIGHT 2021-10-30 19:50:00 68.947 kg Systolic blood 2021-08-18 20:58:00 95 mm[Hg] [facility] Medicine Diastolic blood 2021-08-18 20:58:00 60 mm[Hg] [facility] Medicine Heart rate 2021-08-18 20:58:00 78 /min [facility] Body temperature 2021-08-18 20:58:00 37 Sera [facility] Body height 2021-08-18 20:58:00 175.3 cm [facility] Body weight 2021-08-18 20:58:00 62.596 kg [facility] BMI 2021-08-18 20:58:00 20.38 kg/m2 [facility] Systolic blood 2021-04-23 14:00:00 132 mm[Hg] [facility] Diastolic blood 2021-04-23 14:00:00 79 mm[Hg] Unive rsity [facility] Heart rate 2021-04-23 14:00:00 57 /min [facility] Respiratory rate 2021-04-23 14:00:00 18 /min [facility] saturation in 2021-04-23 14:00:00 100 /min [facility] Arterial blood by [facility] Pulse oximetry Branch Body temperature 2021-04-23 13:35:00 36.89 Sera [facility] Body weight 2021-04-23 13:35:00 63.504 kg [facility] BMI 2021-04-23 13:35:00 20.67 kg/m2 [facility] Systolic blood 2021-03-10 14:49:00 122 mm[Hg] [facility] pressure Medicine Diastolic blood 2021-03-10 14:49:00 80 mm[Hg] [facility] Medicine Heart rate 2021-03-10 14:49:00 94 /[facility] Body temperature 2021-03-10 14:49:00 36.5 Sera [facility] Respiratory rate 2021-03-10 14:49:00 17 /min [facility] Body height 2021-03-10 14:49:00 175.3 cm [facility] Body weight 2021-03-10 14:49:00 62.778 [facility] BMI 2021-03-10 14:49:00 20.44 kg/m2 [facility] HEIGHT 2021-03-04 14:15:00 175.3 cm WEIGHT 2021-03-04 [...] kg Systolic blood 2020-10-28 19:42:00 110 mm[Hg] [facility] pressure Medicine Diastolic blood 2020-10-28 19:42:00 73 mm[Hg] [facility] Medicine Heart rate 2020-10-28 19:42:00 82 /min [facility] Body temperature 2020-10-28 19:42:00 36.94 Sera [facility] Body height 2020-10-28 19:42:00 175.3 cm [facility] Body weight 2020-10-28 19:42:00 73.483 kg [facility] BMI 2020-10-28 19:42:00 23.92 kg/m2 [facility] Systolic blood 2020-10-14 18:38:00 114 mm[Hg] [facility] Diastolic blood 2020-10-14 18:38:00 73 mm[Hg] [facility] Heart rate 2020-10-14 18:38:00 101 /min [facility] Body temperature 2020-10-14 18:38:00 36.72 Sera [facility] Systolic blood 2020-08-26 19:38:00 115 mm[Hg] [facility] Diastolic blood 2020-08-26 19:38:00 67 mm[Hg] [facility] Heart rate 2020-08-26 19:38:00 92 /min [facility] Body weight 2020-08-26 19:38:00 74.39 kg [facility] Systolic blood 2020 15:29:00 100 mm[Hg] Univer sity of pressure [facility] Diastolic blood 2020 15:29:00 71 mm[Hg] [facility] Heart rate 2020 15:29:00 89 /min Universi ty of [facility] Body temperature 2020 15:29:00 36.61 Sera Univ ersity of [facility] Body height 2020 15:29:[address] [facility] Body weight 2020 15:29:00 84.006 kg Universi ty of [facility] BMI 2020 15:29:00 27.35 kg/m2 [facility] Systolic blood 2021-10-30 22:10:00 103 mm[Hg] [facility] pressure [facility] Diastolic blood 2021-10-30 22:10:00 69 mm[Hg] [facility] Heart rate 2021-10-30 22:10:00 68 /min [facility] Respiratory rate 2021-10-30 22:10:00 18 /min [facility] Oxygen saturation in 2021-10-30 22:10:00 99 /min [facility] Arterial blood by Medical Ce nter Pulse oximetry Body temperature 2021-10-30 19:50:00 37 Sera [facility] Body height 2021-10-30 19:50:00 175.3 cm [facility] Body weight 2021-10-30 19:50:00 68.947 kg [facility] BMI 2021-10-30 19:50:00 22.45 kg/m2 [facility] Procedures Procedure Date / Time Performing Clinician Source Performed AUTHORIZATION FOR RELEASE 2022-01-18 05:01:00 Doctor Unamanuela, [facility] Name [facility] AUTHORIZATION FOR RELEASE 2021-10-22 05:01:00 Doctor Donnell, [facility] Name [facility] CT ABDOMEN PELVIS WO 2021-04-23 14:44:18 Debi Carson [facility] POCT TEST 2021-04-23 14:01:00 Debi Carson [facility] URINALYSIS 2021-04-23 13:58:00 Debi Carson [facility] LIPASE 2021-04-23 13:45:00 Debi Carson [facility] COMP. METABOLIC PANEL 2021-04-23 13:45:00 Debi Carson [facility] ([id number]) Medical [place] CBC WITH DIFF 2021-04-23 13:45:00 Debi Carson [facility] MRI CERVICAL SPINE W WO 2020-09-22 23:30:00 Erasto Almazan [facility] CONTRAST ASSIGNMENT OF BENEFITS 2020-09-22 13:05:16 Doctor Unassigned, [facility] [place] [facility] NO SHOW OR MISSED 2020 14:55:48 Doctor Unassigned, [facility] APPOINTMENT POLICY [facility] ACKNOWLEDGEMENT REFERRAL- REQUEST/RESPONSE 2019-11-22 05:01:00 Doctor Unassigned , [facility] Plan of Care Planned Activity Planned Date Details Comments Source Future Scheduled 2022-06-29 [facility]OSCOPY W [facility] DEPT [code = 35823020] starting of Me dicine 06/29/2022 until 12/30/2022 Future Scheduled 2022-06-29 Screening for malignant [facility] Test 15:39:51 neoplasm of breast of Medici ne (procedure) [code = 963551597] Future Scheduled 2022-06-29 COVID-19 Vaccine (#1) [employer] Test 15:39:51 [code = COVID-19 of Medicine Vaccine (#1)] Future Scheduled 2022-06-29 Pneumococcal Combined [employer] Test 15:39:51 (1 - PCV) [code = of Medicin e Pneumococcal Combined (1 - PCV)] Future Scheduled 2022-06-29 TETANUS SHOT (ADULT) [facility] Test 15:39:51 [code = TETANUS SHOT of Medi cine (ADULT)] Future Scheduled 2022-06-29 Screening for malignant [facility] Test 15:39:51 neoplasm of cervix of Medici ne (procedure) [code = 956402442] Future Scheduled 2022-06-29 FLU VACCINE > 6 MONTHS [employer] Test 15:39:51 [code = FLU VACCINE > 6 of M edicine MONTHS] Future Scheduled 2022-04-[address] [facility] Test 00:00:00 (12+) [code = Medical Center DEPRESSION SCREENING (12+)] Future Scheduled 2022-04-[address] [facility] Test 00:00:00 (12+) [code = Medical Center DEPRESSION SCREENING (12+)] Future Scheduled 2022-04-[address] [facility] Test 00:00:00 (12+) [code = Medical Center DEPRESSION SCREENING (12+)] Future Scheduled 2022-04-[address] [facility] Test 00:00:00 (12+) [code = Medical Center DEPRESSION SCREENING (12+)] Future Scheduled 2022 [facility] Test 00:00:00 (Yearly) [code = Breast Cancer Scrn (Yearly)] Future Scheduled 2022 [facility] Test 00:00:00 (Yearly) [code = Breast Cancer Scrn (Yearly)] Future Scheduled 2022-02-[address] [facility] Test 00:00:00 Counseling and Medical Cente r Screening (12+) [code = Tobacco Cessation Counseling and Screening (12+)] Future Scheduled 2022-02-[address] [facility] Test 00:00:00 Counseling and Medical Cente r Screening (12+) [code = Tobacco Cessation Counseling and Screening (12+)] Future Scheduled 2022-02-[address] [facility] Test 00:00:00 Counseling and Medical Cente r Screening (12+) [code = Tobacco Cessation Counseling and Screening (12+)] Future Scheduled 2022-02-[address] [facility] Test 00:00:00 Counseling and Medical Cente r Screening (12+) [code = Tobacco Cessation Counseling and Screening (12+)] Future Scheduled 2022-02-[address] [facility] Test 00:00:00 Counseling and Medical Cente r Screening (12+) [code = Tobacco Cessation Counseling and Screening (12+)] Future Scheduled 2022-01-22 [facility] Influenza [facility] 00:00:00 (>/= 19 yrs) [code = IMM Influenza Seasonal (>/= 19 yrs)] Future Scheduled 2022-01-22 [facility]MM Influenza [facility] 00:00:00 (>/= 19 yrs) [code = IMM Influenza Seasonal (>/= 19 yrs)] Future Scheduled 2022-01-22 [facility]MM [facility]enza [facility] 00:00:00 (>/= 19 yrs) [code = IMM Influenza Seasonal (>/= 19 yrs)] Future Scheduled 2021-12-23 INFLUENZA VACCINE (#1) [facility] 00:[facility]00 [code = INFLUENZA Medical Ce nter VACCINE (#1)] Future Scheduled 2021-12-23 INFLUENZA VACCINE (#1) [facility] 00:00:00 [code = INFLUENZA Medical Ce nter VACCINE (#1)] Future Scheduled 2021-12-23 INFLUENZA VACCINE (#1) [facility] 00:00:00 [code = INFLUENZA Medical Ce nter VACCINE (#1)] Future Scheduled 2021-12-23 INFLUENZA VACCINE (#1) [facility] 00:00:00 [code = INFLUENZA Medical Ce nter VACCINE (#1)] Future Scheduled 2021-12-23 INFLUENZA VACCINE (#1) [facility] Test 00:00:00 [code = INFLUENZA Medical Ce nter VACCINE (#1)] Future Scheduled 2021-08-20 COVID-19 Vaccine (1) [employer] Test 09:56:07 [code = COVID-19 of Medicine Vaccine (1)] Future Scheduled 2021-08-20 Pneumococcal Combined [employer] Test 09:56:07 (1 of 2 - PPSV23) [code of M edicine = Pneumococcal Combined (1 of 2 - PPSV23)] Future Scheduled 2021-08-20 TETANUS SHOT (ADULT) [employer] Test 09:56:07 [code = TETANUS SHOT of Medi cine (ADULT)] Future Scheduled 2021-08-20 Screening for malignant [facility] Test 09:56:07 neoplasm of cervix of Medici ne (procedure) [code = 805455467] Future Scheduled 2021-08-20 FLU VACCINE > 6 MONTHS [employer] Test 09:56:07 [code = FLU VACCINE > 6 of M edicine MONTHS] Future Scheduled 2021-04-[address] [facility] Test 00:00:00 (12+) [code = [facility] DEPRESSION SCREENING (12+)] Future Scheduled 2021-03-10 Pneumococcal Combined [employer] Test 08:46:43 (1 of 2 - PPSV23) [code of M edicine = Pneumococcal Combined (1 of 2 - PPSV23)] Future Scheduled 2021-03-10 COVID-19 Vaccine (1) [employer] Test 08:46:43 [code = COVID-19 of Medicine Vaccine (1)] Future Scheduled 2021-03-10 TETANUS SHOT (ADULT) [employer] Test 08:46:43 [code = TETANUS SHOT of Medi cine (ADULT)] Future Scheduled 2021-03-10 Screening for malignant [facility] College Test 08:46:43 neoplasm of cervix of Medici ne (procedure) [code = 975909126] Future Scheduled 2021-03-10 FLU VACCINE > 6 MONTHS [employer] Test 08:46:43 [code = FLU VACCINE > 6 of M edicine MONTHS] Future Scheduled 2020-10-28 COVID-19 Vaccine (1) [employer] Test 14:41:44 [code = COVID-19 of Medicine Vaccine (1)] Future Scheduled 2020-10-28 TETANUS SHOT (ADULT) [employer] Test 14:41:44 [code = TETANUS SHOT of Medi cine (ADULT)] Future Scheduled 2020-10-28 Screening for malignant [employer] Test 14:41:44 neoplasm of cervix of Medici ne (procedure) [code = 805725146] Future Scheduled 2020-10-28 FLU VACCINE > 6 MONTHS [employer] Test 14:41:44 [code = FLU VACCINE > 6 of M edicine MONTHS] Future Scheduled 2020-10-14 COVID-19 Vaccine (1) [facility] Test 13:38:59 [code = COVID-19 of Medicine Vaccine (1)] Future Scheduled 2020-10-14 TETANUS SHOT (ADULT) [facility] Test 13:38:59 [code = TETANUS SHOT of Medi cine (ADULT)] Future Scheduled 2020-10-14 Screening for malignant [facility] Test 13:38:59 neoplasm of cervix of Medici ne (procedure) [code = 922917690] Future Scheduled 2020-10-14 FLU VACCINE > 6 MONTHS [employer] Test 13:38:59 [code = FLU VACCINE > 6 of M edicine MONTHS] Future Scheduled 2012-02-19 Screening for malignant [facility] Test 00:00:00 neoplasm of cervix (procedure) [code = 489963639] Future Scheduled 2012-02-19 Screening for malignant [facility] Test 00:00:00 neoplasm of cervix (procedure) [code = 410418863] Future Scheduled 2012-02-19 Screening for malignant [facility] Test 00:00:00 neoplasm of cervix (procedure) [code = 054164022] Future Scheduled 2012-02-19 Screening for malignant [facility] Test 00:00:00 neoplasm of cervix (procedure) [code = 178612103] Future Scheduled 2012-02-19 Screening for malignant [facility] Test 00:00:00 neoplasm of cervix (procedure) [code = 294257202] Future Scheduled 2012-02-19 Screening for malignant [facility] Test 00:00:00 neoplasm of cervix (procedure) [code = 402284861] Future Scheduled 2003 Screening for malignant [facility] Test 00:00:00 neoplasm of cervix Medical C enter (procedure) [code = 763916466] Future Scheduled 2003 Screening for malignant [facility] Test 00:00:00 neoplasm of cervix Medical C enter (procedure) [code = 853740015] Future Scheduled 2003 Screening for malignant [facility] Test 00:00:00 neoplasm of cervix Medical C enter (procedure) [code = 393009562] Future Scheduled 2003 Screening for malignant [facility] Test 00:00:00 neoplasm of cervix Medical C enter (procedure) [code = 582986514] Future Scheduled 2003 Screening for malignant [facility] Test 00:00:00 neoplasm of cervix Medical C enter (procedure) [code = 145042752] Future Scheduled 2002 Lipid panel (procedure) [facility] Test 00:00:00 [code = 05243465] Medical Ce nter Future Scheduled 2002 Lipid panel (procedure) [facility] Test 00:00:00 [code = 20277480] Medical Ce nter Future Scheduled 2002 Lipid panel (procedure) [facility] Test 00:00:00 [code = 43456874] Medical Ce nter Future Scheduled 2002 Lipid panel (procedure) [facility] Test 00:00:00 [code = 70856434] Medical Ce nter Future Scheduled 2002 Lipid panel (procedure) [facility] Test 00:00:00 [code = 16739545] Medical Ce nter Future Scheduled 2001 DTAP/TDAP/TD VACCINES [facility] Test 00:00:00 (1 - Tdap) [code = Medical C enter DTAP/TDAP/TD VACCINES (1 - Tdap)] Future Scheduled 2001 DTAP/TDAP/TD VACCINES [facility] Test 00:00:00 (1 - Tdap) [code = Medical C enter DTAP/TDAP/TD VACCINES (1 - Tdap)] Future Scheduled 2001 DTAP/TDAP/TD VACCINES [facility] Test 00:00:00 (1 - Tdap) [code = Medical C enter DTAP/TDAP/TD VACCINES (1 - Tdap)] Future Scheduled 2001 DTAP/TDAP/TD [facility]ACCINES [facility] Test 00:00:00 (1 - Tdap) [code = Medical C enter DTAP/TDAP/TD VACCINES (1 - Tdap)] Future Scheduled 2001 DTAP/TDAP/TD [facility]ACCINES [facility] 00:00:00 (1 - Tdap) [code = Medical C enter DTAP/TDAP/TD VACCINES (1 - Tdap)] Future Scheduled 2000-02-19 HEPATITIS C [facility]CREENING [facility] 00:00:00 [code = HEPATITIS C Medical Center SCREENING] Future Scheduled 2000-02-19 HEPATITIS C [facility] 00:00:00 [code = HEPATITIS C Medical Center SCREENING] Future Scheduled 2000-02-19 HEPATITIS C [facility] 00:00:00 [code = HEPATITIS C Medical Center SCREENING] Future Scheduled 2000-02-19 HEPATITIS C [facility] 00:00:00 [code = HEPATITIS C Medical Center SCREENING] Future Scheduled 2000-02-19 HEPATITIS C [facility] 00:00:00 [code = HEPATITIS C Medical Center SCREENING] Future Scheduled 1988-02-[address] [facility] Test 00:00:00 0-64 YRS (1 - PCV) Medical C enter [code = PNEUMOCOCCAL VACCINE 0-64 YRS (1 - PCV)] Future Scheduled 1988-02-[address] [facility] Test 00:00:00 0-64 YRS (1 - PCV) Medical C enter [code = PNEUMOCOCCAL VACCINE 0-64 YRS (1 - PCV)] Future Scheduled 1988-02-[address] [facility] Test 00:00:00 0-64 YRS (1 - PCV) Medical C enter [code = PNEUMOCOCCAL VACCINE 0-64 YRS (1 - PCV)] Future Scheduled 1988-02-[address] [facility] Test 00:00:00 0-64 YRS (1 - PCV) Medical C enter [code = PNEUMOCOCCAL VACCINE 0-64 YRS (1 - PCV)] Future Scheduled 1988-02-[address] [...] [address] VACCINE (#1)] Future Scheduled 1982 COVID-19 VACCINE (#1[facility] 00:00:00 [code = COVID-[address] VACCINE (#1)] Future Scheduled 1982 COVID-19 VACCINE (#1) [facility] 00:00:00 [code = COVID-[address] VACCINE (#1)] Future Scheduled 1982 COVID-19 VACCINE (#1) [facility] 00:00:00 [code = COVID-[address] VACCINE (#1)] Future Scheduled 1982 COVID-19 VACCINE (#1) [facility] 00:00:00 [code = COVID-[address] VACCINE (#1)] Future Scheduled 1982 COVID-19 Vaccine (#1) [facility] 00:00:00 [code = COVID-19 Vaccine (#1)] Future Scheduled 1982 COVID-19 Vaccine (#1) [facility] 00:00:00 [code = COVID-19 Vaccine (#1)] Future Scheduled 1982 Fluoride Varnish [facility]code [facility] 00:00:00 = Fluoride Varnish] Future Scheduled NADIA SCOPE [code = Ordered: [facility] Test TZO104] 08/26/2020 of Medicine Future Scheduled HIV AB/AG 4TH GEN W [facility] RFLX [code = 88442-6] 08/26/2020 of Med icine Future Scheduled HEPATITIS C ANTIBODY Ordered: [facility] Test [code = 31086-6] 08/26/2020 of Medicine Future Scheduled CBC W/AUTO DIFF WITH Ordered: [facility] Test PLATELETS [code = 08/26/2020 of Medicin e 96260-5] Future Scheduled COMPREHENSIVE METABOLIC Ordered: [facility] Test PANEL [code = 62711-0] 08/26/2020 of Me dicine Future Scheduled HEPATITIS B SURFACE Ordered: [facility] Test ANTI- BODY QUANT,LIVER 08/26/2020 of Me dicine TRANSP [code = NOCPT] Future Scheduled LACTATE DEHYDROGENASE Ordered: [employer] Test [code = 2532-0] 08/26/2020 of Medicine Future Scheduled TETANUS SHOT (ADULT) [employer] Test [code = TETANUS SHOT of Medi cine (ADULT)] Future Scheduled COVID-19 Vaccine (1) [employer] Test [code = COVID-19 of Medicine Vaccine (1)] Future Scheduled Hepatitis C screening [employer] Test (procedure) [code = of Medic ine 089494191] [facility] (procedure) [code = 037892386] Future Scheduled Screening for malignant [facility] Test neoplasm of cervix of Medici ne (procedure) [code = 752268959] Future Scheduled FLU VACCINE > 6 MONTHS [facility] Test [code = FLU VACCINE > 6 of M edicine MONTHS] Future Scheduled US FNA [code = 59063] 1 Occurrences [employer] Test starting of Medicine 08/26/2020 until 08/26/2021 Encounters Start End Encounter Admission Attending Care Care Encounter Source Date/Time Date/Time Type Type Clinicians Facility Department ID 2021-02-20 Outpatient Diana [facility] GIZehra [id number] Univers 15:24:19 [facility] 2021-02-20 Outpatient Diana [facility] GIE [id number] Univers 01:30:11 [facility] 2021-01-31 Outpatient JAWAID, [facility] [id number] [facility] 14:23:40 JUJU 2021-01-31 Outpatient OUSMANE, [facility] [id number] [facility] 02:13:58 FILIPPO 2022-07-25 2022-07-25 Outpatient ELAINE ORTEGA [id number] Elaine 16:00:00 16:00:00 DAROÍ gerber 2022-07-13 2022-07-13 Outpatient ELAINE ORTEGA [id number] Elaine 00:00:00 00:00:00 DARÍO gerber 2022-07-11 2022-07-11 Outpatient ELAINE ORTEGA [id number] Elaine 00:00:00 00:00:00 DARÍO Seybol d 2022-07-11 2022-07-11 Outpatient ELAINE CARR [id number] Elaine 00:00:00 00:00:00 LISETTE Seybol d 2022-07-09 2022-07-09 Outpatient ELAINE ORTEGA [id number] Elaine 00:00:00 00:00:00 DARÍO Seybol d 2022-07-01 2022-07-01 Outpatient ELAINE DAVIS [id number] Elaine 00:00:00 00:00:00 Seybol d 2022-06-30 2022-06-30 Outpatient ELAINE DAVIS [id number] Elaine 00:00:00 00:00:00 Seybol d 2022-06-29 2022-06-29 Office RATNA, PARISA [id number] [facility] 15:32:52 16:40:15 [facility] [id number] [facility] Y [id number] Medi kateryna 325 e 2022-06-29 2022-06-29 Outpatient ELAINE LYNN [id number] Elaine 00:00:00 00:00:00 JEFFRY Seybol d 2022-06-28 2022-06-28 Outpatient ELAINE CARR [id number] Elaine 15:00:00 15:00:00 LISETTE Seybol d 2022-06-28 2022-06-28 Outpatient ELAINE ORTEGA [id number] Elaine 00:00:00 00:00:00 DARÍO Seybol d 2022-06-28 2022-06-28 Outpatient ELAINE ORTEGA [id number] Elaine 00:00:00 00:00:00 DARÍO Seybol d 2022-06-24 2022-06-24 Outpatient ELAINE ORTEGA [id number] Elaine 00:00:00 00:00:00 DARÍO Seybol d 2022-06-23 2022-06-23 Outpatient ELAINE CARR [id number] Elaine 00:00:00 00:00:00 LISETTE Seybol d 2022-06-22 2022-06-22 Outpatient PREZANatalie ELAINE DAVIS [id number] Elaine 15:15:00 15:15:00 DARÍO Seybol d 2022-06-21 2022-06-21 Outpatient LAB90 ELAINE DAVIS [id number] Elaine 08:05:00 08:05:00 Seybol d 2022-06-21 2022-06-21 Outpatient BRUNO ELAINE DAVIS [id number] Elaine 00:00:00 00:00:00 LISETTE Seybol d 2022-06-21 2022-06-21 Outpatient PREZANatalie ELAINE DAVIS [id number] Elaine 00:00:00 00:00:00 DARÍO Seybol d 2022-06-20 2022-06-20 Outpatient BRUNO ELAINE DAVIS [id number] Elaine 00:00:00 00:00:00 LISETTE Seybol d 2022-06-15 2022-06-15 Outpatient BRUNO, ELAINE DAVIS [id number] Elaine 00:00:00 00:00:00 LISETTE Seybol d 2022-06-14 2022-06-14 Outpatient LAB90 ELAINE DAVIS [id number] Elaine 10:55:00 10:55:00 Seybol d 2022-06-14 2022-06-14 Outpatient BRUNO ELAINE DAVIS [id number] Elaine 10:00:00 10:00:00 LISETTE Seybol d 2022-06-14 2022-06-14 Outpatient BRUNO ELAINE DAVIS [id number] Elaine 00:00:00 00:00:00 LISETTE Seybol d 2022-01-18 2022-01-18 Orders Doctor ERASTO 1.2.840.114 [id number] Univers 00:00:00 00:00:00 Only Unassigned, JENY 350.1.13.10 ity [address] [place] [facility] 4.2.7.2.686 Jakub as [phone] [place] [address] [place] 2021-12-09 2021-12-09 Outpatient [facility] [id number] ID 13:00:00 13:00:00 [facility] 2021-12-09 2021-12-09 Office CARIDI, UTP 6400 1.2.840.114 [id number] [place] 13:00:00 13:00:00 Visit ERASTO MONK 350.1.13.58 Health 9.2.7.2.686 [id number] 2021-11-26 2021-11-26 Telephone Norah, UTP 6400 1.2.840.114 [id number] UT 00:00:00 00:00:00 Erasto MONK 350.1.13.58 Health 9.2.7.2.686 [id number] 2021-11-24 2021-11-24 Telephone Norah, UTP 6400 1.2.840.114 140 [id number] [place] 00:00:00 00:00:00 Erasto MONK 350.1.13.58 Health 9.2.7.2.686 [id number] 7 2021-10-30 2021-10-31 Emergency [facility], [facility] [id number] 20:12:00 00:01:00 [facility] 2021-10-30 2021-10-31 Emergency ER [facility] Emergency [id number] SLE 20:12:00 00:01:00 [facility] 2021-10-30 2021-10-31 Emergency [facility], [facility] [id number] 20:12:00 00:01:00 [facility] 2021-10-30 2021-10-30 Travel [facility] [id number] [facility] 00:00:00 00:00:00 [facility] 2021-10-30 2021-10-30 Travel [facility] [id number] [facility] 00:00:00 00:00:00 [facility] 2021-10-22 2021-10-22 Orders Doctor ERASTO 1.2.840.114 [id number] Univers 00:00:00 00:00:00 Only Unassigned, JENY 350.1.13.[address] [facility] 4.2.7.2.686 Jakub as [id number] [facility] 009 Branch 2021-08-18 2021-08-18 Office MeghnaPARISA 1.2.840.114 [id number] [facility] 15:15:00 16:45:39 Visit Jerry Gerber AMBULATOR 350.1.13.21 College Y 0.2.7.2.686 of [id number] [facility] kateryna 800 e 2021-06-28 2021-06-28 Outpatient PARISA WRIGHT [facility] [id number] [facility] 15:53:51 16:00:59 SALMAAN [facility] 2021-04-23 2021-04-23 Emergency X YAMILETH [facility] ERT [id number] Univers 07:33:00 09:25:[address] [facility] 2021-04-23 2021-04-23 Emergency Yamileth [facility] 1.2.018.940 [id number] Univers 07:33:00 09:25:00 Debi MORENO [facility].1.13.10 [facility] 4.2.7.2.686 [facility] [id number] [facility] 084 Branch 2021-03-10 2021-03-10 Office PARISA WRIGHT 1.2.840.114 [id number] [facility] 08:42:48 11:33:02 Visit HERNANGEOVANNYAN AMBULATOR 350.1.13.21 College Y 0.2.7.2.686 of [id number] [facility] kateryna 325 e 2021-03-04 2021-03-04 Outpatient [facility] [id number] [facility] 00:00:00 23:59:00 Colleg e [facility] Medicin e 2021-03-04 2021-03-04 Emergency ER BICETTE, [facility] Emergency [id number] [facility] 14:12:00 17:15:00 RICHINA 2021-02-01 2021-02-05 Outpatient PARISA WRIGHT Aris [id number] [facility] 16:03:44 19:52:07 SALMAAN [facility] 2021-02-01 2021-02-01 Outpatient EL RATNA [facility] Surgery [id number] [facility] 07:39:00 12:03:00 SALMAAN 2021-02-01 2021-02-01 Outpatient JAWANGELIA, Aris [facility] [id number] [facility] 10:43:00 10:43:00 SALGEOVANNYAN Jessig e of Medicin e 2021-01-29 2021-01-29 Outpatient EL RATNA, SLE [facility] [id number] [facility] 16:18:52 23:59:00 SALMAAN 2021-01-29 2021-01-29 Outpatient EL SLEH [facility] [id number] [facility] 00:00:00 00:00:00 2021-01-29 2021-01-29 Outpatient SLEH [facility] [id number] [facility] 00:00:00 00:00:00 2021-01-21 2021-01-21 Outpatient EL SLEH [facility] [id number] [facility] 00:00:00 00:00:00 2020-11-25 2020-11-25 Outpatient OUSMANE, [facility] [id number] [facility] 13:23:53 13:46:49 FILIPPO Bejarano e of Medicin e 2020-11-13 2020-11-13 Outpatient SLE SLE [id number] [facility] 00:00:00 00:00:00 2020-10-28 2020-10-28 Office KEVIN Romeo 1.2.840.114 [id number] [facility] 14:37:12 14:59:11 Visit Filippo AMBULATOR 350.1.13.21 [facility] Y 0.2.7.2.686 of [id number] Medi kateryna 800 e 2020-10-15 2020-10-15 EXT MHH OP Caridi, EXT MSRDP 1.2.840.114 1 [id number] [place] 00:00:00 00:00:00 [facility] LOCATION 350.1.13.58 H ealth 9.2.7.2.686 [id number] 0 2020-10-15 2020-10-15 EXT MHH OP Caridi, EXT MSRDP 1.2.840.114 1 [id number] UT 00:00:00 00:00:00 [facility] LOCATION 350.1.13.58 H ealth 9.2.7.2.686 [id number] 0 2020-10-14 2020-10-14 Office PARISA Romeo 1.2.840.114 [id number] [facility] 13:28:25 15:29:27 Visit Filippo AMBULATOR 350.1.13.21 [facility] 0.2.7.2.686 [id number] [facility] 800 e 2020-09-24 2020-09-24 Outpatient SLE SLE [id number] SLE 00:00:00 00:00:00 2020-09-23 2020-09-23 Outpatient [facility] [id number] Univers 08:15:00 08:15:[address] [facility] 2020-09-23 2020-09-23 Outpatient [facility] [id number] Univers 00:00:00 00:00:[address] [facility] 2020-09-22 2020-09-22 [facility] 1.2.840.114 [id number] Univers 08:00:00 23:59:00 Encounter [place] 350.1.13.10 ity of [place] 4.2.7.2.686 [facility] [id number] [facility] 805 [place] 2020-09-22 2020-09-22 [facility] 1.2.840.114 [id number] 08:00:00 23:59:00 Encounter [place] 350.1.13.10 [place] 4.2.7.2.686 Joshua [id number] 2020-09-22 2020-09-22 Outpatient [facility] [id number] Univers 08:00:00 08:00:[address] [facility] 2020-09-22 2020-09-22 Orders Doctor MAURER 1.2.840.114 [id number] Univers 00:00:00 00:00:00 Only Unassigned, JENY 350.1.13.[address] [facility] 4.2.7.2.686 Jakub [id number] [facility] 009 Branch 2020-09-22 2020-09-22 Orders Doctor MAURER 1.2.840.114 [id number] 00:00:00 00:00:00 Only Unassigned, JENY 350.1.13.10 [place] [facility] 4.2.7.2.686 [id number] 009 2020-09-05 2020-09-05 EXT H OP Caridi, EXT MSRDP 1.2.840.114 1 [id number] [place] 00:00:00 00:00:00 Erasto Hurst LOCATION 350.1.13.58 H ealth 9.2.7.2.686 [id number] 2020-09-05 2020-09-05 EXT [facility] OP Caridi, EXT MSRDP 1.2.840.114 1 [id number] UT 00:00:00 00:00:00 Erasto Hurst LOCATION 350.1.13.58 H ealth 9.2.7.2.686 [id number] 2020-09-02 2020-09-02 Outpatient R FREDDIE [facility] [id number] Univers 00:00:00 00:00:00 ity of [facility] 2020-08-26 2020-08-26 Office Ousmane, PARISA 1.2.840.114 [id number] [facility] 14:34:48 14:54:48 Visit Filippo AMBULATOR 350.1.13.21 [facility] 0.2.7.2.686 [id number] [facility] 800 e 2020-05-04 2020-05-04 Outpatient R [facility] [id number] Univers 13:45:00 13:45:00 ity of [facility] 2020-04-13 2020-04-13 Telephone [facility], UNIVERSIT 1.2.840.114 [id number] Univers 00:00:00 00:00:00 Rawan Andrews Y HEALTH 350.1.13.10 ity of [place] [id number] [place] [address] [place] 2020-04-13 2020-04-13 Telephone Day, UNIVERSIT 1.2.840.114 [id number] 00:00:00 00:00:00 Rawan Andrews Y HEALTH 350.1.13.10 CLINICS 4.2.7.2.686 [id number] 2020-03-23 2020-03-23 Outpatient HARSHIL CERVANTES [facility] [id number] Univers 08:40:00 08:40:[address] [facility] 2020-03-03 2020-03-03 Outpatient HARSHIL [facility] [id number] Univers 08:00:00 08:00:[address] [facility] 2020-03-03 2020-03-03 Telephone Genoveva [facility] 1.2.840.114 [id number] Univers 00:00:00 00:00:00 Harshil Andrew [place] 350.1.13.10 it[place] [phone] [place] [address] [facility] 2020 2020 Office BO Curtis 1.2.882.994 [id number] Univers 09:55:39 10:42:47 Visit Hui [facility] 350.1.13.10 ity of [facility] [place].2.7.2.[place] [id number] [place] [address] [place] 2020 2020 Outpatient R KIRSTEN [facility] [id number] Univers 10:00:00 10:00:[address] [facility] 2020 2020 Orders Doctor ERASTO 1.2.840.114 [id number] Univers 00:00:00 00:00:00 Only Unassigned, JENY 350.1.13.10 [place] [facility] 4.2.7.2.686 Jakub as [id number] [facility] 009 [place] 2019-11-22 2019-11-22 Orders Doctor ERASTO 1.2.840.114 [id number] Univers 00:00:00 00:00:00 Only Unassigned, JENY 350.1.13.10 [place] [facility] 4.2.7.2.686 Jakub as [id number] [address] Results Test Description Test Time Test Comments Results Result Comments Source COMP. METABOLIC PANEL (38586) 2021-04-23 14:33:49 Test Item Value Reference Range Interpretation Comme nts NA (test code = 8956965077) 140 mmol/L 135-145 K (test code = 4838748890) 3.5 mmol/L 3.5-5.0 CL (test code = 8826734436) 109 mmol/L 98-108 H CO2 TOTAL (test code = 5931052132) 23 mmol/L 23-31 AGAP (test code = 4293026734) 2-16 BUN (test code = 1363648984) 7 mg/dL 7-23 GLUCOSE (test code = 1021612940) 105 mg/dL 70-110 CREATININE (test code = 0.50 mg/dL 0.50-1.04 3524272608) TOTAL BILI (test code = 0.6 mg/dL 0.1-1.2 9903263412) CALCIUM (test code = 0642022551) 8.6 mg/dL 8.6-10.6 T PROTEIN (test code = 9846482750) 7.6 g/dL 6.3-8.2 ALBUMIN (test code = 5308999321) 4.4 g/dL 3.5-5.0 ALK PHOS (test code = 7155222108) 82 U/L 34-122 ALTv (test code = 1742-6) 14 U/L 5-35 AST(SGOT) (test code = 6847219141) 31 U/L 13-40 eGFR (test code = 3378292191) mL/min/1.73m2 CHIKIS (test code = CHIKIS) Association [...] tests). Lab Interpretation (test code = Abnormal 08463-5) [facility] 14[facility]33[facility]29 Test Item Value Reference Range Interpretation Comments LIPASE (test code = 1277550694) 36 U/L 0-220 Lab Interpretation (test code = Normal 90924-5) [facility] WITH [id number] 14:13:06 Test Item Value Reference Range Interpretation Comments WBC (test code = See_Comment H [Automated 6690-2) message] The sy stem which generated this result transmitted reference range : 4.30 - 11.10 10*3/?L. The reference range was not used to interpret this result as normal/abnormal . RBC (test code = See_Comment [Automated 909-8) message] The sy stem which generated this [...] (test code = 52.5 fL 39.0-49.9 H 93647-9) RDW-CV (test code = 15.6 % 12.0-15.5 H 788-0) PLT (test code = See_Comment H [Automated 777-3) message] The sy stem which generated this result transmitted reference range : 166 - 358 10*3/ ?L. The reference r kristy was not used to interpret this result as normal/abnormal . MPV (test code = 10.0 fL 9.5-12.9 13882-7) IPF % (test code = 2.6 % 1.3-7.7 Platelet count 8076880928) measured by fluorescence method. NRBC/100 WBC (test See_Comment [Automat ed code = 6866820641) message] The system which generated this result transmitted reference range : 0.0 - 10.0 /100 WBCs. The refer ence range was not u sed to interpret th is result as normal/abnormal . NRBC x10^3 (test code <0.01 See_Comment [Auto mated = 6546951141) message] The s ystem which generated this result transmitted reference range : 10*3/?L. The reference range was not used to interpret this result as normal/abnormal . GRAN MAT (NEUT) % 79.3 % (test code = 770-8) IMM GRAN % (test code 0.40 % = 1094609940) LYMPH % (test code = 13.8 % 736-9) MONO % (test code = 5.2 % 5905-5) EOS % (test code = 0.8 % 713-8) BASO % (test code = 0.5 % 706-2) GRAN MAT x10^3(ANC) 9.51 10*3/uL 1.88-7.09 H (test code = 2280671162) IMM GRAN x10^3 (test 0.05 10*3/uL 0.00-0.06 code = 4727216547) LYMPH x10^3 (test code 1.65 10*3/uL 1.32-3.29 = 731-0) MONO x10^3 (test code 0.62 10*3/uL 0.33-0.92 = 742-7) EOS x10^3 (test code = 0.10 10*3/uL 0.03-0.39 711-2) BASO x10^3 (test code 0.06 10*3/uL 0.01-0.07 = 704-7) Lab Interpretation Abnormal (test code = 66286-4) [facility] [id number] 14:01:00 Test Item Value Reference Range Interpretation Comments POCT PREG (test code = 1605) negative On board controls acceptable with present C Line (test code = 3574) POCT PREG LOT # (test code = 3575) [id number] POCT PREG TEST DATE (test 06/21/2022 code = 3576) Lab Interpretation (test code = Normal 98463-0) [facility], [id number] 17:10:00Unlisted Reason for Exam - Click Yes and Enter Reason Below->YesUnlisted Reason for Exam->intractable abd painWill this procedure require oral contrast?->No [facility] 1980 Sex: [...] Zaidi Verified Date/Time: 03/04/2021 17:10:45 Reading Location: [address] Transitional Reading Room COMPREHENSIVE METABOLIC [id number] 15:44:38 Test Item Value Reference Range Interpretation [...] S NOT APPLICABLE FOR DIALYSIS PATIEN TS. Commercial Retoucher ID - AYO MOperator ID - [id number] 15:44:38 Test Item Value Reference Range Interpretation Comments PARTIAL THROMBOPLASTIN TIME 30.3 seconds 22.5-36.0 (BEAKER) (test code = 760) PROTHROMBIN TIME/[id number] 15:43:59 Test Item Value Reference Range Interpretation Comments PROTIME (BEAKER) 14.3 seconds 11.9-14.2 H (test code = 759) INR (BEAKER) (test 1.13 See_Comment [Automat ed message] code = 370) The system [employer] generated this result transmitted ref erence range: <=5.90. The reference range was not used to int erpret this result as normal/abnormal . RECOMMENDED COUMADIN/WARFARIN INR THERAPY RANGESSTANDARD DOSE: 2.0 - 3.0 Includes: PROPHYLAXIS for venous thrombosis, systemic embolization; TREATMENT for venous thrombosis and/or pulmonary embolus.HIGH RISK: Target INR is 2.5-3.5 for patients with mechanical heart valves.HCG, QUANTITATIVE, [id number] 15:39:20 Test Item Value Reference Range Interpretation Comments GONADOTROPIN, CHORIONIC (HCG) QUANT < mIU/mL 0-10 (BEAKER) (test code = 649) Non- Females: <10 mIU/mL Females: Gestation Age Reference Range(mIU/mL) 0.2-1 Week 5-50 1-2 Weeks 50-500 2-3 Weeks 100-5,000 3-4 Weeks 500-10,000 4-5 Weeks 1,000-50,000 5-6 Weeks 10,000-100,000 6-8 Weeks 15,000- 200,000 2-3 Months 10,000-100,000 Commercial Retoucher ID - DBHIGH SENSITIVITY TROPONIN I 2021-03-04 15:38:56 Test Item Value Reference Range Interpretation Comments HIGH SENSITIVITY < pg/ml See_Comment [Automated message] TROPONIN I (test code = The system which 8799337) generated this result transmitted ref erence range: <=17. Th e reference range was not used to interpr et this result as normal/abnormal . Commercial Retoucher ID - DBThe [employer] CHARGER STAT High Sensitivity Troponin-I results should be used in conjunctionwith other diagnostic information such as ECG, clinical observations and information, and patient symptoms to aid in the diagnosis of AR.[id number] 15:34:35 Test Item Value Reference Range Interpretation Comments MAGNESIUM (BEAKER) 1.8 mg/dL 1.6-2.6 Specimen slightly (test code = 627) hemolyzed Commercial Retoucher ID - AYO [id number] 15:34:35 Test Item Value Reference Range Interpretation Comments LIPASE (BEAKER) (test code = 749) 12 U/L 8-78 Commercial Retoucher ID - AYO MCBC W/PLT COUNT & AUTO [id number] 15:23:19 Test Item Value Reference Range Interpretation [...] PERCENT (BEAKER) (test code = 2801) TISSUE [id number] 11:53:29Surgical Pathology Report Case: [id number] Authorizing Provider: Juju Wright MD Collected: 02/01/2021 10:55 AM Ordering Location: [facility] Endoscopy Received: 02/01/2021 02:05 PM Services Pathologist: Blanka Brewer MD Specimen: Biopsy, Gastric, random biopsies STOMACH, BIOPSY:- GASTRIC ANTRAL-TYPE AND OXYNTIC MUCOSA WITH CHRONIC GASTRITIS- NO EVIDENCE OF HELICOBACTER PYLORI -LIKE ORGANISMS ON WARTHIN-STARRY STAIN- NEGATIVE FOR INTESTINAL METAPLASIA AND DYSPLASIA Signing PathologistDirect Phone Line: [phone] signed by Blanka Brewer MD on 02/02/2021 at 11:56ZE07050, 31384Gnqgarxwb painStomachA. Received in formalin labeled with the [...] evaluated Immunohistochemistry technical testing was performed at [facility], Pathology Laboratory where it was developed and [...] qualified to perform high complexity clinical laboratory testing.[facility], Department of Pathology, [address] [place] [address], [facility]vAt[facility], Department of Pathology, [address] [place] [address], [facility], [facility] of [facility]ology, [address] [place] [address], YELFPU [id number] 14:05:00Surgical Pathology Report Case: [id number] Authorizing Provider: Filippo Romeo MD Collected: 11/17/2020 08:36 AM Ordering Location: [facility] Received: 11/17/2020 10:00 AM SERVICES Pathologist: Elia Parekh MD Specimen: Soft Tissue, Other, Midline submental mass with overlying skin A. SKIN, CHIN, EXCISION OF LESION:EPIDERMAL INCLUSION CYST Signing Pathologist Direct Phone Line: [phone] signed by Elia Parekh MD on 11/19/2020 at 2:05 [id number] cystChinA. Received fresh labeled with the patient's [...] and red-brown fluid. The cystabuts the margin. Data Center Manager sections are submitted.Section code:A1: Tips, en faceA2-A3: Representatives of cystChelsea TULIO Whitfield PA ([facility]ITALP)cmPerformed.[facility], Departmentof Pathology, [address] [place] [address], WpgcqsLong [facility], Department of Pathology, [address] [place] [address], FsztnxLong Beach [facility], Department of Pathology, [address] [place] [address], ZEO W/PLT COUNT & AUTO [id number] 07:01:00 Test Item Value Reference Range Interpretation [...] PERCENT (BEAKER) (test code = 2801) U/S, ASPIRATION/[id number] 15:25:002.2cm mass beneath the chinReason for Exam:->Neck Mass [facility] CENTERName: LUIS CALDER[facility] : 1980 [...] imaging findings: No acute complications. Additional DetailsAdditional descriptionof procedure: NoneEquipment details: NoneSpecimens removed: Biopsy samples as detailed aboveEstimated blood loss (mL): Less than 10Standardized report: SIR_BiopsyMiscGuidance_v3 AttestationSigner name:SAM Polanco attest that I was present for the entire procedure. I reviewed the stored images and agree with the report as written. Signed: Luke Walters MDReport Verified Date/Time: 09/25/2020 15:25:58 Reading Location: [address] Consult Reading Room [id number] 13:23:00Medical Cytology Report Case: [id number] Authorizing Provider: Starla Sparks, Collected: 09/24/2020 02:01 PM PA Ordering Location: [facility] Radiology Ultrasound Received: 09/25/2020 09:34 AM Pathologist: Sondra Alcantara MD Specimen: Neck SUBMENTAL NECK MASS FNA BY CLINICIAN (CYTOSPINS): -NON-DIAGNOSTIC (SEE COMMENT) Signing Pathologist Direct Phone Line: [phone] by Sondra Alcantara MD on 09/25/2020 at 1:23 PMThe aspirate is non-diagnostic. Clinical and radiologic correlation is recommended. Re-biopsy is suggested if clinically indicated.Please see cases [id number] and [id number](2.5 x 1.0 x 2.1 cm) Submental neck mass, history of abdominal cancer.SUBMENTAL NECK MASS FNAReceived 32 mls in cytorich red; prepared 4 cytospins.Performed. [facility], Department of Pathology, [address] [place] [address], ZdyuwiLong Beach [facility] Hospital, Department of Pathology, [address] [place] [address], TrdrluLong Beach Community Hospital, Department of Pathology, [address] [place] [address], QXBS CYTOMETRY [id number] 13:05:00 Test Item Value Reference Range Interpretation Comments FLOW CYTOMETRY RESULT See Separate Report POINTER (BEAKER) (test code = 2758) FLOW CYTOMETRY AP CASE # [id number] (BEAKER) (test code = 2759) TISSUE [id number] 11:34:00Surgical Pathology Report Case: [id number] Authorizing Provider: Starla Sparks, Collected:09/24/2020 02:01 PM PA Ordering Location: [facility] Radiology Ultrasound Received: 09/24/2020 04:05 PM Pa thologist: Glo Villalta MD Specimen: Neck A. NECK, MIDLINE MASS, BIOPSY: - RARE BENIGN COLUMNAR EPITHELIAL CELLS WITH SCANT FIBROUS TISSUE. - TISSUE INSUFFICIENT FOR DIAGNOSIS. Signing Pathologist Direct Phone Line: [phone] signed by Glo Villalta MD on 09/25/2020 at 11:34 AMThe sections show rare benign epithelial cells with scant fibrous tissue. A repeat biopsy is suggested if clinically indicated. 79066Jtqsqne/neck mass 2.2 cmNeck, midline submentalA. Received in formalin labeled with patient's name, medical record number and accession number, "neck" are very minute saunders tissue fragments less than 0.1 x 0.1 x 0.1 cm aggregate. The specimen might not survive processing, submitted in toto in cassette A1.MITCH Abdierformed.The interpretation of this case included the use of immunohistochemistry or special stains.Control Slides Examined: In-house known positive controls wereevaluated along with the test tissue. These control slides run alongside of the patients sample showappropriate staining. Internal positive and negative controls when available are evaluated Immunohistochemistry technical testing was performed at [facility], Pathology Laboratorywhere it was developed and its [...] qualified to perform high complexity clinical laboratory testing.[facility], Department of Pathology, [address] [place], [place] [address], VbjvkpLong [facility], Department of Pathology, [address] [place] [address], CjljrnLong Beach Community Hospital, Department of Pathology, [address] [place] [address], KNMD [id number] 05:25:00Flow Cytometry Report Case: [id number] Authorizing Provider: Starla Sparks, Collected: 09/24/2020 02:01 PM [place] Ordering Location: [facility] Radiology Ultrasound Received: 09/24/2020 02:44 PM Pathologist: Elia Parekh MD Specimen: Other LESION ON CHIN, FLOW CYTOMETRY:STUDY IS LIMITED BY DIMINISHED VIABILITY AND SCARCITY OF LYMPHOID EVENTS.CORRELATION WITH MORPHOLOGIC FINDINGS REQUIRED. [id number] LESIONChinCD8, surface-kappa, CD56, surface- lambda, CD5, CD19, CD10, CD3, CD20, CD4, [id number] Viability: 53.3% Number of Events Acquired: 600 [...] developed and their performance characteristics determined by [facility]. They have not been cleared or approved by the U.S. Food and Drug Administration. The FDA has determined that such clearance or approval is not necessary. It should not be regarded as investigational or for research. This laboratory is certified under the Clinical Laboratory Improvement Amendments of 1988 ("CLIA") as qualified to perform high-complexity clinical testing.[facility], Department of Pathology, [address] [place] [id number], [facility], [address] [place] [id number],
--- NOTE | 2022-07-13 12:25 | RAD REPORT ---
EXAM DESCRIPTION: CT - Head C Spine Cap Wo Con - 07/13/2022 11:55 am CLINICAL HISTORY: Head and neck injury with chest and abdominal pain status post fall TECHNIQUE: Computed axial tomography of head, neck, chest, abdomen and pelvis obtained. IV and oral contrast not requested. Coronal and sagittal reconstruction performed. All CT scans are performed using dose optimization technique as appropriate and may include automated exposure control or mA/KV adjustment according to patient size. COMPARISON: Prior CT head an abdomen FINDINGS: An intracranial bleed is not seen. The ventricles are normal in caliber. An extra-axial fluid collection is not noted. . Fluid within the sinuses/mastoids is not seen. A cervical fracture is not seen. No dislocation is noted. The evaluation of mediastinum, zakia, vessels, solid organs and bowel are limited secondary to the lac k of contrast administration. Mild soft tissue anterior mediastinum. . A pleural effusion is not seen. A lung contusion is not pres ent. The liver,spleen, pancreas, adrenals,kidneys and bladder do not demonstrate an acute traumatic injury Trace amount of pelvic ascites IMPRESSION: No acute intracranial abnormality is seen. A cervical fracture is not visualized. If the patient continues have symptoms to suggest intracrania l/spinal cord pathology MRI be recommended Mild soft tissue anterior mediastinum. This probably is not significant. It may represent residual th ymus or small hematoma. If patient has clinical symptoms to suggest a potential aortic injury then CT chest with IV contrast would be recommended Trace amount of pelvic ascites may be physiologic
--- NOTE | 2022-07-13 13:17 | RAD REPORT ---
EXAM DESCRIPTION: RAD - Foot Left 3 View - 07/13/2022 12:06 pm CLINICAL HISTORY: Left Foot pain FINDINGS: No fracture or dislocation is seen.
--- NOTE | 2022-07-13 13:28 | ER ---
Nurse's Notes [facility] Name: Marian Mack Age: 42 yrs Sex: Female : 1980 Arrival Date: 07/13/2022 Time: 11:18 Bed IW1 Private MD: Syed Tristan Diagnosis: Fall from 4ft ;Headache;Cervicalgia;Low back pain;Pain in left foot Presentation: 07/13 11:28 Chief complaint: Left ankle, right hip, and right shoulder pain after fall while hb descending elevated painting platform this morning. Also c/o feeling dizzy and "foggy." Denies LOC. Coronavirus screen: At this time, the client does not indicate any symptoms associated with coronavirus-19. Ebola Screen: No symptoms or risks identified at this time. Initial Sepsis Screen: Does the patient meet any 2 criteria? No. Patient's initial sepsis screen is negative. Does the patient have a suspected source of infection? No. Patient's initial sepsis screen is negative. Risk Assessment: Do you want to hurt yourself or someone else? Patient reports no desire to harm self or others. Onset of symptoms was July 13, 2022. 11:28 Method Of Arrival: Wheelchair hb 11:32 Acuity: NOVA 3 hb Triage Assessment: 11:30 General: Appears in no apparent distress. Behavior is cooperative, anxious. Pain: Pain hb currently is 8 out of 10 on a pain scale. EENT: No signs and/or symptoms were reported regarding the EENT system. Neuro: Level of Consciousness is awake, alert, obeys commands, Oriented to person, place, time, situation. Cardiovascular: Patient's skin is warm and dry. Respiratory: Respiratory effort is even, unlabored, Respiratory pattern is regular, symmetrical. GI: No signs and/or symptoms were reported involving the gastrointestinal system. : No signs and/or symptoms were reported regarding the genitourinary system. Derm: Skin is pink, warm \\T\\ dry. Musculoskeletal: Reports pain left ankle, right hip, right shohulder. PHARMACY AIDE: 13:40 LMP N/A - Irregular menses ap3 Historical: - Allergies: 11:31 NKA; hb - PMHx: 11:31 Anxiety; cervical cancer; Depression; colon cancer; Diverticulitis; ulcerative colitis; hb - PSHx: 11:31 Cholecystectomy; hb - Immunization history:: Adult Immunizations up to date. - Social history:: Smoking status: Patient reports the use of cigarette tobacco products. Screenin:30 [facility] ED Fall Risk Assessment (Adult) Score/Fall Risk Level 0 - 2 = Low Risk hb Oriented to surroundings, Maintained a safe environment, Educated pt \\T\\ family on fall prevention, incl call for assistance when getting out of bed. 12:30 Abuse screen: Denies threats or abuse. Denies injuries from another. Nutritional hb screening: No deficits noted. Tuberculosis screening: No symptoms or risk factors identified. Assessment: 13:35 General: See triage assessment. hb Vital Signs: 11:28 BP 107 / 71; Pulse 80; Resp 16; Temp 97.9; Pulse Ox 100% on R/A; Weight 74.84 kg; hb Height 5 ft. 6 in. ; Pain 8/10; 11:28 Body Mass Index 26.63 (74.84 kg, 167.64 cm) hb 11:28 Pain Scale: Adult hb ED Course: 11:18 Patient arrived in ED. am2 11:18 Syed Tristan DO is Private Physician. am2 11:28 Sahara [facility]C [facility]. kb 11:28 Valdemar Hodgson MD is Attending Physician. kb 11:31 Arm band placed on. hb 11:33 Triage completed. hb 11:57 CT Traumagram (Head C Spine CAP wo con) In Process Unspecified. EDMS 12:08 Foot Left 3 View XRAY In Process Unspecified. EDMS 12:30 Patient has correct armband on for positive identification. hb 13:36 No provider procedures requiring assistance completed. Patient did not have IV access hb during this emergency room visit. Administered Medications: 13:40 Drug: [place] PO 10 mg-325 mg 1 tabs Route: PO; ap3 13:40 Follow up: Response: No adverse reaction ap3 Medication: 13:35 VIS not applicable for this client. hb Outcome: 13:28 Discharge ordered by . kb 13:40 Discharged to home ambulatory. ap3 13:40 Condition: good 13:40 Discharge instructions given to patient, Instructed on discharge instructions, follow up and referral plans. Demonstrated understanding of instructions, follow-up care. 13:40 Patient left the ED. ap3 Signatures: Dispatcher [employer] EDMS Sahara Che FORESTRY BIOLOGY SPECIALIST-C FORESTRY BIOLOGY SPECIALIST-Ckb Nan Boles RN RN Chloe Baldwin am2 Chloe Aranda RN RN ap3 Corrections: (The following items were deleted from the chart) 11:33 11:28 Chief complaint: Left ankle, right hip, and right shoulder pain after fall while hb descending elevated painting platform this morning. Also c/o feeling dizzy and "foggy"
--- NOTE | 2022-07-13 13:28 | EDPHYS ---
Physician Documentation [facility] Name: Marian Mack Age: 42 yrs Sex: Female : 1980 Arrival Date: 07/13/2022 Time: 11:18 Bed IW1 Private MD: Syed Tristan ED Physician Valdemar Hodgson HPI: 07/13 15:36 This 42 yrs old Female presents to ER via Wheelchair with complaints of Abnormal Lab kb Results, Near Syncope, Pain All Over. 15:36 Details of fall: The patient fell from a height, 4ft painting platform. The patient has kb not recently seen a physician. 15:36 Onset: The symptoms/episode began/occurred just prior to arrival. Associated injuries: kb The patient sustained neck injury, pain, pain with movement, injury to the low back, pain, pain with movement, left foot and right hip and left hip, painful injury. Severity of symptoms: At their worst the symptoms were moderate, in the emergency department the symptoms are unchanged. The patient has not experienced similar symptoms in the past. Pain toPatient reports she was coming off of an elevated painting platform that is approximately 4 feet high when she slipped and fell. Head, neck, upper and lower back, bilateral hips, left foot. Denies LOC. Has been ambulatory without difficulty.. 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 - Social history:: Smoking status: Patient reports the use of cigarette tobacco products. ROS: 15:34 Constitutional: Negative for fever, chills, and weight loss. kb 15:34 Neck: Positive for pain with movement, pain at rest. 15:34 Back: Positive for pain at rest, pain with movement, of the left scapular area, right scapular area and low back area. 15:34 MS/extremity: Positive for pain, of the left hip, right hip and left foot. 15:34 Neuro: Positive for headache, Negative for syncope, near syncope. 15:34 All other systems are negative. Exam: 15:34 Constitutional: This is a well developed, well nourished patient who is awake, alert, kb and in no acute distress. Head/Face: Normocephalic, atraumatic. Eyes: Pupils equal round and reactive to light, extra-ocular motions intact. Lids and lashes normal. Conjunctiva and sclera are non-icteric and not injected. Cornea within normal limits. Periorbital areas with no swelling, redness, or edema. ENT: Moist Mucous membranes Cardiovascular: Regular rate and rhythm with a normal S1 and S2. No gallops, murmurs, or rubs. No pulse deficits. Respiratory: Respirations even and unlabored. No increased work of breathing. Talking in full sentences Abdomen/GI: Soft, non-tender. No distention Back: No spinal tenderness. No costovertebral tenderness. Full range of motion. Skin: Warm, dry with normal turgor. Normal color. MS/ Extremity: Pulses equal, no cyanosis. Neurovascular intact. Full, normal range of motion. Neuro: Awake and alert, GCS 15, oriented to person, place, time, and situation. Moves all extremities. Normal gait. 15:34 Neck: External neck: tenderness, that is mild, of the left mid cervical area, right mid cervical area, left trapezius, lower cervical area and right trapezius, C-spine: appears grossly normal. Vital Signs: 11:28 BP 107 / 71; Pulse 80; Resp 16; Temp 97.9; Pulse Ox 100% on R/A; Weight 74.84 kg; hb Height 5 ft. 6 in. ; Pain 8/10; 11:28 Body Mass Index 26.63 (74.84 kg, 167.64 cm) hb 11:28 Pain Scale: Adult hb MDM: 11:28 Patient medically screened. kb 13:48 Data reviewed: vital signs, nurses notes. kb 15:35 Differential diagnosis: closed head injury, contusion, fracture, multiple trauma, kb sprain. Counseling: I had a detailed discussion with the patient and/or guardian regarding: the historical points, exam findings, and any diagnostic results supporting the discharge/admit diagnosis, radiology results, the need for outpatient follow up, a family practitioner, to return to the emergency department if symptoms worsen or persist or if there are any questions or concerns that arise at home. 07/13 11:36 Order name: Foot Left 3 View XRAY; Complete Time: 13:26 kb 07/13 11:36 Order name: CT Traumagram (Head C Spine CAP wo con); Complete Time: 12:26 kb Administered Medications: 13:40 Drug: [place] PO 10 mg-325 mg 1 tabs Route: PO; ap3 13:40 Follow up: Response: No adverse reaction ap3 Disposition: 17:23 Co-signature as Attending Physician, Valdemar Hodgson MD I reviewed the patient's care rt provided by the Advanced Practice Provider and agree with the diagnosis and treatment plan. Disposition Summary: 07/13/22 13:28 Discharge Ordered Location: Home kb Condition: Stable kb Diagnosis - Fall from 4ft kb - Headache kb - Cervicalgia kb - Low back pain kb - Pain in left foot kb Followup: kb - With: Emergency Department - When: As needed - Reason: Worsening of condition Followup: kb - With: Private Physician - When: 2 - 3 days - Reason: Recheck today's complaints, Continuance of care, Re-evaluation by your physician Discharge Instructions: - Discharge Summary Sheet kb - Musculoskeletal Pain kb - Head Injury, Adult, [id number] kb Forms: - Medication Reconciliation Form kb - Thank You Letter kb - Antibiotic Education kb - Prescription Opioid Use kb Signatures: Dispatcher [employer] EDMS Sahara Che, RAILWAY TRACTION LINE WORKER-C RAILWAY TRACTION LINE WORKER-Zekeb Nan Boles, RN RN Chloe Rainey RN RN ap3 Valdemar Hodgson MD MD rt Corrections: (The following items were deleted from the chart) 15:37 15:36 Details of fall: The patient fell from a height, kb kb
[2022-07-13] MEDS ORDERED: HYDROCODONE/APAP 10/325 TAB ONE (13:41)
[2022-07-13 13:53] VITALS: BP 107/71; TEMP 97.9; O2SAT 100
== END 2022-07-13 13:40 | disposition home or self-care (01) ==
LOC: ER 11:17
DX: R51.9 Headache, unspecified (principal); M54.2 Cervicalgia; M54.50 Low back pain, unspecified; M79.672 Pain in left foot; W17.89XA Other fall from one level to another, initial encounter; Z72.0 Tobacco use
CPT/HCPCS: 70450; 71250; 72125; 99283

== ENCOUNTER 2023-02-18 14:50 | Emergency (ER) | payer OTHER ==
--- OUTSIDE RECORDS SUMMARY | 2023-02-18 15:07 | XMS REPORT | Continuity of Care Document ---
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 Tablet 00:00: MOUTH ONCE - 00 DAILY Externa NEEDED l Meloxicam 2023-0 Yes [id number] TAKE ONE Elaine 15 MG oral 5-31 07 TABLET BY Seyb old Tablet 00:00: MOUTH ONCE - 00 DAILY Externa NEEDED l Meloxicam 2023-0 Yes [id number] TAKE ONE Elaine 15 MG oral 5-31 07 TABLET BY Seyb old Tablet 00:00: MOUTH ONCE - 00 DAILY Externa NEEDED l Meloxicam 2023-0 Yes [id number] TAKE ONE Elaine 15 MG oral 5-31 07 TABLET BY Seyb old Tablet 00:00: MOUTH ONCE - 00 DAILY Externa NEEDED l Meloxicam 2023-0 Yes [id number] TAKE ONE Elaine 15 MG oral 5-31 07 TABLET BY Seyb old Tablet 00:00: MOUTH ONCE - 00 DAILY Externa NEEDED l Ondansetron 2023-0 Yes 4mg Q.[id number] Take 1 Elaine HCl 4 MG 5-24 [id number] tablet (4 Seybold oral Tablet 15:16: 3D mg total) - 32 by mouth Externa every 8 l hours as needed Ondansetron 2023-0 Yes 4mg Q.[id number] Take 1 Elaine HCl 4 MG 5-24 [id number] tablet (4 Seybold oral Tablet 15:16: 3D mg total) - 32 by mouth Externa every 8 l hours as needed Ondansetron 2023-0 Yes 4mg Q.[id number] Take 1 Elaine HCl 4 MG 5-24 [id number] tablet (4 Seybold oral Tablet 15:16: 3D mg total) - 32 by mouth Externa every 8 l hours as needed Ondansetron 2023-0 Yes 4mg Q.[id number] Take 1 Elaine HCl 4 MG 5-24 [id number] tablet (4 Seybold oral Tablet 15:16: 3D mg total) - 32 by mouth Externa every 8 l hours as needed Ondansetron 2023-0 Yes 4mg Q.[id number] Take 1 Elaine HCl 4 MG 5-24 [id number] tablet (4 Seybold oral Tablet 15:16: 3D mg total) - 32 by mouth Externa every 8 l hours as needed Ondansetron 2022-0 Yes 4mg Q.[id number] Take 1 Elaine HCl 4 MG 5-24 [id number] tablet (4 Seybold oral Tablet 15:16: 3D mg total) - 32 by mouth Externa every 8 l hours as needed Amoxicillin 2022-0 Yes [id number] 1{tbl} Take 1 Elaine -Pot 5-24 tablet by Seybold Clavulanate 00:00: mouth 2 - 875-125 MG 00 times Externa oral Tablet daily l Mupirocin 2022-0 Yes [id number] Apply 1 Elaine (BACTROBAN) 5-24 applicatio Se ybold 2 % apply 00:00: n. - externally 00 topically Exte rna Ointment 2 times l daily Amoxicillin 2022-0 Yes [id number] 1{tbl} Take 1 Elaine -Pot 5-24 tablet by Seybold Clavulanate 00:00: mouth 2 - 875-125 MG 00 times Externa oral Tablet daily l Mupirocin 2022-0 Yes [id number] Apply 1 Elaine (BACTROBAN) 5-24 applicatio Se ybold 2 % apply 00:00: n. - externally 00 topically Exte rna Ointment 2 times l daily Amoxicillin 2022-0 3- No [id number] 1{tbl} Take 1 Elaine -Pot 5-24 -07 tablet by Seybold Clavulanate 00:00: 00:00 mouth 2 - 875-125 MG 00 :00 times Externa oral Tablet daily l Mupirocin 2022-0 3- No [id number] Apply 1 Elaine (BACTROBAN) 5-24 -07 applicatio S eybold 2 % apply 00:00: 00:00 n. - externally 00 :00 topically Exte rna Ointment 2 times l daily Lubiproston 2022-0 Yes [id number] 24ug Take 1 Elaine e 24 MCG 5-18 capsule Seybold oral 00:00: (24 mcg - Capsule 00 total) by Externa mouth in l the morning and 1 capsule (24 mcg total) in the evening. Take with meals. Lubiproston 2022-0 Yes [id number] 24ug Take 1 Elaine e 24 MCG 5-18 capsule Seybold oral 00:00: (24 mcg - Capsule 00 total) by Externa mouth in l the morning and 1 capsule (24 mcg total) in the evening. Take with meals. Lubiproston 3-0 Yes [id number] 24ug Take 1 Elaine e 24 MCG 5-18 capsule Seybold oral 00:00: (24 mcg - Capsule 00 total) by Externa mouth in l the morning and 1 capsule (24 mcg total) in the evening. Take with meals. Lubiproston 2022-0 Yes [id number] 24ug Take 1 Elaine e 24 MCG 5-18 capsule Seybold oral 00:00: (24 mcg - Capsule 00 total) by Externa mouth in l the morning and 1 capsule (24 mcg total) in the evening. Take with meals. Lubiproston 2022-0 Yes [id number] 24ug Take 1 Elaine e 24 MCG 5-18 capsule Seybold oral 00:00: (24 mcg - Capsule 00 total) by Externa mouth in l the morning and 1 capsule (24 mcg total) in the evening. Take with meals. Lubiproston 2022-0 Yes [id number] 24ug Take 1 Elaine e 24 MCG 5-18 capsule Seybold oral 00:00: (24 mcg - Capsule 00 total) by Externa mouth in l the morning and 1 capsule (24 mcg total) in the evening. Take with meals. Lubiproston 2022-0 Yes [id number] 24ug Take 1 Elaine e 24 MCG 5-18 capsule Seybold oral 00:00: (24 mcg - Capsule 00 total) by Externa mouth in l the morning and 1 capsule (24 mcg total) in the evening. Take with meals. Lubiproston 3-0 Yes [id number] 24ug Take 1 Elaine e 24 MCG 5-18 capsule Seybold oral 00:00: (24 mcg - Capsule 00 total) by Externa mouth in l the morning and 1 capsule (24 mcg total) in the evening. Take with meals. Lubiproston 3-0 Yes [id number] 24ug Take 1 Elaine e 24 MCG 5-18 capsule Seybold oral 00:00: (24 mcg - Capsule 00 total) by Externa mouth in l the morning and 1 capsule (24 mcg total) in the evening. Take with meals. Lubiproston 2022-0 Yes [id number] 24ug Take 1 Elaine e 24 MCG 5-18 capsule Seybold oral 00:00: (24 mcg - Capsule 00 total) by Externa mouth in l the morning and 1 capsule (24 mcg total) in the evening. Take with meals. Lubiproston 2022-0 Yes [id number] 24ug Take 1 Elaine e 24 MCG 5-18 capsule Seybold oral 00:00: (24 mcg - Capsule 00 total) by Externa mouth in l the morning and 1 capsule (24 mcg total) in the evening. Take with meals. Lubiproston 2022-0 Yes [id number] 24ug Take 1 Elaine e 24 MCG 5-18 capsule Seybold oral 00:00: (24 mcg - Capsule 00 total) by Externa mouth in l the morning and 1 capsule (24 mcg total) in the evening. Take with meals. Alprazolam 2022-0 Yes [id number] TAKE 1 K elsey 1 MG oral 5-16 TABLET BY Seybo ld Tablet 00:00: MOIUTH - 00 NIGHTLY Externa NEEDED FOR l SLEEP Alprazolam 2022-0 Yes [id number] TAKE 1 K elsey 1 MG oral 5-16 TABLET BY Seybo ld Tablet 00:00: MOIUTH - 00 NIGHTLY Externa NEEDED FOR l SLEEP Alprazolam 2022-0 Yes [id number] TAKE 1 K elsey 1 MG oral 5-16 TABLET BY Seybo ld Tablet 00:00: MOIUTH - 00 NIGHTLY Externa NEEDED FOR l SLEEP Pregabalin 2022-0 Yes [id number] 150mg Take 1 Elaine 150 MG oral 5-08 07 capsule Seybo ld Capsule 00:00: (150 mg - 00 total) by Externa mouth 2 l times daily Omeprazole 2022-0 Yes [id number] 40mg Take 1 Elaine 40 MG oral 5-08 capsule Seybol d Delayed 00:00: (40 mg - Release 00 total) by Externa Capsule mouth l daily Omeprazole 2022-0 Yes [id number] 40mg Take 1 Elaine 40 MG oral 5-08 capsule Seybol d Delayed 00:00: (40 mg - Release 00 total) by Externa Capsule mouth l daily Omeprazole 2022-0 Yes [id number] 40mg Take 1 Elaine 40 MG oral 5-08 capsule Seybol d Delayed 00:00: (40 mg - Release total) by Externa Capsule mouth l daily Omeprazole 2022-0 Yes [id number] 40mg Take 1 Eliane 40 MG oral 5-08 capsule Seybol d Delayed 00:00: (40 mg - Release total) by Externa Capsule mouth l daily Omeprazole 2022-0 Yes [id number] 40mg Take 1 Elaine 40 MG oral 5-08 capsule Seybol d Delayed 00:00: (40 mg - Release total) by Externa Capsule mouth l daily Omeprazole 2022-0 Yes [id number] 40mg Take 1 Elaine 40 MG oral 5-08 capsule Seybol d Delayed 00:00: (40 mg - Release total) by Externa Capsule mouth l daily Omeprazole 2022-0 Yes [id number] 40mg Take 1 Elaine 40 MG oral 5-08 capsule Seybol d Delayed 00:00: (40 mg - Release total) by Externa Capsule mouth l daily Omeprazole 2022-0 Yes [id number] 40mg Take 1 Elaine 40 MG oral 5-08 capsule Seybol d Delayed 00:00: (40 mg - Release total) by Externa Capsule mouth l daily Omeprazole 2022-0 Yes [id number] 40mg Take 1 Elaine 40 MG oral 5-08 capsule Seybol d Delayed 00:00: (40 mg - Release total) by Externa Capsule mouth l daily Omeprazole 2022-0 Yes [id number] 40mg Take 1 Elaine 40 MG oral 5-08 capsule Seybol d Delayed 00:00: (40 mg - Release total) by Externa Capsule mouth l daily Omeprazole 2022-0 Yes [id number] 40mg Take 1 Elaine 40 MG oral 5-08 capsule Seybol d Delayed 00:00: (40 mg - Release total) by Externa Capsule mouth l daily Omeprazole 2022-0 Yes [id number] 40mg Take 1 Elaine 40 MG oral 5-08 capsule Seybol d Delayed 00:00: (40 mg - Release total) by Externa Capsule mouth l daily Pantoprazol 2022-0 Yes 1{packe Take 1 K elsey e Sodium 40 5-01 t} packet by Sey bold MG oral 14:13: mouth - Pack 45 daily Externa l Pantoprazol Yes 1{packe Take 1 K elsey e Sodium 40 5-01 t} packet by Sey bold MG oral 14:13: mouth - Pack 45 daily Externa l Ondansetron Yes 4mg Q.[id number] Take 1 Elaine HCl 4 MG 5-01 [id number] tablet (4 Seybold oral Tablet 14:13: 3D mg total) - 42 by mouth Externa every 8 l hours as needed Ondansetron Yes 4mg Q.[id number] Take 1 Elaine HCl 4 MG 5-01 [id number] tablet (4 Seybold oral Tablet 14:13: 3D mg total) - 42 by mouth Externa every 8 l hours as needed linaCLOtide Yes [id number] 290ug Take 1 Elaine (Linzess) 5-01 capsule Seybold 290 MCG 00:00: (290 mcg - oral 00 total) by Externa Capsule mouth l daily Sod Yes [id number] Instructio Georges sey Picosulfate 5-01 ns Seybold -Mag Ox-Cit 00:00: provided - Acd 00 to Externa (Clenpiq) patient. l 10-3.5-12 Follow MG-GM instructio -GM/160ML ns oral provided Solution by provider. linaCLOtide Yes [id number] 290ug Take 1 Elaine (Linzess) 5-01 capsule Seybold 290 MCG 00:00: (290 mcg - oral 00 total) by Externa Capsule mouth l daily Sod Yes [id number] Instructio Georges sey Picosulfate 5-01 ns Seybold -Mag Ox-Cit 00:00: provided - Acd 00 to Externa (Clenpiq) patient. l 10-3.5-12 Follow MG-GM instructio -GM/160ML ns oral provided Solution by provider. Sod 0 Yes [id number] Instructio Georges sey Picosulfate 5-01 ns Seybold -Mag Ox-Cit 00:00: provided - Acd 00 to Externa (Clenpiq) patient. l 10-3.5-12 Follow MG-GM instructio -GM/160ML ns oral provided Solution by provider. Sod 2022-0 Yes [id number] Instructio Georges sey Picosulfate 5-01 ns Seybold -Mag Ox-Cit 00:00: provided - Acd 00 to Externa (Clenpiq) patient. l 10-3.5-12 Follow MG-GM instructio -GM/160ML ns oral provided Solution by provider. Sod 2022-0 Yes [id number] Instructio Georges sey Picosulfate 5-01 ns Seybold -Mag Ox-Cit 00:00: provided - Acd 00 to Externa (Clenpiq) patient. l 10-3.5-12 Follow MG-GM instructio -GM/160ML ns oral provided Solution by provider. Sod 2022-0 Yes [id number] Instructio Georges sey Picosulfate 5-01 ns Seybold -Mag Ox-Cit 00:00: provided - Acd 00 to Externa (Clenpiq) patient. l 10-3.5-12 Follow MG-GM instructio -GM/160ML ns oral provided Solution by provider. Alprazolam 0 Yes [id number] TAKE 1 K elsey 1 MG oral 4-18 TABLET BY Seybo ld Tablet 00:00: MOIUTH - 00 NIGHTLY Externa NEEDED FOR l SLEEP Alprazolam 0 Yes [id number] TAKE 1 K elsey 1 MG oral 4-18 TABLET BY Seybo ld Tablet 00:00: MOIUTH - 00 NIGHTLY Externa NEEDED FOR l SLEEP Pantoprazol 0 Yes 1{packe Take 1 K elsey e Sodium 40 4-12 t} packet by Sey bold MG oral 11:17: mouth - Pack 15 daily Externa l Ondansetron 0 Yes 4mg Q.[id number] Take 1 Elaine HCl 4 MG 4-12 [id number] tablet (4 Seybold oral Tablet 11:17: 3D mg total) - 15 by mouth Externa every 8 l hours as needed Pregabalin 2022-0 Yes [id number] 50mg Take 1 Elaine 50 MG oral 4-11 07 capsule Seybol d Capsule 00:00: (50 mg - 00 total) by Externa mouth 2 l times daily Pregabalin 2022-0 Yes [id number] 50mg Take 1 Elaine 50 MG oral 4-11 07 capsule Seybol d Capsule 00:00: (50 mg - 00 total) by Externa mouth 2 l times daily Pregabalin 3-0 Yes [id number] 50mg Take 1 Elaine 50 MG oral 4-11 07 capsule Seybol d Capsule 00:00: (50 mg - 00 total) by Externa mouth 2 l times daily Meloxicam 3-0 Yes [id number] 15mg QD Take 1 Elaine 15 MG oral 4-05 07 tablet (15 Sey bold Tablet 00:00: mg total) - 00 by mouth Externa daily as l needed for pain Meloxicam 2022-0 Yes [id number] 15mg QD Take 1 Elaine 15 MG oral 4-05 07 tablet (15 Sey bold Tablet 00:00: mg total) - 00 by mouth Externa daily as l needed for pain Meloxicam 3-0 Yes [id number] 15mg QD Take 1 Elaine 15 MG oral 4-05 07 tablet (15 Sey bold Tablet 00:00: mg total) - 00 by mouth Externa daily as l needed for pain Meloxicam 2022-0 Yes [id number] 15mg QD Take 1 Elaine 15 MG oral 4-05 07 tablet (15 Sey bold Tablet 00:00: mg total) - 00 by mouth Externa daily as l needed for pain Pantoprazol 2022-0 Yes 1{packe Take 1 K elsey e Sodium 40 4-03 t} packet by Sey bold MG oral 16:00: mouth - Pack 16 daily Externa l Ondansetron 2022-0 Yes 4mg Q.[id number] Take 1 Elaine HCl 4 MG 4-03 [id number] tablet (4 Seybold oral Tablet 16:00: 3D mg total) - 16 by mouth Externa every 8 l hours as needed Pregabalin 3-0 Yes [id number] 50mg Take 1 Elaine 50 MG oral 4-03 07 capsule Seybol d Capsule 00:00: (50 mg - 00 total) by Externa mouth 2 l times daily Tizanidine 3-0 Yes [id number] TAKE ONE Elaine HCl 4 MG 3-20 CAPSULE BY Seybo ld oral 00:00: MOUTH - Capsule 00 TWICE A Externa DAY l Alprazolam 3-0 Yes [id number] TAKE 1 K elsey 1 MG oral 3-20 TABLET BY Seybo ld Tablet 00:00: MOIUTH - 00 NIGHTLY Externa NEEDED FOR l SLEEP Ibuprofen 2022-0 Yes [id number] TAKE ONE Elaine (MOTRIN) 3-20 TABLET BY Seybol d 800 MG oral 00:00: MOUTH - Tablet 00 EVERY 12 Externa HOURS l NEEDED FOR PAIN Tizanidine 2022-0 Yes [id number] TAKE ONE Elaine HCl 4 MG 3-20 CAPSULE BY Seybo ld oral 00:00: MOUTH - Capsule 00 TWICE A Externa DAY l Alprazolam 2022-0 Yes [id number] TAKE 1 K elsey 1 MG oral 3-20 TABLET BY Seybo ld Tablet 00:00: MOIUTH - 00 NIGHTLY Externa NEEDED FOR l SLEEP Tizanidine 2022-0 Yes [id number] TAKE ONE Elaine HCl 4 MG 3-20 CAPSULE BY Seybo ld oral 00:00: MOUTH - Capsule 00 TWICE A Externa DAY l Tizanidine 2022-0 Yes [id number] TAKE ONE Elaine HCl 4 MG 3-20 CAPSULE BY Seybo ld oral 00:00: MOUTH - Capsule 00 TWICE A Externa DAY l Tizanidine 2022-0 Yes [id number] TAKE ONE Elaine HCl 4 MG 3-20 CAPSULE BY Seybo ld oral 00:00: MOUTH - Capsule 00 TWICE A Externa DAY l Tizanidine 2022-0 Yes [id number] TAKE ONE Elaine HCl 4 MG 3-20 CAPSULE BY Seybo ld oral 00:00: MOUTH - Capsule 00 TWICE A Externa DAY l Tizanidine 2022-0 2023- No [id number] TAKE ONE Elaine HCl 4 MG 3-20 06-07 CAPSULE BY Seyb old oral 00:00: 00:00 MOUTH - Capsule 00 :00 TWICE A Externa DAY l Pregabalin 2022-0 202- No [id number] 25mg Take 1 Elaine 25 MG oral 3-20 04-03 capsule Seybo ld Capsule 00:00: 00:00 (25 mg - 00 :00 total) by Externa mouth 2 l times daily Acetaminoph 3-0 2023- No 1{tbl} Q4H Take 1 K elsey en-Codeine 3-01 03-01 tablet by Rupali mittal #3 300-30 15:17: 00:00 mouth - MG oral 27 :00 every 4 Externa Tablet hours as l needed for pain Paroxetine 2022-0 2022- No paroxetine Elaine HCl 20 MG 3- 03- 20 mg Seybold oral Tablet 15:15: 00:00 tablet - 17 :00 TAKE ONE Externa (1) l TABLET(S) BY MOUTH ONCE A DAY IN THE MORNING. Gabapentin 2022-0 2022- No 600mg Take 600 K elsey 600 MG oral 3- 03- mg by Seybol d Tablet 15:14: 00:00 mouth 2 - 52 :00 times Externa daily l linaCLOtide 2022-0 Yes [id number] 72ug Take 1 Elaine 72 MCG oral 3-01 capsule Seybo ld Capsule 00:00: (72 mcg - 00 total) by Externa mouth l daily linaCLOtide 2022-0 Yes [id number] 72ug Take 1 Elaine 72 MCG oral 3-01 capsule Seybo ld Capsule 00:00: (72 mcg - 00 total) by Externa mouth l daily linaCLOtide 2022-0 Yes [id number] 72ug Take 1 Elaine 72 MCG oral 3-01 capsule Seybo ld Capsule 00:00: (72 mcg - 00 total) by Externa mouth l daily linaCLOtide 2022-0 2022- No [id number] 72ug Take 1 Elaine 72 MCG oral 3-01 05-01 capsule Seyb old Capsule 00:00: 00:00 (72 mcg - 00 :00 total) by Externa mouth l daily Duloxetine 2022-0 2022- No 30mg Take 30 mg Elaine HCl 30 MG -14 06- by mouth [address] 10:36: 00:00 times - Particles 57 :00 daily Externa l Pregabalin 2022-0 2022- No 25mg Take 25 mg Elaine 25 MG oral 2-21 -21 by mouth 2 Se ybold Capsule 10:36: [...] 34 Externa l Ondansetron 2022-0 Yes 4mg Q.[id number] Take 4 mg Elaine HCl 4 MG 2-21 [id number] by mouth S eybold oral Tablet 10:15: 3D every 8 - 34 hours as Externa needed l Pantoprazol 2022-0 Yes 40mg Take 40 mg Elaine e Sodium 40 2-21 by mouth Seyb old MG oral 10:15: daily - Pack 34 Externa l Ondansetron 2022-0 Yes 4mg Q.[id number] Take 4 mg Elaine HCl 4 MG 2-21 [id number] by mouth S eybold oral Tablet 10:15: 3D every 8 - 34 hours as Externa needed l Pregabalin 2022-0 Yes [id number] 25mg Take 1 Elaine 25 MG oral 2-21 capsule Seybol d Capsule 00:00: (25 mg - 00 total) by Externa mouth 2 l times daily Duloxetine 2022-0 Yes [id number] Take 2 Elaine HCl 30 MG 2-21 tabs in Seybold oral Cap DR 00:00: the am and - Particles 00 1 tab at [facility] a night l Amitriptyli 2022-0 Yes [id number] 50mg Take 1 Elaine ne HCl 50 2-21 tablet (50 Seyb old MG oral 00:00: mg total) - Tablet 00 by mouth Externa at bedtime l Alprazolam 2022-0 Yes [id number] 1mg QD Take 1 K elsey 1 MG oral 2-21 tablet (1 Seybo ld Tablet 00:00: mg total) - 00 by mouth Externa nightly as l needed for sleep Ibuprofen 2022-0 Yes [id number] 800mg Take 1 K elsey (MOTRIN) 2-21 tablet Seybold 800 MG oral 00:00: (800 mg - Tablet 00 total) by Externa mouth l every 12 hours as needed for pain Duloxetine 2022-0 Yes [id number] Take 2 Elaine HCl 30 MG 2-21 tabs in Seybold oral Cap DR 00:00: the am and - Particles 00 1 tab at [facility] a night l Amitriptyli 2022-0 Yes [id number] 50mg Take 1 Elaine ne HCl 50 2-21 tablet (50 Seyb old MG oral 00:00: mg total) - Tablet 00 by mouth Externa at bedtime l Duloxetine 2023-0 Yes [id number] Take 2 Elaine HCl 30 MG 2-21 tabs in Seybold oral Cap DR 00:00: the am and - Particles 00 1 tab at [facility] a night l Amitriptyli 2023-0 Yes [id number] 50mg Take 1 Elaine ne HCl 50 2-21 tablet (50 Seyb old MG oral 00:00: mg total) - Tablet 00 by mouth Externa at bedtime l Duloxetine 2023-0 Yes [id number] Take 2 Elaine HCl 30 MG 2-21 tabs in Seybold oral Cap DR 00:00: the am and - Particles 00 1 tab at [facility] a night l Amitriptyli 2023-0 Yes [id number] 50mg Take 1 Elaine ne HCl 50 2-21 tablet (50 Seyb old MG oral 00:00: mg total) - Tablet 00 by mouth Externa at bedtime l Duloxetine 2023-0 Yes [id number] Take 2 Elaine HCl 30 MG 2-21 tabs in Seybold oral Cap DR 00:00: the am and - Particles 00 1 tab at [facility] a night l Amitriptyli 2023-0 Yes [id number] 50mg Take 1 Elaine ne HCl 50 2-21 tablet (50 Seyb old MG oral 00:00: mg total) - Tablet 00 by mouth Externa at bedtime l Duloxetine 2023-0 Yes [id number] Take 2 Elaine HCl 30 MG 2-21 tabs in Seybold oral Cap DR 00:00: the am and - Particles 00 1 tab at [facility] a night l Tizanidine 2023-0 Yes [id number] 4mg Take 1 K elsey HCl 4 MG 2-21 capsule (4 Seybo ld oral 00:00: mg total) - Capsule 00 by mouth 2 [facility] a times l daily Pregabalin 2023-0 Yes [id number] 25mg Take 1 Elaine 25 MG oral 2-21 capsule Seybol d Capsule 00:00: (25 mg - 00 total) by Externa mouth 2 l times daily Duloxetine 2023-0 Yes [id number] Take 2 Elaine HCl 30 MG 2-21 tabs in Seybold oral Cap DR 00:00: the am and - Particles 00 1 tab at [facility] a night l Duloxetine 2022-0 Yes [id number] Take 2 Elaine HCl 30 MG 2-21 tabs in Seybold oral Cap DR 00:00: the am and - Particles 00 1 tab at [facility] a night l Amitriptyli 2022-0 Yes [id number] 50mg Take 1 Elaine ne HCl 50 2-21 tablet (50 Seyb old MG oral 00:00: mg total) - Tablet 00 by mouth Externa at bedtime l Duloxetine 2022-0 Yes [id number] Take 2 Elaine HCl 30 MG 2-21 tabs in Seybold oral Cap DR 00:00: the am and - Particles 00 1 tab at [facility] a night l Alprazolam 2022-0 Yes [id number] 1mg QD Take 1 K elsey 1 MG oral 2-21 tablet (1 Seybo ld Tablet 00:00: mg total) - 00 by mouth Externa nightly as l needed for sleep Ibuprofen 2022-0 Yes [id number] 800mg Take 1 K elsey (MOTRIN) 2-21 tablet Seybold 800 MG oral 00:00: (800 mg - Tablet 00 total) by Externa mouth l every 12 hours as needed for pain Duloxetine 2022-0 Yes [id number] Take 2 Elaine HCl 30 MG 2-21 tabs in Seybold oral Cap DR 00:00: the am and - Particles 00 1 tab at [facility] a night l Tizanidine 2022-0 Yes [id number] 4mg Take 1 K elsey HCl 4 MG 2-21 capsule (4 Seybo ld oral 00:00: mg total) - Capsule 00 by mouth 2 [facility] times l daily Pantoprazol 2022-0 2022- No Kelse y e Sodium 40 2-13 02-21 Seybold MG oral 00:00: 00:00 - Tablet 00 :00 Externa Delayed l Response Ibuprofen 2022-2022- No 800mg Take 800 Ke lsey (MOTRIN) 1-08 02-21 mg by Seybold 800 MG oral 00:00: 00:00 mouth - Tablet 00 :00 every 12 Externa hours as l needed for pain Dicyclomine 2021-04- No 1{tbl} Q.[id number] Take 1 Elaine HCl 20 MG -15 06-14 [id number] tablet by Seybold oral Tablet 00:00: 00:00 3D mouth - 00 :00 every 8 Externa hours as l needed Amitriptyli 2021-04- No 50mg Take 50 mg Elaine ne [...] TAKE 1 Georges sey rine HCl 10 01-14 03- TABLET(10 Se ybold MG oral 00:00: 00:00 MG) BY - Tablet 00 :00 MOUTH Externa EVERY 8 l HOURS NEEDED FOR MUSCLE SPASMS Tizanidine 2022- No 1{capsu Take 1 K elsey HCl 4 MG 01-03 le} capsule by Seyb old oral 00:00: 00:00 mouth 2 - Capsule 00 :00 times Externa daily l cyclobenzap Yes 1{tbl} Q.[id number] Take 1 UT rine 8-18 [id number] tablet by [facility] (Flexeril) 13:17: 3D mouth in 10 MG 14 the tablet morning and 1 tablet at noon and 1 tablet in the evening. cyclobenzap 2021-0 Yes 437 10mg Take 1 UT rine 8-03 tablet (10 [facility] (Flexeril) 00:00: mg total) 10 MG 00 by mouth tablet every 8 (eight) hours if needed for muscle spasms. cyclobenzap 2021-0 Yes 437 10mg Take 1 UT rine 8-03 tablet (10 [facility] (Flexeril) 00:00: mg total) 10 MG 00 by mouth tablet every 8 (eight) hours if needed for muscle spasms. cyclobenzap 2021-0 Yes 437 10mg Take 1 UT rine 8-03 tablet (10 [facility] (Flexeril) 00:00: mg total) 10 MG 00 by mouth tablet every 8 (eight) hours if needed for muscle spasms. lidocaine 2021- No [id number] 2{patch QD Apply 2 [facility] (Lidoderm) 11-24 } patches [facility]alt [facility] 5 % patch 00:00: 04:59 topically 00 :00 1 (one) time each day. Remove & discard patch within 12 hours or as directed by MD. lidocaine 0 2021- No [id number] 2{patch QD Apply 2 [facility] (Lidoderm) 11-24 } patches [facility]alt [facility] 5 % patch 00:00: 04:59 topically 00 :00 1 (one) time each day. Remove & discard patch within 12 hours or as directed by MD. lidocaine 2021- No [id number] 2{patch QD Apply 2 UT (Lidoderm) 11-24 } patches [facility]alt [facility] 5 % patch 00:00: 04:59 topically 00 :00 1 (one) time each day. Remove & discard patch within 12 hours or as directed by MD. amitriptyli Yes 50mg Q.5D Take 50 mg [facility] ne (Elavil) - by mouth [facility] 50 MG 00:00: in the tablet 00 morning and 50 mg before bedtime. linaCLOtide Yes 145ug Take 145 K elsey 72 MCG oral 7-11 mcg by Seybol d Capsule 00:00: mouth - 00 daily Externa l linaCLOtide 2022- No 145ug Take 145 Elaine 72 MCG oral 7-11 03-01 mcg by Seybo ld Capsule 00:00: 00:00 mouth - 00 :00 daily Externa l Alprazolam 2022- No 1mg Q.5D Take 1 mg K elsey 1 MG oral 7-11 -21 by mouth 2 Sey bold Tablet 00:00: 00:00 times - 00 :00 daily as Externa needed l levoFLOXaci 2020-04- No 750mg 750 mg, U [...] Mon04/23/21 at 0845, JOLYNN metoclopram 2020-04 Yes [id number] 10mg Take 1 [facility] HCl 10 2-31 tablet by [facility] of mg tablet 00:00: mouth [place] 00 every 6 Medical (six) Branch hours. pantoprazol 2020-04 Yes [id number] 40mg Take 1 [facility] e 2-31 tablet by ity of (PROTONIX) 00:00: mouth [place] 40 mg EC 00 daily. Medical tablet Branch amitriptyli 2020-04 Yes [id number] 25mg Take 1 [facility] ne 25 mg 2-31 tablet by ity of tablet 00:00: mouth at [place] 00 bedtime. Medical Branch levoFLOXaci 2020-04 Yes [id number] 750mg Take 1 [facility] n 750 mg 2-31 tablet by ity of tablet 00:00: mouth [place] 00 every 24 Medical (twenty- Branch ur) hours. metoclopram 2020-04 Yes [id number] 10mg Take 1 [facility] shantel HCl 10 2-31 tablet by ity of mg tablet 00:00: mouth [place] 00 every 6 Medical (six) Branch hours. pantoprazol 2020-04 Yes [id number] 40mg Take 1 [facility] e 2-31 tablet by ity of (PROTONIX) 00:00: mouth [place] 40 mg EC 00 daily. Medical tablet Branch amitriptyli 2020-04 Yes [id number] 25mg Take 1 [facility] ne 25 mg 2-31 tablet by ity of tablet 00:00: mouth at [place] 00 bedtime. Medical Branch levoFLOXaci 2020-04 Yes [id number] 750mg Take 1 Univers n 750 mg 2-31 tablet by ity of tablet 00:00: mouth [place] 00 every 24 Medical (twenty-fo Branch ur) hours. metoclopram 2020-04 Yes [id number] 10mg Take 1 Univers shantel HCl 10 2-31 tablet by ity of mg tablet 00:00: mouth [place] 00 every 6 Medical (six) Branch hours. pantoprazol 2020-04 Yes [id number] 40mg Take 1 Univers e 2-31 tablet by ity of (PROTONIX) 00:00: mouth [place] 40 mg EC 00 daily. Medical tablet Branch amitriptyli 2020-04 Yes [id number] 25mg Take 1 Univers ne 25 mg 2-31 tablet by ity of tablet 00:00: mouth at [place] 00 bedtime. Medical Branch levoFLOXaci 2020-04 Yes [id number] 750mg Take 1 Univers n 750 mg 2-31 tablet by ity of tablet 00:00: mouth [place] 00 every 24 Medical (twenty-fo Branch ur) hours. metoclopram 2020-04 Yes [id number] 10mg Take 1 [facility] shantel HCl 10 2-31 tablet by ity of mg tablet 00:00: mouth [place] 00 every 6 Medical (six) Branch hours. pantoprazol 2020-04 Yes [id number] 40mg Take 1 Univers e 2-31 tablet by ity of (PROTONIX) 00:00: mouth [place] 40 mg EC 00 daily. Medical tablet Branch amitriptyli 2020-04 Yes [id number] 25mg Take 1 Univers ne 25 mg 2-31 tablet by ity of tablet 00:00: mouth at [place] 00 bedtime. Medical Branch levoFLOXaci 2020-04 Yes [id number] 750mg Take 1 Univers n 750 mg 2-31 tablet by ity of tablet 00:00: mouth [place] 00 every 24 Medical (twenty-fo Branch ur) hours. dicyclomine 2020-04- No [id number] 20mg Take 1 Univers 20 mg 2-31 05-25 tablet by ity of tablet 00:00: 05:59 mouth 4 [place] 00 :00 (four) Medical times Branch daily for 31 days. PARoxetine 2020-[address] [facility] [...] (two) Medical capsule 28 times Center daily. dicyclomine 2020-0 Yes 20mg Take [address] [facility] (BENTYL) 20 5-04 by mouth [facility] tablet 00:00: every 8 Medic al 00 (eight) Center hours. ondansetron 2020-0 Yes 4mg Take [address] (Zofran) 4 5-04 [facility] tablet [facility]: as needed. Pr dical 00 [place] dicyclomine 2020-0 Yes 20mg Take [address] [facility] (BENTYL) 20 5-04 by mouth [facility] mg tablet 00:00: every 8 Medic al 00 (eight) Center hours. ondansetron 1-0 Yes 4mg Take [address] (Zofran) 4 5-04 [facility] tablet 00:00: as needed. Pr dical 00 [place] dicyclomine 1-0 Yes 20mg Take [address] [facility] (BENTYL) 20 5-04 by mouth [facility] mg tablet 00:00: every 8 Medic al 00 (eight) Center hours. dicyclomine 1-0 Yes 20mg Take [address] [facility] (BENTYL) 20 5-04 by mouth [facility] mg tablet 00:00: every 8 Medic al 00 (eight) Center hours. ondansetron 2021-0 Yes 4mg Take [address] (Zofran) 4 5-04 by [facility] tablet 00:00: as needed. Pr dical 00 [place] ondansetron 2021-0 Yes 4mg Take [address] (Zofran) 4 5-04 by [facility] tablet 00:00: as needed. [address] dicyclomine 1-0 Yes 20mg Take [address] [facility] (BENTYL) 20 5-04 by mouth [facility] mg tablet 00:00: every 8 Medic al 00 (eight) Center hours. ondansetron 1-0 Yes 4mg Take [address] (Zofran) 4 5-04 by [facility] tablet 00:00: as needed. [address] dicyclomine 2020-0 Yes 20mg Take [address] [facility] (BENTYL) 20 5-04 by mouth [facility] mg tablet 00:00: every 8 Medic al 00 (eight) Center hours. ondansetron 1-0 Yes 4mg Take [address] (Zofran) 4 5-04 by [facility] tablet 00:00: as needed. [address] dicyclomine 2020-0 Yes 20mg Take [address] [facility] (BENTYL) 20 5-04 by mouth [facility] mg tablet 00:00: every 8 Medic al 00 (eight) Center hours. ondansetron 1-0 Yes 4mg Take [address] (Zofran) 4 5-04 by [facility] tablet 00:00: as needed. [address] dicyclomine 2020-0 Yes 20mg Take [address] [facility] (BENTYL) 20 5-04 by mouth [facility] mg tablet 00:00: every 8 Medic al 00 (eight) Center hours. ondansetron 1-0 Yes 4mg Take [address] (Zofran) 4 5-04 by [facility] tablet 00:00: as needed. [address] pantoprazol 2020-[address] [facility] e 4-19 le 40 mg [facility] (PROTONIX) 00:00: tablet,del M edical 40 MG 00 ayed Center tablet release TAKE ONE (1) TABLET(S) BY MOUTH ONCE A DAY. pantoprazol 2020-[address] [facility] 4-19 le 40 mg [facility] (PROTONIX) 00:00: tablet,del M edical 40 MG 00 ayed Center tablet release TAKE ONE (1) TABLET(S) BY MOUTH ONCE A DAY. pantoprazol 2020-[address] [facility] 4-19 le [...] (1) TABLET(S) BY MOUTH ONCE A DAY. peg-electro 2020- Yes [id number] Take as [facility] lyte soln 0-27 directed ity of 236-22.74-6 [place] colonoscop Medi sofie gram y Branch solution peg-electro 2020- Yes [id number] Take as [facility] lyte soln 0-27 directed ity of 236-22.74-6 00:[place] -5.[place] colonoscop Medi sofie gram y Branch solution peg-electro 2020- Yes [id number] Take as Univers lyte soln 0-27 directed ity of 236-22.74-6 00:[place] -[place] colonoscop Medi sofie gram y Branch solution peg-electro 2020- Yes [id number] Take as Univers lyte soln 0-27 directed ity of 236-22.74-6 00:[place] -5.[place] colonoscop Medi sofie gram y Branch solution peg-electro 2019-04 Yes [id number] Take as Univers lyte soln 0-27 directed ity of 236-22.74-6 00:00: [place] -5.[place] colonoscop Medi sofie gram y Branch solution peg-electro 2019-04 Yes [id number] Take as Univers lyte soln 0-27 directed ity of 236-22.74-6 00:00: [place] -5.[place] colonoscop Medi sofie gram y Branch solution peg-electro 2019-04 Yes [id number] Take as Univers lyte soln 0-27 directed ity of 236-22.74-6 00:[place]: [place] -5.[place] colonoscop Medi sofie gram y Branch solution peg-electro 2019-04 Yes [id number] Take as Univers lyte soln 0-27 directed ity of 236-22.74-6 00:[place]: [place] -5.[place] colonoscop Medi sofie gram y Branch solution peg-electro 2019-04 Yes [id number] Take as Univers lyte soln 0-27 directed ity of 236-22.74-6 00:00: [place] -5.[place] colonoscop Medi sofie gram y Branch solution peg-electro 2019-04 Yes [id number] Take as Univers lyte soln 0-27 directed ity of 236-22.74-6 00:[place]: [place] .[place] -5.[place] colonoscop Medi sofie gram y Branch solution peg-electro 2019-04 Yes [id number] Take as Univers lyte soln 0-27 directed [...] Branc h needed for Pain. Immunizations Ordered Filled Immunization Date Status Comments [facility] e Immunization Name Name Influenza Virus 2019-12-31 Completed Elaine Se ybold Vaccine, Split, up 00:00:00 - Exte rnal to age 3 Influenza Virus 2019-12-31 Completed Elaine Se ybold Vaccine, Split, up 00:00:00 - Exte rnal to age 3 Influenza Virus 2019-12-31 Completed Elaine Se ybold Vaccine, Split, up 00:00:00 - Exte rnal to age 3 Influenza Virus 2019-12-31 Completed Elaine Se ybold Vaccine, Split, up 00:00:00 - Exte rnal to age 3 Influenza Virus 2019-12-31 Completed Elaine Se ybold Vaccine, Split, up 00:00:00 - Exte rnal to age 3 Influenza Virus 2019-12-31 Completed Elaine Se ybold Vaccine, Split, up 00:00:00 - Exte rnal to age 3 Influenza Virus 2019-12-31 Completed Elaine Se ybold Vaccine, Split, up 00:00:00 - Exte rnal to age 3 Influenza Virus 2019-12-31 Completed Elaine Se ybold Vaccine, Split, up 00:00:00 - Exte rnal to age 3 Influenza Virus 2019-12-31 Completed Elaine Se ybold Vaccine, Split, up 00:00:00 - Exte rnal to age 3 Influenza Virus 2019-12-31 Completed Elaine Se ybold Vaccine, Split, up 00:00:00 - Exte rnal to age 3 Influenza Virus 2019-12-31 Completed Elaine Se ybold Vaccine, Split, up 00:00:00 - Exte rnal to age 3 Influenza Virus 2019-12-31 Completed Elaine Se ybold Vaccine, Split, up 00:00:00 - Exte rnal to age 3 Influenza Virus 2019-12-31 Completed Elaine Se ybold Vaccine, Split, up 00:00:00 - Exte rnal to age 3 Influenza Virus 2019-12-31 Completed Elaine Se ybold Vaccine, Split, up 00:00:00 - Exte rnal to age 3 Influenza Virus 2019-12-31 Completed Elaine Se ybold Vaccine, Split, up 00:00:00 - Exte rnal to age 3 Influenza Virus 2019-12-31 Completed Elaine Se ybold Vaccine, Split, up 00:00:00 - Exte rnal to age 3 Influenza, 2019-12-31 Completed [facility] injectable, 00:00:00 quadrivalent (afluria, fluzone) Influenza Virus Unknown Completed Elaine villafuerte Vaccine, Split, up - Exte rnal to age 3 Influenza Virus Unknown Completed Elaine villafuerte Vaccine, Split, up - Exte rnal to age 5 Vital Signs Vital Name Observation Time Observation Value Comments Source HEIGHT 2021-01-21 08:45:00 175.3 cm WEIGHT 2021-01-21 08:45:00 69.4 kg HEIGHT 2020-11-17 06:45:00 175.3 cm WEIGHT 2020-11-17 06:45:00 69.4 kg HEIGHT 2020-11-13 11:51:00 175.3 cm WEIGHT 2020-11-13 11:51:00 68.04 kg Systolic blood 2023-01-05 16:42:00 114 mm[Hg] Elaine Seybold - pressure External Diastolic blood 2023-01-05 16:42:00 68 mm[Hg] Georgesse y Seybold - pressure External Heart rate 2023-01-05 16:42:00 102 /min Elaine Estrada eybold - External Body temperature 2023-01-05 16:42:00 36.39 Sera Christina ey Seybold - External Respiratory rate 2023-01-05 16:42:00 14 /min Christina ey Seybold - External Body height 2023-01-05 16:42:00 175.3 cm Elaine Estrada eybold - External Body weight 2023-01-05 16:42:00 78.472 kg Elaine Estrada eybold - External BMI 2023-01-05 16:42:00 25.55 kg/m2 Elaine S eybold - External Body height 2022-12-02 13:20:00 175.3 cm Elaine Estraad eybold - External Body weight 2022-12-02 13:20:00 78.472 kg Elaine Estrada eybold - External BMI 2022-12-02 13:20:00 25.55 kg/m2 Elaine S eybold - External Systolic blood 2022-11-02 14:22:00 141 mm[Hg] Elaine Seybold - pressure External Diastolic blood 2022-11-02 14:22:00 81 mm[Hg] Kelse y Seybold - pressure External Heart rate 2022-11-02 14:22:00 87 /min Elaine S eybold - External Body temperature 2022-11-02 14:22:00 36.61 Sera Christina ey Seybold - External Respiratory rate 2022-11-02 14:22:00 14 /min Christina ey Seybold - External Body height 2022-11-02 14:22:00 175.3 cm Elaine S eybold - External Body weight 2022-11-02 14:22:00 82.101 kg Elaine S eybold - External BMI 2022-11-02 14:22:00 26.73 kg/m2 Elaine S eybold - External Oxygen saturation in 2022-11-02 14:22:00 99 /min Elaine Seybold - Arterial blood by External Pulse oximetry Systolic blood 2022-09-28 18:27:00 137 mm[Hg] Elaine Seybold - pressure External Diastolic blood 2022-09-28 18:27:00 78 mm[Hg] Georges y Seybold - pressure External Heart rate 2022-09-28 18:27:00 92 /min Elaine S eybold - External Body temperature 2022-09-28 18:27:00 36.61 Sera Christina ey Seybold - External Respiratory rate 2022-09-28 18:27:00 14 /min Christina ey Seybold - External Body height 2022-09-28 18:27:00 175.3 cm Elaine S eybold - External Body weight 2022-09-28 18:27:00 82.101 kg Elaine S eybold - External BMI 2022-09-28 18:27:00 26.73 kg/m2 Elaine S eybold - External Oxygen saturation in 2022-09-28 18:27:00 97 /min Elaine Seybold - Arterial blood by External Pulse oximetry Body height 2022-09-28 15:12:00 175.3 cm Elaine S eybold - External Body weight 2022-09-28 15:12:00 78.019 kg Elaine S eybold - External BMI 2022-09-28 15:12:00 25.40 kg/m2 Elaine S eybold - External Systolic blood 2022-09-14 20:16:00 103 mm[Hg] Elaine Seybold - pressure External Diastolic blood 2022-09-14 20:16:00 56 mm[Hg] Kelse y Seybold - pressure External Heart rate 2022-09-14 20:16:00 76 /min Elaine S eybold - External Body temperature 2022-09-14 20:16:00 36.61 Sera Christina ey Seybold - External Respiratory rate 2022-09-14 20:16:00 17 /min Christina ey Seybold - External Body height 2022-09-14 20:16:00 172.7 cm Elaine S eybold - External Body weight 2022-09-14 20:16:00 78.019 kg Elaine S eybold - External BMI 2022-09-14 20:16:00 26.15 kg/m2 Elaine S eybold - External Oxygen saturation in 2022-09-14 20:16:00 99 /min Elaine Seybold - Arterial blood by External Pulse oximetry Systolic blood 2022-08-22 19:12:00 111 mm[Hg] Elaine Seybold - pressure External Diastolic blood 2022-08-22 19:12:00 70 mm[Hg] Georgesse y Seybold - pressure External Heart rate 2022-08-22 19:12:00 69 /min Elaine Estrada eybold - External Body temperature 2022-08-22 19:12:00 36.11 Sera Christina ey Seybold - External Respiratory rate 2022-08-22 19:12:00 16 /min Christina ey Seybold - External Body height 2022-08-22 19:12:00 172.7 cm Elaine S eybold - External Body weight 2022-08-22 19:12:00 78.019 kg Elaine S eybold - External BMI 2022-08-22 19:12:00 26.15 kg/m2 Elaine S eybold - External Systolic blood 2022-08-03 16:14:00 110 mm[Hg] Elaine Seybold - pressure External Diastolic blood 2022-08-03 16:14:00 59 mm[Hg] Georgesse y Seybold - pressure External Heart rate 2022-08-03 16:14:00 61 /min Elaine S eybold - External Body temperature 2022-08-03 16:14:00 36.89 Sera Christina ey Seybold - External Respiratory rate 2022-08-03 16:14:00 14 /min Christina harman Seybold - External Body height 2022-08-03 16:14:00 172.7 cm Elaine harmanbold - External Body weight 2022-08-03 16:14:00 79.379 kg Elaine harmanbold - External BMI 2022-08-03 16:14:00 26.61 kg/m2 Elaine harmanbold - External Oxygen saturation in 2022-08-03 16:14:00 99 /min Elaine Feliciano - Arterial blood by External Pulse oximetry Systolic blood 2022-07-27 17:06:00 116 mm[Hg] [facility] Diastolic blood 2022-07-27 17:06:00 69 mm[Hg] Unive rs[facility] of [facility] Heart rate 2022-07-27 17:06:00 85 /min [facility] Body temperature 2022-07-27 17:06:00 37.11 Sera [facility] 2022-07-27 17:06:00 18 /min [facility] height 2022-07-27 17:06:00 175.3 cm [facility] Body weight 2022-07-27 17:06:00 79.379 kg [facility] BMI 2022-07-27 17:06:00 25.84 kg/m2 [facility] Oxygen saturation in 2022-07-27 17:06:00 96 /min [facility] Arterial blood by [facility] [place] [facility] Pulse oximetry Branch Systolic blood 2022-07-25 20:57:00 113 mm[Hg] Elaine Rasconybold - pressure External Diastolic blood 2022-07-25 20:57:00 65 mm[Hg] Jihan jaylin Seybold - pressure External Heart rate 2022-07-25 20:57:00 64 /min Elaine harmanbold - External Body temperature 2022-07-25 20:57:00 36.39 Sera Christina ey Seybold - External Respiratory rate 2022-07-25 20:57:00 14 /min Christina harman Seybold - External Body height 2022-07-25 20:57:00 172.7 cm Elaine Esrtada eybold - External Body weight 2022-07-25 20:57:00 79.379 kg Elaine S eybold - External BMI 2022-07-25 20:57:00 26.61 kg/m2 Elaine S eybold - External Oxygen saturation in 2022-07-25 20:57:00 99 /min Elaine Seybold - Arterial blood by External Pulse oximetry Systolic blood 2022-06-22 20:46:00 102 mm[Hg] Elaine Seybold - pressure External Diastolic blood 2022-06-22 20:46:00 58 mm[Hg] Georgesse y Seybold - pressure External Heart rate 2022-06-22 20:46:00 73 /min Elaine Estrada eybold - External Body temperature 2022-06-22 20:46:00 37.44 Esra Christina ey Seybold - External Respiratory rate 2022-06-22 20:46:00 14 /min Christina ey Seybold - External Body height 2022-06-22 20:46:00 172.7 cm Elaine Estrada eybold - External Body weight 2022-06-22 20:46:00 82.555 kg Elaine Estrada eybold - External BMI 2022-06-22 20:46:00 27.67 kg/m2 Elaine Estrada eybold - External Oxygen saturation in 2022-06-22 20:46:00 97 /min Elaine Seybold - Arterial blood by External Pulse oximetry Systolic blood 2022-06-14 16:09:00 108 mm[Hg] Elaine Seybold - pressure External Diastolic blood 2022-06-14 16:09:00 56 mm[Hg] Jihan y Seybold - pressure External Heart rate 2022-06-14 16:09:00 81 /min Elaine S eybold - External Body temperature 2022-06-14 16:09:00 37.28 Sera Christina ey Seybold - External Respiratory rate 2022-06-14 16:09:00 14 /min Christina ey Seybold - External Body height 2022-06-14 16:09:00 172.7 cm Elaine S eybold - External Body weight 2022-06-14 16:09:00 79.833 kg Elaine S eybold - External BMI 2022-06-14 16:09:00 26.76 kg/m2 Elaine S eybold - External Systolic blood 2021-12-09 18:23:00 [...] WEIGHT 2021-10-30 19:50:00 68.947 kg Systolic blood 2021-04-23 14:00:00 132 mm[Hg] [facility] Diastolic blood 2021-04-23 14:00:00 79 mm[Hg] [facility] Heart rate 2021-04-23 14:00:00 57 /min Universi ty [facility] Respiratory rate 2021-04-23 14:00:00 18 /min Univ ersity [facility] Oxygen saturation in 2021-04-23 14:00:00 100 /min University Arterial blood by [facility] [place] [facility] Pulse oximetry Branch Body temperature 2021-04-23 13:35:00 36.89 Sera [facility] ersity of [place] [facility] Body weight 2021-04-23 13:35:00 63.504 kg Universi ty of [place] [facility] BMI 2021-04-23 13:35:00 20.67 kg/m2 [facility] [place] [facility] HEIGHT 2021-03-04 14:15:00 175.3 cm WEIGHT 2021-03-04 [...] WEIGHT 2020-11-13 11:51:00 68.04 kg Systolic blood 2020 15:29:00 100 mm[Hg] Univer sity of pressure [place] [facility] Diastolic blood 2020 15:29:00 71 mm[Hg] Unive rsity of pressure [place] [facility] Heart rate 2020 15:29:00 89 /min Universi ty [facility] Body temperature 2020 15:29:00 36.61 Sera Univ ersity of [place] [facility] Body height 2020 15:29:00 175.3 cm [facility]i ty [facility] [place] [facility] Body weight 2020 15:29:00 84.006 kg [facility] BMI 2020 15:29:00 27.35 kg/m2 [facility] Systolic blood 2021-10-30 22:10:00 103 mm[Hg] [facility] Diastolic blood 2021-10-30 22:10:00 69 mm[Hg] [facility] Heart rate 2021-10-30 22:10:00 68 /min [facility] Respiratory rate 2021-10-30 22:10:00 18 /min [facility] Oxygen saturation in 2021-10-30 22:10:00 99 /min [facility] Arterial blood by Medical Ce nter Pulse oximetry Body temperature 2021-10-30 19:50:00 37 Sera [facility] Body height 2021-10-30 19:50:00 175.3 cm [facility] Body weight 2021-10-30 19:50:00 68.947 kg [facility] BMI 2021-10-30 19:50:00 22.45 kg/m2 [facility] Procedures Procedure Date / Time Performing Clinician Source Performed NOTICE OF PRIVACY 2022-07-27 16:49:26 Doctor Donnell, [facility] PRACTICES [facility] CONSENT/REFUSAL FOR 2022-07-27 16:48:51 Doctor Donnell, [facility] DIAGNOSIS AND TREATMENT [facility] AUTHORIZATION FOR RELEASE 2022-01-18 05:01:00 Doctor Donnell, [facility] AUTHORIZATION FOR RELEASE 2021-10-22 05:01:00 Doctor Donnell, [facility] ABDOMEN PELVIS WO 2021-04-23 14:44:18 Debi Carson [facility] POCT TEST 2021-04-23 14:01:00 Debi Carson [facility] URINALYSIS 2021-04-23 13:58:00 Debi Carson [facility] LIPASE 2021-04-23 13:45:00 Debi Carson [facility] COMP. METABOLIC PANEL 2021-04-23 13:45:[address] [facility] ([id number]) Medical Branch CBC WITH DIFF 2021-04-23 13:45:00 Debi Carson [facility] MRI CERVICAL SPINE W WO 2020-09-22 23:30:00 [facility] [place] [facility] CONTRAST ASSIGNMENT OF BENEFITS 2020-09-22 13:05:16 Doctor Unassigned, [facility] NO SHOW OR MISSED 2020 14:55:48 Doctor Unassigned, [facility] APPOINTMENT POLICY [facility] ACKNOWLEDGEMENT REFERRAL- REQUEST/RESPONSE 2019-11-22 05:01:00 Doctor Unassigned , [facility] Plan of Care Planned Activity Planned Date Details Comments Source Future Scheduled 2022-12-23 [facility] Influenza Seasonal [facility] 00:00:00 (>/= 19 yrs) [code = IMM Influenza Seasonal (>/= 19 yrs)] Future Scheduled 2022-12-23 Influenza Vaccine (#1) [facility] Test 00:00:00 [code = Influenza Vaccine Me dical Center (#1)] Future Scheduled 2022-12-23 Influenza Vaccine (#1) [facility] Test 00:00:00 [code = Influenza Vaccine Me dical Center (#1)] Future Scheduled 2022-12-23 [facility] Influenza [facility]al [facility] 00:00:00 (>/= 19 yrs) [code = IMM Influenza Seasonal (>/= 19 yrs)] Future Scheduled 2022-04-[address] [facility] Test 00:00:00 (12+) [code = DEPRESSION Med ical Center SCREENING (12+)] Future Scheduled 2022-04-[address] [facility] Test 00:00:00 (12+) [code = DEPRESSION Med ical Center SCREENING (12+)] Future Scheduled 2022-04-[address] [facility] Test 00:00:00 (12+) [code = DEPRESSION Med ical Center SCREENING (12+)] Future Scheduled 2022-04-[address] [facility] Test 00:00:00 (12+) [code = DEPRESSION Med ical Center SCREENING (12+)] Future Scheduled 2022-04-[address] [facility] Test 00:00:00 (12+) [code = DEPRESSION Med ical Center SCREENING (12+)] Future Scheduled 2022-04-[address] [facility] Test 00:00:00 (12+) [code = DEPRESSION Med ical Center SCREENING (12+)] Future Scheduled 2022-04-[address] [facility] Test 00:00:00 (12+) [code = DEPRESSION Med ical Center SCREENING (12+)] Future Scheduled 2022 Breast Cancer [...] [facility] Test 00:00:00 Counseling and Screening Med ical Center (12+) [code = Tobacco Cessation Counseling and Screening (12+)] Future Scheduled 2022-02-[address] [facility] Test 00:00:00 Counseling and Screening Med ical Center (12+) [code = Tobacco Cessation Counseling and Screening (12+)] Future Scheduled 2022-02-[address] [facility] Test 00:00:00 Counseling and Screening Med ical Center (12+) [code = Tobacco Cessation Counseling and Screening (12+)] Future Scheduled 2022-02-[address] [facility] Test 00:00:00 Counseling and Screening Med ical Center (12+) [code = Tobacco Cessation Counseling and Screening (12+)] Future Scheduled 2022-02-[address] [facility] Test 00:00:00 Counseling and Screening Med ical Center (12+) [code = Tobacco Cessation Counseling and Screening (12+)] Future Scheduled 2022-02-[address] [facility] Test 00:00:00 Counseling and Screening Med ical Center (12+) [code = Tobacco Cessation Counseling and Screening (12+)] Future Scheduled 2022-02-[address] [facility] Test 00:00:00 Counseling and Screening Med ical Center (12+) [code = Tobacco Cessation Counseling and Screening (12+)] Future Scheduled 2022-02-[address] [facility] Test 00:00:00 Counseling and Screening Med ical Center (12+) [code = Tobacco Cessation [facility]ing [facility] [code = INFLUENZA VACCINE Me dical Center (#1)] Future Scheduled 2021-12-23 INFLUENZA VACCINE (#1) [facility] 00:00:00 [code = INFLUENZA VACCINE Me dical Center (#1)] Future Scheduled 2021-12-23 INFLUENZA VACCINE (#1) [facility] 00:00:00 [code = INFLUENZA VACCINE Me dical Center (#1)] Future Scheduled 2021-12-23 INFLUENZA VACCINE (#1) [facility] 00:00:00 [code = INFLUENZA VACCINE Me dical Center (#1)] Future Scheduled 2021-12-23 INFLUENZA VACCINE (#1) [facility] 00:00:00 [code = INFLUENZA VACCINE Me dical Center (#1)] Future Scheduled 2021-12-23 INFLUENZA VACCINE (#1) [facility] 00:00:00 [code = INFLUENZA VACCINE Pr dical Center (#1)] Future Scheduled 2021-04-[address] [facility] Test 00:00:00 (12+) [code = DEPRESSION Med ica Center SCREENING (12+)] Future Scheduled 2012-02-19 Screening for malignant [facility] Test 00:00:00 neoplasm of cervix (procedure) [code = 431321077] Future Scheduled 2012-02-19 Screening for malignant [facility] Test 00:00:00 neoplasm of cervix (procedure) [code = 997939666] Future Scheduled 2012-02-19 Screening for malignant [facility] Test 00:00:00 neoplasm of cervix (procedure) [code = 758218145] Future Scheduled 2012-02-19 Screening for malignant [facility] Test 00:00:00 neoplasm of cervix (procedure) [code = [id number]] Future Scheduled 2012-02-19 Screening for malignant [facility] Test 00:00:00 neoplasm of cervix (procedure) [code = 311316114] Future Scheduled 2012-02-19 Screening for malignant [facility] Test 00:00:00 neoplasm of cervix (procedure) [code = 420230011] Future Scheduled 2012-02-19 Screening for malignant [facility] Test 00:00:00 neoplasm of cervix (procedure) [code = 442565165] Future Scheduled 2012-02-19 Screening for malignant [facility] 00:00:00 neoplasm of cervix (procedure) [code = 675358710] Future Scheduled 2012-02-19 Screening for malignant [facility] 00:00:00 neoplasm of cervix (procedure) [code = 397087191] Future Scheduled 2003 Screening for malignant [facility] 00:00:00 neoplasm of cervix (procedure) [code = 688105870] Future Scheduled 2003 Screening for malignant [facility] 00:00:00 neoplasm of cervix Medical C enter (procedure) [code = 335195879] Future Scheduled 2003 Screening for malignant [facility] 00:00:00 neoplasm of cervix Medical C enter (procedure) [code = 054628408] Future Scheduled 2003 Screening for malignant [facility] 00:00:00 neoplasm of cervix Medical C enter (procedure) [code = 556426644] Future Scheduled 2003 Screening for malignant [facility] 00:00:00 neoplasm of cervix Medical C enter (procedure) [code = 385852915] Future Scheduled 2003 Screening for malignant [facility] 00:00:00 neoplasm of cervix Medical C enter (procedure) [code = 423884261] Future Scheduled 2003 Screening for malignant [facility] 00:00:00 neoplasm of cervix Medical C enter (procedure) [code = 225777915] Future Scheduled 2003 Screening for malignant [facility] 00:00:00 neoplasm of cervix Medical C enter (procedure) [code = 641021212] Future Scheduled 2003 Screening for malignant [facility] 00:00:00 neoplasm of cervix Medical C enter (procedure) [code = 448861096] Future Scheduled 2003 Screening for malignant [facility] 00:00:00 neoplasm of cervix (procedure) [code = 469384348] Future Scheduled 2003 Screening for malignant [facility] 00:00:00 neoplasm of cervix (procedure) [code = 184710549] Future Scheduled 2002 Lipid panel (procedure) [facility] 00:00:00 [code = 67665474] Medical Ce [facility]ter Future Scheduled 2002 Lipid panel (procedure) [facility] 00:00:00 [code = 31160711] Medical Ce nter Future Scheduled 2002 Lipid panel (procedure) [facility] 00:00:00 [code = 05377341] Medical Ce nter Future Scheduled 2002 Lipid panel (procedure) [facility] 00:00:00 [code = 13998978] Medical Ce nter Future Scheduled 2002 Lipid panel (procedure) [facility] 00:00:00 [code = 54427932] Medical Ce nter Future Scheduled 2002 Lipid panel (procedure) [facility] 00:00:00 [code = 68681094] Medical Ce nter Future Scheduled 2002 Lipid panel (procedure) [facility] 00:00:00 [code = 93962231] Medical Ce nter Future Scheduled 2002 Lipid panel (procedure) [facility] 00:00:00 [code = 15122845] Medical Ce nter Future Scheduled 2001 DTAP/TDAP/TD VACCINES ([address] [facility] 00:00:00 - Tdap) [code = Medical Cent er DTAP/TDAP/TD VACCINES (1 - Tdap)] Future Scheduled 2001 DTAP/TDAP/TD VACCINES ([address] [facility] 00:00:00 - Tdap) [code = Medical Cent er DTAP/TDAP/TD VACCINES (1 - Tdap)] Future Scheduled 2001 DTAP/TDAP/TD VACCINES ([address] [facility] 00:00:00 - Tdap) [code = Medical Cent er DTAP/TDAP/TD VACCINES (1 - Tdap)] Future Scheduled 2001 DTAP/TDAP/TD VACCINES ([address] [facility] 00:00:00 - Tdap) [code = Medical Cent er DTAP/TDAP/TD VACCINES (1 - Tdap)] Future Scheduled 2001 DTAP/TDAP/TD VACCINES ([address] [facility] 00:00:00 - Tdap) [code = Medical Cent er DTAP/TDAP/TD VACCINES (1 - Tdap)] Future Scheduled 2001 DTAP/TDAP/TD VACCINES ([address] [facility] 00:00:00 - Tdap) [code = Medical Cent er DTAP/TDAP/TD VACCINES (1 - Tdap)] Future Scheduled 2001 DTAP/TDAP/TD VACCINES ([address] [facility] 00:00:00 - Tdap) [code = Medical Cent er DTAP/TDAP/TD VACCINES (1 - Tdap)] Future Scheduled 2001 DTAP/TDAP/TD VACCINES ([address] [facility] 00:00:00 - Tdap) [code = Medical Cent er DTAP/TDAP/TD VACCINES (1 - Tdap)] Future Scheduled [...] HEPATITIS C Medical Center SCREENING] Future Scheduled [address] [facility] 00:[facility]:00 virus screening [facility] (procedure) [code = 249728049] Future Scheduled [address] [facility] 00:00:00 virus screening [facility] Cent [facility] (procedure) [code = 353939257] Future Scheduled 1988-02-19 Pneumococcal Vaccine: [facility] 00:[facility]:00 0-64 Years (1 - PCV) Medical Center [code = Pneumococcal Vaccine: 0-64 Years (1 - PCV)] Future Scheduled 1988-02-19 PNEUMOCOCCAL VACCINE 0-[address] [facility] 00:00:00 YRS (1 - PCV) [code = Medica l Center PNEUMOCOCCAL VACCINE 0-64 YRS (1 - PCV)] Future Scheduled 1988-02-19 PNEUMOCOCCAL VACCINE 0-[address] [facility] 00:00:00 YRS (1 - PCV) [code = Medica l Center PNEUMOCOCCAL VACCINE 0-64 YRS (1 - PCV)] Future Scheduled 1988-02-19 Pneumococcal Vaccine: [facility] 00:00:00 0-64 Years (1 - PCV) Medical Center [code = Pneumococcal Vaccine: 0-64 Years (1 - PCV)] Future Scheduled 1988-02-19 PNEUMOCOCCAL VACCINE 0-[address] [facility] 00:00:00 YRS (1 - PCV) [code = Medica l Center PNEUMOCOCCAL VACCINE 0-64 YRS (1 - PCV)] Future Scheduled 1988-02-19 PNEUMOCOCCAL VACCINE 0-[address] [facility] 00:00:00 YRS (1 - PCV) [code = Medica l Center PNEUMOCOCCAL VACCINE 0-64 YRS (1 - PCV)] Future Scheduled 1988-02-19 PNEUMOCOCCAL VACCINE 0-[address] [facility] 00:00:00 YRS (1 - PCV) [code = Medica l Center PNEUMOCOCCAL VACCINE 0-64 YRS (1 - PCV)] Future Scheduled 1988-02-19 PNEUMOCOCCAL VACCINE 0-[address] [facility] 00:00:00 YRS (1 - PCV) [code = Medica l Center PNEUMOCOCCAL VACCINE 0-64 YRS (1 - PCV)] Future Scheduled 1982 COVID-19 Vaccine (#1) [facility] 00:00:00 [code = COVID-19 Vaccine (#1)] Future Scheduled 1982 COVID-19 VACCINE (#1) [facility] [code = COVID-19 VACCINE Med ical Center (#1)] Future Scheduled 1982 COVID-19 Vaccine (#1) [facility] 00:00:00 [code = COVID-19 Vaccine (#1)] Future Scheduled 1982 COVID-19 Vaccine (#1) [facility] 00:00:00 [code = COVID-19 Vaccine (#1)] Future Scheduled 1982 COVID-19 VACCINE (#1) [facility] [code = COVID-19 VACCINE [facility] ical Center (#1)] Future Scheduled 1982 COVID-19 VACCINE (#1) [facility] 00:[facility] [code = COVID-19 VACCINE Med ical Center (#1)] Future Scheduled 1982 COVID-19 VACCINE (#1) [facility] 00:[facility] [code = COVID-19 VACCINE [facility] ical Center (#1)] Future Scheduled 1982 COVID-19 VACCINE (#1) [facility] 00:00:00 [code = COVID-19 VACCINE Med ical Center (#1)] Future Scheduled 1982 COVID-19 VACCINE (#1) [facility] 00:00:00 [code = COVID-19 VACCINE [facility] ical Center (#1)] Future Scheduled 1982 COVID-19 VACCINE (#1) [facility] 00:00:00 [code = COVID-19 VACCINE Med ical Center (#1)] Future Scheduled 1982 COVID-19 Vaccine (#1) [facility] 00:00:00 [code = COVID-19 Vaccine (#1)] Future Scheduled 1982 COVID-19 VACCINE (#1) [facility] 00:[facility] [code = COVID-19 VACCINE Med ical Center (#1)] Future Scheduled 1982 COVID-19 Vaccine (#1) [facility] 00:00:00 [code = COVID-19 Vaccine (#1)] Future Scheduled 1982 COVID-19 Vaccine (#1) [facility] 00:00:00 [code = COVID-19 Vaccine (#1)] Future Scheduled 1982 Fluoride Varnish [code = [facility] 00:00:00 Fluoride Varnish] Encounters Start End Encounter Admission Attending Care Care Encounter Source Date/Time Date/Time Type Type Clinicians Facility Department ID 2022-07-18 Outpatient [facility] [id number] [place] 12:23:19 [id number] [facility] 2021-02-20 Outpatient Diana JORGE [facility] GIE [id number] [facility] 15:24:19 [facility] 2021-02-20 Outpatient Diana JORGE [facility] GIE [id number] Univers 01:30:11 [facility] 2021-01-31 Outpatient JAWAID, [facility] Surgery [id number] [facility] 14:23:40 [facility] 2021-01-31 Outpatient MIRNA, [facility] Surgery [id number] [facility] 02:13:58 [facility] 2023-04-06 2023-04-06 Outpatient ELAINE ORTEGA [id number] [place] 10:45:00 10:45:00 DARÍO Seybol d 2023-03-21 2023-03-21 Outpatient ELAINE JIMENES [id number] [place] 11:00:00 11:00:00 JOSE G Seybol d 2023-03-07 2023-03-07 Outpatient ELAINE JIMENES [id number] [place] 11:45:00 11:45:00 JOSE G Seybol d 2023-02-23 2023-02-23 Outpatient ANSOANUUR ELAINE DAVIS [id number] [place] 13:00:00 13:00:00 JASMINA Seybol d 2023-02-17 2023-02-17 Outpatient ELAINE JIMENES [id number] [place] 10:00:00 10:00:00 JOSE G Seybol d 2023-02-17 2023-02-17 Outpatient ANSOANUUR, ELAINE DAVIS [id number] [place] 00:00:00 00:00:00 JASMINA Seybol d 2023-02-16 2023-02-16 Outpatient ANSOANUUR, ELAINE DAVIS [id number] Elaine 11:00:00 11:00:00 JASMINA Seybol d 2023-02-16 2023-02-16 Outpatient ANSOANUUR, ELAINE DAVIS [id number] Elaine 00:00:00 00:00:00 JASMINA Seybol d 2023-02-16 2023-02-16 Outpatient ELAINE ORTEGA [id number] [place] 00:00:00 00:00:00 DARÍO Seybol d 2023-02-14 2023-02-14 Outpatient ANSOANUUELAINE Ortiz [id number] [place] 00:00:00 00:00:00 JASMINA Seybol d 2023-02-11 2023-02-11 Outpatient KRISHNASHERRI ELAINE DAVIS [id number] Elaine 14:15:00 14:15:00 Seybol d 2023-02-11 2023-02-11 Outpatient ELAINE ORTEGA [id number] [place] 00:00:00 00:00:00 DARÍO Seybol d 2023-02-09 2023-02-09 Outpatient PREELAINE JIM [id number] [place] 00:00:00 00:00:00 DARÍO Seybol d 2023-02-08 2023-02-08 Outpatient ANSOANUUELAINE Ortiz [id number] Elaine 09:45:00 09:45:00 JASMINA Seybol d 2023-02-08 2023-02-08 Outpatient PREELAINE JIM [id number] [place] 00:00:00 00:00:00 DARÍO Seybol d 2023-02-06 2023-02-06 Outpatient ANSOANELAINE MELENDEZ [id number] Elaine 00:00:00 00:00:00 JASMINA Seybol d 2023-02-06 2023-02-06 Outpatient ANSOANUUELAINE Ortiz [id number] Elaine 00:00:00 00:00:00 JASMINA Seybol d 2023-02-04 2023-02-04 Outpatient PREZASELAINE [id number] Elaine 00:00:00 00:00:00 DARÍO Seybol d 2023-02-03 2023-02-03 Outpatient ANSOANELAINE MELENDEZ [id number] Elaine 00:00:00 00:00:00 JASMINA Seybol d 2023-02-03 2023-02-03 Outpatient MYKELSEYONLavonne DAVIS [id number] Elaine 00:00:00 00:00:00 MD KARLA Seybol d 2023-02-03 2023-02-03 Outpatient PREZASELAINE [id number] [place] 00:00:00 00:00:00 DARÍO Seybol d 2023-02-02 2023-02-02 Outpatient PREZAELAINE Estrada [id number] [place] 00:00:00 00:00:00 DARÍO Seybol d 2023-02-01 2023-02-01 Outpatient ERASTO RILEY [id number] Elaine 14:30:00 14:30:00 Seybol d 2023-01-31 2023-01-31 Outpatient [facility] [id number] Shane 14:07:07 14:07:07 1010 F Mustapha 2023-01-20 2023-01-20 Outpatient ELAINE VELA [id number] Elaine 00:00:00 00:00:00 JASMINA Seybol d 2023-01-19 2023-01-19 Outpatient PREZAELAINE Estrada [id number] Elaine 00:00:00 00:00:00 DARÍO Seybol d 2023-01-192023-01-19 Outpatient ANSOANUUELAINE Ortiz [id number] Elaine 00:00:00 00:00:00 JASMINA Seybol d 2023-01-18 2023-01-18 Outpatient ELAINE JIMENES [id number] Elaine 08:45:00 08:45:00 JOSE G Seybol d 2023-01-18 2023-01-18 Outpatient JOANSEYONLavonne DAVIS [id number] Elaine 00:00:00 00:00:00 MD KARLA Seybol d 2023-01-17 2023-01-17 Outpatient PREZASELAINE [id number] Elaine 00:00:00 00:00:00 DARÍO Seybol d 2023-01-16 2023-01-16 Outpatient PREZASELAINE [id number] Elaine 00:00:00 00:00:00 DARÍO Seybol d 2023-01-13 2023-01-13 Outpatient YURIDIA HIGUERA [id number] Elaine 09:10:00 09:10:00 Seybol d 2023-01-13 2023-01-13 Outpatient PREZAELAINE Estrada [id number] Elaine 00:00:00 00:00:00 DARÍO Seybol d 2023-01-09 2023-01-09 Outpatient PREZASELAINE [id number] Elaine 00:00:00 00:00:00 DARÍO Seybol d 2023-01-06 2023-01-06 Outpatient ELAINE CARR [id number] [place] 00:00:00 00:00:00 LISETTE Seybol d 2023-01-05 2023-01-05 Outpatient PREZASELAINE [id number] Elaine 11:30:00 11:30:00 DARÍO Seybol d 2023-01-03 2023-01-03 Outpatient ANSOANUUELAINE Ortiz [id number] Elaine 00:00:00 00:00:00 JASMINA Seybol d 2023-01-02 2023-01-02 Outpatient PREZAELAINE Estrada [id number] Elaine 00:00:00 00:00:00 DARÍO Seybol d 2022-12-30 2022-12-30 Outpatient PREZAS, ELAINE DAVIS [id number] Elaine 16:15:00 16:15:00 DARÍO Seybol d 2022-12-26 2022-12-26 Outpatient PREZAS, ELAINE DAVIS [id number] Elaine 00:00:00 00:00:00 DARÍO Seybol d 2022-12-26 2022-12-26 Outpatient ANSOANUUR, ELAINE DAVIS [id number] Elaine 00:00:00 00:00:00 JASMINA Seybol d 2022-12-23 2022-12-23 Outpatient PREZAS, ELAINE DAVIS [id number] Elaine 00:00:00 00:00:00 DARÍO Seybol d 2022-12-23 2022-12-23 Outpatient PREZAS, ELAINE DAVIS [id number] Elaine 00:00:00 00:00:00 DARÍO Seybol d 2022-12-22 2022-12-22 Outpatient PREZAS, ELAINE DAVIS [id number] Elaine 00:00:00 00:00:00 DARÍO Seybol d 2022-12-19 2022-12-19 Outpatient ANSOANUUR, ELAINE DAVIS [id number] Elaine 00:00:00 00:00:00 JASMINA Seybol d 2022-12-19 2022-12-19 Outpatient PREZAS, ELAINE DAVIS [id number] Elaine 00:00:00 00:00:00 DARÍO Seybol d 2022-12-19 2022-12-19 Outpatient ANSOANUUR, ELAINE DAVIS [id number] Elaine 00:00:00 00:00:00 JASMINA Seybol d 2022-12-19 2022-12-19 Outpatient ANSOANUUR, ELAINE DAVIS [id number] Elaine 00:00:00 00:00:00 JASMINA Seybol d 2022-12-17 2022-12-17 Outpatient PREZAS, ELAINE DAVIS [id number] Elaine 00:00:00 00:00:00 DARÍO Seybol d 2022-12-16 2022-12-16 Outpatient PREZAS, ELAINE DAVIS [id number] Elaine 16:45:00 16:45:00 DARÍO Seybol d 2022-12-16 2022-12-16 Outpatient PREZAELAINE Estrada [id number] Elaine 16:30:00 16:30:00 DARÍO Seybol d 2022-12-12 2022-12-12 Outpatient PREZAELAINE Estrada [id number] Elaine 00:00:00 00:00:00 DARÍO Seybol d 2022-12-09 2022-12-09 Outpatient ANSOANUUR, ELAINE DAVIS [id number] Elaine 13:45:00 13:45:00 JASMINA Seybol d 2022-12-09 2022-12-09 Outpatient LAB90 ELAINE DAVIS [id number] Elaine 09:45:00 09:45:00 Seybol d 2022-12-08 2022-12-08 Outpatient ANSOANUURELAINE [id number] Elaine 16:30:00 16:30:00 JASMINA Seybol d 2022-12-08 2022-12-08 Outpatient ELAINE DAVIS [id number] Elaine 00:00:00 00:00:00 Seybol d 2022-12-06 2022-12-06 Outpatient PREZASELAINE [id number] Elaine 00:00:00 00:00:00 DARÍO Seybol d 2022-12-02 2022-12-02 Outpatient ANSOANUURELAINE [id number] Elaine 08:30:00 08:30:00 JASMINA Seybol d 2022-12-02 2022-12-02 Outpatient ANSOANUURELAINE [id number] Elaine 00:00:00 00:00:00 JASMINA Seybol d 2022-11-28 2022-11-28 Outpatient ELAINE DAVIS [id number] Elaine 16:15:00 16:15:00 Seybol d 2022-11-28 2022-11-28 Outpatient ELAINE DAVIS [id number] Elaine 15:30:00 15:30:00 Seybol d 2022-11-23 2022-11-23 Outpatient PREZAS ELAINE DAVIS [id number] Elaine 00:00:00 00:00:00 DARÍO Seybol d 2022-11-21 2022-11-21 Outpatient ANSOANUURELAINE [id number] Elaine 15:00:00 15:00:00 JASMINA Seybol d 2022-11-21 2022-11-21 Outpatient ELAINE DAVIS [id number] Elaine 10:15:00 10:15:00 Seybol d 2022-11-19 2022-11-19 Outpatient PREZASELAINE [id number] Elaine 00:00:00 00:00:00 DARÍO Seybol d 2022-11-18 2022-11-18 Outpatient PREZASELAINE [id number] Elaine 00:00:00 00:00:00 DARÍO Seybol d 2022-11-14 2022-11-14 Outpatient ELAINE DAVIS [id number] Elaine 00:00:00 00:00:00 Seybol d 2022-11-10 2022-11-10 Outpatient PREZASELAINE [id number] Elaine 00:00:00 00:00:00 DARÍO Seybol d 2022-11-10 2022-11-10 Outpatient PREZASELAINE [id number] Elaine 00:00:00 00:00:00 DARÍO Seybol d 2022-11-10 2022-11-10 Outpatient PREZASELAINE [id number] Elaine 00:00:00 00:00:00 DARÍO Seybol d 2022-11-10 2022-11-10 Outpatient ANSOANUUELAINE Ortiz [id number] Elaine 00:00:00 00:00:00 JASMINA Seybol d 2022-11-09 2022-11-09 Outpatient ANSOANUURELAINE [id number] Elaine 16:45:00 16:45:00 JASMINA Seybol d 2022-11-02 2022-11-02 Outpatient PREZAELAINE Estrada [id number] Elaine 09:15:00 09:15:00 DARÍO Seybol d 2022-10-31 2022-10-31 Outpatient ELAINE ORTEGA [id number] Elaine 00:00:00 00:00:00 DARÍO Seybol d 2022-10-20 2022-10-20 Outpatient SVEN, ELAINE DAVIS [id number] Elaine 08:00:00 08:00:00 ANGIE Seybol d 2022-10-20 2022-10-20 Outpatient ELAINE DAVIS [id number] Elaine 00:00:00 00:00:00 Seybol d 2022-10-20 2022-10-20 Outpatient ELAINE ORTEGA [id number] Elaine 00:00:00 00:00:00 DARÍO Seybol d 2022-10-13 2022-10-13 Outpatient ELAINE VALDIVIA [id number] Elaine 00:00:00 00:00:00 KYLE Seybo ld 2022-10-11 2022-10-11 Outpatient ELAINE DAVIS [id number] Elaine 10:15:00 10:15:00 Seybol d 2022-10-11 2022-10-11 Outpatient ELAINE CARR [id number] Elaine 00:00:00 00:00:00 LISETTE Seybol d 2022-10-06 2022-10-06 Outpatient ELAINE MOHAN [id number] Elaine 00:00:00 00:00:00 AHMED Seybol d 2022-10-06 2022-10-06 Outpatient ELAINE VELA [id number] Elaine 00:00:00 00:00:00 JASMINA Seybol d 2022-10-05 2022-10-05 Outpatient ANSELAINE MARIE [id number] Elaine 11:15:00 11:15:00 JASMINA Seybol d 2022-10-05 2022-10-05 Outpatient ANSELAINE MARIE [id number] Elaine 00:00:00 00:00:00 JASMINA Seybol d 2022-10-04 2022-10-04 Outpatient ELAINE ORTEGA [id number] Elaine 00:00:00 00:00:00 DARÍO Seybol d 2022-09-29 2022-09-29 Outpatient ANSOANUUR, ELAINE DAVIS [id number] Elaine 00:00:00 00:00:00 JASMINA Seybol d 2022-09-28 2022-09-28 Outpatient PREZANatalie, ELAINE DAVIS [id number] Elaine 13:30:00 13:30:00 DARÍO Seybol d 2022-09-28 2022-09-28 Outpatient PREZAELAINE Estrada [id number] Elaine 11:30:00 11:30:00 DARÍO Seybol d 2022-09-28 2022-09-28 Outpatient LAB91 ELAINE DAVIS [id number] Elaine 11:10:00 11:10:00 Seybol d 2022-09-28 2022-09-28 Outpatient ANSOANUUR, ELAINE DAVIS [id number] Elaine 10:30:00 10:30:00 JASMINA Seybol d 2022-09-28 2022-09-28 Outpatient PREELAINE JIM [id number] Elaine 00:00:00 00:00:00 DARÍO Seybol d 2022-09-28 2022-09-28 Outpatient ELAINE DAVIS [id number] Elaine 00:00:00 00:00:00 Seybol d 2022-09-27 2022-09-27 Outpatient ELAINE TAYLOR [id number] [place] 00:00:00 00:00:00 DAVE Seybol d 2022-09-27 2022-09-27 Outpatient ANSOANELAINE MELENDEZ [id number] Elaine 00:00:00 00:00:00 JASMINA Seybol d 2022-09-27 2022-09-27 Outpatient HUNDLELAINE [id number] Elaine 00:00:00 00:00:00 LISETTE Seybol d 2022-09-26 2022-09-26 Outpatient PREZAELAINE Estrada [id number] Elaine 00:00:00 00:00:00 DARÍO Seybol d 2022-09-26 2022-09-26 Outpatient PREELAINE JIM [id number] Elaine 00:00:00 00:00:00 DARÍO Seybol d 2022-09-26 2022-09-26 Outpatient PREZASELAINE [id number] Elaine 00:00:00 00:00:00 DARÍO Seybol d 2022-09-22 2022-09-22 Outpatient PREZASELAINE [id number] Elaine 00:00:00 00:00:00 DARÍO Seybol d 2022-09-21 2022-09-21 Outpatient PREZASELAINE [id number] Elaine 00:00:00 00:00:00 DARÍO Seybol d 2022-09-14 2022-09-14 Outpatient PREZASELAINE [id number] Elaine 16:45:00 16:45:00 DARÍO Seybol d 2022-09-14 2022-09-14 Outpatient ELAINE DAVIS [id number] Elaine 00:00:00 00:00:00 Seybol d 2022-09-13 2022-09-13 Outpatient PREZASELAINE [id number] Elaine 00:00:00 00:00:00 DARÍO Seybol d 2022-09-08 2022-09-08 Outpatient HUNDLELAINE [id number] Elaine 00:00:00 00:00:00 LISETTE Seybol d 2022-09-07 2022-09-07 Outpatient SVENELAINE [id number] Elaine 00:00:00 00:00:00 ANGIE Seybol d 2022-09-06 2022-09-06 Outpatient PREZASELAINE [id number] Elaine 00:00:00 00:00:00 DARÍO Seybol d 2022-09-02 2022-09-02 Outpatient PREZASELAINE [id number] Elaine 00:00:00 00:00:00 DARÍO Seybol d 2022-08-29 2022-08-29 Outpatient PREZAELAINE Estrada [id number] Elaine 00:00:00 00:00:00 DARÍO Seybol d 2022-08-29 2022-08-29 Outpatient PREZASELAINE [id number] Elaine 00:00:00 00:00:00 DARÍO Seybol d 2022-08-29 2022-08-29 Outpatient PREZAELAINE Estrada [id number] Elaine 00:00:00 00:00:00 DARÍO Seybol d 2022-08-25 2022-08-25 Outpatient ANSOANUUR, ELAINE DAVIS [id number] Elaine 14:30:00 14:30:00 JASMINA Seybol d 2022-08-25 2022-08-25 Outpatient ANSOANUUR, ELAINE DAVIS [id number] Elaine 00:00:00 00:00:00 JASMINA Seybol d 2022-08-22 2022-08-22 Outpatient LAB39 ELAINE DAVIS [id number] Elaine 14:50:00 14:50:00 Seybol d 2022-08-22 2022-08-22 Outpatient SVEN, ELAINE DAVIS [id number] Elaine 14:00:00 14:00:00 ANGIE Seybol d 2022-08-22 2022-08-22 Outpatient PREZANatalie, ELAINE DAVIS [id number] Elaine 00:00:00 00:00:00 DARÍO Seybol d 2022-08-22 2022-08-22 Outpatient ELAINE DAVIS [id number] Elaine 00:00:00 00:00:00 Seybol d 2022-08-22 2022-08-22 Outpatient SEWDESTINEYPRO, ELAINE DAVIS [id number] Elaine 00:00:00 00:00:00 AHMED Seybol d 2022-08-19 2022-08-19 Outpatient PREZAELAINE Estrada [id number] [place] 00:00:00 00:00:00 DARÍO Seybol d 2022-08-15 2022-08-15 Outpatient ELAINE ORTEGA [id number] Elaine 00:00:00 00:00:00 DARÍO Seybol d 2022-08-15 2022-08-15 Outpatient PREELAINE JIM [id number] Elaine 00:00:00 00:00:00 DARÍO Seybol d 2022-08-08 2022-08-08 Outpatient PREZAS, ELAINE DAVIS [id number] Elaine 00:00:00 00:00:00 DARÍO Seybol d 2022-08-08 2022-08-08 Outpatient CHEUNG, ELAINE DAVIS [id number] Elaine 00:00:00 00:00:00 ANABELLA Seybo ld 2022-08-04 2022-08-04 Outpatient PREZAS, ELAINE DAVIS [id number] Elaine 00:00:00 00:00:00 DARÍO Seybol d 2022-08-04 2022-08-04 Outpatient PREZAS, ELAINE DAVIS [id number] Elaine 00:00:00 00:00:00 DARÍO Seybol d 2022-08-03 2022-08-03 Outpatient PREZAS, ELAINE DAVIS [id number] Elaine 11:30:00 11:30:00 DARÍO Seybol d 2022-08-02 2022-08-02 Outpatient PREZAS, ELAINE DAVIS [id number] Elaine 00:00:00 00:00:00 DARÍO Seybol d 2022-08-02 2022-08-02 Outpatient PREZAS, ELAINE DAVIS [id number] Elaine 00:00:00 00:00:00 DARÍO Seybol d 2022-08-02 2022-08-02 [facility] [id number] Elaine 00:00:00 00:00:00 SCOTT Seybol d 2022-08-02 2022-08-02 Outpatient PREZAS, ELAINE DAVIS [id number] Elaine 00:00:00 00:00:00 DARÍO Seybol d 2022-08-02 2022-08-02 Outpatient PREZAS, ELAINE DAVIS [id number] Elaine 00:00:00 00:00:00 DARÍO Seybol d 2022-07-27 2022-07-27 Emergency X Holland [facility] ERT [id number] Univers 12:07:00 14:11:00 [facility] 2022-07-27 2022-07-27 Emergency Holland [facility] [id number] Univers 12:07:00 14:11:00 Adele MORENO [id number] i banner [facility] [id number] [facility] [id number] [facility] [address] 2022-07-27 2022-07-27 Outpatient ELAINE ORTEGA [id number] Elaine 00:00:00 00:00:00 DARÍO Seybol d 2022-07-27 2022-07-27 Outpatient PREELAINE JIM [id number] Elaine 00:00:00 00:00:00 DARÍO Seybol d 2022-07-26 2022-07-26 Outpatient PREZASELANIE [id number] Elaine 00:00:00 00:00:00 DARÍO Seybol d 2022-07-25 2022-07-25 Outpatient PREZASELAINE [id number] lEaine 16:00:00 16:00:00 DARÍO Seybol d 2022-07-14 2022-07-14 Outpatient LAB90 ELAINE DAVIS [id number] Elaine 08:40:00 08:40:00 Seybol d 2022-07-14 2022-07-14 Outpatient GRUPOELAINE [id number] Elaine 00:00:00 00:00:00 MALISSA Seybol d 2022-07-13 2022-07-13 Outpatient PREZAELAINE Estrada [id number] Elaien 00:00:00 00:00:00 DARÍO Seybol d 2022-07-13 2022-07-13 Outpatient PREELAINE JIM [id number] Elaine 00:00:00 00:00:00 DARÍO Seybol d 2022-07-11 2022-07-11 Outpatient PREZASELAINE [id number] Elaine 00:00:00 00:00:00 DARÍO Seybol d 2022-07-11 2022-07-11 Outpatient HUNDLELAINE [id number] Elaine 00:00:00 00:00:00 LISETTE Seybol d 2022-07-09 2022-07-09 Outpatient PREZAELAINE Estrada [id number] Elaine 00:00:00 00:00:00 DARÍO Seybol d 2022-07-01 2022-07-01 Outpatient ELAINE DAVIS [id number] Elaine 00:00:00 00:00:00 Seybol d 2022-06-30 2022-06-30 Outpatient ELAINE DAVIS [id number] Elaine 00:00:00 00:00:00 Seybol d 2022-06-29 2022-06-29 Outpatient SHANE, ELAINE DAVIS [id number] Elaine 00:00:00 00:00:00 JEFFRY Seybol d 2022-06-28 2022-06-28 Outpatient HUNDL, ELAINE DAVIS [id number] Elaine 15:00:00 15:00:00 LISETTE Seybol d 2022-06-28 2022-06-28 Outpatient PREZAS, ELAINE DAVIS [id number] Elaine 00:00:00 00:00:00 DARÍO Seybol d 2022-06-28 2022-06-28 Outpatient PREZAS, ELAINE DAVIS [id number] Elaine 00:00:00 00:00:00 DARÍO Seybol d 2022-06-24 2022-06-24 Outpatient PREZAS, ELAINE DAVIS [id number] Elaine 00:00:00 00:00:00 DARÍO Seybol d 2022-06-23 2022-06-23 Outpatient HUNDL, ELAINE DAVIS [id number] [place] 00:00:00 00:00:00 LISETTE Seybol d 2022-06-22 2022-06-22 Outpatient PREZAS, ELAINE DAVIS [id number] Elaine 15:15:00 15:15:00 DARÍO Seybol d 2022-06-21 2022-06-21 Outpatient LAB90 ELAINE DAVIS [id number] Elaine 08:05:00 08:05:00 Seybol d 2022-06-21 2022-06-21 Outpatient HUNDL, ELAINE DAVIS [id number] Elaine 00:00:00 00:00:00 LISETTE Seybol d 2022-06-21 2022-06-21 Outpatient PREZASELAINE [id number] [place] 00:00:00 00:00:00 DARÍO Seybol d 2022-06-20 2022-06-20 Outpatient ELAINE CARR ELAINE [id number] Elaine 00:00:00 00:00:00 LISETTE Seybol d 2022-06-15 2022-06-15 Outpatient ELAINE CARR ELAINE [id number] Elaine 00:00:00 00:00:00 LISETTE Seybol d 2022-06-14 2022-06-14 Outpatient LAB90 ELAINE DAVIS [id number] Elaine 10:55:00 10:55:00 Seybol d 2022-06-14 2022-06-14 Outpatient LOANL ELAINE DVAIS [id number] Elaine 10:00:00 10:00:00 LISETTE Seybol d 2022-06-14 2022-06-14 Outpatient HUNDL, ELAINE DAVIS [id number] Elaine 00:00:00 00:00:00 LISETTE Seybol d 2022-01-18 2022-01-18 Orders Doctor ERASTO 1.2.840.114 [id number] Univers 00:00:00 00:00:00 Only Unassigned, JENY 350.1.13.10 ity of [place] [facility] 4.2.7.2.686 Jakub as [phone] [address] 2021-12-09 2021-12-09 Outpatient NORAH, [facility] [id number] [place] 13:00:00 13:00:00 [facility] 2021-12-09 2021-12-09 Office NORAH, STEPHANY 6400 1.2.840.114 [id number] [place] 13:00:00 13:00:00 Visit ERASTO MONK 350.1.13.58 Health 9.2.7.2.686 [id number] 7 2021-11-26 2021-11-26 Telephone Norah, STEPHANY 6400 1.2.840.114 [id number] [place] 00:00:00 00:00:[address] 350.1.13.58 Health 9.2.7.2.686 [id number] 7 2021-11-24 2021-11-24 Telephone Norah, STEPHANY 6400 1.2.840.114 [id number] [place] 00:00:00 00:00:00 Erasto Hurst CHAN 350.1.13.58 [facility] 9.2.7.2.686 [id number] 7 2021-10-30 2021-10-31 Emergency ER RUPERTO, [facility] Emergency [id number] SLE 20:12:00 00:01:00 [facility] 2021-10-30 2021-10-31 Emergency Ruperto, [facility] [id number] 20:12:00 00:01:00 [facility] 2021-10-30 2021-10-30 Travel [facility] [id number] [facility] 00:00:00 00:00:00 [facility] 2021-10-22 2021-10-22 Orders Doctor ERASTO 1.2.840.114 [id number] Univers 00:00:00 00:00:00 Only Unassigned, JENY 350.1.13.10 ity of [place] [facility] 4.2.7.2.686 [facility] [id number] [facility] 009 Branch 2021-04-23 2021-04-23 Emergency X [facility] ERT [id number] Univers 07:33:00 09:25:00 DEBI ity [facility] 2021-04-23 2021-04-23 [facility] 1.2.864.244 [id number] Univers 07:33:00 09:25:00 Debi MORENO 350.1.13.10 ity [facility] 4.2.7.2.686 [facility] [id number] [facility] 084 Branch 2021-03-04 2021-03-04 Emergency ER BICETTE, [facility] Emergency [id number] SLE 14:12:00 17:15:00 RICHINA 2021-02-01 2021-02-01 [facility] Surgery [id number] SLEH 07:39:00 12:03:00 [facility] 2021-01-29 2021-01-29 Outpatient EL RATNA [facility] [id number] SLE 16:18:52 23:59:00 SALMIAN 2021-01-29 2021-01-29 Outpatient EL SLEH SLEH [id number] SLEH 00:00:00 00:00:00 2021-01-29 2021-01-29 Outpatient SLE [facility]H [id number] SLEH 00:00:00 00:00:00 2021-01-21 2021-01-21 Outpatient EL SLEH [facility] [id number] SLEH 00:00:00 00:00:00 2020-11-13 2020-11-13 Outpatient SLE SLEH [id number] SLEH 00:00:00 00:00:00 2020-10-15 2020-10-15 EXT [facility] OP Caridi, EXT MSRDP 1.2.840.114 1 [id number] [place] 00:00:00 00:00:00 [facility] LOCATION 350.1.13.58 H ealth 9.2.7.2.686 [id number] 2020-10-15 2020-10-15 EXT [facility] OP Caridi, EXT MSRDP 1.2.840.114 1 [id number] [place] 00:00:00 00:00:00 [facility] LOCATION 350.1.13.58 H ealth 9.2.7.2.686 [id number] 2020-09-24 2020-09-24 Outpatient SLE SLE [id number] SLEH 00:00:00 00:00:00 2020-09-23 2020-09-23 Outpatient [facility] [id number] Univers 08:15:00 08:15:00 ity [facility] 2020-09-23 2020-09-23 Outpatient [facility] [id number] Univers 00:00:00 00:00:00 ity [facility] 2020-09-22 2020-09-22 [facility] 1.2.840.114 [id number] Univers 08:00:00 23:59:00 [facility] 350.1.13.10 ity [facility] 4.2.7.2.686 [facility] [id number] [address] 2020-09-22 2020-09-22 [facility] 1.2.840.114 [id number] 08:00:00 23:59:00 Jessica Moreno 350.1.13.10 [place] 4.2.7.2.686 [place] [id number] 2020-09-22 2020-09-22 [facility] [id number] Univers 08:00:00 08:00:00 ity [facility] 2020-09-22 2020-09-22 Orders Doctor ERASTO 1.2.840.114 [id number] Univers 00:00:00 00:00:00 Only Unassigned, JENY 350.1.13.10 ity [place] [facility] 4.2.7.2.686 [facility] as [id number] [address] 2020-09-22 2020-09-22 Orders Doctor ERASTO 1.2.840.114 [id number] 00:00:00 00:00:00 Only Unassigned, JENY 350.1.13.10 [place] [facility] 4.2.7.2.686 [id number] [facility] 2020-09-05 2020-09-05 EXT [facility] OP Caridi, EXT MSRDP 1.2.840.114 1 [id number] [place] 00:00:00 00:00:00 Erasto Hurst LOCATION 350.1.13.58 H ealth 9.2.7.2.686 [id number] 2020-09-05 2020-09-05 EXT [facility] OP Caridi, EXT MSRDP 1.2.840.114 1 [id number] [place] 00:00:00 00:00:00 Erasto Hurst LOCATION 350.1.13.58 H ealth 9.2.7.2.686 [id number] 2020-09-02 2020-09-02 Outpatient R [facility] [id number] Univers 00:00:00 00:00:00 ity [facility] 2020-05-04 2020-05-04 Outpatient [facility] [id number] Univers 13:45:00 13:45:00 [facility] 2020-04-13 2020-04-13 [facility] 1.2.840.114 [id number] Univers 00:00:00 00:00:00 Hui Mccartyl Y HEALTH 350.1.13.10 ity of [id number] [address] 2020-04-13 2020-04-13 [facility] 1.2.840.114 [id number] 00:00:00 00:00:00 Hui Cummings HEALTH 350.1.13.10 CLINICS 4.2.7.2.686 [id number] [facility] 2020-03-23 2020-03-23 Outpatient R HARSHIL PAULSON [facility] [id number] Univers 08:40:00 08:40:00 HARSHIL PAULSON [facility] 2020-03-03 2020-03-03 Outpatient R HARSHIL PAULSON [facility] [id number] Univers 08:00:00 08:00:00 HARSHIL PAULSON [facility] 2020-03-03 2020-03-03 [facility] 1.2.840.114 [id number] Univers 00:00:00 00:00:00 Harshil Moreno 350.1.13.10 ity of [place].2.[place] [id number] [place] 131232 [facility] 2020 2020 Office [facility] 1.2.013.565 [id number] Univers 09:55:39 10:42:47 Visit Hui Mccartyl Y HEALTH 350.1.13.10 ity of [place] [id number] [address] 2020 2020 [facility]patient [facility] [id number] Univers 10:00:00 10:00:00 HUI [facility] 2020 2020 Orders Doctor MAURER 1.2.840.114 [id number] Univers 00:00:00 00:00:00 Only Unassigned, JENY 350.1.13.10 ity of [place] [facility] 4.2.7.2.686 Jakub as [id number] [facility] 009 Branch 2019-11-22 2019-11-22 Orders Doctor ERASTO 1.2.840.114 [id number] Univers 00:00:00 00:00:00 Only Unassigned, JENY 350.1.13.10 ity of [facility] 4.2.7.2.686 Jakub as [phone] [place] [address] Branch Results Test Description Test Time Test Comments Results Result Comments Source COMP. METABOLIC PANEL (50308) 2021-04-23 14:33:49 Test Item Value Reference Range Interpretation Comme nts NA (test code = 1109859423) 140 mmol/L 135-145 K (test code = 4238497200) 3.5 mmol/L 3.5-5.0 CL (test code = 5243132290) 109 mmol/L 98-108 H CO2 TOTAL (test code = 5851189253) 23 mmol/L 23-31 AGAP (test code = 7088241743) 2-16 BUN (test code = 0838633262) 7 mg/dL 7-23 GLUCOSE (test code = 2397709457) 105 mg/dL 70-110 CREATININE (test code = 0.50 mg/dL 0.50-1.04 8165320489) TOTAL BILI (test code = 0.6 mg/dL 0.1-1.4 4503179212) CALCIUM (test code = 6199980476) 8.6 mg/dL 8.6-10.6 T PROTEIN (test code = 5121572295) 7.6 g/dL 6.3-8.2 ALBUMIN (test code = 8237775326) 4.4 g/dL 3.5-5.0 ALK PHOS (test code = 8107036644) 82 U/L 34-122 ALTv (test code = 1742-6) 14 U/L 5-35 AST(SGOT) (test code = 8971317296) 31 U/L 13-40 eGFR (test code = 1574965795) mL/min/1.73m2 CHIKIS (test code = CHIKIS) Association [...] tests). Lab Interpretation (test code = Abnormal 46843-8) [facility] 14[facility]33:29 Test Item Value Reference Range Interpretation Comments LIPASE (test code = 8621632590) 36 U/L 0-220 Lab Interpretation (test code = Normal 82709-5) [facility] WITH [id number] 14:13:06 Test Item Value Reference Range Interpretation Comments WBC (test code = See_Comment H [Automated 8470-2) message] The sy stem which generated this result transmitted reference range : 4.30 - 11.10 10*3/?L. The reference range was not used to interpret this result as normal/abnormal . RBC (test code = See_Comment [Automated 663-4) message] The sy stem which generated this [...] (test code = 52.5 fL 39.0-49.9 H 31470-7) RDW-CV (test code = 15.6 % 12.0-15.5 H 788-0) PLT (test code = See_Comment H [Automated 777-3) message] The sy stem which generated this result transmitted reference range : 166 - 358 10*3/ ?L. The reference r kristy was not used to interpret this result as normal/abnormal . MPV (test code = 10.0 fL 9.5-12.9 64941-9) IPF % (test code = 2.6 % 1.3-7.7 Platelet count 4739345893) measured by fluorescence method. NRBC/100 WBC (test See_Comment [Automat ed code = 1740537494) message] The system which generated this result transmitted reference range : 0.0 - 10.0 /100 WBCs. The refer ence range was not u sed to interpret th is result as normal/abnormal . NRBC x10^3 (test code <0.01 See_Comment [Auto mated = 7003147372) message] The s ystem which generated this result transmitted reference range : 10*3/?L. The reference range was not used to interpret this result as normal/abnormal . GRAN MAT (NEUT) % 79.3 % (test code = 770-8) IMM GRAN % (test code 0.40 % = 6828703232) LYMPH % (test code = 13.8 % 736-9) MONO % (test code = 5.2 % 5905-5) EOS % (test code = 0.8 % 713-8) BASO % (test code = 0.5 % 706-2) GRAN MAT x10^3(ANC) 9.51 10*3/uL 1.88-7.09 H (test code = 7706863529) IMM GRAN x10^3 (test 0.05 10*3/uL 0.00-0.06 code = 2216547454) LYMPH x10^3 (test code 1.65 10*3/uL 1.32-3.29 = 731-0) MONO x10^3 (test code 0.62 10*3/uL 0.33-0.92 = 742-7) EOS x10^3 (test code = 0.10 10*3/uL 0.03-0.39 711-2) BASO x10^3 (test code 0.06 10*3/uL 0.01-0.07 = 704-7) Lab Interpretation Abnormal (test code = 96710-6) [facility] [id number] 14:01:00 Test Item Value Reference Range Interpretation Comments POCT PREG (test code = 1605) negative On board controls acceptable with present C Line (test code = 3574) POCT PREG LOT # (test code = 3575) [id number] POCT PREG TEST DATE (test 06/21/2022 code = 3576) Lab Interpretation (test code = Normal 77748-8) [facility] HospitalCT, [id number] 17:10:00Unlisted Reason for Exam - Click Yes and Enter Reason Below->YesUnlisted Reason for Exam->intractable abd painWill this procedure require oral contrast?->No [facility] TORREY : 1980 Sex: [...] unremarkable CT abdomen and pelvis. Signed: Zeke Faye Verified Date/Time: 03/04/2021 17:10:45 Reading Location: [address] Transitional Reading Room COMPREHENSIVE METABOLIC [id number] 15:44:38 Test Item Value Reference Range Interpretation [...] S NOT APPLICABLE FOR DIALYSIS PATIEN TS. Leacher ID - AYO MOperator ID - [id number] 15:44:38 Test Item Value Reference Range Interpretation Comments PARTIAL THROMBOPLASTIN TIME 30.3 seconds 22.5-36.0 (BEAKER) (test code = 760) PROTHROMBIN TIME/[id number] 15:43:59 Test Item Value Reference Range Interpretation Comments PROTIME (BEAKER) 14.3 seconds 11.9-14.2 H (test code = 759) INR (BEAKER) (test 1.13 See_Comment [Automat ed message] code = 370) The system [employer] generated this result transmitted ref erence range: <=5.90. The reference range was not used to int erpret this result as normal/abnormal . RECOMMENDED COUMADIN/WARFARIN INR THERAPY RANGESSTANDARD DOSE: 2.0 - 3.0 Includes: PROPHYLAXIS for venous thrombosis, systemic embolization; TREATMENT for venous thrombosis and/or pulmonary embolus.HIGH RISK: Target INR is 2.5-3.5 for patients with mechanical heart valves.HCG, QUANTITATIVE, [id number] 15:39:20 Test Item Value Reference Range Interpretation Comments GONADOTROPIN, CHORIONIC (HCG) QUANT < mIU/mL 0-10 (BEAKER) (test code = 649) Non- Females: <10 mIU/mL Females: Gestation Age Reference Range(mIU/mL) 0.2-1 Week 5-50 1-2 Weeks 50-500 2-3 Weeks 100-5,000 3-4 Weeks 500-10,000 4-5 Weeks 1,000-50,000 5-6 Weeks 10,000-100,000 6-8 Weeks 15,000- 200,000 2-3 Months 10,000-100,000 Leacher ID - DBHIGH SENSITIVITY TROPONIN I 2021-03-04 15:38:56 Test Item Value Reference Range Interpretation Comments HIGH SENSITIVITY < pg/ml See_Comment [Automated message] TROPONIN I (test code = The system which 2428392) generated this result transmitted ref erence range: <=17. Th e reference range was not used to interpr et this result as normal/abnormal . Leacher ID - DBThe BODY ARTIST STAT High Sensitivity Troponin-I results should be used in conjunctionwith other diagnostic information such as ECG, clinical observations and information, and patient symptoms to aid in the diagnosis of MS.[id number] 15:34:35 Test Item Value Reference Range Interpretation Comments MAGNESIUM (BEAKER) 1.8 mg/dL 1.6-2.6 Specimen slightly (test code = 627) hemolyzed Leacher ID - AYO [id number] 15:34:35 Test Item Value Reference Range Interpretation Comments LIPASE (BEAKER) (test code = 749) 12 U/L 8-78 Leacher ID - AYO MCBC W/PLT COUNT & AUTO [id number] 15:23:19 Test Item Value Reference Range Interpretation [...] PERCENT (BEAKER) (test code = 2801) TISSUE [id number] 11:53:29Surgical Pathology Report Case: [id number] Authorizing Provider: Juju Wright MD Collected: 02/01/2021 10:55 AM Ordering Location: [facility] Endoscopy Received: 02/01/2021 02:05 PM Services Pathologist: Blanka Brewer MD Specimen: Biopsy, Gastric, random biopsies STOMACH, BIOPSY:- GASTRICANTRAL-TYPE AND OXYNTIC MUCOSA WITH CHRONIC GASTRITIS- NO EVIDENCE OF HELICOBACTER PYLORI -LIKE ORGANISMS ON WARTHIN-STARRY STAIN- NEGATIVE FOR INTESTINAL METAPLASIA AND DYSPLASIA Signing Pathologist Direct Phone Line: [phone] signed by Blanka Brewer MD on 02/02/2021 at 11:53 [id number], [id number] painStomachA. Received in formalin labeled with the [...] evaluated Immunohistochemistry technical testing was performed at [facility] where it was developed and its performance characteristics were determined. It has not been cleared or approved by the U.S. Food and Drug Administration. The FDA has determined that such irina colton or approval is not necessary. The test is used for clinical purposes. It should not be regarded as investigational or for research. This laboratory is certified under the Clinical Laboratory Improvement Amendments of 1988 (CLIA-88) as qualified to perform high complexity clinical laboratory testing.[facility], Department of Pathology, [address] [place] [address], [facility], Department of Pathology, [address] [place] [address], [facility], Department of Pathology, [address] [place] [address], ACBGBM [id number] 14:05:00Surgical Pathology Report Case: [id number] Authorizing Provider: Filippo Romeo MD Collected: 11/17/2020 08:36 AM Ordering Location: [facility] PERIOPERATIVE Received: 11/17/2020 10:00 AM SERVICES Pathologist: Elia Parekh MD Specimen: Soft Tissue, Other, Midline submental mass with overlying skin A. SKIN, CHIN, EXCISION OF LESION:EPIDERMAL INCLUSION CYST Signing Pathologist Direct Phone Line: [phone] signed by Elia Parekh MD on 11/19/2020 at 2:05 [id number] cystChinA. Received fresh labeled with the patient's [...] and red-brown fluid. The cystabuts the margin. Compo Caster sections are submitted.Section code:A1: Tips, en faceA2-A3: Representatives of TULIO Bui PA (ASCP)cmPerformed.[facility], Departmentof Pathology, [address] [place] [address], [facility], Department of Pathology, [address] [place], [place] [id number], [facility], Department of Pathology, [address] [place] [address], NVR W/PLT COUNT & AUTO [id number] 07:01:00 Test Item Value Reference Range Interpretation [...] PERCENT (BEAKER) (test code = 2801) U/S, ASPIRATION/[id number] 15:25:002.2cm mass beneath the chinReason for Exam:->Neck Mass [facility] : 1980 Sex: [...] than 10Standardized report: SIR_BiopsyMiscGuidance_v3 AttestationSigner name: Luke Bertrand MDI attest that I was present for the entire procedure. I reviewed the stored images and agree with the report as written. Signed: Luke Bertrand MDReport Verified Date/Time: 09/25/2020 15:25:58 Reading Location: [facility] Consult Reading Room [id number] 13:23:00Medical Cytology Report Case: [id number] Authorizing Provider: Anabella Sparks, Collected: 09/24/2020 02:01 PM PA Ordering Location: [facility] Radiology Ultrasound Received: 09/25/2020 09:34 AM Pathologist: Sondra Alcantara MD Specimen: Neck SUBMENTAL NECK MASS FNA BY CLINICIAN (CYTOSPINS): -NON-DIAGNOSTIC (SEE COMMENT) Signing Pathologist Direct Phone Line: [phone] signed by Sondra Alcantara MD on 09/25/2020 at 1:23 PMThe aspirate is non-diagnostic. Clinical and radiologic correlation is recommended. Re-biopsy is suggested if clinically indicated.Please see cases [id number] and [id number](2.5 x 1.0 x 2.1 cm) Submental neck mass, history of abdominal cancer.SUBMENTAL NECK MASS FNAReceived 32 mls in cytorich red; prepared 4 cytospins.Performed. [facility], Department of Pathology, [address] [place] [address], [facility], Department of Pathology, [address] [place] [address], [facility], Department of Pathology, [address] [place] [address], USWW CYTOMETRY [id number] 13:05:00 Test Item Value Reference Range Interpretation Comments FLOW CYTOMETRY RESULT See Separate Report POINTER (JOSEP) (test code = 2758) FLOW CYTOMETRY AP CASE # [id number] (JOSEP) (test code = 2759) TISSUE [id number] 11:34:00Surgical Pathology Report Case: [id number] Authorizing Provider: Anabella Sparks, Collected:09/24/2020 02:01 PM PA Ordering Location: [facility] Radiology Ultrasound Received: 09/24/2020 04:05 PM Adore thologist: Glo Villalta MD Specimen: Neck A. NECK, MIDLINE MASS, BIOPSY: - RARE BENIGN COLUMNAR EPITHELIAL CELLS WITH SCANT FIBROUS TISSUE. - TISSUE INSUFFICIENT FOR DIAGNOSIS. Signing Pathologist Direct Phone Line: [phone] signed by Glo Villalta MD on 09/25/2020 at 11:34 AMThe sections show rare benign epithelial cells with scant fibrous tissue. A repeat biopsy is suggested if clinically indicated. 35558Mdavafz/neck mass 2.2 cmNeck, midline submentalA. Received in formalin labeled with patient's name, medical record number and accession number, "neck" are very minute saunders tissue fragments less than 0.1 x 0.1 x 0.1 cm aggregate. The specimen might not survive processing, submitted in toto in cassette A1.Jennifer Abdi.The interpretation of this case included the use ofimmunohistochemistry or special stains.Control Slides Examined: In-house known positive controls were evaluated along with the test tissue. These control slides run alongside of the patients sample show appropriate staining. Internal positive and negative controls when available are evaluated Immunohistochemistry technical testing was performed at [facility]ology [facility] where it was developed and its performance characteristics were determined. It has not been clearedor approved by the U.S. Food and Drug Administration. The FDA has determined that such clearance or approval is not necessary. The test is used for clinical purposes. It should not be regarded as investigational or for research. This laboratory is certified under the Clinical Laboratory Improvement Amendments of 1988 (CLIA-88) as qualified to perform high complexity clinical laboratory testing.[facility], Department of Pathology, [address] [place] [address], [place] [address], [facility], Department of Pathology, [address] [place] [address], [facility], Department of Pathology, [address] [place] [address], DKXB [id number] 05:25:00Flow Cytometry Report Case: [id number] Authorizing Provider: Anabella Sparks, Collected: 09/24/2020 02:01 PM PA Ordering Location: [facility] Radiology Ultrasound Received: 09/24/2020 02:44 PM Pathologist: Elia Parekh MD Specimen: Other LESION ON CHIN, FLOW CYTOMETRY:STUDY IS LIMITED BY DIMINISHED VIABILITY AND SCARCITY OF LYMPHOID EVENTS.CORRELATION WITH MORPHOLOGIC FINDINGS REQUIRED. 49622LKVA LESIONChinCD8, surface-kappa, CD56, surface- lambda, CD5, CD19, CD10, CD3, CD20, CD4, HM52Lkbsgcmz Viability: 53.3% Number of Events Acquired: 600 [...] developed and their performance characteristics determined by [facility]. They have not been cleared or approved by the U.S. Food and Drug Administration. The FDA has determined that such clearance or approval is not necessary. It should not be regarded as investigational or for research. This laboratory is certified under the Clinical Laboratory Improvement Amendments of 1988 ("CLIA") as qualified to perform high-complexity clinical testing.[facility], Department of Pathology, [address] [place] [address], [facility], Department of Pathology, [address] [place] [address],
[2023-02-18 17:33] LABS: Absolute Lymphocytes (CBC) 2.5 K/uL (0.7-4.9); Hematocrit 35.6 % (36.0-45.0); Lymphocytes % 28.9 % (15.3-44.8); MCV 83.1 fL (80-100); MPV 7.9 fL (7.6-11.3); Platelets 505 thou/uL (152-406); RBC Red Blood Cell Count 4.28 M/uL (3.86-4.86)
[2023-02-18 18:18] LABS: White Blood Cell Scan OK (OK)
[2023-02-18 18:19] LABS: Anisocytosis 1+; Blood Morphology Comment NOTED (NOT SEEN); Platelet Estimate ADEQ
[2023-02-18] MEDS ORDERED: KETOROLAC 30 MG/ML INJ ONE (18:21)
[2023-02-18] MEDS ORDERED: NA CHLORIDE 0.9% 1,000 ML ONE (18:21)
[2023-02-18 18:38] LABS: Potassium 3.8 mEq/L (3.5-5.1)
[2023-02-18] MEDS ORDERED: MORPHINE 2 MG/ML SYR ONE (18:58)
--- NOTE | 2023-02-18 19:21 | RAD REPORT ---
EXAM DESCRIPTION: CT - Head C Spine Cap W Con - 02/18/2023 7:04 pm CLINICAL HISTORY: Trauma, head and neck injury. Chest, abdomen and pelvis pain. TRAUMA COMPARISON: Head C Spine Cap Wo Con dated 07/13/2022 TECHNIQUE: CT head without contrast. CT cervical spine without contrast with coronal and sagittal reformatted images. CT chest, abdomen and pelvis with coronal and sagittal reformatted images of the spine. All CT scans are performed using dose optimization technique as appropriate and may include automated exposure control or mA/KV adjustment according to patient size. FINDINGS: CT HEAD WITHOUT CONTRAST: No intracranial hemorrhage, hydrocephalus or extra-axial fluid collection. No acute large vascular te rritory infarct. The paranasal sinuses and mastoids are clear. The calvarium is intact. CT CERVICAL SPINE WITHOUT CONTRAST: No fracture or subluxation. The prevertebral soft tissues are normal in thickness. CT CHEST, ABDOMEN, PELVIS: Thorax: Chest Wall: No abnormal mass Lungs: No acute abnormality. Pleura: No effusions or pneumothorax. Katja/Mediastinum: No lymphadenopathy. Aorta/Pulmonary Arteries: Unremarkable Heart: Normal size. Abdomen/Pelvis: Liver: No acute abnormality or suspicious lesions. Biliary: No biliary ductal dilatation. Cholecystectomy. Stomach: No significant focal abnormality. Duodenum: No significant focal abnormality. Pancreas: No significant abnormality. Spleen: No significant abnormality. Adrenal: No suspicious lesions. Kidney/ureter: No hydronephrosis. No renal calculi. Retroperitoneum: No retroperitoneal adenopathy. Vascular: No aneurysm. Bowel: No significant focal abnormality. Peritoneum: Small volume of pelvic free fluid. Bladder: Grossly unremarkable. Reproductive: No adnexal masses. Bones: No acute fracture. Other: n/a IMPRESSION: Negative for acute traumatic findings.
--- NOTE | 2023-02-18 19:23 | RAD REPORT ---
EXAM DESCRIPTION: CT - CTFB CLINICAL HISTORY: jaw pain COMPARISON: No comparisons TECHNIQUE: Axial 2 mm thick images of the face were obtained with sagittal and coronal reconstructio n images. All CT scans are performed using dose optimization technique as appropriate and may include automated exposure control or mA/KV adjustment according to patient size. FINDINGS: No acute facial bone fracture is seen.The mandible is intact. The globes and orbital contents are grossly unremarkable.The paranasal sinuses and mastoids are clear . IMPRESSION: Negative for facial bone fracture.
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
[2023-02-18 20:15] VITALS: BP 128/88; TEMP 98.5; O2SAT 99
== END 2023-02-18 19:56 | disposition home or self-care (01) ==
LOC: ER 14:50
DX: S09.90XA Unspecified injury of head, initial encounter (principal); M54.2 Cervicalgia; M54.9 Dorsalgia, unspecified; Y04.2XXA Assault by strike against or bumped into by another person, initial encounter; R51.9 Headache, unspecified; R68.84 Jaw pain
CPT/HCPCS: 85025; 80048; 36415; 86900; 86850; 86901; 70450; 72125; 71260; 70486; 76377; 74177; 96375; 96374; 99284; Q9967; J2270; J7030

== ENCOUNTER → 2023-07-19 | Emergency (ER) | payer OTHER ==
[~2023-07-19] MED LIST: FENTANYL CITR 100 MCG/2 ML ONE; HYDROMORPHONE HCL 0.5 MG/0.5 ML INJ ONE; KETOROLAC 30 MG/ML INJ ONE; METHYLPREDNISOLONE 125 MG INJ ONE; MORPHINE 4 MG/ML SYR ONE; NA CHLORIDE 0.9% 1,000 ML ONE; ONDANSETRON 4 MG/2 ML VIAL ONE
[2023-07-19 13:36] LABS: Absolute Basophils 0.1 K/uL (0-0.5); Absolute Eosinophils 0.2 K/uL (0-0.5); Absolute Lymphocytes (CBC) 2.7 K/uL (0.7-4.9); Absolute Monocytes 0.9 K/uL (0.1-1.3); Absolute Neutrophil 6.8 K/uL (1.8-8.0); Basophils % 0.9 % (0-1.3); Eosinophils % 1.4 % (0-4.4); Hemoglobin 12.2 g/dL (12.0-15.0); Lymphocytes % 25.7 % (15.3-44.8); MCH 26.3 pg (27.0-35.0); MCHC 32.2 g/dL (32.0-36.0); MCV 81.9 fL (80-100); MPV 8.3 fL (7.6-11.3); Monocytes % 8.3 % (3.3-12.3); Neutrophils % 63.7 % (41.7-73.7); Platelets 481 thou/uL (152-406); RBC Red Blood Cell Count 4.64 M/uL (3.86-4.86); Red Cell Distribution Width 20.7 % (12.1-15.2)
[2023-07-19 13:43] LABS: PTT, Activated Partial Thromb 29.1 SECONDS (24.3-36.9); Protime INR 1.19
[2023-07-19 14:15] LABS: Blood Morphology Comment NOT SEEN (NOT SEEN); Platelet Estimate INCR; White Blood Cell Scan OK (OK)
--- NOTE | 2023-07-19 14:28 | RAD REPORT ---
EXAM DESCRIPTION: MRI - Lumbar Spine Wo Con - 07/19/2023 2:15 pm CLINICAL HISTORY: Bilateral leg radiculopathy and weakness COMPARISON: None TECHNIQUE: Sagittal T1, T2 and STIR weighted sequences were obtained. Axial T1 and T2 sequences were obtained through the lumbar disc levels. FINDINGS: L1-2 unremarkable Disc desiccation L2-3, L3-4 and L4-5 Ligamentum flavum facet hypertrophy L2-3. Small to moderate right lateral disc herniation. Right neur al foramina narrowed Small central subligamentous disc herniation L3-4. Ligamentum flavum and facet hypertrophy. The theca l sac 9 millimeters. Mild narrowing of the neural foramina bilaterally Small to moderate right paracentral disc herniation L4-5. Thecal sac 8.5 millimeters. Mild ligamentum flavum and facet hypertrophy. Mild narrowing of the neural foramina bilaterally L5 S1 unremarkable. No significant abnormal signal within the bones IMPRESSION: Small to moderate right lateral disc herniation L2-3 Small to moderate right paracentral disc herniation L4-5
--- NOTE | 2023-07-19 14:52 | RAD REPORT ---
EXAM DESCRIPTION: MRI - Thoracic Spine Wo Contr - 07/19/2023 2:18 pm CLINICAL HISTORY: Leg radiculopathy and weakness COMPARISON: None. TECHNIQUE: Sagittal T1 weighted, T2 weighted and T2 STIR weighted sequences were obtained. Axial T2 weighted images were obtained through each disc level. FINDINGS: Left posterolateral disc osteophyte complex C7-T1 which is incompletely evaluated on this exam 1.5 centimeters lesion is present within the T1 vertebral body. It has mostly low to intermediate sig nal on T1 weighted sequences and high signal on T2 weighted sequences. Small disc bulge C3-4 Small left posterior disc herniation T6-7 Small left posterior-lateral disc herniation T7-8 Small disc bulge T8-9 6 x 2 millimeter area of increased signal within the spinal cord at the T2 level Equivocal abnormal signal spinal cord C7 level on sagittal sequences which is incompletely evaluated on this exam IMPRESSION: 1.5 centimeter lesion T1 vertebral body. This does not have classic MRI characteristics of a hemangioma. It may represent a benign mass or neoplasm 6 x 2 millimeter area of increased signal within the spinal cord at the T2 level. This may represent myelomalacia or an acute process. It is recommended that the patient have limited MRI with contrast a nd axial sagittal T1 weighted sequences through this area to determine if there is abnormal enhanceme nt Left posterior-lateral disc osteophyte complex C7-T1 incompletely evaluated on this exam Small disc herniations at several levels thoracic spine Equivocal abnormal signal spinal cord C7 level on sagittal sequences which is incompletely evaluated on this exam
[2023-07-19 15:17] LABS: Anion Gap 5.7 mEq/L (5.0-15.0); Potassium 3.7 mEq/L (3.5-5.1)
--- NOTE | 2023-07-19 19:06 | RAD REPORT ---
EXAM DESCRIPTION: MRI - Brain Wo Cont - 07/19/2023 6:56 pm CLINICAL HISTORY: Headache COMPARISON: 2020 TECHNIQUE: Axial, sagittal, and coronal magnetic resonance images of the brain were obtained. FINDINGS: No significant abnormal signal within the brain Diffusion-weighted/ADC mapping does not reveal evidence of acute infarction. The ventricles are normal caliber. An extra-axial fluid collection is not noted. Mild to moderate signal left mastoids. Mild chronic ethmoid sinusitis IMPRESSION: No acute intracranial abnormality noted Mild to moderate signal left mastoids may indicate mastoiditis
--- NOTE | 2023-07-19 19:24 | RAD REPORT ---
EXAM DESCRIPTION: MRI - C Spine W/Wo Cont - 07/19/2023 6:55 pm CLINICAL HISTORY: Radiculopathy. Colon cancer COMPARISON: MRI thoracic spine July 19, 2023 and 2020 MRI cervical spine TECHNIQUE: Magnetic resonance imaging of the cervical spine was obtained. Sagittal and axial images completed. 18 cc MultiHance administered intravenously FINDINGS: No significant abnormality craniocervical junction C2-3 and C3-4 are unremarkable Mild posterior subluxation C4 on C5. Small central subligamentous disc herniation. Thecal sac 9 keaton meters Disc bulge and osteophytes C5-6. Thecal sac 8.5 millimeters. Mild to moderate narrowing right neural foramina Broad-based posterior disc osteophyte complex C6-7. Moderate narrowing left and moderate to marked na rrowing the right neural foramina. Thecal sac 8 millimeters. 6 x 1.5 millimeter (cc by AP) area of abnormal signal is present within the spinal cord at the C6-7/u pper aspect C7. No enhancement. This was present on the 2020 MRI cervical spine. 6 x 2 millimeter area of abnormal signal spinal cord T2 is without significant change from 202. It d oes not enhance Abnormal signal within the T1 vertebral body is without change from the 2020 MRI cervical spine IMPRESSION: Mild spondylosis C4-5, C5-6 and C6-7 Abnormal signal spinal cord C6-7/upper aspect C7 and T2 without significant change from 202 likely r epresenting myelomalacia. Abnormal signal the T1 vertebral body without significant change from 202 most likely a benign lesio n
--- NOTE | 2023-07-19 19:39 | EDPHYS ---
Physician Documentation [facility] – [place], [place] Name: Marian Mack Age: 43 yrs Sex: Female : 1980 Arrival Date: 07/19/2023 Time: 12:22 Bed Treatment Private MD: ED Physician Marcio Brown HPI: 07/18 14:35 This 43 yrs old Female presents to ER via Wheelchair with complaints of Back Pain. rn 14:35 The patient presents with pain that is acute, that is chronic. The symptoms are located rn in the low back, thoracic area and lumbar area. Onset: The symptoms/episode began/occurred 3 week(s) ago. Associated signs and symptoms: Pertinent positives: weakness, Pertinent negatives: abdominal pain, chest pain, fever, incontinence, urinary retention. Modifying factors: The patient symptoms are alleviated by the patient symptoms are aggravated by any movement. Severity of symptoms: At their worst the symptoms were moderate, in the emergency department the symptoms are unchanged. The patient has experienced similar episodes in the past. Patient reports known chronic back pain and has been following up with disability specialist as well as pain management. Patient reports over the last 3 weeks increase in lower back pain. No radiation. Associated with bilateral lower extremity weakness but no bowel or bladder incontinence or retention. No acute trauma to account for the increase in pain.. Historical: - Allergies: 12:39 NKA; hb - Home Meds: 12:39 Zofran Oral [Active]; Amitriptyline Oral [Active]; Cymbalta Oral [Active]; Doxycycline hb Oral [Active]; Doxycycline Oral [Active]; Protonix Oral [Active]; Xanax Oral [Active]; Lyrica Oral [Active]; Oxycodone HCl Oral [Active]; - PMHx: 12:39 Anxiety; cervical cancer; colon cancer; Depression; Diverticulitis; ulcerative colitis; hb - PSHx: 12:39 Cholecystectomy; hb - Immunization history:: Adult Immunizations up to date. - Social history:: Smoking status: . - Family history:: not pertinent. - Hospitalizations: : No recent hospitalization is reported. ROS: 14:35 Constitutional: Negative for fever, chills, and weight loss, Cardiovascular: Negative rn for chest pain, palpitations, and edema, Respiratory: Negative for shortness of breath, cough, wheezing, and pleuritic chest pain, Abdomen/GI: Negative for abdominal pain, nausea, vomiting, diarrhea, and constipation, Back: Positive for back pain : Negative for injury, bleeding, discharge, and swelling, MS/Extremity: Negative for injury and deformity, Skin: Negative for injury, rash, and discoloration, Neuro: Negative for headache, numbness, tingling, and seizure, Exam: 14:35 Constitutional: This is a well developed, well nourished patient who is awake, alert, rn appears uncomfortable, tearful and crying Head/Face: Normocephalic, atraumatic. Cardiovascular: Tachycardic, regular. Respiratory: No increased work of breathing, no retractions or nasal flaring. Abdomen/GI: Soft, non-tender Back: Midline lower thoracic and lumbar spinal pain. MS/ Extremity: Pulses equal, no cyanosis. Neurovascular intact. Full, normal range of motion. Equal circumference. Neuro: Awake and alert, GCS 15, oriented to person, place, time, and situation. Cranial nerves II-XII grossly intact. Motor strength 5/5 in all extremities. Sensory grossly intact. Cerebellar exam normal. Normal lower extremity reflexes present. Able to ambulate without assistance, albeit slowly Vital Signs: 12:36 BP 113 / 63; Pulse 125; Resp 18; Temp 98.7(TE); Pulse Ox 96% on R/A; Weight 79.83 kg; hb Height 5 ft. 9 in. ; Pain 9/10; 15:00 BP 106 / 74; Pulse 85; Resp 16; Pulse Ox 97% ; me1 15:00 BP 136 / 85; Pulse 78; Resp 16; Pulse Ox 98% on R/A; me1 15:17 Pain 7/10; me1 15:17 Pain 7/10; me1 16:13 Pain 8/10; me1 19:45 BP 125 / 80; Pulse 70; Resp 16; Pulse Ox 98% on R/A; Pain 10/10; me1 20:19 BP 119 / 85; Pulse 79; Resp 16; Pulse Ox 100% on R/A; Pain 9/10; nj1 12:36 Body Mass Index 25.99 (79.83 kg, 175.26 cm) hb 12:36 Pain Scale: Adult hb 15:17 Pain Scale: Adult me1 15:17 Pain Scale: Adult me1 16:13 Pain Scale: Adult me1 19:45 Pain Scale: Adult me1 20:19 Pain Scale: Adult nj1 MDM: 12:42 Patient medically screened. rn 17:54 Transition of care: After a detail discussion of the patient's case, care is rn transferred to Mike Montoya MD. 19:41 Differential diagnosis: Epidural or Perispinal Abcess Fatigue Fracture Ligament Injury dandre Osteoporosis ruptured disc, Scoliosis sprain, vertebral fracture. Data reviewed: vital signs, nurses notes, lab test result(s), radiologic studies, MRI. Consideration of Admission/Observation Escalation of care including admission/observation considered. I considered the following discharge prescriptions or medication management in the emergency department Medications were administered in the Emergency Department. See MAR. Independent interpretation of the following test(s) in the Emergency Department MRI: My interpretation is MRI C/T SPINE. Test considered but Not performed: EKG: NOT DONE, NOT NEEDED. Care significantly affected by the following chronic conditions: Cancer, ANXIETY, DEPRESSION, DIVERTICULITIS, UC. 07/18 12:48 Order name: CBC with Diff; Complete Time: 14:34 hb 07/18 12:48 Order name: Basic Metabolic Panel; Complete Time: 15:42 hb 07/18 12:48 Order name: Protime (+inr); Complete Time: 14:34 hb 07/18 12:48 Order name: Ptt, Activated; Complete Time: 14:34 hb 07/18 14:15 Order name: CBC Smear Scan; Complete Time: 14:34 EDMS 07/18 12:48 Order name: MRI Lumbar Spine wo Con; Complete Time: 14:34 hb 07/18 12:56 Order name: Thoracic Spine Wo Contr EDMS 07/18 18:00 Order name: MRI - Brain Wo Cont; Complete Time: 19:11 bd 07/18 18:55 Order name: C Spine W/Wo Cont EDMS 07/18 12:48 Order name: IV Start; Complete Time: 13:17 hb 07/18 13:41 Order name: Labs - recollect needed: recollect green top; Complete Time: 14:55 bd Administered Medications: 14:56 Drug: NS 0.9% IV 1000 ml IV at 1000 ml once Route: IV; Rate: 1000 ml; Site: left hand; me1 14:56 Drug: morphine IVP or IV 4 mg IVP once over 4 mins Route: IVP; Infused Over: 4 mins; me1 Site: left hand; 15:17 Follow up: Pain 7/10 Adult; Response: No adverse reaction me1 14:56 Drug: Ketorolac IVP 15 mg IVP once Route: IVP; Site: left hand; me1 15:17 Follow up: Pain 7/10 Adult; Response: No adverse reaction me1 15:20 Drug: fentaNYL (PF) IVP 50 mcg IVP once Route: IVP; Site: left hand; me1 16:13 Follow up: Pain 8/10 Adult; Response: No adverse reaction; Pain is unchanged, physician me1 notified 16:53 Drug: HYDROmorphone IVP 0.5 mg IVP once Route: IVP; Site: left hand; kb3 16:53 Drug: MethylPrednisoLONE IVP 125 mg IVP once Route: IVP; Site: left hand; kb3 19:42 Drug: Ondansetron IVP 4 mg IVP once; over 2 minutes Route: IVP; Site: left hand; nj1 20:25 Follow up: Response: No adverse reaction nj1 19:44 Drug: HYDROmorphone IVP 0.5 mg IVP once Route: IVP; Site: left hand; nj1 20:25 Follow up: Response: No adverse reaction; Pain is decreased nj1 Disposition Summary: 07/19/23 19:39 Discharge Ordered Notes: Location: Home dandre Problem: new dandre Symptoms: have improved dandre Condition: Stable dandre Diagnosis - Strain of muscle, fascia and tendon at neck level, initial encounter dandre - Strain of muscle and tendon of front wall of thorax dandre Followup: dandre - With: Private Physician - When: 2 - 3 days - Reason: Recheck today's complaints, Continuance of care, Re-evaluation by your physician Followup: dandre - With: Eduardo Veras MD - When: 2 - 3 days - Reason: Recheck today's complaints, Continuance of care, Re-evaluation by your physician Discharge Instructions: - Discharge Summary Sheet dandre - Muscle Strain dandre - Muscle Strain, [id number] danrde - Neck Contusion, [id number] dandre Forms: - Medication Reconciliation Form dandre - Thank You Letter dandre - Antibiotic Education dandre - Prescription Opioid Use dandre - Patient Portal Instructions dandre - Leadership Thank You Letter [facility] Prescriptions: - diclofenac sodium 50 mg Oral tablet, delayed release (enteric coated) - take 1 tablet ORAL route every 12 hours as needed for pain; 14 tablet; Refills: dandre 0, Product Selection Permitted - Medrol (Charbel) 4 mg Oral Tablets, Dose Pack - take 1 tablet ORAL route as directed - follow package instructions; 1 packet; dandre Refills: 0, Product Selection Permitted - Cyclobenzaprine 5 mg Oral Tablet - take 1 tablet ORAL route 3 times per day As needed; 15 tablet; Refills: 0, dandre Product Selection Permitted Signatures: Dispatcher [employer] EDMS Katerin Finch Corey, MD MD cha Nieto, Roman, MD MD rn Baxter, Heather RN RN Tracy Read RN RN kb3 Tammy Victoria RN RN nj1 Maritza Wise RN RN me1 Corrections: (The following items were deleted from the chart) 14:37 14:35 Constitutional: Negative for fever, chills, and weight loss, Cardiovascular: rn Negative for chest pain, palpitations, and edema, Respiratory: Negative for shortness of breath, cough, wheezing, and pleuritic chest pain, Abdomen/GI: Negative for abdominal pain, nausea, vomiting, diarrhea, and constipation, Back: Positive for back pain : Negative for injury, bleeding, discharge, and swelling, MS/Extremity: Negative for injury and deformity, Skin: Negative for injury, rash, and discoloration, Neuro: Negative for headache, weakness, numbness, tingling, and seizure, rn 18:55 15:09 C Spine W Cont ordered. EDMS EDMS
--- NOTE | 2023-07-19 19:39 | ER ---
Nurse's Notes [facility] Name: Marian Mack Age: 43 yrs Sex: Female : 1980 Arrival Date: 07/19/2023 Time: 12:22 Bed Treatment Private MD: Diagnosis: Strain of muscle, fascia and tendon at neck level, initial encounter;Strain of muscle and tendon of front wall of thorax Presentation: 07/18 12:36 Chief complaint: Chief complaint: Upper back pain 01/01 after changing tire yesterday. hb Coronavirus screen: At this time, the client does not indicate any symptoms associated with coronavirus-19. Ebola Screen: No symptoms or risks identified at this time. Initial Sepsis Screen: Does the patient meet any 2 criteria? HR > 90 bpm. No. Patient's initial sepsis screen is negative. Does the patient have a suspected source of infection? No. Patient's initial sepsis screen is negative. Risk Assessment: Do you want to hurt yourself or someone else? Patient reports no desire to harm self or others. Onset of symptoms was July 18, 2023. 12:36 Method Of Arrival: Wheelchair hb 12:36 Acuity: NOVA 3 hb Triage Assessment: 12:44 General: Appears in no apparent distress. Behavior is calm, cooperative. Pain: Pain hb currently is 9 out of 10 on a pain scale. Neuro: Level of Consciousness is awake, alert, obeys commands, Oriented to person, place, time, situation. Cardiovascular: Capillary refill < 3 seconds Patient's skin is warm and dry. Respiratory: Respiratory effort is even, unlabored, Respiratory pattern is regular, symmetrical. Musculoskeletal: Reports pain in back. Historical: - Allergies: 12:39 NKA; hb - Home Meds: 12:39 Zofran Oral [Active]; Amitriptyline Oral [Active]; Cymbalta Oral [Active]; Doxycycline hb Oral [Active]; Doxycycline Oral [Active]; Protonix Oral [Active]; Xanax Oral [Active]; Lyrica Oral [Active]; Oxycodone HCl Oral [Active]; - PMHx: 12:39 Anxiety; cervical cancer; colon cancer; Depression; Diverticulitis; ulcerative colitis; hb - PSHx: 12:39 Cholecystectomy; hb - Immunization history:: Adult Immunizations up to date. - Social history:: Smoking status: . - Family history:: not pertinent. - Hospitalizations: : No recent hospitalization is reported. Screenin:40 [facility] ED Fall Risk Assessment (Adult) History of falling in the last 3 months, nj1 including since admission No falls in past 3 months (0 pts) Confusion or Disorientation No (0 pts) Intoxicated or Sedated No (0 pts) Impaired Gait No (0 pts) Mobility Assist Device Used No (0 pt) Altered Elimination No (0 pt) Score/Fall Risk Level 0 - 2 = Low Risk Oriented to surroundings, Maintained a safe environment, Hourly rounding (assess needs \T\ fall precautionary measures) done. 19:40 Abuse screen: Denies threats or abuse. Denies injuries from another. Nutritional nj1 screening: No deficits noted. Tuberculosis screening: No symptoms or risk factors identified. Assessment: 19:40 General: Appears in no apparent distress. uncomfortable, Behavior is cooperative, nj1 crying. 19:40 Pain: Complains of pain in neck Pain currently is 10 out of 10 on a pain scale. Neuro: nj1 Level of Consciousness is awake, alert, obeys commands, Oriented to person, place, time, situation. Cardiovascular: Patient's skin is warm and dry. Respiratory: Airway is patent Respiratory effort is even, unlabored. 20:23 Reassessment: Patient appears in no apparent distress at this time. Patient is alert, nj1 oriented x 3, equal unlabored respirations, skin warm/dry/pink. Vital Signs: 12:36 BP 113 / 63; Pulse 125; Resp 18; Temp 98.7(TE); Pulse Ox 96% on R/A; Weight 79.83 kg; hb Height 5 ft. 9 in. ; Pain 9/10; 15:00 BP 106 / 74; Pulse 85; Resp 16; Pulse Ox 97% ; me1 15:00 BP 136 / 85; Pulse 78; Resp 16; Pulse Ox 98% on R/A; me1 15:17 Pain 7/10; me1 15:17 Pain 7/10; me1 16:13 Pain 8/10; me1 19:45 BP 125 / 80; Pulse 70; Resp 16; Pulse Ox 98% on R/A; Pain 10/10; me1 20:19 BP 119 / 85; Pulse 79; Resp 16; Pulse Ox 100% on R/A; Pain 9/10; nj1 12:36 Body Mass Index 25.99 (79.83 kg, 175.26 cm) hb 12:36 Pain Scale: Adult hb 15:17 Pain Scale: Adult me1 15:17 Pain Scale: Adult me1 16:13 Pain Scale: Adult me1 19:45 Pain Scale: Adult me1 20:19 Pain Scale: Adult nj1 ED Course: 12:24 Patient arrived in ED. rg4 12:39 Triage completed. hb 12:42 Marcio Brown MD is Attending Physician. rn 12:44 Arm band placed on. hb 13:17 Protime (+inr) Sent. bc6 13:17 Ptt, Activated Sent. bc6 13:17 Basic Metabolic Panel Sent. bc6 13:17 CBC with Diff Sent. bc6 13:17 Initial lab(s) drawn, by me, sent to lab. Inserted saline lock: 24 gauge in left hand, bc6 using aseptic technique. Blood collected. 14:02 MRI Lumbar Spine wo Con In Process Unspecified. EDMS 14:02 Thoracic Spine Wo Contr In Process Unspecified. EDMS 14:26 Yuly Murray, RN is Primary Nurse. kd3 15:00 Client placed on continuous cardiac and pulse oximetry monitoring. NIBP monitoring me1 applied. Pulse ox on. NIBP on. 18:55 C Spine W/Wo Cont In Process Unspecified. EDMS 18:56 MRI - Brain Wo Cont In Process Unspecified. EDMS 19:37 Eduardo Veras MD is Referral Physician. dandre 19:40 Patient has correct armband on for positive identification. Bed in low position. Call nj1 light in reach. Provided Education on: call light, fall precautions. 20:20 No provider procedures requiring assistance completed. IV discontinued, intact, nj1 bleeding controlled, Pressure dressing applied. Administered Medications: 14:56 Drug: NS 0.9% IV 1000 ml IV at 1000 ml once Route: IV; Rate: 1000 ml; Site: left hand; me1 14:56 Drug: morphine IVP or IV 4 mg IVP once over 4 mins Route: IVP; Infused Over: 4 mins; me1 Site: left hand; 15:17 Follow up: Pain 7/10 Adult; Response: No adverse reaction me1 14:56 Drug: Ketorolac IVP 15 mg IVP once Route: IVP; Site: left hand; me1 15:17 Follow up: Pain 7/10 Adult; Response: No adverse reaction me1 15:20 Drug: fentaNYL (PF) IVP 50 mcg IVP once Route: IVP; Site: left hand; me1 16:13 Follow up: Pain 8/10 Adult; Response: No adverse reaction; Pain is unchanged, physician me1 notified 16:53 Drug: HYDROmorphone IVP 0.5 mg IVP once Route: IVP; Site: left hand; kb3 16:53 Drug: MethylPrednisoLONE IVP 125 mg IVP once Route: IVP; Site: left hand; kb3 19:42 Drug: Ondansetron IVP 4 mg IVP once; over 2 minutes Route: IVP; Site: left hand; nj1 20:25 Follow up: Response: No adverse reaction nj1 19:44 Drug: HYDROmorphone IVP 0.5 mg IVP once Route: IVP; Site: left hand; nj1 20:25 Follow up: Response: No adverse reaction; Pain is decreased nj1 Medication: 20:25 VIS not applicable for this client. nj1 Outcome: 19:39 Discharge ordered by . dandre 20:24 Discharged to home ambulatory, nj1 20:24 Condition: stable 20:24 Discharge instructions given to patient, Instructed on discharge instructions, follow up and referral plans. medication usage, Demonstrated understanding of instructions, follow-up care, medications, Prescriptions given X 3, 20:25 Patient left the ED. nj1 Signatures: Dispatcher [employer] EDMike Isaacs MD MD cha Nieto, Roman, MD MD rn Baxter, Heather, WILBER RN Daphnie Mcginnis rg4 Yuly Murray RN RN kd3 Tracy Read RN RN kb3 Yue Raymundo bc6 Tammy Victoria RN RN nj1 Maritza Wise RN RN me1 Corrections: (The following items were deleted from the chart) 12:39 12:36 Onset of symptoms was July 19, 2023 hb hb 20:22 19:42 Ondansetron IVP 4 mg IVP in left hand me1 nj1 20:22 19:44 HYDROmorphone IVP 0.5 mg IVP in left hand [facility] nj1 20:25 20:19 BP 119 / 85; Pulse 79bpm; Resp 16bpm; Pulse Ox 100% RA; nj1 nj1
[2023-07-19 20:47] VITALS: BP 119/85; TEMP 98.7; O2SAT 100
== END ==
LOC: ER 12:22
DX: S16.1XXA Strain of muscle, fascia and tendon at neck level, initial encounter (principal); S29.011A Strain of muscle and tendon of front wall of thorax, initial encounter
CPT/HCPCS: 85025; 80048; 36415; 85610; 85730; 70551; 72146; 72148; 72156; A9577; J3010; J1170 ×2; J2930; J2405; J7030

== ENCOUNTER 2023-12-27 02:26 | Emergency (ER) | payer OTHER ==
[2023-12-27 04:12] LABS: Absolute Eosinophils 0.1 K/uL (0-0.5); Absolute Lymphocytes (CBC) 1.6 K/uL (0.7-4.9); Absolute Monocytes 0.7 K/uL (0.1-1.3); Absolute Neutrophil 5.6 K/uL (1.8-8.0); Basophils % 0.4 % (0-1.3); Eosinophils % 0.9 % (0-4.4); Hematocrit 34.6 % (36.0-45.0); Hemoglobin 11.3 g/dL (12.0-15.0); Lymphocytes % 19.8 % (15.3-44.8); MCH 29.2 pg (27.0-35.0); MCHC 32.6 g/dL (32.0-36.0); MCV 89.5 fL (80-100); MPV 8.8 fL (7.6-11.3); Monocytes % 8.2 % (3.3-12.3); Neutrophils % 70.7 % (41.7-73.7); Platelets 325 thou/uL (152-406); RBC Red Blood Cell Count 3.86 M/uL (3.86-4.86); Red Cell Distribution Width 20.8 % (12.1-15.2)
[2023-12-27 04:25] LABS: ALT/SGPT 35 U/L (13-56); AST/SGOT 29 U/L (15-37); Albumin 4.4 g/dL (3.4-5.0); Albumin/Globulin Ratio 1.3 (1.1-1.8); Alkaline Phosphatase 95 U/L (45-117); Anion Gap 10.8 mEq/L (5.0-15.0); BUN Blood Urea Nitrogen 12 mg/dL (7-18); Bicarbonate 25 mEq/L (21-32); Bilirubin Direct < 0.2 mg/dL (0-0.2); Bilirubin Indirect, Calculated 0.4 mg/dL (0.2-0.8); Bilirubin Total 0.6 mg/dL (0.2-1.0); Globulin 3.4 g/dL (2.3-3.5); Glomerular Filtration Rate 82 ml/min (=/>90); Glucose Level 107 mg/dL (74-106); Potassium 3.8 mEq/L (3.5-5.1); Protein, Total 7.8 g/dL (6.4-8.2); Sodium Level 141 mEq/L (136-145)
[2023-12-27 04:39] LABS: Anisocytosis 1+; Blood Morphology Comment NOTED (NOT SEEN); Ovalocytes 1+; Platelet Estimate ADEQ; White Blood Cell Scan OK (OK)
--- NOTE | 2023-12-27 04:40 | EDPHYS ---
Physician Documentation [facility] Name: Marian Mack Age: 43 yrs Sex: Female : 1980 Arrival Date: 12/27/2023 Time: 02:26 Bed 16 Private MD: ARLENE Physician Mike Montoya HPI: 12/26 03:10 This 43 yrs old Female presents to ER via Unassigned with complaints of ams dandre sp meth use. 03:10 substance abuse. The patient presents with confusion, trouble concentrating. Onset: The dandre symptoms/episode began/occurred today, yesterday. Possible causes: drug use, amphetamines. Associated signs and symptoms: Pertinent positives: lightheadedness, weakness. Current symptoms: In the emergency department the patient's symptoms are unchanged from the initial presentation. Patient's baseline: Neuro: alert and fully oriented. Severity of symptoms: At their worst the symptoms were mild in the emergency department the symptoms are unchanged. The patient has experienced similar episodes in the past, several times. 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 - Infectious Disease History:: Denies. - Family history:: not pertinent. - Social history:: Smoking status: Patient reports the use of cigarette tobacco products, smokes one-half pack cigarettes per day, Patient uses alcohol, occasionally. street drugs, Methamphetamine (Meth). ROS: 03:10 Constitutional: Negative for fever, chills, and weight loss, Eyes: Negative for injury, dandre pain, redness, and discharge, ENT: Negative for injury, pain, and discharge, Neck: Negative for injury, pain, and swelling, Cardiovascular: Negative for chest pain, palpitations, and edema, Respiratory: Negative for shortness of breath, cough, wheezing, and pleuritic chest pain, Abdomen/GI: Negative for abdominal pain, nausea, vomiting, diarrhea, and constipation, Back: Negative for injury and pain, : Negative for injury, bleeding, discharge, and swelling, MS/Extremity: Negative for injury and deformity, Skin: Negative for injury, rash, and discoloration, Neuro: Negative for headache, weakness, numbness, tingling, and seizure, Allergy/Immunology: Negative for hives, rash, and allergies, Endocrine: Negative for neck swelling, polydipsia, polyuria, polyphagia, and marked weight changes, Hematologic/Lymphatic: Negative for swollen nodes, abnormal bleeding, and unusual bruising, 03:10 Psych: Positive for anxiety, Exam: 03:10 Constitutional: This is a well developed, well nourished patient who is awake, alert, dandre and in no acute distress. Head/Face: Normocephalic, atraumatic. Eyes: Pupils equal round and reactive to light, extra-ocular motions intact. Lids and lashes normal. Conjunctiva and sclera are non-icteric and not injected. Cornea within normal limits. Periorbital areas with no swelling, redness, or edema. ENT: Nares patent. No nasal discharge, no septal abnormalities noted. Tympanic membranes are normal and external auditory canals are clear. Oropharynx with no redness, swelling, or masses, exudates, or evidence of obstruction, uvula midline. Mucous membranes moist. Neck: Trachea midline, no thyromegaly or masses palpated, and no cervical lymphadenopathy. Supple, full range of motion without nuchal rigidity, or vertebral point tenderness. No Meningismus. Chest/axilla: Normal chest wall appearance and motion. Nontender with no deformity. No lesions are appreciated. Cardiovascular: Regular rate and rhythm with a normal S1 and S2. No gallops, murmurs, or rubs. Normal PMI, no JVD. No pulse deficits. Respiratory: Lungs have equal breath sounds bilaterally, clear to auscultation and percussion. No rales, rhonchi or wheezes noted. No increased work of breathing, no retractions or nasal flaring. Abdomen/GI: Soft, non-tender, with normal bowel sounds. No distension or tympany. No guarding or rebound. No evidence of tenderness throughout. Back: No spinal tenderness. No costovertebral tenderness. Full range of motion. Skin: Warm, dry with normal turgor. Normal color with no rashes, no lesions, and no evidence of cellulitis. MS/ Extremity: Pulses equal, no cyanosis. Neurovascular intact. Full, normal range of motion. Neuro: Awake and alert, GCS 15, oriented to person, place, time, and situation. Cranial nerves II-XII grossly intact. Motor strength 5/5 in all extremities. Sensory grossly intact. Cerebellar exam normal. Normal gait. Psych: Awake, alert, with orientation to person, place and time. Behavior, mood, and affect are within normal limits. 03:10 ECG was reviewed by the Attending Physician. 03:58 ECG was reviewed by the Attending Physician. [facility] Vital Signs: 02:26 BP 114 / 81; Pulse 99; Resp 17 S; Temp 98.1(O); Pulse Ox 97% on R/A; Weight 77.56 kg lg3 (R); Height 5 ft. 6 in. (R); Pain 0/10; 05:05 BP 119 / 78; Pulse 91; Resp 16 S; Pulse Ox 99% on R/A; lg3 02:26 Body Mass Index 27.60 (77.56 kg, 167.64 cm) lg3 02:26 Pain Scale: Adult lg3 MDM: 02:55 Patient medically screened. dandre 03:59 Differential Diagnosis altered mental status, sepsis, flu. Differential Diagnosis: [facility] electrolyte abnormality, alcohol intoxication, hypoglycemia, overdose, TIA, UTI, volume depletion. Data reviewed: vital signs, nurses notes, lab test result(s), EKG. Consideration of Admission/Observation Escalation of care including admission/observation considered. I considered the following discharge prescriptions or medication management in the emergency department Medications were administered in the Emergency Department. See MAR. Independent interpretation of the following test(s) in the Emergency Department EKG: See my EKG interpretation above. Test considered but Not performed: CT: no ct head. Historians other than the Patient: EMS: ems / police. Care significantly affected by the following chronic conditions: uc, cervical cancer, diverticulitis, colon cancer. 12/26 02:55 Order name: Acetaminophen; Complete Time: 04:39 [facility] 12/26 02:55 Order name: Basic Metabolic Panel; Complete Time: 04:39 [facility] 12/26 02:55 Order name: CBC with Diff 12/26 02:55 Order name: ETOH Level; Complete Time: 04:39 dandre 12/26 02:55 Order name: Hepatic Function; Complete Time: 04:39 [facility] 12/26 02:55 Order name: Salicylate; Complete Time: 04:39 [facility] 12/26 04:16 Order name: CBC Smear Scan EDPA 12/26 02:55 Order name: EKG - Nurse/Tech; Complete Time: 03:49 [facility] 12/26 02:55 Order name: Labs collected and sent; Complete Time: 03:49 [facility] 12/26 02:55 Order name: Suicide Screening (Johnathon); Complete Time: 03:50 [facility] EC:58 Rate is 79 beats/min. Rhythm is regular. QRS [place] is Normal. CT interval is normal. QRS dandre interval is normal. QT interval is prolonged at 483 msec. No Q waves. T waves are Normal. No ST changes noted. Clinical impression: NSR w/ Non-specific ST/T Changes and No evidence of ischemia. Interpreted by me. Reviewed by me. Administered Medications: 04:52 Not Given (Patient Refused): ns 0.9% 1000 ml IV at 1 bolus Per protocol; 1000 mL bolus lg3 Disposition Summary: 12/27/23 04:39 Discharge Ordered Notes: Location: Home dandre Problem: new dandre Symptoms: have improved dander Condition: Stable dandre Diagnosis - Abuse of other non-psychoactive substances dandre Followup: dandre - With: Private Physician - When: 2 - 3 days - Reason: Recheck today's complaints, Continuance of care, Re-evaluation by your physician Followup: dandre - With: Janes Killian MD - When: 2 - 3 days - Reason: Recheck today's complaints, Re-evaluation by your physician Discharge Instructions: - Discharge Summary Sheet dandre - Finding Treatment for Addiction dandre - Amphetamines Use Disorder dandre - Substance Use Disorder dandre - Supporting Someone With an Addiction dandre - Methamphetamines Use Disorder dandre - Substance Use Disorder and Mental Illness dandre - Illegal Drug Use Information, Adult dandre - Recovering From Addiction dandre Forms: - Medication Reconciliation Form dandre - Antibiotic Education dandre - Prescription Opioid Use dandre - Patient Portal Instructions dandre - Leadership Thank You Letter dandre Signatures: Dispatcher [employer] Mike Lockwood MD MD cha Able, Lacie RN RN lg3 Arline Gibson rv1 Corrections: (The following items were deleted from the chart) 02:56 02:56 ACETAMINOPHEN+C.LAB.BRZ ordered. EDMS EDMS 02:56 02:56 BASIC METABOLIC PANEL+C.LAB.BRZ ordered. EDMS EDMS 02:56 02:56 CBC+H.LAB.BRZ ordered. EDMS EDMS 02:56 02:56 ETHANOL+C.LAB.BRZ ordered. EDMS EDMS 02:56 02:56 HEPATIC FUNCTION+C.LAB.BRZ ordered. EDMS EDMS 02:56 02:56 Test, Urine+UC.LAB.BRZ ordered. EDMS EDMS 02:56 02:56 SALICYLATE+C.LAB.BRZ ordered. EDMS EDMS 02:56 02:56 Urinalysis+U.LAB.BRZ ordered. EDMS EDMS 02:56 02:56 URINE DRUG SCREEN+UC.LAB.BRZ ordered. EDMS EDMS 04:26 02:56 PROTIME (+INR)+COAG.LAB.BRZ ordered. EDMS EDMS 04:26 02:56 PTT, ACTIVATED+COAG.LAB.BRZ ordered. EDMS EDMS 04:52 02:55 IV Saline Lock ordered. dandre lg3 04:52 04:14 Misc. Order ordered. rv1 lg3
--- NOTE | 2023-12-27 04:40 | ER ---
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 per [employer], pt was stating that she had glass all in her skin, needles buried in her arms, oil all over her body, and seeing people who were not present. denies SI/HI at this time. Coronavirus screen: Client denies travel out of the [place] in the last 14 days. At this time, the client does not indicate any symptoms associated with coronavirus-19. Ebola Screen: No symptoms or risks identified at this time. Initial Sepsis Screen: Does the patient meet any 2 criteria? No. Patient's initial sepsis screen is negative. Does the patient have a suspected source of infection? No. Patient's initial sepsis screen is negative. Risk Assessment: Do you want to hurt yourself or someone else? Patient reports no desire to harm self or others. Onset of symptoms is unknown. 02:26 Method Of Arrival: Law Enforcement: Dimitrios Che lg3 02:26 Acuity: NOVA 3 lg3 Triage Assessment: 03:39 General: Appears in no apparent distress. Behavior is cooperative, restless. Pain: lg3 Denies pain. EENT: No deficits noted. No signs and/or symptoms were reported regarding the EENT system. Neuro: Mcconnell Agitation-Sedation Scale (RASS): +1 Restless Level of Consciousness is awake, obeys commands, stuporous, Oriented to person, place. Cardiovascular: No deficits noted. Denies chest pain, shortness of breath, Capillary refill < 3 seconds Clubbing of nail beds is absent JVD is absent Patient's skin is warm and dry. Respiratory: No deficits noted. Airway is patent Respiratory effort is even, unlabored, Respiratory pattern is regular, symmetrical. GI: No deficits noted. No signs and/or symptoms were reported involving the gastrointestinal system. : No deficits noted. No signs and/or symptoms were reported regarding the genitourinary system. Derm: Skin is intact, Skin is dry, Skin is normal, Skin temperature is warm Bruising that is brown, green, yellow, on right arm and left arm. Musculoskeletal: No deficits noted. No signs and/or symptoms reported regarding the musculoskeletal system. Circulation, motion, and sensation intact. Range of motion: intact in all extremities. 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 - Infectious Disease History:: Denies. - Family history:: not pertinent. - Social history:: Smoking status: Patient reports the use of cigarette tobacco products, smokes one-half pack cigarettes per day, Patient uses alcohol, occasionally. street drugs, Methamphetamine (Meth). Screenin:45 [facility] ED Fall Risk Assessment (Adult) History of falling in the last 3 months, lg3 including since admission No falls in past 3 months (0 pts) Confusion or Disorientation Yes (5 pts) Intoxicated or Sedated Yes (3 pts) Impaired Gait Yes (1 pt) Mobility Assist Device Used No (0 pt) Altered Elimination No (0 pt) Score/Fall Risk Level 3 or more points = High Risk Oriented to surroundings, Maintained a safe environment, Educated pt \T\ family on fall prevention, incl call for assistance when getting out of bed, Assessed \T\ reinforced patient's understanding of fall precautions, Provided non-skid footwear. Abuse screen: Denies threats or abuse. Denies injuries from another. Nutritional screening: No deficits noted. Tuberculosis screening: No symptoms or risk factors identified. Assessment: 03:45 General: see triage assessment. lg3 04:57 Reassessment: Patient appears in no apparent distress at this time. No changes from lg3 previously documented assessment. Patient and/or family updated on plan of care and expected duration. Pain level reassessed. Patient is alert, oriented x 3, equal unlabored respirations, skin warm/dry/pink. Vital Signs: 02:26 BP 114 / 81; Pulse 99; Resp 17 S; Temp 98.1(O); Pulse Ox 97% on R/A; Weight 77.56 kg lg3 (R); Height 5 ft. 6 in. (R); Pain 0/10; 05:05 BP 119 / 78; Pulse 91; Resp 16 S; Pulse Ox 99% on R/A; lg3 02:26 Body Mass Index 27.60 (77.56 kg, 167.64 cm) lg3 02:26 Pain Scale: Adult lg3 ED Course: 02:53 Patient arrived in ED. lg3 02:55 Mike Montoya MD is Attending Physician. dandre 03:00 Yi Hanna, RN is Primary Nurse. lg3 03:39 Triage completed. lg3 03:39 Arm band placed on right wrist. lg3 03:45 Patient has correct armband on for positive identification. Placed in gown. Bed in low lg3 position. Call light in reach. Side rails up X 1. Client placed on continuous cardiac and pulse oximetry monitoring. NIBP monitoring applied. Door closed. Noise minimized. Warm blanket given. 03:45 Missed attempt(s): 22 gauge in left antecubital area. lg3 03:46 Missed attempt(s): 22 gauge in left forearm. lg3 04:39 Janes Killian MD is Referral Physician. dandre 05:05 No provider procedures requiring assistance completed. Patient did not have IV access lg3 during this emergency room visit. Administered Medications: 04:52 Not Given (Patient Refused): ns 0.9% 1000 ml IV at 1 bolus Per protocol; 1000 mL bolus lg3 Medication: 05:06 VIS not applicable for this client. lg3 Outcome: 04:39 Discharge ordered by . dandre 05:05 Discharged to home ambulatory, lg3 05:05 Condition: stable 05:05 Discharge instructions given to patient, Instructed on discharge instructions, follow up and referral plans. Demonstrated understanding of instructions, follow-up care, 05:06 Patient left the ED. lg3 Signatures: Mike Montoya MD MD cha Able, Lacie, RN RN lg3
[2023-12-27 05:16] VITALS: TEMP 98.1
[2023-12-27 05:17] VITALS: BP 119/78; O2SAT 99
--- NOTE | 2023-12-27 12:06 | EKG ---
Test Date: 2023-12-27 Test Time: 03:49:03 Automotive Parts Clerk: ARYAN MEASUREMENT RESULTS: Intervals: Rate: 79 CO: 132 QRSD: 112 QT: 422 QTc: 483 [place]: P: 68 CO: 132 QRS: 81 T: 58 INTERPRETIVE STATEMENTS: Normal sinus rhythm Prolonged QT Abnormal ECG Compared to ECG 08/12/2020 01:17:38 Prolonged QT interval now present Sinus bradycardia no longer present Incomplete right bundle-branch block no longer present Electronically Signed On 12-27-23 12:05:50 CDT by Say Clemente
== END 2023-12-27 05:06 | disposition home or self-care (01) ==
LOC: ER 02:26
DX: R42 Dizziness and giddiness (principal); F55.8 Abuse of other non-psychoactive substances; F17.210 Nicotine dependence, cigarettes, uncomplicated
CPT/HCPCS: 36415; 80048; 80076; 80143; 80179; 82077; 85025; 93005; 99283

== ENCOUNTER 2024-09-08 08:28 | Emergency (ER) | payer OTHER ==
[2024-09-08] MEDS ORDERED: ONDANSETRON 4 MG/2 ML VIAL ONE (09:00)
[2024-09-08] MEDS ORDERED: MORPHINE 4 MG/ML SYR ONE (09:00)
[2024-09-08] MEDS ORDERED: NA CHLORIDE 0.9% 1,000 ML ONE (09:00)
[2024-09-08 09:12] LABS: Absolute Basophils 0.1 K/uL (0-0.5); Absolute Eosinophils 0.3 K/uL (0-0.5); Absolute Lymphocytes (CBC) 2.8 K/uL (0.7-4.9); Absolute Monocytes 0.7 K/uL (0.1-1.3); Absolute Neutrophil 3.3 K/uL (1.8-8.0); Basophils % 1.3 % (0-1.3); Eosinophils % 3.7 % (0-4.4); Hematocrit 28.5 % (36.0-45.0); Hemoglobin 9.4 g/dL (12.0-15.0); Lymphocytes % 39.6 % (15.3-44.8); MCH 26.8 pg (27.0-35.0); MCHC 33.1 g/dL (32.0-36.0); Neutrophils % 45.4 % (41.7-73.7); Nucleated Red Blood Cells % 0.2 % (0-0); Platelets 400 thou/uL (152-406); RBC Red Blood Cell Count 3.51 M/uL (3.86-4.86); Red Cell Distribution Width 18.6 % (12.1-15.2)
[2024-09-08 09:34] LABS: Specific Gravity 1.006 (1.005-1.030)
[2024-09-08 09:44] LABS: Specific Gravity 1.006 (1.005-1.030); Urine Bilirubin Negative (Negative); Urine Blood Negative (Negative); Urine Clarity Turbid (Clear); Urine Color Light-Yellow (Yellow); Urine Glucose Negative (Negative); Urine Ketones Negative (Negative); Urine Nitrite 1+ (Negative); Urine Protein Negative (Negative); Urine Urobilinogen Normal mg/dL (0.2-1.0); Urine pH 7.5 (5.0-7.0)
[2024-09-08 09:45] LABS: Urine Bacteria >50 /HPF (<20); Urine Microscopic Reflex YN ORDER UMIC; Urine RBC <5 /HPF (None Seen)
[2024-09-08 09:46] LABS: Urine Culture Reflex Order REFLEXED; Urine Mucus Slight /HPF (None Seen)
[2024-09-08 10:01] LABS: Albumin 3.5 g/dL (3.4-5.0); Anion Gap 8.6 mEq/L (5.0-15.0); Bilirubin Total 0.2 mg/dL (0.2-1.0); Globulin 3.6 g/dL (2.3-3.5); Potassium 3.6 mEq/L (3.5-5.1); Protein, Total 7.1 g/dL (6.4-8.2)
--- NOTE | 2024-09-08 10:41 | RAD REPORT ---
EXAMINATION: Abdomen Pelvis W Contrast CLINICAL INDICATION: Female, 44 years old.ABD PAIN TECHNIQUE: CT abdomen and pelvis was performed, after the administration of IV contrast, [facility]. Axial, sagittal and coronal reconstructions were obtained. One or more of the following dose reduction techniques were used: Automated exposure control, adjustment of the mA and/o r kV according to patient size, and/or iterative reconstruction. Unless otherwise specified, incidental findings do not require dedicated imaging follow-up. [id number]. COMPARISON: 06/07/2021 FINDINGS: LOWER CHEST: No acute process identified.No significant pericardial effusion. UPPER GI: No significant abnormality. LIVER: No significant focal abnormality. GALLBLADDER/BILE DUCTS: Cholecystectomy. Mild extra-hepatic biliary ductal dilatation is likely relat ed to the post-cholecystectomy state. Consider correlating with LFT's.? PANCREAS: No mass, ductal dilation, or lion-pancreatic fluid. SPLEEN: Unremarkable. ADRENALS: No adrenal masses. KIDNEYS AND URETERS: No hydronephrosis.No suspicious renal mass.Nonobstructing renal calculi.No urete ral calculi. ABDOMINAL AORTA AND OTHER VESSELS: Mild atherosclerotic changes. PERITONEUM: Small volume of pelvic free fluid which is likely physiologic. LYMPH NODES: No pathologic lymphadenopathy. ABDOMINAL WALL: Small fat containing umbilical hernia. SMALL BOWEL/COLON: Small bowel has normal course and caliber. No colonic wall thickening or pericolon ic inflammatory changes.Appendix absent. Moderate formed stool burden. URINARY BLADDER: Underdistended but grossly unremarkable. REPRODUCTIVE ORGANS: No pathologic process. MUSCULOSKELETAL: No acute or suspicious osseous abnormality. ADDITIONAL FINDINGS: None. IMPRESSION: No acute findings within the abdomen or pelvis. Moderate colonic stool likely reflecting constipation .
--- NOTE | 2024-09-08 10:45 | EDPHYS ---
Physician Documentation [facility] Name: Marian Mack Age: 44 yrs Sex: Female : 1980 Arrival Date: 09/08/2024 Time: : Bed 17 Private MD: ED Physician Christian Walters HPI: 09/08 08:58 This 44 yrs old Female presents to ER via Wheelchair with complaints of Chest Pain, sp3 Breathing Difficulty, Abdominal Pain. 08:58 44-year-old female with history of colon cancer, ulcerative colitis, cervical cancer, sp3 diverticulitis, multiple bowel surgeries presents to the ED with chief complaint abdominal pain and constipation with last BM 3 days ago. She denies any chest pain, shortness of breath, fever, vomiting or any other signs or symptoms on ROS at this time.. Historical: - Allergies: 08:42 NKA; ll1 - PMHx: 08:42 Anxiety; colon cancer; ulcerative colitis; Depression; cervical cancer; Diverticulitis; ll1 - PSHx: 08:42 Appendectomy; Cholecystectomy; ll1 - Immunization history:: Adult Immunizations up to date. - Infectious Disease History:: Denies. - Social history:: Smoking status: Patient reports the use of cigarette tobacco products, smokes one pack cigarettes per day. ROS: 08:59 Constitutional: Negative for fever, chills, and weight loss, Eyes: Negative for injury, sp3 pain, redness, and discharge, ENT: Negative for injury, pain, and discharge, Neck: Negative for injury, pain, and swelling, Cardiovascular: Negative for chest pain, palpitations, and edema, Respiratory: Negative for shortness of breath, cough, wheezing, and pleuritic chest pain, Back: Negative for injury and pain, : Negative for injury, bleeding, discharge, and swelling, MS/Extremity: Negative for injury and deformity, Skin: Negative for injury, rash, and discoloration, Neuro: Negative for headache, weakness, numbness, tingling, and seizure, Psych: Negative for depression, anxiety, suicide ideation, homicidal ideation, and hallucinations, Allergy/Immunology: Negative for hives, rash, and allergies, Endocrine: Negative for neck swelling, polydipsia, polyuria, polyphagia, and marked weight changes, 08:59 All other systems are negative, Exam: 08:59 Constitutional: This is a well developed, well nourished patient who is awake, alert, sp3 and in no acute distress. Head/Face: Normocephalic, atraumatic. Eyes: Pupils equal round and reactive to light, extra-ocular motions intact. Lids and lashes normal. Conjunctiva and sclera are non-icteric and not injected. Cornea within normal limits. Periorbital areas with no swelling, redness, or edema. Neck: Trachea midline, no thyromegaly or masses palpated, and no cervical lymphadenopathy. Supple, full range of motion without nuchal rigidity, or vertebral point tenderness. No Meningismus. Chest/axilla: Normal chest wall appearance and motion. Nontender with no deformity. No lesions are appreciated. Cardiovascular: Regular rate and rhythm with a normal S1 and S2. No gallops, murmurs, or rubs. Normal PMI, no JVD. No pulse deficits. Respiratory: Lungs have equal breath sounds bilaterally, clear to auscultation and percussion. No rales, rhonchi or wheezes noted. No increased work of breathing, no retractions or nasal flaring. Back: No spinal tenderness. No costovertebral tenderness. Full range of motion. Skin: Warm, dry with normal turgor. Normal color with no rashes, no lesions, and no evidence of cellulitis. MS/ Extremity: Pulses equal, no cyanosis. Neurovascular intact. Full, normal range of motion. Neuro: Awake and alert, GCS 15, oriented to person, place, time, and situation. Cranial nerves II-XII grossly intact. Motor strength 5/5 in all extremities. Sensory grossly intact. Cerebellar exam normal. Normal gait. Psych: Awake, alert, with orientation to person, place and time. Behavior, mood, and affect are within normal limits. 08:59 Abdomen/GI: Patient has pain on palpation on the epigastric region and left side of her abdomen. No peritoneal signs, rebound or guarding noted., Vital Signs: 09:06 BP 117 / 77; Pulse 72; Resp 14; Temp 97.1(TE); Pulse Ox 95% on R/A; Weight 90.72 kg; nh2 Height 5 ft. 9 in. ; 10:49 BP 102 / 58; Pulse 62; Resp 18; Pulse Ox 96% on R/A; mb9 09:06 Body Mass Index 29.54 (90.72 kg, 175.26 cm) nh2 MDM: 08:43 Medical Screening Exam initiated sp3 08:59 Data reviewed: vital signs, nurses notes, old medical records, lab test result(s), sp3 radiologic studies. ED course: 44-year-old female with PMH above now with abdominal pain. Differential diagnosis includes constipation, bowel obstruction, ileus, other colitis, other bowel pathology, adhesions, among others. I am not highly suspicious of UTI/pyelonephritis spectrum or kidney stone or vascular pathology. Workup will include general labs, UA and CT scan of the abdomen pelvis with IV contrast to elucidate differential. Disposition pending workup and patient course. Morphine and Zofran as needed.. 10:43 ED course: Full workup negative except for UA demonstrating UTI. Will place patient on sp3 antibiotics and pain medicine and discharged home.. 09/08 08:49 Order name: CBC with Diff sp3 09/08 08:49 Order name: CMP; Complete Time: 10:43 sp3 09/08 08:49 Order name: Lipase; Complete Time: 10:43 sp3 09/08 08:49 Order name: UA Rfx August Cult if indicated; Complete Time: 10:43 sp3 09/08 08:49 Order name: Test, Urine; Complete Time: 10:43 sp3 09/08 09:30 Order name: CBC Smear Scan EDNM 09/08 09:50 Order name: Urine Culture EDNM 09/08 08:49 Order name: CT Abd/Pelvis - IV Contrast Only; Complete Time: 10:43 sp3 09/08 08:49 Order name: IV Saline Lock; Complete Time: 09:33 sp3 09/08 08:49 Order name: Labs collected and sent; Complete Time: 09:33 sp3 09/08 09:16 Order name: Labs - recollect needed: recollect green top/ hemolyzed per Ty in the lab; eb Complete Time: 09:33 Administered Medications: 09:32 Drug: Ondansetron IVP 4 mg IVP once; over 2 minutes Route: IVP; Site: right antecubital;mb9 10:50 Follow up: Response: No adverse reaction mb9 09:39 Drug: morphine IVP or IV 4 mg IVP once over 4 mins Route: IVP; Infused Over: 4 mins; mb9 Site: right antecubital; 10:50 Follow up: Response: No adverse reaction mb9 09:39 Drug: NS 0.9% IV 1000 ml IV at 1 bolus Per protocol; to be given as a bolus over 60 mb9 minutes Route: IV; Rate: 1 bolus; Site: right antecubital; 10:50 Follow up: Response: No adverse reaction; IV Status: Completed infusion mb9 Disposition Summary: 09/08/24 10:44 Discharge Ordered Notes: Location: Home sp3 Condition: Stable sp3 Diagnosis - UTI, abdominal pain sp3 Followup: sp3 - With: Private Physician - When: Upon discharge from the Emergency Department - Reason: Continuance of care Discharge Instructions: - Discharge Summary Sheet sp3 - Urinary Tract Infection, Adult sp3 Forms: - Medication Reconciliation Form sp3 - Antibiotic Education sp3 - Prescription Opioid Use sp3 - Patient Portal Instructions sp3 - Leadership Thank You Letter sp3 Prescriptions: - Tramadol 50 mg Oral Tablet - take 1 tablet ORAL route every 8 hours as needed; 12 tablet; Refills: 0, sp3 Product Selection Permitted - Bactrim DS 800-160 mg Oral Tablet - take 1 tablet ORAL route every 12 hours for 7 days; 14 tablet; Refills: 0, sp3 Product Selection Permitted Signatures: Dispatcher [employer] EDNiki Monte Lynsay RN RN ll1 Christian Walters MD MD sp3 Audrey Jeffries RN RN mb9 Corrections: (The following items were deleted from the chart) 08:49 08:49 CBC+H.LAB.BRZ ordered. EDMS EDMS 08:49 08:49 COMPREHENSIVE METABOLIC PANEL+C.LAB.BRZ ordered. EDMS EDMS 08:49 08:49 LIPASE+C.LAB.BRZ ordered. EDMS EDMS 08:49 08:49 UA Rfx August Cult if indicated+U.LAB.BRZ ordered. EDMS EDMS 08:49 08:49 Test, Urine+UC.LAB.BRZ ordered. EDMS EDMS 08:50 08:50 Abdomen Pelvis W Con+CT.RAD.BRZ ordered. EDMS EDMS
--- NOTE | 2024-09-08 10:45 | ER ---
Nurse's Notes [facility] Name: Marian Mack Age: 44 yrs Sex: Female : 1980 Arrival Date: 09/08/2024 Time: 08:28 Bed 17 Private MD: Diagnosis: UTI, abdominal pain Presentation: 09/08 08:52 Chief complaint: Patient states: Abdominal pain, CP, SOB that's gotten worse for the ll1 past 2 days. Coronavirus screen: Client denies travel out of the [place] in the last 14 days. At this time, the client does not indicate any symptoms associated with coronavirus-19. Ebola Screen: Patient denies travel to an Ebola-affected area in the 21 days before illness onset. Initial Sepsis Screen: Does the patient meet any 2 criteria? No. Patient's initial sepsis screen is negative. Does the patient have a suspected source of infection? No. Patient's initial sepsis screen is negative. Risk Assessment: Do you want to hurt yourself or someone else? Patient reports no desire to harm self or others. 08:52 Method Of Arrival: Wheelchair ll1 08:52 Acuity: NOVA 3 ll1 09:07 Onset of symptoms was 2024. mb9 Historical: - Allergies: 08:42 NKA; ll1 - PMHx: 08:42 Anxiety; colon cancer; ulcerative colitis; Depression; cervical cancer; Diverticulitis; ll1 - PSHx: 08:42 Appendectomy; Cholecystectomy; ll1 - Immunization history:: Adult Immunizations up to date. - Infectious Disease History:: Denies. - Social history:: Smoking status: Patient reports the use of cigarette tobacco products, smokes one pack cigarettes per day. Screenin:08 [facility] ED Fall Risk Assessment (Adult) History of falling in the last 3 months, mb9 including since admission No falls in past 3 months (0 pts) Confusion or Disorientation No (0 pts) Intoxicated or Sedated No (0 pts) Impaired Gait No (0 pts) Mobility Assist Device Used No (0 pt) Altered Elimination No (0 pt) Score/Fall Risk Level 0 - 2 = Low Risk Oriented to surroundings, Maintained a safe environment, Educated pt \T\ family on fall prevention, incl call for assistance when getting out of bed. Abuse screen: Denies threats or abuse. Nutritional screening: No deficits noted. Tuberculosis screening: No symptoms or risk factors identified. Assessment: 09:08 General: Appears uncomfortable, Behavior is cooperative. Pain: Complains of pain in mb9 back, chest and abdomen Pain does not radiate. Pain currently is 10 out of 10 on a pain scale. Quality of pain is described as throbbing, Pain began 2-3 days ago. Is intermittent. Neuro: Mcconnell Agitation-Sedation Scale (RASS): 0 - Alert and Calm Level of Consciousness is awake, alert, obeys commands, Oriented to person, place, time, situation, Appropriate for age. Cardiovascular: Heart tones S1 S2 present Patient's skin is warm and dry. Cardiovascular: Reports chest pain, shortness of breath. Respiratory: Airway is patent Respiratory effort is even, unlabored, Respiratory pattern is regular, symmetrical, Breath sounds are clear bilaterally. GI: Abdomen is round non-distended, Bowel sounds present X 4 quads. Abd is soft and non tender X 4 quads. Reports constipation. : No signs and/or symptoms were reported regarding the genitourinary system. EENT: No signs and/or symptoms were reported regarding the EENT system. Derm: Skin is pink, warm \T\ dry. Musculoskeletal: Range of motion: intact in all extremities. 10:49 Reassessment: No changes from previously documented assessment. Patient and/or family mb9 updated on plan of care and expected duration. Pain level reassessed. Patient is alert, oriented x 3, equal unlabored respirations, skin warm/dry/pink. Vital Signs: 09:06 BP 117 / 77; Pulse 72; Resp 14; Temp 97.1(TE); Pulse Ox 95% on R/A; Weight 90.72 kg; nh2 Height 5 ft. 9 in. ; 10:49 BP 102 / 58; Pulse 62; Resp 18; Pulse Ox 96% on R/A; mb9 09:06 Body Mass Index 29.54 (90.72 kg, 175.26 cm) nh2 ED Course: 08:33 Patient arrived in ED. sj2 08:41 Arm band placed on Patient placed in an exam room, on a stretcher. ll1 08:42 Christian Walters MD is Attending Physician. sp3 08:53 Triage completed. ll1 09:07 Audrey Jeffries RN is Primary Nurse. mb9 09:08 Missed attempt(s): 22 gauge in left forearm. Bleeding controlled, band aid applied, mb9 catheter tip intact. 09:09 Placed in gown. Bed in low position. Call light in reach. Side rails up X 1. Provided mb9 Education on: press call light if needing anything. Client placed on continuous cardiac and pulse oximetry monitoring. NIBP monitoring applied. anesthesiologists' assistant on. 09:10 No provider procedures requiring assistance completed. mb9 09:26 Missed attempt(s): 20 gauge in right antecubital area. Bleeding controlled, band aid mb9 applied, catheter tip intact. 09:45 Accessed peripheral vein via ultrasound, utilizing dynamic ultrasound technique using mb9 ,sterile technique, per hospital protocol. Clean \T\ dry. Dressing intact. Good blood return. Flushes easily. 10:32 CT Abd/Pelvis - IV Contrast Only In Process Unspecified. EDMS 11:01 IV discontinued, intact, bleeding controlled, No redness/swelling at site. Pressure mb9 dressing applied. Administered Medications: 09:32 Drug: Ondansetron IVP 4 mg IVP once; over 2 minutes Route: IVP; Site: right antecubital;mb9 10:50 Follow up: Response: No adverse reaction mb9 09:39 Drug: morphine IVP or IV 4 mg IVP once over 4 mins Route: IVP; Infused Over: 4 mins; mb9 Site: right antecubital; 10:50 Follow up: Response: No adverse reaction mb9 09:39 Drug: NS 0.9% IV 1000 ml IV at 1 bolus Per protocol; to be given as a bolus over 60 mb9 minutes Route: IV; Rate: 1 bolus; Site: right antecubital; 10:50 Follow up: Response: No adverse reaction; IV Status: Completed infusion mb9 Medication: 09:10 VIS not applicable for this client. mb9 Outcome: 10:44 Discharge ordered by . sp3 11:01 Discharged to home ambulatory, with family, mb9 11:01 Condition: stable 11:01 Discharge instructions given to patient, family, Instructed on discharge instructions, follow up and referral plans. Demonstrated understanding of instructions, follow-up care, medications, Prescriptions given X 2, 11:01 Patient left the ED. mb9 Signatures: Dispatcher [employer] EDGabe Gage RN RN ll1 Christian Walters MD MD sp3 Audrey Jeffries RN RN mb9 Patric Walsh Jr [facility] Danya Barrios 2 Corrections: (The following items were deleted from the chart) 08:52 Chief complaint: Patient states: Abdominal pain, CP, SOB ll1 mb9
[2024-09-08 10:52] LABS: Blood Morphology Comment NOTED (NOT SEEN); Hypochromasia 1+; Platelet Estimate ADEQ; White Blood Cell Scan OK (OK)
[2024-09-08 11:07] VITALS: TEMP 97.1
[2024-09-08 11:08] VITALS: BP 102/58; O2SAT 96
== END 2024-09-08 11:01 | disposition home or self-care (01) ==
LOC: ER 08:28
DX: N39.0 Urinary tract infection, site not specified (principal); F17.210 Nicotine dependence, cigarettes, uncomplicated; Z85.038 Personal history of other malignant neoplasm of large intestine; Z85.41 Personal history of malignant neoplasm of cervix uteri
CPT/HCPCS: 96361; 93005; 87088; 85025; 81001; 87086; 36415; 81025; 83690; 80053; 74177; 96375; 96374; 99285; Q9967; J2405; J7030; 87077; 87186